=== PATIENT | female | born 1995 | race Caucasian/White ===

== ENCOUNTER 2017-09-08 07:14 | Emergency (ER) | payer SELFPAY ==
[2017-09-08 07:16] VITALS: BP 135/80; PULSE 83; RESP 16; TEMP 36.6; O2SAT 99; BMI 44.6
--- NOTE | 2017-09-08 07:31 | ED.VISSUMM ---
- ER Visit Summary Date of Service: 09/08/17 Chief Complaint: Left ankle injury History of Present Illness: The patient is a 22 F presenting with left ankle injury. 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 She fell to the ground. She did not hit her head or lose consciousness. She complains of left ankle pain. Denies other complaints. She has history of previous surgery on her left ankle. Physical Examination: Vitals are stable. Patient is afebrile. Alert no acute distress. HEENT exam is unremarkable. Neck is nontender Lungs are clear and equal bilaterally. Heart is regular rate and rhythm. Extremities left lateral ankle swelling and tenderness, no proximal fibular tenderness, mild lateral foot tenderness. Normal pulse. Skin is warm and dry. No focal neurologic deficit. Remainder of exam is unremarkable. Emergency Department Course and Treatment: She was given ice, Motrin. X-ray left ankle and foot show soft tissue swelling with no fracture. She is given an Aircast and crutches. She is advised to ice and elevate. Advised use NSAIDs for pain. Advised return to ED if worsening complaints. Disposition: Discharge home Impression: Left ankle sprain This note was generated with [employer] dictation software. It may contain incorrect words, spelling, and punctuation that were not noted in review of the chart prior to signing ED Disposition - Plan for ED Patient: Chief Complaint: Lower Extremity Injury
--- NOTE | 2017-09-08 07:33 | RAD_ITS ---
STUDY: X-RAY - LEFT ANKLE REASON FOR EXAM: Female, 22 years old. Pain status post fall. TECHNIQUE: 3 view(s) of the ankle. COMPARISON: None. FINDINGS: Osseous alignments appear anatomic without fracture lucency or cortical step-off. There is nonspecific lateral soft tissue swelling. There is a small well-corticated spur at the Achilles insertion site on the calcaneus. RAD/Ankle min 3 Views IMPRESSION: No evident acute osseous abnormality. Nonspecific lateral soft tissue swelling/edema. Degenerative calcaneal spur. Electronically Signed: Deion Sheppard MD at 8:08 EDT , Service support ,
--- NOTE | 2017-09-08 07:41 | RAD_ITS ---
STUDY: X-RAY - LEFT FOOT CLINICAL: Female, 22 years old. Pain status post fall. TECHNIQUE: 3 view(s) of the foot. COMPARISON: None. FINDINGS: Normal talus, calcaneus, and tarsal bones. Normal visualized subtalar, talonavicular, calcaneocuboid, tarsal and tarsometatarsal articulations. Normal metatarsi. Normal metatarsophalangeal joint of the great toe. Normal tibial and fibular sesamoid bones. Normal interphalangeal joint of the great toe. Normal phalanges of the great toe. Normal second through fifth metatarsophalangeal joints. Normal interphalangeal joints and phalanges of the lesser toes. The soft tissue structures are unremarkable. RAD/Foot min 3 Views IMPRESSION: Normal x-ray examination of the foot. Electronically Signed: Deion Sheppard MD at 8:10 EDT , Service support ,
[2017-09-08] MEDS: Ibuprofen 600 MG Tablet PO (08:18)
[2017-09-08 08:22] VITALS: PULSE 97; RESP 15; O2SAT 100
--- NOTE | 2017-09-08 08:27 | ED.DEP ---
ED Disposition - Plan for ED Patient: Chief Complaint: Lower Extremity Injury Instructions: ED Sprain Ankle W X Ray Referrals: Care Physician,No Primary [Primary Care Provider] -
== END 2017-09-08 08:44 | disposition home or self-care (01) ==
LOC: ED 07:34
PROVIDERS: Emergency Provider Emergency Medicine
DX: S93.402A Sprain of unspecified ligament of left ankle, initial encounter (principal); Z72.0 Tobacco use; X50.1XXA Overexertion from prolonged static or awkward postures, initial encounter; Y93.01 Activity, walking, marching and hiking; Y92.480 Sidewalk as the place of occurrence of the external cause; Y99.0 Civilian activity done for income or pay
CPT/HCPCS: 73610; 73630; 99284

== ENCOUNTER 2017-11-16 22:19 | Emergency (ER) | payer SELFPAY ==
[2017-11-16 22:21] VITALS: BP 112/63; PULSE 85; RESP 16; TEMP 37.2; O2SAT 99; BMI 44.5
--- NOTE | 2017-11-16 23:18 | ED.VISSUMM ---
- ER Visit Summary Date of Service: 11/16/17 Chief Complaint: Subjective fever and body aches. History of Present Illness: The patient is a 22 F this morning awoke with some nasal congestion and mild sore throat. Body aches and subjective fever. No nausea, vomiting or diarrhea. No dysuria. No chest pain or shortness of breath. Physical Examination: Well-appearing young female. Vital signs are stable and afebrile. Pulse ox 99% on room air no signs of hypoxia. The patient does not look septic or toxic. Or in any distress. She is well-hydrated. H EENT exam normal TMs normal. Posterior pharynx moist pink no erythema or exudate. Prior tonsillectomy. Neck nontender no lymphadenopathy. No meningismus. Able to touch chin to chest. Lungs clear to auscultation bilaterally. Heart regular rate and rhythm no murmur. Abdomen soft nontender. Normal bowel sounds. Moving all 4 extremities. Back exam nontender. Skin no rash. Neurologically awake alert without focal motor deficits. Patient's exam is completely benign. Test Results: None Emergency Department Course and Treatment: History and exam are consistent with a viral syndrome. Treatment Plan: Plenty of fluids and rest. Tylenol Motrin as needed. Return if worse. Disposition: Discharge Impression: Acute viral syndrome This note was generated with [employer] dictation software. It may contain incorrect words, spelling, and punctuation that were not noted in review of the chart prior to signing ED Disposition - Plan for ED Patient: Chief Complaint: Cold Sx Referrals: Care Physician,No Primary [Primary Care Provider] -
--- NOTE | 2017-11-16 23:20 | ED.DEP ---
ED Disposition - Plan for ED Patient: Disposition: Home or Assisted Living Chief Complaint: Cold Sx Instructions: ED Viral Syndrome Referrals: Care Physician,No Primary [Primary Care Provider] - As Needed Additional Instructions: Plenty of fluids and rest. Tylenol and/or Motrin for fever and body aches. Return if feeling worse.
== END 2017-11-16 23:24 | disposition home or self-care (01) ==
LOC: ED 23:23
PROVIDERS: Emergency Provider Emergency Medicine
DX: B34.9 Viral infection, unspecified (principal); Z72.0 Tobacco use
CPT/HCPCS: 99282

== ENCOUNTER 2018-01-11 23:13 | Emergency (ER) | payer SELFPAY ==
[2018-01-11 23:13] VITALS: BP 125/70; PULSE 100; RESP 18; TEMP 36.8; O2SAT 97; BMI 43.8
--- NOTE | 2018-01-11 23:44 | ED.DCSUM_ITS ---
- ER Visit Summary Date of Service: 01/11/18 Chief Complaint: [] Esophageal irritation History of Present Illness: The patient is a 22 F [] patient stated she has had esophageal irritation for last couple weeks when she swallows in her upper chest she feels discomfort. He feels like a burning tightness sensation. He does not really have a sore throat. She tried Benadryl with no relief. No history of esophagitis. No recent pills got stuck. Food got stuck. Physical Examination: [] Vital signs reviewed General: Well-nourished well-developed Head: Normocephalic atraumatic Eyes: Pupils equal round and reactive to light extraocular movements intact ENT: TMs clear no hemotympanum no trauma throat exam normal Neck: Nontender full range of motion Cardiovascular: Regular rate rhythm no murmurs normal S1-S2 Respiratory: No distress clear to auscultation bilaterally chest nontender Abdomen: Soft nontender nondistended normal bowel sounds no masses Back: Nontender no CVA tenderness Extremities: Nontender active range of motion ?4 extremities no trauma Skin: Normal color no trauma Neuro alert oriented cranial nerves II through XII intact normal strength sensation reflexes Test Results: [] Emergency Department Course and Treatment: [] At this time I think the patient likely has a esophagitis. Will be started on Pepcid will try this with her first dose here. She will also use [id number] and follow-up as an outpatient. I do not think she has a foreign body. Treatment Plan: [] Disposition: [] Impression: [] Esophagitis This note was generated with [employer] dictation software. It may contain incorrect words, spelling, and punctuation that were not noted in review of the chart prior to signing ED Disposition - Plan for ED Patient: Chief Complaint: Sore Throat Referrals: Care Physician,No Primary [Primary Care Provider] -
--- NOTE | 2018-01-11 23:44 | ED.DEP ---
ED Disposition - Plan for ED Patient: Disposition: Home or Assisted Living Chief Complaint: Sore Throat Instructions: Esophagitis Prescriptions: Famotidine [Pepcid] 20 mg PO BID #28 tab Referrals: Care Physician,No Primary [Primary Care Provider] - Orlando Gross DO [NON CLINICAL AFFILIATE] -
[2018-01-11] MEDS: Famotidine 20 MG Tablet PO (23:50)
[2018-01-11 23:52] VITALS: BP 124/70; PULSE 81; RESP 16; O2SAT 98
== END 2018-01-11 23:53 | disposition home or self-care (01) ==
LOC: ED 23:49
PROVIDERS: Emergency Provider Emergency Medicine
DX: K20.9 Esophagitis, unspecified (principal); E66.9 Obesity, unspecified
CPT/HCPCS: 99283

== ENCOUNTER 2018-09-17 17:42 | Emergency (ER) | payer SELFPAY ==
[2018-09-17 17:44] VITALS: BP 136/68; PULSE 89; RESP 16; TEMP 36.1; O2SAT 100; BMI 43.1
--- NOTE | 2018-09-17 18:04 | CT_ITS ---
STUDY: CT SOFT TISSUE NECK WITH CONTRAST REASON FOR EXAM: Female, 23 years old. Difficulty swallowing RADIATION DOSAGE (If Supplied By Facility): CTDIvol = ( 20.70 ) mGy, DLP = ( 625.33 ) mGycm TECHNIQUE: The patient was scanned in a multi-detector CT scanner. High resolution transaxial imaging was performed following intravenous administration of 100ML IV Isovue 300. Sagittal and coronal images were reconstructed. Individualized dose optimization techniques were used for this CT. COMPARISON: None. FINDINGS: Normal bilateral parotid glands. Normal bilateral transit specialist spaces. Normal bilateral parapharyngeal spaces. Normal bilateral carotid spaces. Normal bilateral sublingual and submandibular glands and spaces. Normal visualized nasopharynx. Normal retropharyngeal space. Normal perivertebral space. Normal visualized bilateral faucial tonsils. The visualized tongue, tongue base and oropharynx are normal. The visualized cervical lymph nodes (levels I-) are within normal size limits, and maintain normal morphology. There is no demonstrated solid or cystic mass lesion. There is no abnormal contrast enhancement. Normal epiglottis, bilateral vallecula and hypopharynx. The pre-epiglottic and paraglottic adipose spaces are normal. Normal visualized bilateral piriform sinuses, aryepiglottic folds, vocal cords, and arytenoid-cricoid articulations. Normal subglottic trachea. Normal bilateral lobes of the thyroid gland. Normal visualized pulmonary apices. Normal visualized paranasal sinuses. Normal visualized cervical spine. CT/Soft Tissue Neck WITH Contrast IMPRESSION: No CT evidence of acute neck pathology. Electronically Signed: Manpreet Angulo MD at 19:17 EDT Tel , Service support ,
[2018-09-17] MEDS: 0.9% Normal Saline 1,000 ML 1000 ML IV (18:28)
[2018-09-17 18:41] LABS: Absolute Lymphocyte Count 2.65 X10^3/ul (0.83-4.51); Absolute Neutrophil Count 9.6 X10^3/uL (2.0-7.7); Basophil# 0.01 X10^3/uL; Basophil% 0.1 % (0-1); Eosinophil# 0.16 X10^3/uL; Eosinophils% 1.2 % (0-5); Hemoglobin 12.9 g/dl (12.0-15.0); Lymphocyte # 2.65 X10^3/ul (4.0); Mean Corp Hgb Conc 33.1 g/gl (32-36); Mean Corpuscular Hgb 27.3 pg (27.0-32.0); Mean Corpuscular Volume 82.5 fL (81-99); Mean Platelet Vol. 9.1 fl (6.2-12.0); Monocyte# 0.78 X10^3/uL; Monocyte% 5.9 % (0-10); Neutrophil % 72.6 % (47-70); Platelet Count 248 K/mm3 (150-450); RBC Distribution Width CV 13.4 % (11.6-14.6); RBC Distribution Width SD 40.5 fl (35.1-43.9); Red Blood Count 4.73 M/mm3 (4.2-5.4); White Blood Count 13.2 K/mm3 (4.4-11.0)
[2018-09-17 18:42] LABS: POSITIVE COUNT NO; POSITIVE DIFFERENTIAL NO; POSITIVE MORPHOLOGY NO
[2018-09-17 18:53] LABS: Anion Gap 4 (5-15); BUN 12 mg/dL (7-18); Calcium,Total 8.6 mg/dL (8.5-10.1); Chloride 106 mmol/L (98-107); Creatinine, Serum 0.75 mg/dL (0.55-1.02); EST Glomerular Filtration Rate 101 mL/min (>60); Est Glom Filt Rate - Afr Amer 122 mL/min (>60); Estimated Creatinine Clearance 113.45 ml/min; Glucose 87 mg/dL (74-106); Potassium 3.7 mmol/L (3.5-5.1); Sodium Level 137 mmol/L (136-145)
--- NOTE | 2018-09-17 21:11 | ED.VISSUMM ---
- ER Visit Summary Date of Service: 09/17/18 Chief Complaint: Sore throat and ear pain History of Present Illness: The patient is a 23 F who presents with sore throat and ear pain that began yesterday. Patient states her pain is worse with any swallowing. Patient describes her pain as sharp. Patient states her right ear is worse than her left ear pain. Patient denies any fevers or chills. Patient denies any cough. Patient admits to some nausea but denies any vomiting. Patient states she is having difficulty swallowing liquids. Patient also states her voice has been getting hoarse since she had the sore throat. Physical Examination: Vital signs are stable. Patient is afebrile. Patient is in no acute distress. The right tympanic membrane has a large effusion. The left tympanic membrane is clear. There there is no erythema of the tympanic membranes. Neck is supple. Trachea is midline. There is no JVD noted. Heart was regular rate and rhythm. Lungs are clear and equal bilateral. Abdomen is soft and nontender. Test Results: CBC showed a mild leukocytosis of 13.2. Basic metabolic profile is normal. CT scan of the soft tissue neck was obtained. There is no evidence of any abscess formation. Emergency Department Course and Treatment: Patient was given IV fluids. Patient was given a dose of clindamycin here. Patient was given a prescription for clindamycin. Patient was instructed to follow-up with her primary care physician in 5 to 7 days. Patient understood and was agreeable with the plan. All questions were answered. Disposition: Discharge home Impression: Pharyngitis This note was generated with [employer] dictation software. It may contain incorrect words, spelling, and punctuation that were not noted in review of the chart prior to signing ED Disposition - Plan for ED Patient: Disposition: Home or Assisted Living Diagnosis: Pharyngitis Instructions: ED Strep Pharyngitis Poss Prescriptions: Clindamycin HCl [Cleocin] 300 mg PO Q6H #40 cap Referrals: Care Physician,No Primary [Primary Care Provider] -
[2018-09-17 21:43] VITALS: RESP 18; O2SAT 98
--- NOTE | 2018-09-17 22:09 | ED.DCSUM_ITS ---
- ER Visit Summary Date of Service: 09/17/18 Chief Complaint: Sore throat and ear pain History of Present Illness: The patient is a 23 F who presents with sore throat and ear pain that began yesterday. Patient states her pain is worse with any swallowing. Patient describes her pain as sharp. Patient states her right ear is worse than her left ear pain. Patient denies any fevers or chills. Patient denies any cough. Patient admits to some nausea but denies any vomiting. Patient states she is having difficulty swallowing liquids. Patient also states her voice has been getting hoarse since she had the sore throat. Physical Examination: Vital signs are stable. Patient is afebrile. Patient is in no acute distress. The right tympanic membrane has a large effusion. The left tympanic membrane is clear. There there is no erythema of the tympanic membranes. Neck is supple. Trachea is midline. There is no JVD noted. Heart was regular rate and rhythm. Lungs are clear and equal bilateral. Abdomen is soft and nontender. Test Results: CBC showed a mild leukocytosis of 13.2. Basic metabolic profile is normal. CT scan of the soft tissue neck was obtained. There is no evidence of any abscess formation. Emergency Department Course and Treatment: Patient was given IV fluids. Patient was given a dose of clindamycin here. Patient was given a prescription for clindamycin. Patient was instructed to follow-up with her primary care physician in 5 to 7 days. Patient understood and was agreeable with the plan. All questions were answered. Disposition: Discharge home Impression: Pharyngitis This note was generated with [employer] dictation software. It may contain incorrect words, spelling, and punctuation that were not noted in review of the chart pr ior to signing ED Disposition - Plan for ED Patient: Disposition: Home or Assisted Living Diagnosis: Pharyngitis Instructions: ED Strep Pharyngitis Poss Prescriptions: Clindamycin HCl [Cleocin] 300 mg PO Q6H #40 cap Referrals: Care Physician,No Primary [Primary Care Provider] -
[2018-09-17 22:27] VITALS: RESP 18
== END 2018-09-17 22:28 | disposition home or self-care (01) ==
PROVIDERS: Emergency Provider Emergency Medicine
DX: J02.9 Acute pharyngitis, unspecified (principal); E66.9 Obesity, unspecified; Z72.0 Tobacco use
CPT/HCPCS: 70491; 80048; 85025; 96361; 96365; 99284; J7030; Q9967; A4216

== ENCOUNTER 2018-12-06 05:53 | Emergency (ER) | payer SELFPAY ==
[2018-12-06 05:54] VITALS: BP 144/87; PULSE 95; RESP 20; TEMP 37.4; O2SAT 96; BMI 44.9
[2018-12-06 06:00] VITALS: O2SAT 96
--- NOTE | 2018-12-06 06:01 | ED.DCSUM_ITS ---
History of Present Illness Chief Complaint: Shortness of Breath Informant: Patient Narrative: Stated she started having a cough yesterday nonproductive. Since last night she started developing wheezing and chest tightness. No sick contacts. No fevers or chills. No home treatment. 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 Current severity is mild. No history of asthma. She does smoke cigarettes. Past Medical History - Allergies and Home Meds Allergies/Adverse Reactions: Allergies amoxicillin Allergy (Verified 12/06/18 05:53) Vomiting clavulanic acid [From Augmentin] Allergy (Verified 12/06/18 05:53) Vomiting clomiphene [From Clomid] Allergy (Verified 12/06/18 05:53) Other Primary Care Physician: Orlando Gross DO [NON CLINICAL AFFILIATE] - Prior records reviewed: Yes Past Medical History: None Surgical History: - - Tonsils and adenoids Lives: With Family Smoking Status: Current every day smoker Alcohol: None Drugs: None Review of Systems General: Denies: Chills, Fever, Sweats Eyes: Denies: Visual changes - bilaterally, Diplopia ENT: Denies: Rhinorrhea, Sore throat Cardiovascular: Denies: Chest pain, Palpitations Respiratory: Reports: Dyspnea, Cough, Dyspnea on exertion Gastrointestinal: Denies: Abdominal pain, Nausea, Vomiting, Diarrhea, Melena, Hematochezia Genitourinary: Denies: Dysuria, Hematuria, Frequency Musculoskeletal: Denies: Back pain, Extremity Pain Skin: Denies: Rash, Wounds Neurological: Denies: Headache, Weakness, Numbness Physical Exam Vital Signs/Narrative: Vital Signs Temp Pulse Resp BP Pulse Ox 12/06/18 05:54 99.3 F H 95 20 H 144/87 H 96 General: Well nourished, Well developed, No Acute Distress Head: Normocephalic, Atraumatic Eyes: Perrl, EOMI ENT: Moist mucous membranes, No rhinorrhea Neck: Supple, Nontender Cardiovascular: Regular rate, Regular rhythm, No murmurs Respiratory: No distress, CTA bilaterally, Chest nontender, Wheezing - Mild expiratory wheezing end phase. Abdomen: Soft, Nontender, Nondistended, Normal bowel sounds Back: Nontender, Normal Inspection Extremities: Nontender, No edema Skin: Normal color, No rash Neurological: Alert, Oriented x3, Cranial nerves II-XII grossly intact, Normal Strength, Normal Sensation Psychological: Normal affect, Normal Mood Diagnostic/Tx/Re-eval - Medical Decision Making Given a DuoNeb breathing treatment. [place] much better after treatment. I do not think she needs a chest x-ray. I feel she has asthmatic bronchitis. Given prednisone. Instructed to stop smoking. Given an inhaler to use at home. Fo llow-up as an outpatient return if she worsens ED Disposition - Plan for ED Patient: Disposition: Home or Assisted Living Diagnosis: Asthmatic bronchitis Instructions: BRONCHITIS with Wheezing (Adult) Prescriptions: Prednisone [Deltasone] 60 mg PO DAILY #15 tab Prescription Printed Referrals: Orlando Gross DO [NON CLINICAL AFFILIATE] -
[2018-12-06 06:08] VITALS: PULSE 98; RESP 18
[2018-12-06] MEDS: Ipratropium/Albuterol Sulfate 3 ML AMPUL.NEB INHALATION (06:08)
[2018-12-06] MEDS: predniSONE 20 MG Tablet 60 MG PO (06:28)
[2018-12-06 06:29] VITALS: BP 121/64; PULSE 105; RESP 18; TEMP 37.4; O2SAT 96
[2018-12-06 06:42] VITALS: BP 124/73; PULSE 97; RESP 22; O2SAT 95
== END 2018-12-06 06:43 | disposition home or self-care (01) ==
LOC: ED 06:06
PROVIDERS: Emergency Provider Emergency Medicine
DX: J45.909 Unspecified asthma, uncomplicated (principal); F17.210 Nicotine dependence, cigarettes, uncomplicated
CPT/HCPCS: 94640; 94664; 99283

== ENCOUNTER 2018-12-07 03:49 | Emergency (ER) | payer SELFPAY ==
[2018-12-06 05:54] VITALS: BMI 44.9
[2018-12-07 03:50] VITALS: BP 104/67; PULSE 109; RESP 20; TEMP 36.7; O2SAT 100; BMI 44.9
[2018-12-07 03:53] VITALS: O2SAT 95
--- NOTE | 2018-12-07 04:33 | RAD_ITS ---
HISTORY: COUGH X 2 DAYS EXAMINATION/TECHNIQUE: XR Chest 2 Views: COMPARISON: None FINDINGS: Left mid and left lower lung infiltrates compatible with pneumonia. Associated peribronchial thickening. Right basilar small infiltrate also suggested. Normal heart size. No vascular congestion or pleural effusion. No pneumothorax. The bony thorax appears intact. RAD/Chest PA and Lateral IMPRESSION: 1. Bilateral infiltrates, larger on the left, compatible with pneumonia. 2. Infiltrates should be followed to radiographic resolution. at 0506 Reported and signed by: Ulysses Ovalle MD Electronically Signed: Ulysses Ovalle, at 5:04 EDT Tel , Service support ,
[2018-12-07 05:24] VITALS: BP 101/58; PULSE 95; RESP 17
--- NOTE | 2018-12-07 05:36 | ED.DCSUM_ITS ---
- ER Visit Summary Date of Service: 12/07/18 Chief Complaint: Cough History of Present Illness: The patient is a 23 F who presents with cough. This is been present for 2 days. She was seen yesterday and diagnosed with bronchitis and prescribed prednisone. She states she has been unable to sleep due to severe cough. She is not short of breath. She denies chest pain. No fevers nausea vomiting. Physical Examination: Afebrile, heart rate 109, respiratory rate 20, pulse ox 100% on room air Moist mucous membranes Heart regular rhythm slightly tachycardic Lungs are clear I do not appreciate rales or wheezing Abdomen soft Alert Test Results: Two-view chest x-ray shows bilateral infiltrates left greater than right Emergency Department Course and Treatment: Patient does appear to have bilateral pneumonia. Although she was slightly tachycardic at the time triage and initial exam on recheck heart rate is 95, respiratory rate of 17. She is not febrile, she denies shortness of breath, no other systemic symptoms. She is young and otherwise healthy therefore I do feel she is a good candidate for outpatient treatment. However she was given clear return precautions and specific signs and symptoms to monitor for. I advised to have a low threshold for reevaluation. She will be treated with Levaquin. She is agreeable to plan. She was also advised on supportive care. She was discharged. Treatment Plan: [] Disposition: Discharge Impression: Bilateral community-acquired pneumonia This note was generated with [employer] dictation software. It may contain incorrect words, spelling, and punctuation that were not noted in review of the chart prior to signing ED Disposition - Plan for ED Patient: Referrals: Care Physician,No Primary [Primary Care Provider] -
--- NOTE | 2018-12-07 05:40 | ED.DEP ---
ED Disposition - Plan for ED Patient: Instructions: PNEUMONIA (Adult) Prescriptions: levoFLOXacin tablet [Levaquin] 500 mg PO DAILY #7 tab Prescription Printed Referrals: Care Physician,No Primary [Primary Care Provider] - Additional Instructions: Stop prednisone, start Levaquin
[2018-12-07 05:43] VITALS: BP 109/58; O2SAT 95
== END 2018-12-07 05:47 | disposition home or self-care (01) ==
PROVIDERS: Emergency Provider Emergency Medicine
DX: J18.9 Pneumonia, unspecified organism (principal); Z72.0 Tobacco use
CPT/HCPCS: 71046; 99282

== ENCOUNTER 2018-12-07 16:53 | Emergency (ER) | payer SELFPAY ==
[2018-12-07 03:50] VITALS: BMI 44.9
[2018-12-07 16:54] VITALS: BP 138/69; PULSE 103; RESP 20; TEMP 37.2; O2SAT 92; BMI 43.8
--- NOTE | 2018-12-07 17:18 | EKG12_ITS ---
Test Reason : FEVER Blood Pressure : / mmHG Vent. Rate : 096 BPM Atrial Rate : 096 BPM P-R Int : 148 ms QRS Dur : 080 ms QT Int : 342 ms P-R-T Axes : 018 015 019 degrees QTc Int : 432 ms Normal sinus rhythm Normal ECG Confirmed by CHACE ABRAHAM ([id number]), editor continuity and script JUAN BECKER ([id number]) on 12/09/2018 10:13:15 AM Referred By: JOSEE Confirmed By:CHACE ABRAHAM
[2018-12-07 17:22] VITALS: O2SAT 97
--- NOTE | 2018-12-07 17:28 | NURSING ---
NO OLD EKGS
--- NOTE | 2018-12-07 17:31 | ED.DCSUM_ITS ---
History of Present Illness Chief Complaint: Fever Informant: Patient Onset: Today Quality: - - 101.9 Current Severity: Mild Maximum Severity: Moderate Associated Symptoms: Cough, Fever. Negative for: Sore throat Chest Pain: Aching - Only when I cough Narrative: Patient is healthy and started having a cough 2 or 3 days ago, was seen several times in the ER, once was early this morning, when she was diagnosed with bilateral pneumonia. She was prescribed antibiotics but states she has no insurance and does not have the money to fill them and so has not been able to start them yet until when she gets paid tomorrow, but developed a fever today and was told to come back if she does. She denies having any other new symptoms and denies dyspnea. Her cough is nonproductive. Past Medical History - Allergies and Home Meds Allergies/Adverse Reactions: Allergies amoxicillin Allergy (Verified 12/07/18 16:57) Vomiting clavulanic acid [From Augmentin] Allergy (Verified 12/07/18 16:57) Vomiting clomiphene [From Clomid] Allergy (Verified 12/07/18 16:57) Other Primary Care Physician: Care Physician,No Primary [Primary Care Provider] - Surgical History: - - Tonsils and adenoids Lives: With Family Smoking Status: Current every day smoker Drugs: None Review of Systems General: Reports: Fever, Malaise. Denies: Chills, Sweats Eyes: Denies: Visual changes - bilaterally, Diplopia ENT: Reports: - - Nasal congestion without rhinorrhea. Denies: Bilateral ear pain, Rhinorrhea, Sore throat Cardiovascular: Reports: Chest pain - See HPI.. Denies: Palpitations Respiratory: Reports: Cough. Denies: Dyspnea, Sputum, Dyspnea on exertion, Orthopnea Gastrointestinal: Reports: Nausea. Denies: Abdominal pain, Vomiting, Diarrhea, Melena, Hematochezia Genitourinary: Denies: Dysuria, Hematuria, Frequency Musculoskeletal: Denies: Neck pain, Back pain, Extremity Pain Skin: Denies: Rash, Wounds Neurological: Denies: Headache, Weakness, Numbness Physical Exam Vital Signs/Narrative: Vital Signs Temp Pulse Resp BP Pulse Ox 12/07/18 17:22 97 12/07/18 16:54 98.9 F 103 H 20 H 138/69 H 92 Inital Vital Signs reviewed: Yes General: Well nourished, Well developed, Obese, No Acute Distress Head: Normocephalic, Atraumatic Eyes: Perrl, EOMI ENT: Moist mucous membranes, No rhinorrhea Neck: Supple, Nontender Cardiovascular: Regular rate, Regular rhythm, No murmurs, Tachycardia - Mild Respiratory: No distress, Chest nontender, Rales - Left base Abdomen: Soft, Nontender, Nondistended, Normal bowel sounds Back: Nontender, Normal Inspection Extremities: Nontender, No edema Skin: Normal color, No rash, No Trauma Neurological: Alert, Oriented x3, Cranial nerves II-XII grossly intact, Normal Strength, Normal Sensation Psychological: Normal affect, Normal Mood Diagnostic/Tx/Re-eval Impressions Chest X-Ray 12/07/18 18:00 IMPRESSION: No change in left lower lobe pneumonia. Electronically Signed: Truong Dixon MD at 18:31 EDT Tel , Service support , 12/07/18 18:00 Chest PA and Lateral [RAD] Stat Laboratory Results 12/07/18 12/07/18 12/07/18 17:35 17:35 17:35 WBC 5.2 RBC 5.23 Hgb 14.2 Hct 43.9 MCV 83.9 MCH 27.2 MCHC 32.3 RDW Std Deviation 41.5 RDW Coeff of Zeynep 13.4 Plt Count 236 MPV 9.7 Immature Gran % (Auto) 0.400 Neut % (Auto) 62.7 Lymph % (Auto) 28.5 Pershing % (Auto) 7.8 Eos % (Auto) 0.4 Baso % (Auto) 0.2 Absolute Neuts (auto) 3.2 Absolute Lymphs (auto) 1.47 Absolute Nucleated RBC 0.00 Nucleated RBC % 0 PT 13.7 INR 1.1 APTT 30.8 Sodium 139 Potassium 4.1 Chloride 104 Carbon Dioxide 28.0 Anion Gap 7 BUN 11 Creatinine 0.80 Estim Creat Clear Calc 106.36 Est GFR (MDRD) Af Amer 114 Est GFR (MDRD) Non-Af 94 BUN/Creatinine Ratio 13.8 Glucose 93 Lactic Acid Calcium 8.7 Total Bilirubin 0.60 AST 16 ALT 19 Alkaline Phosphatase 64 Total Protein 7.0 Albumin 3.4 Globulin 3.6 Albumin/Globulin Ratio 0.9 12/07/18 17:35 WBC RBC Hgb Hct MCV MCH MCHC RDW Std Deviation RDW Coeff of Zeynep Plt Count MPV Immature Gran % (Auto) Neut % (Auto) Lymph % (Auto) Pershing % (Auto) Eos % (Auto) Baso % (Auto) Absolute Neuts (auto) Absolute Lymphs (auto) Absolute Nucleated RBC Nucleated RBC % PT INR APTT Sodium Potassium Chloride Carbon Dioxide Anion Gap BUN Creatinine Estim Creat Clear Calc Est GFR (MDRD) Af Amer Est GFR (MDRD) Non-Af BUN/Creatinine Ratio Glucose Lactic Acid 0.9 Calcium Total Bilirubin AST ALT Alkaline Phosphatase Total Protein Albumin Globulin Albumin/Globulin Ratio - Rhythm Strip Rhythm Strip: Sinus Rhythm Rate: 103 Ectopy: None - EKG Initial EKG Interpretation: Sinus Rhythm, No Acute Injury Pattern - Medical Decision Making Although patient meets sepsis criteria because of mild tachycardia and a respiratory rate of 20 at triage, she does not clinically appear septic and has a normal work-up with an unchanged chest x-ray showing a left lower lobe pneumonia consistent with her clinical exam. She was given a dose of IV Levaquin empirically. That is what she was prescribed, she states. I think this is reasonable as it will likely cover atypicals as well. Viral pneumonia is in the differential diagnosis especially given her white blood count of 5.2. I think she is stable for discharge, if she feels the antibiotic and starts it tomorrow, that would be appropriate timing since she has a 24-hour coverage with our dose here today. If she has dyspnea or feels worse she is welcome to return for reevaluation. She is comfortable with that plan. Of note, she has not yet urinated and does not want to wait if she is going to be discharged so it was canceled. She has no urinary symptoms. ED Disposition - Plan for ED Patient: Disposition: Home or Assisted Living Diagnosis: Sepsis due to pneumonia, Community acquired pneumonia Instructions: PNEUMONIA (Adult) Referrals: Sharla Keenan MD [STAFF PHYSICIAN] - 5-7 Days Additional Instructions: Fill and start your prescription tomorrow, as previously written/prescribed.
[2018-12-07 17:46] VITALS: BP 112/69; PULSE 94; PULSE 98; RESP 17; TEMP 37.9; O2SAT 94; O2SAT 99
[2018-12-07 17:47] LABS: Absolute Lymphocyte Count 1.47 X10^3/uL (0.83-4.51); Absolute Neutrophil Count 3.2 X10^3/uL (2.0-7.7); Basophil# 0.01 X10^3/uL; Basophil% 0.2 % (0-1); Eosinophil# 0.02 X10^3/uL; Eosinophils% 0.4 % (0-5); Hematocrit 43.9 % (37-47); Hemoglobin 14.2 g/dL (12.0-15.0); Lymphocyte # 1.47 X10^3/ul (4.0); Lymphocyte % 28.5 % (19-41); Mean Corp Hgb Conc 32.3 g/dL (32-36); Mean Corpuscular Hgb 27.2 pg (27.0-32.0); Mean Corpuscular Volume 83.9 fL (81-99); Mean Platelet Vol. 9.7 fl (6.2-12.0); Monocyte% 7.8 % (0-10); NRBC Flagged by Analyzer 0 % (0-5); Neutrophil # 3.23 X10^3/uL (2.7-7.7); Neutrophil % 62.7 % (47-70); Platelet Count 236 K/mm3 (150-450); RBC Distribution Width CV 13.4 % (11.6-14.6); RBC Distribution Width SD 41.5 fl (35.1-43.9); Red Blood Count 5.23 M/mm3 (4.2-5.4); White Blood Count 5.2 K/mm3 (4.4-11.0)
[2018-12-07] MEDS: levoFLOXacin IV 750 MG/150 ML BAG 100 MG IV (17:56)
--- NOTE | 2018-12-07 18:00 | RAD_ITS ---
STUDY: X-RAY CHEST REASON FOR EXAM: Female, 23 years old. Fever, bronchitis TECHNIQUE: PA and lateral views of the chest. COMPARISON: 12/07/2018 0439 FINDINGS: No change in the alveolar opacity in the lower left lung consistent with left lower lobe pneumonia. There is no demonstrated pleural abnormality. Normal size heart. Normal mediastinum and charlie. Normal visualized pulmonary arteries. Normal visualized aortic arch and descending thoracic aorta. Normal visualized thoracic spine. Normal visualized ribs, clavicles, and shoulders. There is no demonstrated abnormality of the visualized soft tissue structures of the upper abdomen. RAD/Chest PA and Lateral IMPRESSION: No change in left lower lobe pneumonia. Electronically Signed: Truong Dixon MD at 18:31 EDT Tel , Service support ,
[2018-12-07 18:05] LABS: ALB/GLOB Ratio 0.9 RATIO (0.9-2.4); AST(SGOT) 16 U/L (15-37); Alanine Aminotransfer ALT/SGPT 19 U/L (13-56); Albumin, Serum 3.4 g/dL (3.2-5.0); Alkaline Phosphatase 64 U/L (45-117); Anion Gap 7 (5-15); BUN 11 mg/dL (7-18); BUN/Creat Ratio 13.8 RATIO (10-20); Calcium,Total 8.7 mg/dL (8.5-10.1); Chloride 104 mmol/L (98-107); EST Glomerular Filtration Rate 94 mL/min (>60); Est Glom Filt Rate - Afr Amer 114 mL/min (>60); Estimated Creatinine Clearance 106.36 ml/min; Globulin 3.6 g/dL (2.2-4.2); Glucose 93 mg/dL (74-106); Potassium 4.1 mmol/L (3.5-5.1); Sodium Level 139 mmol/L (136-145)
[2018-12-07 18:07] LABS: International Normalized Ratio 1.1; Prothrombin Time (Protime)PT. 13.7 SECONDS (11.7-14.9)
[2018-12-07 18:08] LABS: Partial Thromboplast Time 30.8 Seconds (24.1-36.2)
[2018-12-07 18:13] LABS: Lactic Acid 0.9 mmol/L (0.4-2.0)
[2018-12-07 18:24] VITALS: BP 109/78; PULSE 91; PULSE 94; RESP 18; RESP 19; TEMP 38.5; O2SAT 95
[2018-12-07 19:13] VITALS: BP 112/72; PULSE 92; RESP 21; O2SAT 93
== END 2018-12-07 20:06 | disposition home or self-care (01) ==
PROVIDERS: Emergency Provider Emergency Medicine
DX: A41.9 Sepsis, unspecified organism (principal); J18.9 Pneumonia, unspecified organism; F17.200 Nicotine dependence, unspecified, uncomplicated; E66.9 Obesity, unspecified
CPT/HCPCS: 36415; 71046; 80053; 83605; 85025; 85610; 85730; 87040; 93005; 96365; 96366; 99284; J7030

== ENCOUNTER 2019-01-18 18:58 | Emergency (ER) | payer OTHER, SELFPAY ==
[2019-01-18 18:59] VITALS: BP 136/72; PULSE 86; RESP 16; TEMP 36.1; O2SAT 98; BMI 44.5
--- NOTE | 2019-01-18 20:06 | ED.VIS.GEN ---
History of Present Illness Chief Complaint: Rash Informant: Patient Onset: Days - 2 Context: Gradual Onset Timing: Continuous, Waxes and wanes Current Severity: Mild Maximum Severity: Moderate Narrative: She is a 23-year-old female with no past medical history presenting with 2 days of red rash on her left lower leg. She states is been coming and going. It started at the top of her foot. She is been taking Benadryl which does seem to be helping. Today she noticed that it went all the way up to her knee. She took Benadryl and that improved it. Patient states it is mildly itchy but more of a discomfort. She also comments that her dog was just found to have fleas. The dog does sleep in her bed. Patient denies any other complaints or concerns at this time. She denies any associated shortness of breath or wheezing. She denies any GI complaints. She denies any joint pain. She denies any fever or chills. She denies any new clothes, detergents or medications. Past Medical History - Allergies and Home Meds Allergies/Adverse Reactions: Allergies amoxicillin Allergy (Verified 01/18/19 19:01) Vomiting clavulanic acid [From Augmentin] Allergy (Verified 01/18/19 19:01) Vomiting clomiphene [From Clomid] Allergy (Verified 01/18/19 19:01) Other Primary Care Physician: Kevin Roberson MD [STAFF PHYSICIAN] - Past Medical History: None Surgical History: noncontributory, - - Tonsils and adenoids Smoking Status: Current every day smoker Review of Systems All systems negative except as indicated Skin: Reports: Rash - Left lower leg Physical Exam Vital Signs/Narrative: Vital Signs Temp Pulse Resp BP Pulse Ox 01/18/19 18:59 97.0 F L 86 16 136/72 H 98 Inital Vital Signs reviewed: Yes General: Well nourished, Well developed, No Acute Distress Head: Normocephalic, Atraumatic Eyes: Perrl, EOMI ENT: Moist mucous membranes, No rhinorrhea Neck: Supple, Nontender Cardiovascular: Regular rate, Regular rhythm, No murmurs Respiratory: No distress, CTA bilaterally, Chest nontender Abdomen: Soft, Nontender, Nondistended, Normal bowel sounds Back: Nontender, Normal Inspection Extremities: Nontender, No edema. Negative for: Tenderness, Calf Tenderness Skin: Normal color, - - Maculopapular erythematous rash scattered on left lower leg, no associated warmth or drainage, not raised Neurological: Alert, Oriented x3, Cranial nerves II-XII grossly intact, Normal Strength, Normal Sensation Psychological: Normal affect, Normal Mood Diagnostic/Tx/Re-eval - Medical Decision Making She has a rash on her leg which I suspect is allergic in nature. It does not appear cellulitic. Patient is given a dose of IM Kenalog. She will continue take Benadryl at home as needed. She is given a work note for today as requested. Patient is given a PCP for follow-up. Patient is counseled on signs and symptoms requiring return to the emergency room. Patient verbalizes agreement and understand this plan. Patient discharged home in stable and improved condition. ED Disposition - Plan for ED Patient: Disposition: Home or Assisted Living Diagnosis: Rash and nonspecific skin eruption Instructions: ALLERGIC REACTION, Other (Local) Referrals: Kevin Roberson MD [STAFF PHYSICIAN] -
[2019-01-18] MEDS: Triamcinolone Acetonide 40 MG/ML Vial IM (20:16)
[2019-01-18 20:38] VITALS: BP 138/77; PULSE 82; RESP 16; O2SAT 96
--- NOTE | 2019-01-18 20:39 | ED.RN ---
pt was observed on shot time for 20min. no reaction noticed by this nurse, pt d/c.
== END 2019-01-18 20:40 | disposition home or self-care (01) ==
PROVIDERS: Emergency Provider Emergency Medicine
DX: R21 Rash and other nonspecific skin eruption (principal); F17.200 Nicotine dependence, unspecified, uncomplicated
CPT/HCPCS: 96372; 99282

== ENCOUNTER 2019-05-21 16:37 | Emergency (ER) | payer SELFPAY ==
[2019-05-21 16:38] VITALS: BP 131/76; PULSE 99; RESP 17; TEMP 36.3; O2SAT 98; BMI 46.4
--- NOTE | 2019-05-21 17:25 | ED.VISSUMM ---
- ER Visit Summary Date of Service: 05/21/19 Chief Complaint: Cough History of Present Illness: The patient is a 24 F no seen past medical history. Pneumonia about 3 months ago. Patient states she is had a cough about 2 weeks. Now greenish sputum. Subjective fever but not documented. No chills. No vomiting or diarrhea. Last menstrual period about 2 weeks ago. No dysuria. Physical Examination: Young female no acute distress. Vital signs are stable afebrile. Pulse ox 98% on room air no signs of hypoxia. H EENT exam moist his membranes. Posterior pharynx normal. Neck nontender no lymphadenopathy. Lungs clear to auscultation bilaterally. Heart regular rhythm no murmur. Abdomen soft nontender normal bowel sounds no peritoneal signs. Extremities moves all 4. Calves nontender without edema or cords. Neurologically awake and alert with no focal motor deficits. Back nontender. Test Results: Chest x-ray AP lateral 2 views read by myself shows no acute abnormality. Emergency Department Course and Treatment: Treated as a viral URI. Treatment Plan: Fluids and rest. Tylenol and Motrin as needed. Follow-up as needed. Disposition: Discharge Impression: Viral URI This note was generated with [employer] dictation software. It may contain incorrect words, spelling, and punctuation that were not noted in review of the chart prior to signing ED Disposition - Plan for ED Patient: Referrals: Care Physician,No Primary [Primary Care Provider] -
--- NOTE | 2019-05-21 17:26 | ED.DEP ---
ED Disposition - Plan for ED Patient: Disposition: Home or Assisted Living Instructions: BRONCHITIS, No Antibiotic (Adult) Referrals: Bernard Nichols MD [STAFF PHYSICIAN] - 1 Week if not improving Tali Freeman [NON-STAFF] - 1 Week if not improving Additional Instructions: Plenty of fluids and rest. Tylenol Motrin for body aches and fever. Follow-up if not improving return if worse.
--- NOTE | 2019-05-21 17:40 | RAD_ITS ---
STUDY: X-RAY CHEST REASON FOR EXAM: Female, 24 years old. PT WITH COUGH CONGESTION AND SUERO X WEEK. TECHNIQUE: PA and lateral views of the chest. COMPARISON: December 07, 2018. FINDINGS: There is no new focal consolidation. Normal size heart. Normal mediastinum and charlie. Normal visualized pulmonary arteries. Normal visualized aortic arch and descending thoracic aorta. Normal visualized thoracic spine. Normal visualized ribs, clavicles, and shoulders. There is no demonstrated abnormality of the visualized soft tissue structures of the upper abdomen. RAD/Chest PA and Lateral IMPRESSION: No acute cardiopulmonary process. Electronically Signed: Skylar Mckinney MD at 18:17 EST Tel , Service support ,
== END 2019-05-21 18:13 | disposition home or self-care (01) ==
PROVIDERS: Emergency Provider Emergency Medicine
DX: J06.9 Acute upper respiratory infection, unspecified (principal); Z72.0 Tobacco use
CPT/HCPCS: 71046; 99282

== ENCOUNTER → 2020-01-16 | Outpatient (CLI) | payer OTHER, SELFPAY ==
[2019-06-10 11:50] VITALS: BMI 46.4
== END | disposition home or self-care (01) ==
LOC: MTDU 17:18
PROVIDERS: Referring Provider Family Medicine; Visit Provider Family Medicine
DX: Z20.828 Contact with and (suspected) exposure to other viral communicable diseases (principal)
CPT/HCPCS: 87635; 94799; C9803; U0003

== ENCOUNTER → 2020-11-08 13:52 | Outpatient (CLI) | payer OTHER, SELFPAY ==
[2019-06-10 11:50] VITALS: BMI 46.4
[2020-11-14 13:35] LABS: HPV Reflexed? NOT INDICATED
== END ==
PROVIDERS: Visit Provider Student in an Organized Health Care Education/Training Program
DX: Z12.4 Encounter for screening for malignant neoplasm of cervix (principal)
CPT/HCPCS: 88175; G0145

== ENCOUNTER → 2020-12-11 15:08 | Outpatient (CLI) | payer OTHER, SELFPAY ==
[2019-06-10 11:50] VITALS: BMI 46.4
[2020-12-11 16:36] LABS: hCG Titer Quant., Serum < 1 mIU/mL (1-3)
[2020-12-12 12:32] LABS: Progesterone Level 0.62 ng/mL (See Comment)
== END ==
PROVIDERS: Visit Provider Obstetrics & Gynecology
DX: N92.6 Irregular menstruation, unspecified (principal); N91.2 Amenorrhea, unspecified
CPT/HCPCS: 36415; 84144; 84702

== ENCOUNTER 2020-12-15 00:24 | Emergency (ER) | payer OTHER, SELFPAY ==
[2019-06-10 11:50] VITALS: BMI 46.4
[2020-12-15 00:25] VITALS: PULSE 89; RESP 16; TEMP 36.6; O2SAT 99; BMI 48.9
[2020-12-15 00:27] VITALS: BP 134/75
--- NOTE | 2020-12-15 01:52 | EX.ED.DYSGE1 ---
HPI History of Present Illness Chief Complaint: Edema Informant: patient Onset/Context/Timing Onset: Today Context: Gradual Onset Timing: Continuous Quality: Edematous and uncomfortable Location: Bilateral ankles Worsened by: Nothing Relieved by: Rest, ice, elevation Narrative Narrative: Patient presents with bilateral ankle swelling that became worse today. Patient states her legs feel uncomfortable and swollen. Patient denies any trauma or injury. Patient states she has had surgery on both ankles in the past. Patient states the swelling gets better with rest, elevation, and ice. Patient denies any chest pain or shortness of breath. Patient admits to nausea but denies any vomiting. Patient denies any fevers or chills. PFSH PFSH no medical history Home Medications NK 01/18/19 [History Last Taken Unknown] Allergy/AdvReac Type Severity Reaction Status Date / Time amoxicillin Allergy Vomiting Verified 12/15/20 00:27 clavulanic acid Allergy Vomiting Verified 12/15/20 00:27 [From Augmentin] clomiphene [From Clomid] Allergy Other Verified 12/15/20 00:27 Social History Smoking Status: Current every day smoker tobacco type: cigarettes ROS ROS ED Constitutional Constitutional ED: Denies chills or fever(s) Eyes Eyes: Denies blurry vision or change in vision ENT ENT ED: Denies rhinorrhea or sore throat Cardiovascular Cardiovascular: Denies chest pain or palpitations Respiratory/Chest Respiratory/Chest: Denies cough or dyspnea Gastrointestinal Gastrointestinal: Reports nausea; Denies vomiting Genitourinary Genitourinary ED: Denies dysuria or hematuria Musculoskeletal Musculoskeletal: Denies back pain or neck pain Integumentary Denies abscess or rash Neurologic Neurologic: Denies headache(s) or weakness Allergic/Immunologic Allergic/Immunologic ED: Denies mouth swelling or urticaria EXAM Physical Exam Const Vital Signs: 12/15/20 00:25 12/15/20 00:27 Temperature 98 F Temperature Source Temporal Pulse Rate 89 Respiratory Rate 16 Respiratory Effort Normal Non-Labored Respiratory Pattern Normal Blood Pressure 134/75 H Blood Pressure Mean 94 Pulse Ox 99 Oxygen Delivery Method Room Air Positive well nourished, well developed and obese General Appearance ED: well developed Nutritional Appearance: obese HEENT Reports moist mucous membranes Neck supple and no JVD Resp normal respiratory effort and clear to auscultation bilaterally Cardio regular rate, regular rhythm and no murmurs GI normal to inspection, nondistended, normoactive bowel sounds and non-tender Palpation: soft Extremity normal to inspection General Extremety ED: Negative for edema or tenderness General Extremity: Negative for edema Neuro oriented x3, CN's II-XII intact bilaterally and no sensory deficits noted Sensorium / Orientation: alert Motor Exam: strength 5/5 throughout Psych mental status grossly normal Skin no rashes or lesions noted MDM MDM MDM Narrative Medical decision making narrative: CBC and comprehensive metabolic profile were obtained and were within normal limits. Urinalysis does not show any evidence of urinary tract infection. There is some proteinuria noted. Patient is resting comfortably on reevaluation. Patient was instructed to follow-up with her primary care physician in 3 to 5 days for further evaluation. Patient understood and was agreeable with the plan. All questions were answered. Lab Data Attestation: I reviewed the patient's lab results. Labs: Laboratory Results - last 24 hr 12/15/20 12/15/20 12/15/20 02:00 02:00 02:25 WBC 10.0 RBC 4.90 Hgb 13.6 Hct 41.8 MCV 85.3 MCH 27.8 MCHC 32.5 RDW Std Deviation 38.6 RDW Coeff of Zeynep 12.4 Plt Count 287 MPV 9.6 Immature Gran % (Auto) 0.600 Neut % (Auto) 59.6 Lymph % (Auto) 31.7 Anderson % (Auto) 6.3 Eos % (Auto) 1.5 Baso % (Auto) 0.3 Absolute Neuts (auto) 5.9 Absolute Lymphs (auto) 3.16 Nucleated RBC % 0 Sodium 142 Potassium 3.5 Chloride 108 H Carbon Dioxide 30.0 Anion Gap 4 L BUN 20 H Creatinine 0.84 Estim Creat Clear Calc 99.56 Est GFR (MDRD) Af Amer 105 Est GFR (MDRD) Non-Af 87 BUN/Creatinine Ratio 23.8 H Glucose 108 H Calcium 8.7 Total Bilirubin 0.30 AST 12 L ALT 26 Alkaline Phosphatase 59 Total Protein 7.0 Albumin 3.4 Globulin 3.6 Albumin/Globulin Ratio 0.9 Urine Color Yellow Urine Clarity Sl. Cloudy Urine pH 5.0 Ur Specific [place] 1.030 Urine Protein 30 H Urine Glucose (UA) Normal Urine Ketones Negative Urine Occult Blood Negative Urine Nitrite Negative Urine Bilirubin Negative Urine Urobilinogen Normal Ur Leukocyte Esterase Negative Urine RBC 0-5 SEEN Urine WBC 0-5 SEEN Ur Squamous Epith Cells 0-5 SEEN Urine Bacteria 2+ Urine Mucus 3+ Discharge Plan Triage Chief Complaint: Edema ED Provider: David Arvizu Dx/Rx/DC Orders Clinical Impression: Peripheral edema Instructions: ED Peripheral Edema, Bilateral Prescriptions: No Action NK RF: 0 Primary Care Provider: Care Physician,No Primary Referrals: El Grubbs MD [STAFF PHYSICIAN] - 3-5 Days Care Physician,No Primary [Primary Care Provider] - Disposition Disposition: Home, Self Care
[2020-12-15 02:08] LABS: Absolute Lymphocyte Count 3.16 X10^3/uL (0.83-4.51); Absolute Neutrophil Count 5.9 X10^3/uL (2.0-7.7); Basophil# 0.03 X10^3/uL; Basophil% 0.3 % (0-1); Eosinophil# 0.15 X10^3/uL; Eosinophils% 1.5 % (0-5); Hematocrit 41.8 % (37-47); Hemoglobin 13.6 g/dL (12.0-15.0); Lymphocyte # 3.16 X10^3/ul (0.83-4.51); Lymphocyte % 31.7 % (19-41); Mean Corp Hgb Conc 32.5 g/dL (32-36); Mean Corpuscular Hgb 27.8 pg (27.0-32.0); Mean Corpuscular Volume 85.3 fL (81-99); Mean Platelet Vol. 9.6 fl (6.2-12.0); Monocyte# 0.63 X10^3/uL; Monocyte% 6.3 % (0-10); NRBC Flagged by Analyzer 0 % (0-5); Neutrophil # 5.93 X10^3/uL (2.7-7.7); Neutrophil % 59.6 % (47-70); Platelet Count 287 K/mm3 (150-450); RBC Distribution Width CV 12.4 % (11.6-14.6); RBC Distribution Width SD 38.6 fl (35.1-43.9)
[2020-12-15 02:27] LABS: ALB/GLOB Ratio 0.9 RATIO (0.9-2.4); AST(SGOT) 12 U/L (15-37); Alanine Aminotransfer ALT/SGPT 26 U/L (13-56); Albumin, Serum 3.4 g/dL (3.2-5.0); Alkaline Phosphatase 59 U/L (45-117); Anion Gap 4 (5-15); BUN 20 mg/dL (7-18); BUN/Creat Ratio 23.8 RATIO (10-20); Calcium,Total 8.7 mg/dL (8.5-10.1); Chloride 108 mmol/L (98-107); Creatinine, Serum 0.84 mg/dL (0.55-1.02); EST Glomerular Filtration Rate 87 mL/min (>60); Est Glom Filt Rate - Afr Amer 105 mL/min (>60); Estimated Creatinine Clearance 99.56 ml/min; Globulin 3.6 g/dL (2.2-4.2); Glucose 108 mg/dL (74-106); Potassium 3.5 mmol/L (3.5-5.1); Sodium Level 142 mmol/L (136-145)
[2020-12-15 02:30] LABS: Color, Urine Yellow (Yellow); Glucose, Dipstick Normal (Normal); Ketone-Dipstick Negative (Negative); Leukocyte Esterase-Dipstick Negative /ul (Negative); Nitrite-Dipstick Negative (Negative); Occult Blood-Urine Negative /ul (Negative); Protein-Dipstick 30 mg/dl (Negative); Urine Bilirubin Dipstick Negative (Negative); Urine Clarity Sl. Cloudy (Clear); Urine Urobilinogen Normal (Normal)
[2020-12-15 02:37] LABS: Squamous Epithelial Cells - UA 0-5 SEEN /hpf (5-10)
[2020-12-15 02:38] LABS: Red Blood Cells-Urine 0-5 SEEN /hpf (0-5); White Blood Cells 0-5 SEEN /hpf (0-5)
[2020-12-15 02:39] LABS: Bacteria 2+ /hpf (None Seen); Mucous, Urine 3+ /hpf (<or=2+)
[2020-12-15 03:47] VITALS: BP 130/58; PULSE 85; RESP 18; O2SAT 96
== END 2020-12-15 03:48 | disposition home or self-care (01) ==
PROVIDERS: Emergency Provider Emergency Medicine
DX: R60.0 Localized edema (principal); F17.210 Nicotine dependence, cigarettes, uncomplicated; E66.9 Obesity, unspecified
CPT/HCPCS: 80053; 81001; 85025; 99283

== ENCOUNTER 2021-02-10 05:39 | Emergency (ER) | payer OTHER, SELFPAY ==
[2021-02-10 05:40] VITALS: BP 117/72; PULSE 80; RESP 17; TEMP 36.6; O2SAT 99; BMI 48.6
--- NOTE | 2021-02-10 05:58 | EKG12_ITS ---
Test Reason : Blood Pressure : / mmHG Vent. Rate : 077 BPM Atrial Rate : 077 BPM P-R Int : 176 ms QRS Dur : 082 ms QT Int : 388 ms P-R-T Axes : -04 026 004 degrees QTc Int : 439 ms Normal sinus rhythm Normal ECG Confirmed by GWEN CANALES, NOAH ([id number]), development editor ROCKY GONZALEZ ([id number]) on 02/11/2021 1:34:22 PM Referred By: Confirmed By:NOAH HIDALGO MD
--- NOTE | 2021-02-10 05:59 | EX.ED.DYSGE1 ---
HPI History of Present Illness Chief Complaint: General Illness Informant: patient Narrative Narrative: 25-year-old female states that yesterday morning she woke from her sleep with pain in the right shoulder posterior neck and anterior chest. Worse with deep breathing and with movement. She did not have any symptoms prior to going to bed. She denies any fevers. No DVT PE risk factors. No rashes. No trauma. She states she had to sleep last night with her arms above her head as position of comfort [facility] Medical History (Updated 02/10/21 @ 07:[address] Denny Mccabe DO) Acute back pain Home Medications cyclobenzaprine 10 mg PO TID PRN #15 tablet 02/10/21 [Rx Last Taken Unknown] hydrocodone-acetaminophen 1 tab PO Q6H PRN PRN 3 Days #10 tablet 02/10/21 [Rx Last Taken Unknown] Allergy/AdvReac Type Severity Reaction Status Date / Time amoxicillin Allergy Vomiting Verified 02/10/21 05:45 clavulanic acid Allergy Vomiting Verified 02/10/21 05:45 [From Augmentin] clomiphene [From Clomid] Allergy Other Verified 02/10/21 05:45 Surgical History Hx of tonsillectomy Status post tendon repair [place] teeth extracted Social History (Updated 02/10/21 @ 05:[address] Denny Mccabe DO) Smoking Status: Current every day smoker tobacco type: cigarettes substance use type: does not use ROS ROS ED Constitutional Constitutional ED: Denies chills or weight loss Eyes Eyes: Denies change in vision or diplopia ENT ENT ED: Denies ear pain, rhinorrhea or sore throat Cardiovascular Cardiovascular: Reports chest pain; Denies orthopnea, palpitations or racing heartbeat Respiratory/Chest Respiratory/Chest: Reports dyspnea; Denies cough or orthopnea Gastrointestinal Gastrointestinal: Denies abdominal pain, diarrhea, nausea or vomiting Genitourinary Genitourinary ED: Denies dysuria, hematuria or urinary frequency Musculoskeletal Musculoskeletal: Reports other Details: See history of present illness ; Denies arthralgias or myalgias Integumentary Denies abscess or rash Neurologic Neurologic: Denies headache(s) or weakness Psychiatric Psychiatric: Denies anxiety, depression, suicidal ideation or suicidal thoughts Endocrine Endocrinology: Denies polydipsia, polyphagia or polyuria Allergic/Immunologic Allergic/Immunologic ED: Denies mouth swelling, tongue swelling or urticaria EXAM Physical Exam Const Vital Signs: 02/10/21 05:40 02/10/21 06:24 Temperature 97.8 F Temperature Source Temporal Pulse Rate 80 Respiratory Rate 17 Respiratory Effort Normal Blood Pressure 117/72 Blood Pressure Mean 87 Pulse Ox 99 Oxygen Delivery Method Room Air Positive well nourished, well developed and obese General Appearance ED: well developed Nutritional Appearance: obese HEENT Reports normocephalic, head/scalp atraumatic and moist mucous membranes Eyes PERRL and EOMs intact bilaterally Neck no lymphadenopathy, supple and no JVD Chest Wall Chest Narrative: Tenderness palpation over the anterior Resp normal respiratory effort and clear to auscultation bilaterally Cardio regular rate, regular rhythm and no murmurs GI normal to inspection, nondistended, normoactive bowel sounds and non-tender Palpation: soft Back/Spine no CVA tenderness and normal ROM Extremity Extremity Narrative: Patient reports tenderness to palpation diffusely around the right shoulder neck musculature and scapula. No obvious deformities or dislocations. Neurovascular tact distally General Extremety ED: Negative for edema General Extremity: Negative for edema Neuro oriented x3 and CN's II-XII intact bilaterally Sensorium / Orientation: alert Motor Exam: strength 5/5 throughout Psych mental status grossly normal Mood & Affect: Negative for depressed or tearful Skin no rashes or lesions noted and no wounds MDM MDM MDM Narrative Medical decision making narrative: Basic blood work was normal. D-dimer was normal. My interpretation of the chest x-ray is no acute process. Her troponin is 4. EKG is a normal sinus rhythm with a rate of 77. Given the above work-up I think this is most likely a musculoskeletal issue. We can write for some pain medicine and some Flexeril. Follow-up with primary care if not improving Lab Data Attestation: I reviewed the patient's lab results. Labs: Laboratory Results - last 24 hr 02/10/21 02/10/21 02/10/21 06:15 06:15 06:15 WBC 10.7 RBC 4.69 Hgb 13.0 Hct 39.6 MCV 84.4 MCH 27.7 MCHC 32.8 RDW Std Deviation 38.6 RDW Coeff of Zeynep 12.7 Plt Count 277 MPV 9.8 Immature Gran % (Auto) 0.400 Neut % (Auto) 67.1 Lymph % (Auto) 23.2 [place] % (Auto) 7.8 Eos % (Auto) 1.3 Baso % (Auto) 0.2 Absolute Neuts (auto) 7.2 Absolute Lymphs (auto) 2.48 Nucleated RBC % 0 D-Dimer Quant (PE/DVT) 0.37 Sodium 139 Potassium 4.2 Chloride 105 Carbon Dioxide 28.0 Anion Gap 6 BUN 14 Creatinine 0.69 Estim Creat Clear Calc 121.20 Est GFR (MDRD) Af Amer 133 Est GFR (MDRD) Non-Af 110 BUN/Creatinine Ratio 20.4 H Glucose 88 Calcium 8.5 Total Bilirubin 0.70 AST 13 L ALT 20 Alkaline Phosphatase 64 Troponin I High Sens 4 Total Protein 6.8 Albumin 3.0 L Globulin 3.8 Albumin/Globulin Ratio 0.8 L Lipase 96 Radiography Diagnostic Testing: Radiology Impression Chest X-Ray 02/10/21 06:20 IMPRESSION: Normal x-ray examination of the chest. Electronically Signed: Truong Dixon MD at 7:05 EDT Tel , Service support , EKG Initial EKG: Attestation: I personally reviewed and interpreted this EKG as follows: Comments: Normal sinus rhythm with a ventricular rate of 77 bpm Discharge Plan Triage Chief Complaint: General Illness ED Provider: Denny Mccabe Dx/Rx/DC Orders Clinical Impression: Chest pain, Acute back pain, Acute pain of right shoulder Instructions: ED Back Spasm, No Trauma Prescriptions: New hydrocodone-acetaminophen [hydrocodone-acetaminophen] 1 TABLET tablet 1 tab PO Q6H PRN PRN (Reason: Pain) 3 Days Qty: 10 RF: 0 cyclobenzaprine [cyclobenzaprine] 10 MG tablet 10 mg PO TID PRN (Reason: Muscle Spasm) Qty: 15 RF: 0 Primary Care Provider: Care Physician,No Primary Referrals: Franchesca Tierney MD [STAFF PHYSICIAN] - 1 Week if not improving Care Physician,No Primary [Primary Care Provider] - Disposition Disposition: Home, Self Care
--- NOTE | 2021-02-10 06:20 | RAD_ITS ---
STUDY: X-RAY CHEST REASON FOR EXAM: Female, 25 years old. chest pain TECHNIQUE: Single AP portable view of the chest. COMPARISON: 05/21/2019 FINDINGS: The lungs are clear and expanded. There is no demonstrated pleural abnormality. Normal size heart. Normal mediastinum and charlie. Normal visualized pulmonary arteries. Normal visualized aortic arch and descending thoracic aorta. Normal visualized thoracic spine. Normal visualized ribs, clavicles, and shoulders. There is no demonstrated abnormality of the visualized soft tissue structures of the upper abdomen. RAD/Chest 1 View (Portable) IMPRESSION: Normal x-ray examination of the chest. Electronically Signed: Truong Dixon MD at 7:05 EDT Tel , Service support ,
[2021-02-10] MEDS: Ketorolac 30 MG/ML Syringe IV (06:23)
[2021-02-10 06:44] LABS: Absolute Lymphocyte Count 2.48 X10^3/uL (0.83-4.51); Absolute Neutrophil Count 7.2 X10^3/uL (2.0-7.7); Basophil# 0.02 X10^3/uL; Basophil% 0.2 % (0-1); Eosinophil# 0.14 X10^3/uL; Eosinophils% 1.3 % (0-5); Hematocrit 39.6 % (37-47); Lymphocyte # 2.48 X10^3/ul (0.83-4.51); Lymphocyte % 23.2 % (19-41); Mean Corp Hgb Conc 32.8 g/dL (32-36); Mean Corpuscular Hgb 27.7 pg (27.0-32.0); Mean Corpuscular Volume 84.4 fL (81-99); Mean Platelet Vol. 9.8 fl (6.2-12.0); Monocyte# 0.83 X10^3/uL; Monocyte% 7.8 % (0-10); NRBC Flagged by Analyzer 0 % (0-5); Neutrophil # 7.17 X10^3/uL (2.7-7.7); Neutrophil % 67.1 % (47-70); Platelet Count 277 K/mm3 (150-450); RBC Distribution Width CV 12.7 % (11.6-14.6); RBC Distribution Width SD 38.6 fl (35.1-43.9); Red Blood Count 4.69 M/mm3 (4.2-5.4); White Blood Count 10.7 K/mm3 (4.4-11.0)
[2021-02-10 07:10] LABS: ALB/GLOB Ratio 0.8 RATIO (0.9-2.4); AST(SGOT) 13 U/L (15-37); Alanine Aminotransfer ALT/SGPT 20 U/L (13-56); Alkaline Phosphatase 64 U/L (45-117); Anion Gap 6 (5-15); BUN 14 mg/dL (7-18); BUN/Creat Ratio 20.4 RATIO (10-20); Calcium,Total 8.5 mg/dL (8.5-10.1); Chloride 105 mmol/L (98-107); Creatinine, Serum 0.69 mg/dL (0.55-1.02); EST Glomerular Filtration Rate 110 mL/min (>60); Est Glom Filt Rate - Afr Amer 133 mL/min (>60); Globulin 3.8 g/dL (2.2-4.2); Glucose 88 mg/dL (74-106); Lipase 96 U/L (73-393); Potassium 4.2 mmol/L (3.5-5.1); Protein, Total 6.8 g/dL (6.4-8.2); Sodium Level 139 mmol/L (136-145); Troponin-I HS 4 pg/mL (3.0-54.0)
[2021-02-10 07:18] LABS: D-Dimer Quantitative (DVT/PE) 0.37 FEU/ug/m (0.27-0.49)
[2021-02-10 08:13] VITALS: BP 108/64
== END 2021-02-10 08:15 | disposition home or self-care (01) ==
PROVIDERS: Emergency Provider Emergency Medicine
DX: M25.511 Pain in right shoulder (principal); R07.9 Chest pain, unspecified; M54.6 Pain in thoracic spine; F17.210 Nicotine dependence, cigarettes, uncomplicated; E66.9 Obesity, unspecified
CPT/HCPCS: 71045; 80053; 83690; 84484; 85025; 85379; 93005; 96374; 99283; A4216

== ENCOUNTER 2023-05-18 07:44 | Emergency (ER) | payer SELFPAY ==
[2023-05-18 07:45] VITALS: BP 134/85; PULSE 93; RESP 14; TEMP 36.8; O2SAT 100; BMI 48.7
--- NOTE | 2023-05-18 08:15 | ED.VIS.CHEST ---
HPI History of Present Illness Chief Complaint: Chest Pain Informant: patient Narrative Narrative: Patient presents with chest pain and elevated blood pressure. Patient noted last evening when she went to work some discomfort along the right posterior lateral aspect of her chest. There is some motion related change. She is not short of breath with it. Not syncopal or near syncopal. She thought she likely pulled a muscle. 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 She will oftentimes sleep with her hands above her head and has been known for muscles just doing this. She does not know if this happened though. She did have a viral type URI about a week ago but feels that that is completely resolved. She is not coughing now although she was. No fevers or chills. There is been no travel surgery immobilization personal or family history of DVT or PE. I have verified by asking twice and the reasons for it that she is not on any hormone therapy or control. She has no primary relative history of heart disease. No diabetes no blood pressure cholesterol. She vapes but does not smoke now. She was counseled to quit this. [facility] Medical History Acute back pain Home Medications cyclobenzaprine 10 mg tablet 10 mg PO TID PRN Muscle Spasm #15 TABLETS 02/10/21 [Rx Last Taken Unknown] hydrocodone-acetaminophen 5-325mg 5mg-325mg 1 tab PO Q6H PRN PRN Pain 3 days #10 TABLETS 02/10/21 [Rx Last Taken Unknown] naproxen 500 mg tablet (Naprosyn) 500 mg PO BID PRN pain #20 tabs 05/18/23 [Rx Last Taken Unknown] Allergy/AdvReac Type Severity Reaction Status Date / Time amoxicillin Allergy Vomiting Verified 02/10/21 05:45 clavulanic acid Allergy Vomiting Verified 02/10/21 05:45 [From Augmentin] clomiphene [From Clomid] Allergy Other Verified 02/10/21 05:45 Surgical History Hx of tonsillectomy Status post tendon repair [place] teeth extracted Social History Smoking Status: Current every day smoker tobacco type: cigarettes substance use type: does not use ROS ROS ED ROS Narrative A complete review of systems was performed and is negative except as documented in the history of present illness. Some specific details below. Constitutional: No recent fevers or chills. She had a flulike illness last week had 2 negative COVID tests and her symptoms have really resolved. EYE: No discharge, visual complaints, or pain. ENT: No difficulty swallowing. No swelling. No pain. No reflux symptoms. CV: See history of present illness. Respiratory: Not coughing at this time. Not short of breath. GI: No abdominal pain. No nausea vomiting diarrhea. No blood in stool. : No frequency dysuria or hematuria. Musculoskeletal: No known recent trauma. No pains. She has a history of some mild swelling of her ankles all the time. This is due to weight and the fact she has had surgery on both ankles. This is no different than normal. Skin: No rash. Nondiaphoretic. Neuro: No weakness or numbness. Endocrine: No polyuria or polydipsia. EXAM Physical Exam Narrative Exam Narrative: CONSTITUTIONAL: Patient is nontoxic in appearance. The patient looks comfortable. Work of breathing looks normal. HEENT: No notable trauma. Mucous membranes moist. No sinus tenderness. No exudate erythema or swelling. EYES: No conjunctival injection. No proptosis. NECK:No JVD. No stridor. CARDIOVASCULAR: Regular rate at about 80?85. Regular rhythm. No notable murmur. No JVD. Tones are not muffled. Peripheral pulses are normal x 4. RESPIRATORY: No respiratory distress. Breathing is unlabored. No wheezes. No rhonchi. No rales. No pain with a deep breath. She does have some posterior right chest wall tenderness from the AC joint down to the lower ribs just behind the posterior axillary line. But there are no skin changes or rash or vesicles. No subcu air. GASTROINTESTINAL: Obese but not distended. Bowel sounds are normal. No tenderness. No guarding. No rebound. No palpable mass. No bruit is heard. GENITOURINARY: No tenderness over the bladder. No CVA tenderness. MUSCULOSKELETAL: Atraumatic. No peripheral edema. Her ankles are not small but there are no pitting. No cord. No tenderness along the deep venous system. No asymmetry. No distended veins. NEUROLOGICAL: Patient is alert and appropriate. No focal deficit noted. SKIN: No noted rashes. No diaphoresis. PSYCHIATRIC: Patient is calm. Mood is appropriate. Const Vital Signs: 05/18/23 07:45 Temperature 98.2 F Temperature Source Temporal Pulse Rate 93 Respiratory Rate 14 Blood Pressure 134/85 H Blood Pressure Mean 101 Pulse Ox 100 Oxygen Delivery Method Room Air MDM MDM MDM Narrative Medical decision making narrative: Patient's EKG is overall normal and that is even while she has symptoms. My independent interpretation of her chest x-ray shows PA and lateral images. No pneumothorax. No infiltrate. Slightly poor inspiratory depth. Final reading is pending. Final reading shows no acute process Patient is PERC negative and I do not think she needs a D-dimer or CT scan of the chest. Also, other than obesity she does not have any known risk factor for heart disease and her symptoms or not consistent with cardiac pain and she has a normal EKG at a young age. I do not think we need to pursue acute coronary syndrome as a cause of her symptoms. I can reproduce some of her symptoms with motion and palpation. I also explained that although her blood pressure is not normal this is not a concerning level acutely. This can be watched and managed if needed as an outpatient. It sounds like her sister does have some high blood pressure so with a family history and some increased weight she is much more likely to develop blood pressure at an earlier age. Radiography Diagnostic Testing: Clinical Impression(s) from Imaging Studies Chest X-Ray 05/18/23 08:20 IMPRESSION: No radiographic evidence of acute cardiopulmonary disease. Electronically Signed: Davon Garcia MD at 9:55 EST , EKG Initial EKG: Comments: My independent interpretation of her EKG shows a normal sinus rhythm with overall rate of 83. No ectopy. No acute ST elevation or depression. VT interval, QRS duration and QTc are all normal. This EKG was done with symptoms. Discharge Plan Triage Chief Complaint: Chest Pain ED Provider: Samy Barboza Dx/Rx/DC Orders Clinical Impression: Right-sided chest wall pain Instructions: ED Chest Pain, Uncertain Cause Prescriptions: New naproxen [Naprosyn] 500 mg tablet 500 mg PO BID PRN (Reason: pain) Qty: 20 0RF No Action hydrocodone-acetaminophen [hydrocodone-acetaminophen] 1 TABLET tablet 1 tab PO Q6H PRN PRN (Reason: Pain) 3 Days Qty: 10 0RF cyclobenzaprine [cyclobenzaprine] 10 MG tablet 10 mg PO TID PRN (Reason: Muscle Spasm) Qty: 15 0RF Primary Care Provider: Care Physician,No Primary Referrals: Jill Mir MD [Med Staff - Agriscience Instructor] - 3-5 Days Care Physician,No Primary [Primary Care Provider] - Activity Restrictions/Additional Instructions: Follow-up for recheck of blood pressure. Treatment is best based on overall readings over a period of time rather than a single day or reading. Disposition Disposition: Home, Self Care
--- NOTE | 2023-05-18 08:20 | RAD_ITS ---
INDICATION: CP EXAMINATION/TECHNIQUE: X-RAY - XR Chest 2 Views COMPARISON: Prior study dated: 02/10/2021 FINDINGS: LINES/DEVICES: None. LUNGS: No consolidation, edema or effusion. No pneumothorax. MEDIASTINUM AND CARDIOVASCULAR STRUCTURES: Cardiac silhouette not enlarged. Central airways and mediastinal contour are unremarkable. BONES AND SOFT TISSUES: Unremarkable. RAD/Chest PA and Lateral IMPRESSION: No radiographic evidence of acute cardiopulmonary disease. Electronically Signed: Davon Garcia MD at 9:55 EST ,
--- OUTSIDE RECORDS SUMMARY | 2023-05-18 08:51 | XMS RPT_ITS | CCD ---
Author Name Unknown Address [address] [place] [address] Organization [facility] Care Team Providers Care Research And Development Tester Name Role Phone Kevin Miranda MD Primary Care Provider PHYSICIAN, NOT RECORDED Primary Care Physician KEVIN Núñez Primary Care Unavailable KEVIN MIRANDA Primary Care Unavailable KEVIN MIRANDA Primary Care Unavailable KEVIN MIRANDA Primary Care Unavailable KEVIN MIRANDA Primary Care Unavailable Allergies Allergy Classification Reported Allergen(s) Allergy Type Date of Onset Reaction(s) Facility (6 sources) Amoxicillin; Translations: [AMOXICILLIN] Drug Allergy 05-28-2018 [facility] (6 sources) Amoxicillin / Clavulanate; Translations: [AMOXICILLIN-POT CLAVULANATE] Drug Allergy 05-28-2018 [facility] (6 sources) clomiPHENE; Translations: [CLOMIPHENE CITRATE] Drug Allergy 05-28-2018 [facility] Medications Current Medications Medication Drug Class(es) Dates Sig (Normalized) Sig (Original) cefdinir 300 mg oral capsule (3 sources) Cephalosporin Antibacterial Start: 03-03-2023 End: 03-10-2023 take 1 capsule by mouth twice daily cefdinir (OMNICEF) 300 mg capsule Indications: Other acute nonsuppurative otitis media of right ear, recurrence not specified Take 1 capsule by mouth two times a day for 7 days. 14 capsule 0 03/03/2023 03/10/2023 Active Completed/Discontinued Medications Medication Drug Class(es) Dates Sig (Normalized) Sig (Original) clotrimazole 10 mg/ml vaginal cream (2 sources) Azole Antifungal Start: 03-15-2023 clotrimazole (LOTRIMIN) 1 % vaginal cream Indications: Itching in the vaginal area Use 1 Applicatorful vaginally once daily. 45 g 0 03/15/2023 Active Problems Problem Classification Problem Date Documented Da te Episodic/Chronic Headache; including migraine (1 source) Headache; Translations: [Headache, unspecified headache type] Episodic Other female genital disorders (1 source) Pruritus of vagina; Translations: [Other specified noninflammatory disorders of vagina] 03-15-2023 Episodic Otitis media and related conditions (1 source) Acute secretory otitis media; Translations: [Other acute nonsuppurative otitis media, right ear] 03-03-2023 Episodic Results Test Name Value Interpretation Reference Range Facil ity Vital Signs Date Time Vital Sign Value Performing Clinician Facility 03-15-2023 14:26-0400 Body temperature 98.4 [degF] Lorenza Baires APRN.[facility] Work Phone: [facility] 03-15-2023 14:26-0400 Body weight 139.16 kg Lorenza Baires APRN.[facility] Work Phone: [facility] 03-15-2023 14:26-0400 Diastolic blood pressure 82 mm[Hg] Lorenza Baires APRN.[facility] Work Phone: [facility] 03-15-2023 14:26-0400 Heart rate 78 /min Lorenza Baires APRN.[facility] Work Phone: [facility] 03-15-2023 14:26-0400 Respiratory rate 21 /min Lorenza Baires APRN.[facility] Work Phone: [facility] 03-15-2023 14:26-0400 SaO2% (BldA) [Mass fraction] 97 % Lorenza Baires APRN.INVESTOR RELATIONS COORDINATOR Work Phone: [facility] 03-15-2023 14:26-0400 Systolic blood pressure 122 mm[Hg] Lorenza Baires APRN.[facility] Work Phone: [facility] 03-03-2023 15:34-0400 Body temperature 98.2 [degF] Lorenza Praisler-Wood BLIND CLEANER.INVESTOR RELATIONS COORDINATOR Work Phone: [facility] 03-03-2023 15:34-0400 Body weight 137.89 kg Lorenza Praisler-Wood BLIND CLEANER.INVESTOR RELATIONS COORDINATOR Work Phone: [facility] 03-03-2023 15:34-0400 Diastolic blood pressure 66 mm[Hg] Lorenza Praisler-Wood BLIND CLEANER.INVESTOR RELATIONS COORDINATOR Work Phone: [facility] 03-03-2023 15:34-0400 Heart rate 92 /min Lorenza Praisler-Wood BLIND CLEANER.INVESTOR RELATIONS COORDINATOR Work Phone: [facility] 03-03-2023 15:34-0400 Respiratory rate 16 /min Lorenza Praisler-Wood BLIND CLEANER.INVESTOR RELATIONS COORDINATOR Work Phone: [facility] 03-03-2023 15:34-0400 SaO2% (BldA) [Mass fraction] 99 % Lorenza Praisler-Wood BLIND CLEANER.INVESTOR RELATIONS COORDINATOR Work Phone: [facility] 03-03-2023 15:34-0400 Systolic blood pressure 118 mm[Hg] Lorenza Praisler-Wood BLIND CLEANER.INVESTOR RELATIONS COORDINATOR Work Phone: [facility] 01-31-2023 21:53-[address] Pressure Cuff Size DR YVONNE BOWEN MD [facility] 01-31-2023 21:53-[address] YVONNE BOWEN MD [facility] 01-31-2023 21:53-[address] YVONNE BOWEN MD [facility] 01-31-2023 21:53-0400 Body temperature 99.5 [degF] DR YVONNE BOWEN MD [facility] 01-31-2023 21:53-0400 Diastolic Blood Pressure Non-Invasive [address] YVONNE BOWEN MD [facility] 01-31-2023 21:53-0400 Heart rate 98 /min DR YVONNE BOWEN MD [facility] 01-31-2023 21:53-0400 Respiratory rate 16 /min DR YVONNE BOWEN MD [facility] 01-31-2023 21:53-0400 Systolic Blood Pressure Non-Invasive [address] YVONNE BOWEN MD [facility] 10-27-2022 12:13-0400 Body temperature 96.91 [degF] Lorenza Praisler-Wood BLIND CLEANER.INVESTOR RELATIONS COORDINATOR Work Phone: [facility] 10-27-2022 12:13-0400 Body weight 139.44 kg Lorenza Praisler-Wood BLIND CLEANER.INVESTOR RELATIONS COORDINATOR Work Phone: [facility] 10-27-2022 12:13-0400 Diastolic blood pressure 76 mm[Hg] Lorenza Praisler-Wood BLIND CLEANER.INVESTOR RELATIONS COORDINATOR Work Phone: [facility] 10-27-2022 12:13-0400 Heart rate 80 /min Lorenza Praisler-Wood BLIND CLEANER.INVESTOR RELATIONS COORDINATOR Work Phone: [facility] 10-27-2022 12:13-0400 Respiratory rate 18 /min Lorenza Praisler-Wood BLIND CLEANER.INVESTOR RELATIONS COORDINATOR Work Phone: [facility] 10-27-2022 12:13-0400 SaO2% (BldA) [Mass fraction] 95 % Lorenza Praisler-Wood BLIND CLEANER.INVESTOR RELATIONS COORDINATOR Work Phone: [facility] 10-27-2022 12:13-0400 Systolic blood pressure 110 mm[Hg] Lorenza Praisler-Wood BLIND CLEANER.INVESTOR RELATIONS COORDINATOR Work Phone: [facility] Encounters Encounter Date Encounter Type Care Provider Facility Start: 05-14-2023 End: 05-14-2023 ambulatory ROCÍO MIRANDA Facility:[facility] Start: 04-28-2023 End: 12-12-2023 ambulatory ROCÍO MIRANDA Facility:[facility] Start: 03-16-2023 Telephone encounter Lorenza Woody APRN.[facility] Work Phone: [facility] Plan of Treatment Date Care Activity Detail Author Start: 05-28-2028 Urine microalbumin profile [facility] Start: 01-16-2023 Covid-19 Vaccine () Covid-19 Vaccine () [facility] Start: 01-16-2023 Influenza vaccination [facility] Start: 05-18-2022 DEPRESSION ASSESSMENT DEPRESSION ASS ESSMENT [facility] Start: 07-25-2020 COVID-19 VACCINE (3 - Booster for Pfizer series) COVID-19 VACCINE (3 - Booster for Pfizer series) [facility] Start: 2016 PAP TESTING PAP TESTING [facility] Start: 2013 HEPATITIS C SCREENING HEPATITIS C SC REENING [facility] Start: 2013 HIV SCREENING HIV SCREENING [facility] Start: 01-13-2012 HPV Vaccine (2 - 3-d ose series) HPV Vaccine (2 - 3-dose series) [facility] BACTERIAL VAGINOSIS NAAT BACTERI AL VAGINOSIS NAAT Lab Routine Itching in the vaginal area 03/15/2023 3:01 PM EDT [facility] Work Phone: HANNA/TRICHOMONAS NAAT HANNA /TRICHOMONAS NAAT Lab Routine Itching in the vaginal area 03/15/2023 3:01 PM EDT [facility] Work Phone: Chlamydia trachomatis+Neisseria gonorrhoeae DNA [Presence] in Unspecified specimen by SHARON with probe detection GONORRHEA/CHLAMYDIA NAAT Lab Routine Itching in the vaginal area 03/15/2023 3:01 PM EDT [facility] Work Phone: Immunizations Immunization Date Immunization Notes Care Provider Jerome prather 05-28-2018 tetanus toxoid, redu emma diphtheria toxoid, and acellular pertussis vaccine, adsorbed Lorenza Baires APRN.INVESTOR RELATIONS COORDINATOR Work Phone: [facility] 12-16-2011 human papilloma viru s vaccine, bivalent Lorenza Baires APRN.INVESTOR RELATIONS COORDINATOR Work Phone: [facility] 12-16-2011 meningococcal polysaccharide (groups A, C, Y and W-135) diphtheria toxoid conjugate vaccine (MCV4P) Lorenza Baires APRN.INVESTOR RELATIONS COORDINATOR Work Phone: [facility] 12-24-2007 hepatitis A vaccine, pediatric/adolescent dosage, 2 dose schedule Lorenza Baires APRN.INVESTOR RELATIONS COORDINATOR Work Phone: [facility] 12-24-2007 measles, mumps and rubella virus vaccine Lorenza Baires BLIND CLEANER.INVESTOR RELATIONS COORDINATOR Work Phone: [facility] 02-11-2007 hepatitis A vaccine, pediatric/adolescent dosage, 2 dose schedule Lorenza Baires APRN.INVESTOR RELATIONS COORDINATOR Work Phone: [facility] 02-11-2007 measles, mumps and rubella virus vaccine Lorenza Baires APRN.INVESTOR RELATIONS COORDINATOR Work Phone: [facility] 02-11-2007 tetanus toxoid, redu emma diphtheria toxoid, and acellular pertussis vaccine, adsorbed Lorenza Baires APRN.INVESTOR RELATIONS COORDINATOR Work Phone: [facility] 02-11-2007 varicella virus vaccine Luz Maria Baires APRN.INVESTOR RELATIONS COORDINATOR Work Phone: [facility] 08-05-2000 diphtheria, tetanus toxoids and acellular pertussis vaccine Lorenza Baires APRN.INVESTOR RELATIONS COORDINATOR Work Phone: [facility] 08-05-2000 poliovirus vaccine, inactivated Lorenza Baires APRN.INVESTOR RELATIONS COORDINATOR Work Phone: [facility] 07-14-1996 diphtheria, tetanus toxoids and acellular pertussis vaccine Lorenza Baires APRN.INVESTOR RELATIONS COORDINATOR Work Phone: [facility] 07-14-1996 haemophilus influenz ae type b vaccine, HbOC conjugate Lorenza Baires APRN.INVESTOR RELATIONS COORDINATOR Work Phone: [facility] 07-14-1996 varicella virus vaccine Luz Maria Baires APRN.INVESTOR RELATIONS COORDINATOR Work Phone: [facility] 02-01-1996 diphtheria, tetanus toxoids and acellular pertussis vaccine Lorenza Praisler-Wood BLIND CLEANER.INVESTOR RELATIONS COORDINATOR Work Phone: [facility] 02-01-1996 haemophilus influenz ae type b vaccine, HbOC conjugate Lorenza Praisler-Wood BLIND CLEANER.INVESTOR RELATIONS COORDINATOR Work Phone: [facility] 02-01-1996 hepatitis B vaccine, pediatric or pediatric/adolescent dosage Lorenza Praisler-Wood BLIND CLEANER.INVESTOR RELATIONS COORDINATOR Work Phone: [facility] 02-01-1996 poliovirus vaccine, inactivated Lorenza Praisler-Wood BLIND CLEANER.INVESTOR RELATIONS COORDINATOR Work Phone: [facility] 1995 diphtheria, tetanus toxoids and acellular pertussis vaccine Lorenza Praisler-Wood BLIND CLEANER.INVESTOR RELATIONS COORDINATOR Work Phone: [facility] 1995 haemophilus influenz ae type b vaccine, HbOC conjugate Lorenza Praisler-Wood BLIND CLEANER.INVESTOR RELATIONS COORDINATOR Work Phone: [facility] 1995 poliovirus vaccine, inactivated Lorenza Praisler-Wood BLIND CLEANER.INVESTOR RELATIONS COORDINATOR Work Phone: [facility] 1995 diphtheria, tetanus toxoids and acellular pertussis vaccine Lorenza Praisler-Wood BLIND CLEANER.INVESTOR RELATIONS COORDINATOR Work Phone: [facility] 1995 haemophilus influenz ae type b vaccine, HbOC conjugate Lorenza Praisler-Wood BLIND CLEANER.INVESTOR RELATIONS COORDINATOR Work Phone: [facility] 1995 hepatitis B vaccine, pediatric or pediatric/adolescent dosage Lorenza Praisler-Wood BLIND CLEANER.INVESTOR RELATIONS COORDINATOR Work Phone: [facility] 1995 poliovirus vaccine, inactivated Lorenza Praisler-Wood BLIND CLEANER.INVESTOR RELATIONS COORDINATOR Work Phone: [facility] 1995 hepatitis B vaccine, pediatric or pediatric/adolescent dosage Lorenza Praisler-Wood BLIND CLEANER.INVESTOR RELATIONS COORDINATOR Work Phone: [facility] Social History Date Type Detail Facility Start: 10-27-2022 Tobacco smoking stat us NHIS Smokes tobacco daily [facility] History of tobacco use Cigarette Smoker C [facility] Start: 10-27-2022 Tobacco use and exposure Smokeless tobacco non-user [facility] Start: 10-27-2022 End: 03-15-2023 Alcohol intake Current drinker of alcohol (finding) [facility] Start: 10-27-2022 Tobacco Comment one pack lasts 3 day s [facility] Start: 05-28-2018 Alcohol Comment rarely, specia l occasions [facility] Start: 1995 Sex Assigned At Not on file C [facility] Tobacco smoking status No Smokin g Status Entered [facility] Sex Assigned At Female [facility] Start: 04-26-2020 End: 03-03-2023 History of Social function [facility] Work Phone: Start: 04-26-2020 End: 03-03-2023 Tobacco use panel [facility] Work Phone: Adult Depression Screening Assessment 0 [facility] Work Phone: Functional Status Date Assessment Result Facility 01-31-2023 Functional Status Ambulation in [facility] Mental Status Date Assessment Result Facility 01-31-2023 Mental Status Oriented x [address] [place] [address] Clinical Notes 10-27-2022 to 05-14-2023 Telephone Encounter - Leela Matthew - 03/16/2023 8:21 AM EDTTelephone Encounter - Hoa Valdez MA - 03/16/2023 7:24 AM Ck-Lorenza Kelley APRN.CNP - 03/15/2023 2:42 PM EDT Note Date & Type Note Facility 05-14-2023 Note HNO ID: [id number] Author: Greg Waterman APRN.BRIE Service: ? Author Type: Nurse Practitioner Type: Progress Notes Filed: 05/14/2023 5:39 PM Note Text: Subjective HPI HPI Arlen Bales is a 28 year old female who presents today for CC of cough, congestion, body aches. This started 2 days ago. Has tried otc medication for relief. Symptoms are worsened by nothing. Risk factors sick exposures. Denies possibility of being . nonsmoker. .Patient presents with: Sinus Problem: Fever and bodyaches x3 days PAST MEDICAL HISTORY Diagnosis Date Patient denies medical problems PAST SURGICAL HISTORY Procedure Laterality Date ANKLE Bilateral tendon repair, 2016 and 2017 EXTRACTION ERUPTED TOOTH/EXR TONSILLECTOMY AND ADENOIDECTOMY HX ALLERGIES Amoxicillin, Augmentin [Amoxicillin-Pot Clavulanate], and Clomid [Clomiphene Citrate] MEDICATIONS benzonatate (TESSALON PERLES) 100 mg capsule Take 2 capsules by mouth three times a day as needed. clotrimazole (LOTRIMIN) 1 % vaginal cream Use 1 Applicatorful vaginally once daily. ibuprofen (MOTRIN) 200 mg tablet Take 1-2 tablets by mouth every 6 hours as needed for Pain (Take with food.). diphenhydrAMINE (BENADRYL) 25 mg capsule Take 1 capsule by mouth every 6 hours as needed. FAMILY HISTORY Problem Relation Age of Onset No Known Problems Mother No Known Problems Father other (other) Sister pseudotumor cerebri Other Sleep Disorder Sister pituitary tumor Migraines Sister Mental illness Sister anxiety/depression No Known Problems Maternal Grandmother No Known Problems Maternal Grandfather No Known Problems Paternal Grandmother No Known Problems Paternal Grandfather Social History Tobacco Use Smoking status: Every Day Years: 8 Types: Cigarettes Smokeless tobacco: Never Tobacco comments: one pack lasts 3 days Vaping Use Vaping Use: Former Substance Use Topics Alcohol use: Yes Comment: rarely, special occasions Drug use: No Review of Systems Constitutional: Positive for chills and malaise/fatigue. Negative for fever. HENT: Positive for congestion and sore throat. Negative for ear pain and nosebleeds. Respiratory: Positive for cough. Negative for shortness of breath and wheezing. Musculoskeletal: Negative for neck pain. Skin: Negative for itching and rash. Objective Blood pressure 128/72, pulse 70, temperature 36.9 ?C (98.5 ?F), resp. rate 16, weight (!) 137.7 kg (303 lb 9.6 oz), SpO2 97%. Physical Exam Constitutional: General: She is not in acute distress. Appearance: She is not toxic-appearing or diaphoretic. HENT: Head: Normocephalic and atraumatic. Mouth/Throat: Lips: [place]. Mouth: Mucous membranes are moist. Pharynx: Oropharynx is clear. Uvula midline. Cardiovascular: Rate and Rhythm: Normal rate and regular rhythm. Heart sounds: Normal heart sounds, S1 normal and S2 normal. Pulmonary: Effort: Pulmonary effort is normal. Breath sounds: Normal breath sounds. Lymphadenopathy: Cervical: No cervical adenopathy. Right cervical: No superficial cervical adenopathy. Left cervical: No superficial cervical adenopathy. Neurological: Mental Status: She is alert and oriented to person, place, and time. Gait: Gait is intact. ASSESSMENT/PLAN: 1. URI, acute - ICD9: 465.9, ICD10: J06.9 - Discussed viral etiology and rationale for treatment. - Symptomatic treatment with prn analgesia - Supportive care with fluids and rest - Follow up in 3-5 days if symptoms persist or sooner if worsening of symptoms - COVID AND INFLUENZA A/B AND RSV NAAT, ROUTINE Greg Waterman APRN.[facility] 04-28-2023 Note HNO ID: [id number] Author: Gisselle Pedro PA-C Service: ? Author Type: Physician Etl Manager Type: Progress Notes Filed: 04/28/2023 6:34 PM Note Text: This note was created using [email or web address]. Subjective Arlen Bales is a 28 year old female. HPI Presents with sinus pressure congestion over the past 3 weeks. She has had a cough for the past week. No chest pain. Denies history of asthma. She denies sick contacts. No vomiting or diarrhea. Sinus pressure seems to be worsening. She is a smoker. Review of Systems Constitutional: Negative. HENT: Positive for congestion, sinus pressure and sinus pain. Negative for ear pain. Respiratory: Positive for cough. Negative for shortness of breath and wheezing. Cardiovascular: Negative. Gastrointestinal: Negative. Genitourinary: Negative. Musculoskeletal: Negative. All other systems reviewed and are negative. PAST MEDICAL HISTORY Diagnosis Date Patient denies medical problems Current Outpatient Medications Medication Sig Dispense Refill ibuprofen (MOTRIN) 200 mg tablet Take 1-2 tablets by mouth every 6 hours as needed for Pain (Take with food.). diphenhydrAMINE (BENADRYL) 25 mg capsule Take 1 capsule by mouth every 6 hours as needed. doxycycline (VIBRA-TABS) 100 mg tablet Take 1 tablet by mouth two times a day for 7 days. 14 tablet 0 predniSONE (DELTASONE) 20 mg tablet Take 2 tablets by mouth once daily for 5 days. 10 tablet 0 benzonatate (TESSALON PERLES) 100 mg capsule Take 2 capsules by mouth three times a day as needed. 30 capsule 0 clotrimazole (LOTRIMIN) 1 % vaginal cream Use 1 Applicatorful vaginally once daily. 45 g 0 No current facility-administered medications for this visit. PAST SURGICAL HISTORY Procedure Laterality Date ANKLE Bilateral tendon repair, 2016 and 2017 EXTRACTION ERUPTED TOOTH/EXR TONSILLECTOMY AND ADENOIDECTOMY HX FAMILY HISTORY Problem Relation Age of Onset No Known Problems Mother No Known Problems Father other (other) Sister pseudotumor cerebri Other Sleep Disorder Sister pituitary tumor Migraines Sister Mental illness Sister anxiety/depression No Known Problems Maternal Grandmother No Known Problems Maternal Grandfather No Known Problems Paternal Grandmother No Known Problems Paternal Grandfather Social History Tobacco Use Smoking status: Every Day Years: 8 Types: Cigarettes Smokeless tobacco: Never Tobacco comments: one pack lasts 3 days Vaping Use Vaping Use: Former Substance Use Topics Alcohol use: Yes Comment: rarely, special occasions Drug use: No Objective BP 102/64 Pulse 93 Temp 36.9 ?C (98.4 ?F) (Tympanic) Resp 16 Wt (!) 138.6 kg (305 lb 9.6 oz) SpO2 97% BMI 47.13 kg/m? Physical Exam Vitals reviewed. Constitutional: Appearance: Normal appearance. HENT: Head: Normocephalic and atraumatic. Right Ear: Tympanic membrane, ear canal and external ear normal. Left Ear: Tympanic membrane, ear canal and external ear normal. Nose: Congestion present. Right Sinus: Maxillary sinus tenderness present. Left Sinus: Maxillary sinus tenderness present. Mouth/Throat: Mouth: Mucous membranes are moist. Pharynx: Oropharynx is clear. Cardiovascular: Rate and Rhythm: Normal rate and regular rhythm. Heart sounds: Normal heart sounds. Pulmonary: Effort: Pulmonary effort is normal. Breath sounds: Normal breath sounds. Musculoskeletal: Cervical back: Neck supple. Skin: General: Skin is warm and dry. Findings: No rash. Neurological: Mental Status: She is alert. Assessment and Plan ASSESSMENT/PLAN: 1. Sinobronchitis - ICD9: 473.9, 490, ICD10: J32.9, J40 - Will begin treatment with Doxycycline, tessalon and prednisone. - Supportive care with plenty of fluids, rest, and analgesia prn. - Follow up in 3-5 days if symptoms persist or worsen. Gisselle Pedro PA-C [facility] 03-16-2023 Miscellaneous Notes Patient given results and verbalized understanding of instructions given. Leela Matthew ----- Message from Lorenza Baires APRN.INVESTOR RELATIONS COORDINATOR sent at 03/16/2023 7:12 AM EDT ----- Test was positive for yeast, all others negative. She may use medication as prescribed at the visit. documented in this encounter [facility] 03-15-2023 Note HNO ID: [id number] Author: Lorenza Baires APRN.INVESTOR RELATIONS COORDINATOR Service: ? Author Type: Nurse Practitioner Type: Progress Notes Filed: 03/15/2023 2:54 PM Note Text: Subjective Vaginal Problem Pertinent negatives include no chills or fever. Arlen Bales is a 27 year old female who presents with one week of vaginal itching. She has been using monistat OTC but has not had improvement. She describes the vaginal area as raw feeling . She denies concern for STD, states she is and monogamous. LMP was 02/21/23. Review of Systems Constitutional: Negative for chills and fever. Respiratory: Negative. Cardiovascular: Negative. Genitourinary: Positive for vaginal discharge. Negative for dysuria, frequency, hematuria and urgency. Skin: Positive for itching. BP 122/82 Pulse 78 Temp 36.9 ?C (98.4 ?F) Resp 21 Wt (!) 139.2 kg (306 lb 12.8 oz) SpO2 97% BMI 47.31 kg/m? PAST MEDICAL HISTORY Diagnosis Date Patient denies medical problems PAST SURGICAL HISTORY Procedure Laterality Date ANKLE Bilateral tendon repair, 2016 and 2017 EXTRACTION ERUPTED TOOTH/EXR TONSILLECTOMY AND ADENOIDECTOMY HX ALLERGIES Amoxicillin, Augmentin [Amoxicillin-Pot Clavulanate], and Clomid [Clomiphene Citrate] MEDICATIONS ibuprofen (MOTRIN) 200 mg tablet Take 1-2 tablets by mouth every 6 hours as needed for Pain (Take with food.). diphenhydrAMINE (BENADRYL) 25 mg capsule Take 1 capsule by mouth every 6 hours as needed. fluconazole (DIFLUCAN) 150 mg tablet Take 1 tablet by mouth one time only for 1 dose. Repeat in 3 days as needed. FAMILY HISTORY Problem Relation Age of Onset No Known Problems Mother No Known Problems Father other (other) Sister pseudotumor cerebri Other Sleep Disorder Sister pituitary tumor Migraines Sister Mental illness Sister anxiety/depression No Known Problems Maternal Grandmother No Known Problems Maternal Grandfather No Known Problems Paternal Grandmother No Known Problems Paternal Grandfather Social History Tobacco Use Smoking status: Every Day Years: 8 Types: Cigarettes Smokeless tobacco: Never Tobacco comments: one pack lasts 3 days Vaping Use Vaping Use: Former Substance Use Topics Alcohol use: Yes Comment: rarely, special occasions Drug use: No Objective Physical Exam Vitals and nursing note reviewed. Exam conducted with a portfolio management marketing present. Constitutional: Appearance: Normal appearance. Genitourinary: Vagina: Vaginal discharge, erythema and tenderness present. Cervix: No discharge, lesion or erythema. Skin: General: Skin is warm and dry. Findings: Erythema present. No rash. Neurological: Mental Status: She is alert. ASSESSMENT/PLAN: 1. Itching in the vaginal area - ICD9: 698.1, ICD10: N89.8 - HANNA/TRICHOMONAS NAAT - BACTERIAL VAGINOSIS NAAT - GONORRHEA/CHLAMYDIA NAAT - FLUCONAZOLE 150 MG TABLET - exam is consistent with vaginal yeast infection. Lorenza Baires APRN.[facility] 03-15-2023 History of Present illness Narrative Images from the original note were not included. Subjective Vaginal Problem Pertinent negatives include no chills or fever. Arlen Bales is a 27 year old female who presents with one week of vaginal itching. She has been using monistat OTC but has not had improvement. She describes the vaginal area as raw feeling . She denies concern for STD, states she is and monogamous. LMP was 02/21/23. Review of Systems Constitutional: Negative for chills and fever. Respiratory: Negative. Cardiovascular: Negative. Genitourinary: Positive for vaginal discharge. Negative for dysuria, frequency, hematuria and urgency. Skin: Positive for itching. BP 122/82 Pulse 78 Temp 36.9 C (98.4 F) Resp 21 Wt (!) 139.2 kg (306 lb 12.8 oz) SpO2 97% BMI 47.31 kg/m PAST MEDICAL HISTORY Diagnosis Date Patient denies medical problems PAST SURGICAL HISTORY Procedure Laterality Date ANKLE Bilateral tendon repair, 2015 and 2017 EXTRACTION ERUPTED TOOTH/EXR TONSILLECTOMY AND ADENOIDECTOMY HX ALLERGIES Amoxicillin, Augmentin [Amoxicillin-Pot Clavulanate], and Clomid [Clomiphene Citrate] MEDICATIONS ibuprofen (MOTRIN) 200 mg tablet Take 1-2 tablets by mouth every 6 hours as needed for Pain (Take with food.). diphenhydrAMINE (BENADRYL) 25 mg capsule Take 1 capsule by mouth every 6 hours as needed. fluconazole (DIFLUCAN) 150 mg tablet Take 1 tablet by mouth one time only for 1 dose. Repeat in 3 days as needed. FAMILY HISTORY Problem Relation Age of Onset No Known Problems Mother No Known Problems Father other (other) Sister pseudotumor cerebri Other Sleep Disorder Sister pituitary tumor Migraines Sister Mental illness Sister anxiety/depression No Known Problems Maternal Grandmother No Known Problems Maternal Grandfather No Known Problems Paternal Grandmother No Known Problems Paternal Grandfather Social History Tobacco Use Smoking status: Every Day Years: 8 Types: Cigarettes Smokeless tobacco: Never Tobacco comments: one pack lasts 3 days Vaping Use Vaping Use: Former Substance Use Topics Alcohol use: Yes Comment: rarely, special occasions Drug use: No Objective Physical Exam Vitals and nursing note reviewed. Exam conducted with a portfolio management marketing present. Constitutional: Appearance: Normal appearance. Genitourinary: Vagina: Vaginal discharge, erythema and tenderness present. Cervix: No discharge, lesion or erythema. Skin: General: Skin is warm and dry. Findings: Erythema present. No rash. Neurological: Mental Status: She is alert. ASSESSMENT/PLAN: 1. Itching in the vaginal area - ICD9: 698.1, ICD10: N89.8 - HANNA/TRICHOMONAS NAAT - BACTERIAL VAGINOSIS NAAT - GONORRHEA/CHLAMYDIA NAAT - FLUCONAZOLE 150 MG TABLET - exam is consistent with vaginal yeast infection. Lorenza Baires APRN.CNP documented in this encounter [facility] 03-15-2023 Instructions Lorenza Baires APRN.CNP - 03/15/2023 2:42 PM EDT ASSESSMENT/PLAN: 1. Itching in the vaginal area - ICD9: 698.1, ICD10: N89.8 - HANNA/TRICHOMONAS NAAT - BACTERIAL VAGINOSIS NAAT - GONORRHEA/CHLAMYDIA NAAT - FLUCONAZOLE 150 MG TABLET - exam is consistent with vaginal yeast infection. Lorenza Baires APRN.CNP [facility] PATIENT INFO VAGINAL YEAST INFECTION INTRODUCTION Vaginal yeast infections are a common problem in women. Vaginal yeast infections are also called yeast vaginitis or vaginal candidiasis. The most common symptoms of a yeast infection are itching and irritation of the vulva and around the opening of the vagina. Yeast infections occur mainly in women who are menstruating (having monthly periods). They are less common in postmenopausal women who do not take estrogen and in girls who have not yet started menstruating. VAGINAL YEAST INFECTION SYMPTOMS The most common symptoms of a yeast infection include: Itching or irritation of the vulva and around the vaginal opening. Pain with urination, vulvar soreness or irritation, Pain with intercourse Reddened and swollen vulvar and vaginal tissues. Some women have no abnormal vaginal discharge. Others have white clumpy (curd-like) or watery vaginal discharge. Symptoms of a yeast infection are similar to a number of other conditions, including bacterial vaginosis (a bacterial infection of the vagina), trichomoniasis (a sexually transmitted infection), and dermatitis (irritated skin). It is often not possible to know if itching is caused by yeast or other causes. VAGINAL YEAST INFECTION CAUSE The fungus that causes yeast infections (named Hanna) normally lives in the gastrointestinal tract and sometimes the vagina. Normally, Hanna causes no symptoms. However, when there are changes in the normal magen of the gastrointestinal tract and vagina (caused by medicines, injury, or stress to the immune system), Hanna can overgrow and cause the symptoms described above. VAGINAL YEAST INFECTION RISK FACTORS In most women, there is no underlying health problem that leads to a yeast infection. There are several risk factors that may increase the chances of developing an infection, including: Antibiotics -- Most antibiotics kill a wide variety of bacteria, including those that normally live in the vagina. These bacteria protect the vagina from the overgrowth of yeast. Some women are prone to yeast infections while taking antibiotics. Hormonal contraceptives (eg, control pills, patch, and vaginal ring) -- The risk of yeast infections may be higher in women who use control methods containing estrogen. Contraceptive devices -- Vaginal sponges, diaphragms, and intrauterine devices (IUDs) may increase the risk of yeast infections. Spermicides do not usually cause yeast infections, although they can cause you to have vaginal or vulvar irritation. Weakened immune system -- Yeast infections are more common in people who have a weakened immune system due to HIV or use of certain medications (steroids, chemotherapy, post-organ transplant medications). -- Vaginal discharge becomes more noticeable during , although yeast infection is not always the cause. Diabetes -- Women with diabetes are at higher risk for yeast infections, especially if blood sugar levels are often higher than normal. Sexual activity -- Vaginal yeast infections are not a sexually transmitted infection. They can occur in women who have never been sexually active, but are more common in women who are sexually active. VAGINAL YEAST INFECTION DIAGNOSIS Yeast infections can be diagnosed with an exam. During the exam, your doctor or nurse will examine your vulva and vagina and swab the vagina to get a sample of discharge. Do not begin treatment at home before being examined. Self-diagnosis -- Women with vulvar itching or vaginal discharge often assume that their symptoms are caused by a yeast infection and then use a non-prescription treatment. However, in one study, only 11 percent of women accurately diagnosed their infection; women with a previous yeast infection were only slightly more accurate (35 percent correct). Diagnosing and treating yourself: Wastes money (on non-prescription treatment) Wastes time; you will not feel better until you use the right treatment Can make you more itchy and irritated VAGINAL YEAST INFECTION TREATMENT Treatment of a vaginal yeast infection may include a pill that you take by mouth or a vaginal treatment. Vaginal treatment -- Treatment for a vaginal yeast infection often includes a vaginal cream or tablet. You apply the cream or tablet inside the vagina at bedtime with an applicator. There are prescription and non-prescription treatments, so ask your doctor or nurse which to use. One, three, and seven-day treatments are equally effective. Oral treatment -- A prescription pill called fluconazole (Diflucan ) is another option for treating yeast infections. Most women only need one dose, although women with more complicated infections (such as those with underlying medical problems, recurrent yeast infections, or severe signs and symptoms) may require a second dose 72 hours (3 days) after the first dose. Side effects of fluconazole are mild and infrequent, but may include stomach upset, headache, and rash. Fluconazole interacts with a number of medications; ask your doctor, nurse, or pharmacist if you have concerns. Fluconazole is not usually recommended during the first trimester of due to the potential risk of harm to the fetus. When will I feel better? -- Most yeast infections go away within a few days after starting treatment. However, you may continue to feel itchy and irritated, even after the infection is gone. If you do not get better within a few days after finishing treatment, call your doctor or nurse for advice. RECURRENT VAGINAL YEAST INFECTIONS Between 5 and 8 percent of women have recurrent yeast infections, defined as more than four infections per year. There is no evidence that eating yogurt or other products containing live Lactobacillus acidophilus, or applying these products to the vagina is of any benefit in women with recurrent vaginal yeast infections. Diagnosis -- As with initial yeast infections, it is important to correctly diagnose recurrent yeast infections. A woman who has frequent signs and symptoms of vulvar or vaginal irritation or itching should be seen by a healthcare provider to ensure that her symptoms are caused by yeast rather than other common problems (eg, other vaginal infections, allergic reaction or sensitivity, eczema). As with initial infections, self-diagnosis is not accurate enough to recommend treatment. Treatment -- Women with recurrent infections are usually given a longer course of treatment for infections, between 7 and 14 days for a topical (cream or suppository) medication or fluconazole 150 mg by mouth with a second and third dose 3 and 6 days later. Preventive treatment may be recommended after the infection has resolved; this may include fluconazole (150 mg orally once per week) or clotrimazole (500 mg vaginal suppositories administered once per week). Treatment of a sexual partner -- Vaginal yeast infections are not a sexually transmitted infection, although the infection may rarely be passed from one partner to another. Most experts do not recommend treatment of a sexual partner. SUMMARY Vaginal yeast infections are a common problem in women. Itching is the most common symptom of a vaginal yeast infection. Women may also note pain with urination, soreness or irritation, pain with intercourse, or reddened and swollen vulvar and vaginal tissues. There is often little or no vaginal discharge; if present, discharge is typically white and clumpy (curd-like) or thin and watery. Symptoms of a yeast infection are similar to a number of other conditions. A physical examination is needed to determine the cause of symptoms. There are several risk factors that may increase the chances of developing a yeast infection, including use of antibiotics, control, diabetes, , and a weakened immune system (due to chemotherapy, HIV, or certain medications). To diagnose a vaginal yeast infection, a healthcare provider will do an examination. It is important to be seen when symptoms are bothersome and before any treatment is used. Do not begin treatment for a yeast infection before being examined. Treatment of vaginal yeast infection may include a vaginal cream or tablet or a pill taken by mouth. documented in this encounter [facility] 03-08-2023 Miscellaneous Notes Reason for Call: Toe nail fungus Outcome: I conf her to the slunk skinner Reason for Disposition [1] After 2 weeks on treatment AND [2] rash has not disappeared Athlete's Foot suspected (i.e., itchy red rash in web space between toes) Answer Assessment - Initial Assessment Questions 1. APPEARANCE of RASH:Nail looks cloudy 2. LOCATION: Right great toe nail 3. SIZE: 1/3 of the nail medial side 4. ONSET: Jan 2023 5. OTHER SYMPTOMS: Has been using OTC antifungal creams without any results. She has been cutting away the nail. She had some peeling skin in-between that toe which that is improving 6. : Denies Protocols used: Toe [id number]-BD, Athlete's Derv-[id number]-KY documented in this encounter [facility] 03-03-2023 Note HNO ID: [id number] Author: Lorneza Baires APRN.INVESTOR RELATIONS COORDINATOR Service: ? Author Type: Nurse Practitioner Type: Progress Notes Filed: 03/03/2023 3:49 PM Note Text: Subjective Ear Pain Pertinent negatives include no chills, congestion, coughing, fever, myalgias or sore throat. Arlen Bales is a 27 year old female who presents with right ear pain x 1 days. Rates pain 3-08/25. Has noted recent drainage from right ear after hot showers. She has not had any associated URI symptoms. She has not taken any medications today. Review of Systems Constitutional: Negative for chills and fever. HENT: Positive for ear discharge and ear pain. Negative for congestion and sore throat. Respiratory: Negative for cough. Cardiovascular: Negative. Musculoskeletal: Negative for myalgias. BP 118/66 Pulse 92 Temp 36.8 ?C (98.2 ?F) Resp 16 Wt (!) 137.9 kg (304 lb) SpO2 99% BMI 46.88 kg/m? PAST MEDICAL HISTORY Diagnosis Date Patient denies medical problems PAST SURGICAL HISTORY Procedure Laterality Date ANKLE Bilateral tendon repair, 2015 and 2017 EXTRACTION ERUPTED TOOTH/EXR TONSILLECTOMY AND ADENOIDECTOMY HX ALLERGIES Amoxicillin, Augmentin [Amoxicillin-Pot Clavulanate], and Clomid [Clomiphene Citrate] MEDICATIONS ibuprofen (MOTRIN) 200 mg tablet Take 1-2 tablets by mouth every 6 hours as needed for Pain (Take with food.). diphenhydrAMINE (BENADRYL) 25 mg capsule Take 1 capsule by mouth every 6 hours as needed. cefdinir (OMNICEF) 300 mg capsule Take 1 capsule by mouth two times a day for 7 days. FAMILY HISTORY Problem Relation Age of Onset No Known Problems Mother No Known Problems Father other (other) Sister pseudotumor cerebri Other Sleep Disorder Sister pituitary tumor Migraines Sister Mental illness Sister anxiety/depression No Known Problems Maternal Grandmother No Known Problems Maternal Grandfather No Known Problems Paternal Grandmother No Known Problems Paternal Grandfather Social History Tobacco Use Smoking status: Every Day Years: 8 Types: Cigarettes Smokeless tobacco: Never Tobacco comments: one pack lasts 3 days Vaping Use Vaping Use: Former Substance Use Topics Alcohol use: Yes Comment: rarely, special occasions Drug use: No Objective Physical Exam Vitals and nursing note reviewed. Constitutional: General: She is not in acute distress. Appearance: Normal appearance. She is obese. She is not ill-appearing. HENT: Right Ear: Ear canal and external ear normal. Tympanic membrane is injected and erythematous. Left Ear: Tympanic membrane, ear canal and external ear normal. Mouth/Throat: Mouth: Mucous membranes are moist. Pharynx: Oropharynx is clear. Uvula midline. No oropharyngeal exudate or posterior oropharyngeal erythema. Cardiovascular: Rate and Rhythm: Normal rate and regular rhythm. Heart sounds: Normal heart sounds. Pulmonary: Effort: Pulmonary effort is normal. No respiratory distress. Breath sounds: Normal breath sounds. No wheezing or rales. Musculoskeletal: Cervical back: Neck supple. Lymphadenopathy: Cervical: No cervical adenopathy. Skin: General: Skin is warm and dry. Findings: No erythema or rash. Neurological: Mental Status: She is alert. ASSESSMENT/PLAN: 1. Other acute nonsuppurative otitis media of right ear, recurrence not specified - ICD9: 381.00, ICD10: H65.191 - Will begin treatment with as per antibiotic as written, see orders - Supportive care with analgesia prn. - CEFDINIR 300 MG CAPSULE - Follow-up with your PCP in 3-5 days if symptoms have not improved or sooner if symptoms worsen - Discussed red flags and need for immediate medical evaluation if any occur. - Discussed supportive care treatment with fluids, rest and analgesia. - Discussed expected course of illness Lorenza Baires APRN.[facility] 03-03-2023 History of Present illness Narrative Subjective Ear Pain Pertinent negatives include no chills, congestion, coughing, fever, myalgias or sore throat. Arlen Bales is a 27 year old female who presents with right ear pain x 1 days. Rates pain 3-4/10. Has noted recent drainage from right ear after hot showers. She has not had any associated URI symptoms. She has not taken any medications today. Review of Systems Constitutional: Negative for chills and fever. HENT: Positive for ear discharge and ear pain. Negative for congestion and sore throat. Respiratory: Negative for cough. Cardiovascular: Negative. Musculoskeletal: Negative for myalgias. BP 118/66 Pulse 92 Temp 36.8 C (98.2 F) Resp 16 Wt (!) 137.9 kg (304 lb) SpO2 99% BMI 46.88 kg/m PAST MEDICAL HISTORY Diagnosis Date Patient denies medical problems PAST SURGICAL HISTORY Procedure Laterality Date ANKLE Bilateral tendon repair, 2015 and 2017 EXTRACTION ERUPTED TOOTH/EXR TONSILLECTOMY AND ADENOIDECTOMY HX ALLERGIES Amoxicillin, Augmentin [Amoxicillin-Pot Clavulanate], and Clomid [Clomiphene Citrate] MEDICATIONS ibuprofen (MOTRIN) 200 mg tablet Take 1-2 tablets by mouth every 6 hours as needed for Pain (Take with food.). diphenhydrAMINE (BENADRYL) 25 mg capsule Take 1 capsule by mouth every 6 hours as needed. cefdinir (OMNICEF) 300 mg capsule Take 1 capsule by mouth two times a day for 7 days. FAMILY HISTORY Problem Relation Age of Onset No Known Problems Mother No Known Problems Father other (other) Sister pseudotumor cerebri Other Sleep Disorder Sister pituitary tumor Migraines Sister Mental illness Sister anxiety/depression No Known Problems Maternal Grandmother No Known Problems Maternal Grandfather No Known Problems Paternal Grandmother No Known Problems Paternal Grandfather Social History Tobacco Use Smoking status: Every Day Years: 8 Types: Cigarettes Smokeless tobacco: Never Tobacco comments: one pack lasts 3 days Vaping Use Vaping Use: Former Substance Use Topics Alcohol use: Yes Comment: rarely, special occasions Drug use: No Objective Physical Exam Vitals and nursing note reviewed. Constitutional: General: She is not in acute distress. Appearance: Normal appearance. She is obese. She is not ill-appearing. HENT: Right Ear: Ear canal and external ear normal. Tympanic membrane is injected and erythematous. Left Ear: Tympanic membrane, ear canal and external ear normal. Mouth/Throat: Mouth: Mucous membranes are moist. Pharynx: Oropharynx is clear. Uvula midline. No oropharyngeal exudate or posterior oropharyngeal erythema. Cardiovascular: Rate and Rhythm: Normal rate and regular rhythm. Heart sounds: Normal heart sounds. Pulmonary: Effort: Pulmonary effort is normal. No respiratory distress. Breath sounds: Normal breath sounds. No wheezing or rales. Musculoskeletal: Cervical back: Neck supple. Lymphadenopathy: Cervical: No cervical adenopathy. Skin: General: Skin is warm and dry. Findings: No erythema or rash. Neurological: Mental Status: She is alert. ASSESSMENT/PLAN: 1. Other acute nonsuppurative otitis media of right ear, recurrence not specified - ICD9: 381.00, ICD10: H65.191 - Will begin treatment with as per antibiotic as written, see orders - Supportive care with analgesia prn. - CEFDINIR 300 MG CAPSULE - Follow-up with your PCP in 3-5 days if symptoms have not improved or sooner if symptoms worsen - Discussed red flags and need for immediate medical evaluation if any occur. - Discussed supportive care treatment with fluids, rest and analgesia. - Discussed expected course of illness Lorenza Baires APRN.CNP documented in this encounter [facility] 03-03-2023 Instructions Lorenza Baires APRN.CNP - 03/03/2023 3:47 PM EDT ASSESSMENT/PLAN: 1. Other acute nonsuppurative otitis media of right ear, recurrence not specified - ICD9: 381.00, ICD10: H65.191 - Will begin treatment with as per antibiotic as written, see orders - Supportive care with analgesia prn. - CEFDINIR 300 MG CAPSULE - Follow-up with your PCP in 3-5 days if symptoms have not improved or sooner if symptoms worsen - Discussed red flags and need for immediate medical evaluation if any occur. - Discussed supportive care treatment with fluids, rest and analgesia. - Discussed expected course of illness Lorenza Baires APRN.INVESTOR RELATIONS COORDINATOR OTITIS MEDIA GENERAL INFORMATION: Otitis media is an infection of the middle ear. The middle ear sits behind the eardrum. This infection may be caused by a virus or bacteria and often follows a cold. Children often have repeat ear infections. Otitis media is not contagious. INSTRUCTIONS: 1. An antibiotic has been prescribed. It should be taken exactly as prescribed. Do not stop the medicine even if the symptoms go away. 2. Esao-gzo-dgmpjcv pain medication may be taken or other pain medication as prescribed by the doctor. 3. Nothing should be placed in the ear unless instructed by your doctor. 4. The patient may return to school/daycare or work when the temperature is normal (98.6 F or 37 C). 5. The patient should not swim while the ear is infected. CONTACT YOUR DOCTOR IF YOU OR YOUR CHILD: 1. Does not feel better within 36 hours. 2. Develops a temperature over 102E F (39E C). 3. Starts vomiting or has diarrhea. 4. Develops drainage from the affected ear. 5. Has any new problem that may be related to the medicine prescribed. RETURN TO THE ED IF: 1. You or your child has a severe headache or pain around the ear. 2. You or your child notice swelling around the ear. 3. You or your child has a seizure (convulsion), twitching of the facial muscles, or passes out. 4. You or your child is dizzy, has a stiff neck, or cannot walk or talk normally. 5. Your child becomes more irritable or listless (not interested in his or her surroundings, does not get soothed by you holding him or her). documented in this encounter [facility] 02-01-2023 Hospital Discharge instructions Patient Education 01/31/2023 22:01:37 Otitis Media, Antibiotic Treatment (Adult) Middle Ear Infection (Adult) You have an infection of the middle ear, the space behind the eardrum. This is also called acute otitis media (AOM). Sometimes it is caused by the common cold. This is because congestion can block the internal passage (eustachian tube) that drains fluid from the middle ear. When the middle ear fills with fluid, bacteria can grow there and cause an infection. Oral antibiotics are used to treat this illness, not ear drops. Symptoms usually start to improve within 1 to 2 days of treatment. Home care The following are general care guidelines: Finish all of the antibiotic medicine given, even though you may feel better after the first few days. You may use grmg-tgc-ziikauh medicine, such as acetaminophen or ibuprofen, to control pain and fever, unless something else was prescribed. If you have chronic liver or kidney disease or have ever had a stomach ulcer or gastrointestinal bleeding, talk with your healthcare provider before using these medicines. Do not give aspirin to anyone under 18 years of age who has a fever. It may cause severe illness or . Follow-up care Follow up with your healthcare provider, or as advised, in 2 weeks if all symptoms have not gotten better, or if hearing doesn't go back to normal within 1 month. When to seek medical advice Call your healthcare provider right away if any of these occur: Ear pain gets worse or does not improve after 3 days of treatment Unusual drowsiness or confusion Neck pain, stiff neck, or headache Fluid or blood draining from the ear canal Fever of 100.4 F (38 C) or as advised Seizure [id number] [employer]. [address] [place] [address]. All rights reserved. This information is not intended as a substitute for professional medical care. Always follow your healthcare professional's instructions. Follow Up Care 01/31/2023 21:45:36 With:FAMILY L[facility] Address: [address] [place] [phone] When:2-4 days With:Call Physician Referral Address:Unknown When:2-4 days [facility] 01-31-2023 Emergency department Discharge summary Discharge Instructions Thank you for allowing [place] to assist you with your healthcare needs. The following is important discharge information regarding your hospital visit. Diagnosis from Today's Visit Throat pain - Adult What to Do Next Instructions from Your Care Team Discharge Return to Work, School, or Sports (Return to Work, School, or Sports) - Ordered -- 02/04/23, May return to: work, 01/31/23 22:03:00 EDT Post Acute Orders No qualifying data available. You Need to Schedule the Following Appointments Follow Up with [facility] When Within 2-4 days Where: [address] [place] [phone] Follow Up with Call Physician Referral When Within 2-4 days Allergies No active allergies Medications Please ask your primary doctor or pharmacist before taking any other medication not listed, including over the counter drugs, herbal medications, vitamins and or supplements as they may interact with your home medications. What How Much When Instructions Last Dose New cefdinir (cefdinir 300 mg oral capsule) 1 cap by mouth Every 12 hours Duration: 7 Days Printed Prescription New nabumetone (nabumetone 500 mg oral tablet) 2 tab(s) by mouth Two (2) times a day Duration: 7 Days Printed Prescription Please take this list to your next doctor s visit. Bring all medications you take, including over the counter medications, herbals and other supplements with you to your doctor s visit. Patients and families are reminded to discard old lists and to update any records with all medication providers or retail pharmacies. Education Materials Middle Ear Infection (Adult) You have an infection of the middle ear, the space behind the eardrum. This is also called acute otitis media (AOM). Sometimes it is caused by the common cold. This is because congestion can block the internal passage (eustachian tube) that drains fluid from the middle ear. When the middle ear fills with fluid, bacteria can grow there and cause an infection. Oral antibiotics are used to treat this illness, not ear drops. Symptoms usually start to improve within 1 to 2 days of treatment. Home care The following are general care guidelines: Finish all of the antibiotic medicine given, even though you may feel better after the first few days. You may use fbje-xfx-pezpkxq medicine, such as acetaminophen or ibuprofen, to control pain and fever, unless something else was prescribed. If you have chronic liver or kidney disease or have ever had a stomach ulcer or gastrointestinal bleeding, talk with your healthcare provider before using these medicines. Do not give aspirin to anyone under 18 years of age who has a fever. It may cause severe illness or . Follow-up care Follow up with your healthcare provider, or as advised, in 2 weeks if all symptoms have not gotten better, or if hearing doesn't go back to normal within 1 month. When to seek medical advice Call your healthcare provider right away if any of these occur: Ear pain gets worse or does not improve after 3 days of treatment Unusual drowsiness or confusion Neck pain, stiff neck, or headache Fluid or blood draining from the ear canal Fever of 100.4 F (38 C) or as advised Seizure [id number] [employer]. [address] [place] [address], [place] [address]. All rights reserved. This information is not intended as a substitute for professional medical care. Always follow your healthcare professional's instructions. Additional Information VACCINATE! IT SAVES LIVES! Members of the community who have not yet received the COVID-19 vaccine and would like to receive it can visit one of [facility] vaccine clinics. There are many vaccine clinic locations within the [facility]. For locations and available times, please visit [email or web address] [email or web address] It is important to note that some COVID mobile vaccine clinics are held outdoors and may be canceled in rainy or stormy conditions. To learn more about pediatric vaccinations (ages 5-11), we invite you to visit the [facility] webpage. https://www.[email or web address]/pa [email or web address]-Ujebp-Dcyaxiixbuk-Freque jqst-Vjwuf-Ccysbpuuj.html To learn more about the COVID-19 vaccine, we invite you to visit the CDC website for a list of frequently asked questions. https://www.cdc.gov/coronavirus/2 019-ncov/vaccines/faq.html [facility] Patient Portal Access Instructions: Stay connected with your healthcare team and access your personal medical information anytime with the [facility] Patient Portal. If you would like a full copy of your medical records please contact the [facility] Medical Records Department Thursday through Thursday between 8a.m. and 4:30p.m. Please follow the directions below to access the portal: 1.Access the email account you provided upon registration to the hospital.2.Look for an invitation email from [facility].3.Open the email and access the invitation link: Accept Invitation to [facility].Fill in the required thomas to create your account. Sign into [email or web address] with your username and password that you created in the above steps to stay up to date. You can then view a summary of results, a summary of your visits, and the ability to download your summaries to your computer or send the information securely to a physician. Remember that your healthcare information is confidential, so carefully consider who you will allow to register on the [facility] Patient Portal for access to your information. You can also access the [facility] Patient Portal on the [employer] ge. Simply click on Health Records under Health Data and then click on the [employer] logo. HOW TO SAFELY DISPOSE OF PRESCRIPTION MEDICATIONS Please use one of the following methods to safely dispose of your unused medications. 1.Use a drug disposal kit: the drug disposal pouch allows you to safely discard your old and unused drugs. Ask your nurse to give you one when you are discharged.2.Visit a local take-back location: Many local pharmacies and police departments have programs that collect old and unwanted prescription drugs. Call your local pharmacy or go to http://Caliopa.[employer]/5H8Kh4j to find one close to you.3.Make use of household items: Use cat litter or old coffee grounds to dispose medications if other options are not available. Mix your drugs with these household products, seal them in an airtight container and throw it into the garbage. Call [facility]: [phone] to be sure your drugs can be disposed of in this way. Some medicines may require a different approach.4.Never flush your medications down the toilet. IF YOU HAVE BEEN PRESCRIBED AN OPIOIDS FOR PAIN If you have been prescribed an opioid (such as hydrocodone, oxycodone or morphine), it is critical to understand the possible side effects and risks of opioid pain medications. Even when taken as directed, opioids can have several side effects including: Tolerance, meaning you might need to take more of a medication for the same pain relief. Nausea, vomiting and/or constipation. Sleepiness, dizziness, dry mouth, confusion, depression or itching. Physical dependence, meaning you have withdrawal symptoms when a medication is stopped ? this can develop within a few days. KNOW YOUR RESPONSIBILITIES It is important to know exactly how much and how often to take the opioid pain medications you are prescribed. Never take opioids in higher amounts or more often than prescribed. Do not combine opioids with alcohol or other drugs that cause drowsiness, such as benzodiazepines, also known as benzos, including diazepam and alprazolam, muscle relaxants or sleep aids. Never sell or share prescription opioids. This is illegal. Store opioids in a secure place and out of reach of others (including children, family, friends and visitors). The last page(s) of this document has been signed and retained as a CHART COPY Signatures Patient Education Materials Otitis Media, Antibiotic Treatment (Adult) Medication Leaflets My discharge plan and instructions have been reviewed and explained to me and ITONY BRIANA understand my current condition and have read and understand these discharge instructions. I have received a written copy of the plan/instructions. If I have questions, I am aware that I should contact my doctor. 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 Author Type: Nurse Practitioner Type: Progress Notes Filed: 10/27/2022 1:04 PM Note Text: Subjective Headache Pertinent negatives include no fever, no nausea and no vomiting. Arlen Bales is a 27 year old female who presents with a headache for the past 6 days. Pain has varied in intensity; right now she rates it 4/10 but last night it was worse and felt like a hot poker through my right eye . She has had photosensitivity with this. She denies nausea or vomiting. She has a family history of migraines but has never been diagnosed with migraines. She denies associated URI symptoms. No sick contacts. Denies visual changes or dizziness. Denies any weakness or sensory changes. Review of Systems Constitutional: Negative for chills and fever. HENT: Negative for congestion, ear pain and sore throat. Eyes: Positive for photophobia. Negative for blurred vision and double vision. Respiratory: Negative for cough. Cardiovascular: Negative. Gastrointestinal: Negative for nausea and vomiting. Musculoskeletal: Negative for myalgias. Neurological: Positive for headaches. Negative for dizziness, tingling, tremors, sensory change, speech change, focal weakness, loss of consciousness and weakness. BP 110/76 Pulse 80 Temp 36.1 ?C (96.9 ?F) Resp 18 Wt (!) 139.4 kg (307 lb 6.4 oz) SpO2 95% BMI 47.41 kg/m? PAST MEDICAL HISTORY Diagnosis Date Patient denies medical problems PAST SURGICAL HISTORY Procedure Laterality Date ANKLE Bilateral tendon repair, 2016 and 2017 EXTRACTION ERUPTED TOOTH/EXR TONSILLECTOMY AND ADENOIDECTOMY HX ALLERGIES Amoxicillin, Augmentin [Amoxicillin-Pot Clavulanate], and Clomid [Clomiphene Citrate] MEDICATIONS methylPREDNISolone (MEDROL, ARNEL,) 4 mg Dose-PackFollow dosing instructions, take with food.Disp: 21 tabletRfl: 0 ibuprofen (MOTRIN) 200 mg tabletTake 1-2 tablets by mouth every 6 hours as needed for Pain (Take with food.).Disp: Rfl: diphenhydrAMINE (BENADRYL) 25 mg capsuleTake 1 capsule by mouth every 6 hours as needed.Disp: Rfl: FAMILY HISTORY Problem Relation Age of Onset No Known Problems Mother No Known Problems Father other (other) Sister pseudotumor cerebri Other Sleep Disorder Sister pituitary tumor Migraines Sister Mental illness Sister anxiety/depression No Known Problems Maternal Grandmother No Known Problems Maternal Grandfather No Known Problems Paternal Grandmother No Known Problems Paternal Grandfather Social History Tobacco Use Smoking status: Every Day Years: 8.00 Types: Cigarettes Smokeless tobacco: Never Tobacco comments: one pack lasts 3 days Vaping Use Vaping Use: Former Substance Use Topics Alcohol use: Yes Comment: rarely, special occasions Drug use: No Objective Physical Exam Vitals and nursing note reviewed. Constitutional: General: She is not in acute distress. Appearance: Normal appearance. She is obese. HENT: Right Ear: Tympanic membrane, ear canal and external ear normal. Left Ear: Tympanic membrane, ear canal and external ear normal. Mouth/Throat: Mouth: Mucous membranes are moist. Pharynx: Oropharynx is clear. No oropharyngeal exudate or posterior oropharyngeal erythema. Eyes: General: Lids are normal. Vision grossly intact. Extraocular Movements: Extraocular movements intact. Conjunctiva/sclera: Conjunctivae normal. Pupils: Pupils are equal, round, and reactive to light. Cardiovascular: Rate and Rhythm: Normal rate and regular rhythm. Heart sounds: Normal heart sounds. Pulmonary: Effort: Pulmonary effort is normal. No respiratory distress. Breath sounds: Normal breath sounds. No wheezing or rales. Skin: General: Skin is warm and dry. Findings: No erythema or rash. Neurological: Mental Status: She is alert and oriented to person, place, and time. Cranial Nerves: No dysarthria or facial asymmetry. Motor: No weakness or tremor. Gait: Gait is intact. ASSESSMENT/PLAN: 1. Headache, unspecified headache type - ICD9: 784.0, ICD10: R51.9 - KETOROLAC 60 MG/2 ML INTRAMUSCULAR SOLUTION- given in office. - CONSULT TO [facility] CL[facility]IC - METHYLPREDNISOLONE 4 MG TABLETS IN A DOSE PACK - DIPHENHYDRAMINE 25 MG CAPSULE - Follow-up with your PCP in 3-5 days if symptoms have not improved or sooner if symptoms worsen - Discussed red flags and need for immediate medical evaluation if any occur. - Discussed supportive care treatment with fluids, rest and analgesia. - Discussed expected course of illness Lorenza Baires APRN.CNP [facility] 10-27-2022 Instructions Lorenza Baires APRN.CNP - 10/27/2022 12:59 PM EDT ASSESSMENT/PLAN: 1. Headache, unspecified headache type - ICD9: 784.0, ICD10: R51.9 - KETOROLAC 60 MG/2 ML INTRAMUSCULAR SOLUTION- given in office. - CONSULT TO [facility] - METHYLPREDNISOLONE 4 MG TABLETS IN A DOSE PACK - DIPHENHYDRAMINE 25 MG CAPSULE - Follow-up with your PCP in 3-5 days if symptoms have not improved or sooner if symptoms worsen - Discussed red flags and need for immediate medical evaluation if any occur. - Discussed supportive care treatment with fluids, rest and analgesia. - Discussed expected course of illness Lorenza Baires APRN.CNP [facility] GENERAL INFORMATION: Almost everyone has a headache occasionally. Most headaches are caused by tension, eye strain, or emotional upset. Headaches can also occur with many medical illnesses. They may be a side effect of some medications. A headache that occurs without other symptoms and only lasts a few hours probably isn't a cause for concern. INSTRUCTIONS: 1. You may use xhcm-qyx-cbqyhld pain medication such as acetaminophen, ibuprofen, or aspirin unless your doctor recommends otherwise. 2. Try some of the following measures to relieve your headache: Stretch and massage the muscles in your shoulders, neck, jaw, and scalp. Take a hot bath. Rest in a quiet, darkened room. Place a warm or cold wet cloth (whichever feels better to you) over the aching area. 3. Don't skip meals or delay meals for very long. Drink plenty of fluids. 4. Avoid alcoholic beverages and cigarette smoking. These often make a headache worse. 5. Get plenty of rest. A good night's sleep often is the best way to relieve a headache. CONTACT YOUR DOCTOR IF: 1. Your headache gets worse or lasts longer than 24 hours. 2. You develop a temperature over 100.5 F (38 C) 3. You need to take medicine to relieve headache pain more than 3 times a week. RETURN TO THE ED IF: 1. Your headache is different from any headache you ever had before, or is the worst headache of your life. 2. You feel confused or drowsy. 3. Your neck feels stiff. 4. You have a temperature of 102 F (39 C) or higher. 5. You have eye problems such as sensitivity to light or blurred or double vision. 6. You start to vomit. 7. You have difficulty walking, talking, or moving your arms or legs. documented in this encounter [facility] 10-27-2022 History of Present illness Narrative Subjective Headache Pertinent negatives include no fever, no nausea and no vomiting. Arlen Bales is a 27 year old female who presents with a headache for the past 6 days. Pain has varied in intensity; right now she rates it 4/10 but last night it was worse and felt like a hot poker through my right eye . She has had photosensitivity with this. She denies nausea or vomiting. She has a family history of migraines but has never been diagnosed with migraines. She denies associated URI symptoms. No sick contacts. Denies visual changes or dizziness. Denies any weakness or sensory changes. Review of Systems Constitutional: Negative for chills and fever. HENT: Negative for congestion, ear pain and sore throat. Eyes: Positive for photophobia. Negative for blurred vision and double vision. Respiratory: Negative for cough. Cardiovascular: Negative. Gastrointestinal: Negative for nausea and vomiting. Musculoskeletal: Negative for myalgias. Neurological: Positive for headaches. Negative for dizziness, tingling, tremors, sensory change, speech change, focal weakness, loss of consciousness and weakness. BP 110/76 Pulse 80 Temp 36.1 C (96.9 F) Resp 18 Wt (!) 139.4 kg (307 lb 6.4 oz) SpO2 95% BMI 47.41 kg/m PAST MEDICAL HISTORY Diagnosis Date Patient denies medical problems PAST SURGICAL HISTORY Procedure Laterality Date ANKLE Bilateral tendon repair, 2016 and 2017 EXTRACTION ERUPTED TOOTH/EXR TONSILLECTOMY AND ADENOIDECTOMY HX ALLERGIES Amoxicillin, Augmentin [Amoxicillin-Pot Clavulanate], and Clomid [Clomiphene Citrate] MEDICATIONS methylPREDNISolone (MEDROL, ARNEL,) 4 mg Dose-Pack^Follow dosing instructions, take with food.^Disp: 21 tablet^Rfl: 0 ibuprofen (MOTRIN) 200 mg tablet^Take 1-2 tablets by mouth every 6 hours as needed for Pain (Take with food.).^Disp: ^Rfl: diphenhydrAMINE (BENADRYL) 25 mg capsule^Take 1 capsule by mouth every 6 hours as needed.^Disp: ^Rfl: FAMILY HISTORY Problem Relation Age of Onset No Known Problems Mother No Known Problems Father other (other) Sister pseudotumor cerebri Other Sleep Disorder Sister pituitary tumor Migraines Sister Mental illness Sister anxiety/depression No Known Problems Maternal Grandmother No Known Problems Maternal Grandfather No Known Problems Paternal Grandmother No Known Problems Paternal Grandfather Social History Tobacco Use Smoking status: Every Day Years: 8.00 Types: Cigarettes Smokeless tobacco: Never Tobacco comments: one pack lasts 3 days Vaping Use Vaping Use: Former Substance Use Topics Alcohol use: Yes Comment: rarely, special occasions Drug use: No Objective Physical Exam Vitals and nursing note reviewed. Constitutional: General: She is not in acute distress. Appearance: Normal appearance. She is obese. HENT: Right Ear: Tympanic membrane, ear canal and external ear normal. Left Ear: Tympanic membrane, ear canal and external ear normal. Mouth/Throat: Mouth: Mucous membranes are moist. Pharynx: Oropharynx is clear. No oropharyngeal exudate or posterior oropharyngeal erythema. Eyes: General: Lids are normal. Vision grossly intact. Extraocular Movements: Extraocular movements intact. Conjunctiva/sclera: Conjunctivae normal. Pupils: Pupils are equal, round, and reactive to light. Cardiovascular: Rate and Rhythm: Normal rate and regular rhythm. Heart sounds: Normal heart sounds. Pulmonary: Effort: Pulmonary effort is normal. No respiratory distress. Breath sounds: Normal breath sounds. No wheezing or rales. Skin: General: Skin is warm and dry. Findings: No erythema or rash. Neurological: Mental Status: She is alert and oriented to person, place, and time. Cranial Nerves: No dysarthria or facial asymmetry. Motor: No weakness or tremor. Gait: Gait is intact. ASSESSMENT/PLAN: 1. Headache, unspecified headache type - ICD9: 784.0, ICD10: R51.9 - KETOROLAC 60 MG/2 ML INTRAMUSCULAR SOLUTION- given in office. - CONSULT TO [facility] CLINIC - METHYLPREDNISOLONE 4 MG TABLETS IN A DOSE PACK - DIPHENHYDRAMINE 25 MG CAPSULE - Follow-up with your PCP in 3-5 days if symptoms have not improved or sooner if symptoms worsen - Discussed red flags and need for immediate medical evaluation if any occur. - Discussed supportive care treatment with fluids, rest and analgesia. - Discussed expected course of illness Lorenza Baires APRN.INVESTOR RELATIONS COORDINATOR documented in this encounter [facility] Evaluation + Plan note No data available for this section [facility] Diagnosis Other acute nonsuppurative otitis media of right ear, recurrence not specified- Primary [facility] Diagnosis Itching in the vaginal area- Primary Pruritus of genital organs documented in this encounter [facility] Reason for Referral Specialty Diagnoses / Procedures Referred By Carmen morris Referred To Contact Diagnoses Headache, unspecified headache type Procedures CONSULT TO HEADACHE CLINIC OFFICE/OUTPATIENT [facility] 60-74 MINUTES Lorenza Baires APRN.INVESTOR RELATIONS COORDINATOR [address] [place] [address] Referral ID Status Reason Start Date Expiration Date Visits Requested Visits Authorized [id number] Pending Review PCP Requested Referral 10/27/2022 10/27/2023 1 1 Medications Administered Section Inactive Administered Medications - up to 3 most recent administrations Medication Order MAR Action Action Date Dose Rate Site diphenhydrAMINE 25 mg (BENADRYL) 25 mg, ORAL, ONCE, 1 dose, On Thu10/27/22 at 1300 Given 10/27/2022 12:53 PM EDT 25 mg keTORolac 60 mg injection (Toradol) 60 mg, INTRAMUSCULAR, ONCE, 1 dose, On Thu10/27/22 at 1300, Ketorolac (Toradol) is indicated for the short-term (up to 5 days) management of moderately severe acute pain. Continuation of ketorolac (Toradol) beyond 5 days increases the risk of developing serious adverse events. Please verify the duration of therapy for ketorolac (Toradol)., If ordered PRN for pain, patient/guardian may elect to receive this medication for higher pain levels INSTEAD of the opioid, if preferred: Yes Given 10/27/2022 12:52 PM EDT 60 mg Hip, Left Summary Purpose Family History No Family History Records Found Advance Directives No Advanced Directives Records Found Additional Source Comments Source Comments (unrecognize d section and content) In the event this informatio n is protected by the Federal Confidentiality of Alcohol and Drug Abuse Patient Records regulations: The Federal rules restrict any use of the information to criminally investigate or prosecute any alcohol or drug abuse patient.[facility] the event this information is protected by the Federal Confidentiality of Alcohol and Drug Abuse Patient Records regulations: The Federal rules restrict any use of the information to criminally investigate or prosecute any alcohol or drug abuse patient.[facility] the event this information is protected by the Federal Confidentiality of Alcohol and Drug Abuse Patient Records regulations: The Federal rules restrict any use of the information to criminally investigate or prosecute any alcohol or drug abuse patient.[facility] the event this information is protected by the Federal Confidentiality of Alcohol and Drug Abuse Patient Records regulations: The Federal rules restrict any use of the information to criminally investigate or prosecute any alcohol or drug abuse patient.[facility] the event this information is protected by the Federal Confidentiality of Alcohol and Drug Abuse Patient Records regulations: The Federal rules restrict any use of the information to criminally investigate or prosecute any alcohol or drug abuse patient.[facility] Reason for Visit (unrecogniz ed section and content) Reason Comments Ear Pain right x 1 day, drain age x couple weeks Reason Comments Nail Fungus Reason Comments Vaginal Problem Possible yeast infec tion, itching, raw x 1 week Specialty Diagnoses / Procedures Referred By Contac t Referred To Contact [facility] Diagnoses posssible vaginal yeast infection Procedures EST SAME DAY Self [facility] [address] [place] [address] Referral ID Status Reason Start Date Expiration Date V isits Requested Visits Authorized [id number] Pending Review 03/15/2023 05/14/2023 1 1 Reason Comments Results Care Teams (unrecognized sec tion and content) Research And Development Tester Relationship Specialty Start Date End Date Kevin Miranda MD [address] [place], [place] [id number] PCP - General Internal Medicine 07/10/21 Research And Development Tester Relationship Specialty Start Date End Date Kevin Miranda MD [address] [place], [place] [id number] PCP - General Internal Medicine 07/10/21 [employer] Relationship Specialty Start Date End Date Kevin Miranda MD [address] [place], [place] [id number] PCP - General Internal Medicine 07/10/21 INFORMATION SOURCE (unrecogn ized section and content) FOR RECORDS PERTAINING TO PATIENTS WHO ARE OR HAVE BEEN ENROLLED IN A CHEMICAL DEPENDENCY/SUBSTANCEABUSE PROGRAM, SOME INFORMATION MAY BE OMITTED. This clinical summary was aggregated from multiple sources. Caution should be exercised in using it in the provision of clinical care. This summary normalizes information from multiple sources, and as a consequence, information in this document may materially change the coding, format and clinical context of patient data. In addition, data may be omitted in some cases. CLINICAL DECISIONS SHOULD BE BASED ON THE PRIMARY CLINICAL RECORDS. [employer] provides no warranty or guarantee of the accuracy or completeness of information in this document.
== END 2023-05-18 10:25 | disposition home or self-care (01) ==
PROVIDERS: Emergency Provider Emergency Medicine; Visit Provider Emergency Medicine
DX: R07.89 Other chest pain (principal); F17.210 Nicotine dependence, cigarettes, uncomplicated; R03.0 Elevated blood-pressure reading, without diagnosis of hypertension; E66.9 Obesity, unspecified
CPT/HCPCS: 71046; 93005; 99282

== ENCOUNTER → 2024-11-10 | Outpatient (CLI) | payer OTHER, SELFPAY ==
[2024-11-10 16:42] LABS: Absolute Lymphocyte Count 2.34 X10^3/uL (0.83-4.51); Absolute Neutrophil Count 5.5 X10^3/uL (2.0-7.7); Basophil# 0.02 X10^3/uL; Basophil% 0.2 % (0-1); Eosinophil# 0.13 X10^3/uL; Eosinophils% 1.5 % (0-5); Hematocrit 40.1 % (37-47); Hemoglobin 13.1 g/dL (12.0-15.0); Lymphocyte # 2.34 X10^3/ul (0.83-4.51); Lymphocyte % 27.3 % (19-41); Mean Corp Hgb Conc 32.7 g/dL (32-36); Mean Corpuscular Volume 82.7 fL (81-99); Mean Platelet Vol. 10.6 fl (6.2-12.0); Monocyte# 0.59 X10^3/uL; Monocyte% 6.9 % (0-10); NRBC Flagged by Analyzer 0 % (0-5); Neutrophil # 5.46 X10^3/uL (2.7-7.7); Neutrophil % 63.6 % (47-70); Platelet Count 278 K/mm3 (150-450); RBC Distribution Width CV 12.7 % (11.6-14.6); RBC Distribution Width SD 38.4 fl (35.1-43.9); Red Blood Count 4.85 M/mm3 (4.2-5.4); White Blood Count 8.6 K/mm3 (4.4-11.0)
[2024-11-10 16:45] LABS: Hemoglobin A1c 5.5 % (<=5.6)
[2024-11-10 17:13] LABS: ALB/GLOB Ratio 1.5 RATIO (0.9-2.4); AST(SGOT) 19 U/L (<=31); Alanine Aminotransfer ALT/SGPT 16 U/L (<=34); Albumin, Serum 4.1 g/dL (3.5-5.0); Alkaline Phosphatase 62 U/L (35-104); Anion Gap 12 (5-15); BUN 18 mg/dL (4-19); BUN/Creat Ratio 20.5 RATIO (10-20); Calcium,Total 9.8 mg/dL (7.6-11.0); Carbon Dioxide 23.5 mmol/L (21.0-32.0); Chloride 103 mmol/L (98-108); Creatinine, Serum 0.89 mg/dL (0.70-1.20); EST Glomerular Filtration Rate 90 (>60); Globulin 2.7 g/dL (2.2-4.2); Glucose 88 mg/dL (70-99); Potassium 3.9 mmol/L (3.3-5.1); Protein, Total 6.8 g/dL (5.9-8.4); Sodium Level 139 mmol/L (133-145); Total Bilirubin 0.76 mg/dL (0.00-1.30); Vitamin D,25 Hydroxy 23.3 ng/mL (30-100)
== END | disposition home or self-care (01) ==
LOC: BIMLAB 15:06
PROVIDERS: PCP Internal Medicine; Referring Provider Internal Medicine; Visit Provider Internal Medicine
DX: F41.9 Anxiety disorder, unspecified (principal); E66.01 Morbid (severe) obesity due to excess calories; Z68.43 Body mass index [BMI] 50.0-59.9, adult; F32.A Depression, unspecified; F90.9 Attention-deficit hyperactivity disorder, unspecified type
CPT/HCPCS: 36415; 80053; 82306; 83036; 84443; 85025

== ENCOUNTER → 2024-11-11 | Outpatient (CLI) | payer OTHER, SELFPAY | END | disposition home or self-care (01) | LOC: LABSPEC 14:35 | PROVIDERS: PCP Internal Medicine; Referring Provider Internal Medicine; Visit Provider Internal Medicine | DX: K62.5 Hemorrhage of anus and rectum (principal) | CPT/HCPCS: 82274 ==

== ENCOUNTER → 2025-01-23 | Outpatient (CLI) | payer OTHER, SELFPAY | END | disposition home or self-care (01) | PROVIDERS: PCP Internal Medicine; Referring Provider Nurse Practitioner Women's Health; Visit Provider Nurse Practitioner Women's Health | DX: Z31.9 Encounter for procreative management, unspecified (principal) | CPT/HCPCS: 36415 ==

== ENCOUNTER → 2025-02-09 | Outpatient (CLI) | payer OTHER, SELFPAY ==
--- OUTSIDE RECORDS SUMMARY | 2025-02-09 13:16 | XMS RPT_ITS | CCD ---
Author Organization [facility] Care Team Providers Care Life [employer] Name Role Phone Kevin Roberson MD Primary Care Provider PHYSICIAN, NOT RECORDED Primary Care Physician U navailable Kevin Roberson MD Primary Care Provider Unavailable Primary Care Provider Unavailabl e KEVIN ROBERSON Primary Care Unavailable Kevin Roberson MD Primary Care Provider Kevin Roberson MD Primary Care Provider [phone] Jaden ASSISTANT PROFESSOR OF BUSINESS.SUPERVISOR SEWER MAINTENANCE, Zully M Unavailable Care Physician, No Primary Primary Care Provider Unavailable Care Physician, No Primary Referring Provider Un available Andrea CANALES, Dr. Abreu Attending Provider Andrea CANALES, Dr. Abreu Primary Care Provider [phone] Andrea CANALES, Dr. Abreu Referring Provider NO, PHYSICIAN Primary Care Unavailable LEAH VO Attending Unavailable GURWINDER WATERMAN Referring Unavailable GURWINDER WATERMAN Attending Unavailable TESTRAKEJOSIE Attending Unavailable GURWINDER WATERMAN Referring Unavailable TESTRAKEJOSIE Referring Unavailable TESTRAKEJOSIE Referring Unavailable TESTRAKEJOSIE Attending Unavailable ENMA EAGLE Referring Unavailable UTE PONCE Attending Unavailable Care Physician, No Primary Primary Care Unava ilable Care Physician, No Primary Referring Unava ilable Lois Mendez Attending Unavailable Lois Mendez Primary Care Unavailable Lois Mendez Attending Unavailable Lois Mendez Referring Unavailable Lois Mendez Attending Unavailable Lois Mendez Referring Unavailable Lois Mendez Primary Care Unavailable Pamela VMWARE ARCHITECT, Monica Attending Unavailable Pamela VMWARE ARCHITECT, Monica Referring Unavailable Andrea, Lois Primary Care Unavailable Care Physician, No Primary Referring Unava ilable Pamela VMWARE ARCHITECT, Monica Attending Unavailable Koloa, Lois Primary Care Unavailable Pamela VMWARE ARCHITECT, Monica Attending Unavailable Koloa, Lois Referring Unavailable Koloa, Lois Primary Care Unavailable Shilpa Greenberg Attending Unavailable Andrea, Lois Referring Unavailable Andrea, Lois Primary Care Unavailable Allergies Allergy Classification Reported Allergen(s) Allergy Type Date of Onset Reaction(s) Facility (20 sources) Amoxicillin; Translations: [AMOXICILLIN] Drug Allergy 05-28-2018 [facility] (20 sources) Amoxicillin / Clavulanate; Translations: [AMOXICILLIN-POT CLAVULANATE] Drug Allergy 05-28-2018 [facility] (20 sources) clomiPHENE; Translations: [CLOMIPHENE CITRATE] Drug Allergy 05-28-2018 [facility] (3 sources) Clavulanate Drug Allergy 02-10-2021 Vomiting [facility] (3 sources) clomiPHENE Drug Allergy 02-10-2021 Other [facility] (1 source) Amoxicillin Drug Allergy 01-18-2025 [facility] (1 source) Clavulanate Drug Allergy 01-18-2025 [facility] (1 source) clomiPHENE Drug Allergy 01-18-2025 [facility] Medications Current Medications Medication Drug Class(es) Dates Sig (Normalized) Sig (Original) acetaminophen 325 mg oral tablet (2 sources) Start: 11-10-2024 take 2 tablets by mouth once as needed Acetaminophen (Tylenol) 325 mg tablet Active 650 mg PO ONCE as needed November 10, 2024 12:00am benzonatate 100 mg oral capsule (2 sources) Non-narcotic Antitussive Start: 06-20-2024 End: 06-27-2024 take 1 capsule by mouth three times daily as needed for cough benzonatate (TESSALON PERLE) 100 mg capsule Indications: Viral illness Take 1 capsule by mouth three times a day as needed for cough for up to 7 days. 21 capsule 06/20/2024 06/27/2024 Active Start: 04-28-2023 End: 07-09-2023 take 2 capsules by mouth every eight hours as needed benzonatate (TESSALON PERLES) 100 mg capsule Take 2 capsules by mouth three times a day as needed. 30 capsule 0 04/28/2023 07/09/2023 Discontinued Comment on above: Take 2 capsules by m outh three times a day as needed. 24 hr buPROPion hydrochloride 150 mg extended release oral tablet (4 sources) Aminoketone Start: take 1 tablet by mouth once daily in the morning buPROPion XL (WELLBUTRIN XL) 150 mg 24 hr tablet Take 150 mg by mouth every morning. 11/10/2024 Active Start: 11-10-2024 End: 11-10-2024 take 1 tablet by mouth every twelve hours at bedtime Bupropion Hcl (Wellbutrin Sr) 150 mg tablet sustained-release 12 hr Discontinued 150 mg PO AT BEDTIME 30 1 November 10, 2024 12:00am November 10, 2024 4:03pm cefdinir 300 mg oral capsule (3 sources) Cephalosporin Antibacterial Start: 03-03-2023 End: 03-10-2023 take 1 capsule by mouth twice daily cefdinir (OMNICEF) 300 mg capsule Indications: Other acute nonsuppurative otitis media of right ear, recurrence not specified Take 1 capsule by mouth two times a day for 7 days. 14 capsule 0 03/03/2023 03/10/2023 Active Start: 01-31-2023 End: 02-07-2023 cefdinir 300 mg oral capsule Dose : 300 mg = 1 cap(s), Oral, q12h, X 7 day(s), # 14 cap(s), 0 Refill(s), 02/07/23 10:01:00 PM EDT Start Date: 01/31/23 Stop Date: 02/07/23 Status: Ordered Comment on above: Take 1 capsule by mo uth two times a day for 7 days. cholecalciferol 0.025 mg oral capsule (1 source) Vitamin D Cholecalciferol, Vitamin D3, (VITAMIN D) 25 mcg (1,000 unit) cap Take 1,000 Units by mouth once daily. Active diphenhydrAMINE hydrochloride 25 mg oral tablet (20 sources) Histamine-1 Receptor Antagonist Start: 11-11-19 take 1 tablet by mouth at bedtime as needed Diphenhydramine Hcl (Benadryl Allergy) 25 mg tablet Active 25 mg PO AT BEDTIME as needed November 10, 2024 12:00am Start: 10-27-2022 End: 10-27-2022 diphenhydrAMINE 25 mg (BENAD RYL) Start: 05-28-2018 take 1 capsule by mo uth every six hours as needed diphenhydrAMINE (BENADRYL) 25 mg capsule Take 1 capsule by mouth every 6 hours as needed. 05/28/2018 Active Comment on above: Take 1 capsule by mo uth every 6 hours as needed. fluconazole 150 mg oral tablet (1 source) Azole Antifungal Start: 03-15-2023 End: 03-15-2023 fluconazole (DIFLUCAN) 150 mg tablet Indications: Itching in the vaginal area Take 1 tablet by mouth one time only for 1 dose. Repeat in 3 days as needed. 2 tablet 0 03/15/2023 03/15/2023 Active Comment on above: Take 1 tablet by leonarda one time only for 1 dose. Repeat in 3 days as needed. fluticasone propionate 0.05 mg/actuat metered dose nasal spray (17 sources) Corticosteroid Start: 11-10-2024 Fluticasone Propionate 50 mcg/actuation spray,suspension Active 1 NMA INTRANASAL daily as needed November 10, 2024 12:00am administer into each nostril Start: 09-11-2023 take 1 spray(s) nasa l route once daily fluticasone (FLONASE ALLERGY RELIEF) 50 mcg/actuation nasal spray Indications: Dysfunction of left eustachian tube Use 1 [place] in each nostril once daily. 18.2 mL 09/11/2023 Active folic acid 1 mg oral tablet (16 sources) Start: 08-11-2023 take 1 tablet by mouth once daily folic acid 1 mg tablet Take 1 tablet by mouth once daily. 08/11/2023 Active Comment on above: Take 1 tablet by leonarda once daily. ibuprofen 200 mg oral tablet (20 sources) Nonsteroidal Anti-inflammatory Drug Start: 11-10-2024 take 2 tablets by mouth every six hours as needed Ibuprofen 200 mg tablet Active 400 mg PO EVERY 6 HOURS as needed November 10, 2024 12:00am Start: 05-28-2018 take 200-400 mg by m outh every six hours as needed ibuprofen (MOTRIN) 200 mg tablet Take 1-2 tablets by mouth every 6 hours as needed for Pain (Take with food.). 05/28/2018 Active Comment on above: Take 1-2 tablets by mouth every 6 hours as needed for Pain (Take with food.). methylPREDNISolone (1 source) Corticosteroid Start: 2022 End: 2022 methylPREDNISolone (MEDROL, ARNEL,) 4 mg Dose-Pack Indications: Headache, unspecified headache type Follow dosing instructions, take with food. 21 tablet 0 10/27/2022 11/02/2022 Active Comment on above: Follow dosing instru ctions, take with food. nabumetone 500 mg oral tablet (1 source) Nonsteroidal Anti-inflammatory Drug Start: 2022 End: 2022 nabumetone 500 mg oral tablet Dose : 1,000 mg = 2 tab(s), Oral, BID, # 28 tab(s), 0 Refill(s) Start Date: 01/31/23 Stop Date: 02/07/23 Status: Ordered oseltamivir 75 mg oral capsule (2 sources) Neuraminidase Inhibitor Start: 2023 End: 2023 take 1 capsule by mouth twice daily oseltamivir (TAMIFLU) 75 mg capsule Indications: Influenza B Take 1 capsule by mouth two times a day for 5 days. 10 capsule 0 08/06/2023 08/11/2023 Active Comment on above: Take [address] [facility] two times a day for 5 days. predniSONE 10 mg oral tablet (7 sources) Start: 2024 End: 2024 predniSONE (DELTASONE) 10 mg tablet Indications: Foot pain, right Take 4 tabs daily for 3 days, then 2 tabs daily for 3 days, then 1 tab daily for 3 days with food. 21 tablet 09/05/2024 09/14/2024 Active Start: 06-20-2024 End: 06-23-2024 take 1 tablet by mouth twice daily predniSONE (DELTASONE) 20 mg tablet Indications: Viral illness Take 1 tablet by mouth two times a day for 3 days. 6 tablet 06/20/2024 06/23/2024 Active Start: 11-17-2023 End: 11-26-2023 predniSONE (DELTASONE) 10 mg tablet Indications: Pain Take 4 tabs daily for 3 days, then 2 tabs daily for 3 days, then 1 tab daily for 3 days with food. 21 tablet 0 11/17/2023 11/26/2023 Active Start: 09-28-2023 End: 10-10-2023 predniSONE (DELTASONE) 10 mg tablet Take 6 tabs for 3 days, then 4 tabs for 3 days, then 2 tabs for 3 days then 1 tab for 3 days with food. 39 tablet 0 09/28/2023 10/10/2023 Active Completed/Discontinued Medications Medication Drug Class(es) Dates Sig (Normalized) Sig (Original) acetaminophen 325 mg / HYDROcodone bitartrate 5 mg oral tablet (3 sources) Opioid Agonist Start: 02-10-2021 End: 08-09-2024 Hydrocodone-Acetami nophen 1 TABLET tablet Discontinued 1 {tbl} PO EVERY 6 HOURS NEEDED as needed for Pain 10 3 0 February 10, 2021 August 09, 2024 8:27am Acute back pain Dorsalgia, unspecified Start: 02-10-2021 take 1 tablet by leonarda th every six hours as needed Hydrocodone-Acetaminophen Active 1 TABLE T PO EVERY 6 HOURS NEEDED 10 3 February 10, 2021 clotrimazole 10 mg/ml vaginal cream (6 sources) Azole Antifungal Start: 03-15-2023 End: 08-11-2023 clotrimazole (LOTRIMIN) 1 % vaginal cream Indications: Itching in the vaginal area Use 1 Applicatorful vaginally once daily. 45 g 03/15/2023 08/11/2023 Discontinued Comment on above: Use 1 Applicatorful vaginally once daily. cyclobenzaprine hydrochloride 10 mg oral tablet (3 sources) Muscle Relaxant Start: 02-10-2021 End: 08-09-2024 take 1 tablet by mouth three times daily as needed for muscle spasms Cyclobenzaprine 10 MG tablet Discontinued 10 mg PO THREE TIMES A DAY as needed for Muscle Spasm 15 0 February 10, 2021 12:00am August 09, 2024 8:27am 2 ml ketorolac tromethamine 30 mg/ml injection (1 source) Nonsteroidal Anti-inflammatory Drug, Cyclooxygenase Inhibitor Start: 10-27-2022 End: 10-27-2022 keTORolac 60 mg injection (Toradol) Start: 10-27-2022 End: 10-27-2022 keTORolac 60 mg injection (T oradol) naproxen 500 mg oral tablet (3 sources) Nonsteroidal Anti-inflammatory Drug Start: 05-18-2023 End: 08-09-2024 take 1 tablet by mouth twice daily as needed for pain Naproxen (Naprosyn) 500 mg tablet Discontinued 500 mg PO TWICE A DAY as needed for pain 20 0 May 18, 2023 1:00am August 09, 2024 8:27am Problems Active Problems Problem Classification Problem Date Documented Da te Episodic/Chronic Administrative/social admission (6 sources) Patient encounter status; Translations: [Encounter for pre-employment examination] 06-10-2019 Episodic Allergic reactions (1 source) Allergic contact dermatitis caused by plant material; Translations: [Allergic contact dermatitis due to plants, except food] 09-28-2023 Episodic Anxiety disorders (4 sources) Mixed anxiety and depressive disorder; Translations: [Anxiety disorder, unspecified] Onset: 5 11-10-2024 Chronic Asthma (3 sources) Asthmatic bronchitis; Translations: [Unspecified asthma, uncomplicated] 12-07-2018 Chronic Attention-deficit, conduct, and disruptive behavior disorders (4 sources) Attention deficit hyperactivity disorder; Translations: [Attention-deficit hyperactivity disorder, unspecified type] 11-10-2024 Chronic Attention-deficit, conduct, and disruptive behavior disorders (1 source) Attention-deficit hyperactivity disorder, unspecified type; Translations: [Attention-deficit hyperactivity disorder, unspecified type] Onset: 5 Chronic Contraceptive and procreative management (1 source) Encounter for procreative management, unspecified; Translations: [Encounter for procreative management, unspecified] Onset: 5 Episodic Gastrointestinal hemorrhage (3 sources) Gastrointestinal hemorrhage; Translations: [Hemorrhage of anus and rectum] Onset: 5 11-10-2024 Episodic Headache; including migraine (1 source) Headache; Translations: [Headache, unspecified headache type] Episodic Influenza (1 source) Influenza due to Influenza B virus; Translations: [Influenza due to other identified influenza virus with other respiratory manifestations] 08-06-2023 Episodic Malaise and fatigue (1 source) Fatigue; Translations: [Other fatigue] 11-10-2024 Episodic Mood disorders (3 sources) Mood disorders; Translations: [Depression, unspecified] Onset: Nonspecific chest pain (8 sources) Chest wall pain; Translations: [Other chest pain] Onset: 5 05-18-2023 Episodic Other circulatory disease (1 source) Raynaud's disease; Translations: [Raynaud's syndrome without gangrene] 09-20-2024 Chronic Other circulatory disease (1 source) Raynaud's syndrome without gangrene; Translations: [Raynaud's disease without gangrene] Onset: Chronic Other circulatory disease (6 sources) Vascular insufficiency; Translations: [Venous insufficiency (chronic) (peripheral)] 09-20-2024 Episodic Other connective tissue disease (2 sources) Pain in finger of right hand; Translations: [Pain in right finger(s)] 07-09-2023 Episodic Other connective tissue disease (4 sources) Pain in right foot; Translations: [Pain in right foot] 09-05-2024 Episodic Other connective tissue disease (1 source) Bilateral dysfunction of posterior tibial tendon of feet; Translations: [Posterior tibial tendinitis, right leg] 09-20-2024 Episodic Other female genital disorders (1 source) Pruritus of vagina; Translations: [Other specified noninflammatory disorders of vagina] 03-15-2023 Episodic Other non-traumatic joint disorders (3 sources) Pain in right shoulder; Translations: [Acute pain of right shoulder] 02-18-2021 Episodic Other non-traumatic joint disorders (2 sources) Pain of left wrist; Translations: [Pain in left wrist] 11-25-2023 Episodic Other nutritional; endocrine; and metabolic disorders (2 sources) Body mass index 40+ - severely obese; Translations: [Morbid (severe) obesity due to excess calories] 11-10-2024 Chronic Other nutritional; endocrine; and metabolic disorders (1 source) Morbid (severe) obesity due to excess calories; Translations: [Morbid (severe) obesity due to excess calories] Onset: Chronic Other nutritional; endocrine; and metabolic disorders (1 source) Body mass index (BMI) 50.0-59.9, adult; Translations: [Body mass index [BMI] 50.0-59.9, adult] Onset: Chronic Other screening for suspected conditions (not mental disorders or infectious disease) (1 source) Cancer cervix screening status; Translations: [Encounter for screening for malignant neoplasm of cervix] 08-11-2023 Episodic Other skin disorders (3 sources) Eruption; Translations: [Rash and other nonspecific skin eruption] 01-19-2019 Episodic Other upper respiratory infections (5 sources) Pharyngitis; Translations: [Acute pharyngitis, unspecified] 09-18-2018 Episodic Otitis media and related conditions (2 sources) Acute secretory otitis media; Translations: [Other acute nonsuppurative otitis media, right ear] 03-03-2023 Episodic Pneumonia (except that caused by tuberculosis or sexually transmitted disease) (6 sources) Community acquired pneumonia; Translations: [Pneumonia, unspecified organism] 12-08-2018 Episodic Residual codes; unclassified (4 sources) Peripheral edema; Translations: [Localized edema] 12-15-2020 Episodic Residual codes; unclassified (2 sources) Pain; Translations: [Pain, unspecified] 11-17-2023 Episodic Spondylosis; intervertebral disc disorders; other back problems (3 sources) Backache; Translations: [Dorsalgia, unspecified] 02-18-2021 Episodic Varicose veins of lower extremity (1 source) Varicose veins of lower extremity; Translations: [Varicose veins of bilateral lower extremities with other complications] 12-27-2024 Episodic Viral infection (1 source) Viral disease; Translations: [Viral infection, unspecified] 06-20-2024 Episodic Past or Other Problems Problem Classification Problem Date Documented Date Episodic/Chronic Other connective tissue disease (1 source) Posterior tibial tendinitis, right leg; Translations: [Posterior tibial tendon dysfunction, bilateral] Onset: 09-20-2024 Episodic Other connective tissue disease (1 source) Posterior tibial tendinitis, left leg; Translations: [Posterior tibial tendon dysfunction, bilateral] Onset: 09-20-2024 Episodic Other connective tissue disease (1 source) Pain in right foot; Translations: [Foot pain, right] Onset: 09-05-2024 Episodic Other diseases of veins and lymphatics (1 source) Venous insufficiency (chronic) (peripheral); Translations: [Venous insufficiency] Onset: 09-20-2024 Episodic Results Test Name Value Interpretation Reference Range Facility L900.0111on 01-23-2025 REPROSOURCE SEE SCANNED REPORT Normal [facility] Comment on above: Order Comment: Comme nts: OAR days 2-4 Performed By: #### L 900.0111 #### [facility] [address] [place], [address] MR/BMS.BPon 01-18-2025 MR/BMS.BP [address], [address] [place] [address] OFFICE VISIT Date of Service: 01/18/25 MR#: [id number] Acct: [id number] Name: ARLEN JIMENEZ Rep #: [id number] : 1995 Provider: CASSI orta Age/Sex: 29/F Location: [facility] Status: Signed Intake Vital Signs 11/10/24 14:02 12/26/24 14:04 01/18/25 13:30 Height 5 ft 6 in 5 ft 6 in 5 ft 6 in Weight: 312 lb BMI 50.3 BP Intake Visit Reasons: ADHD, Anxiety, depression Accompanied by: Self Allergies amoxicillin Allergy (Verified 01/18/25 13:39) Vomiting clavulanic acid (From Augmentin) Allergy (Verified 01/18/25 13:39) Vomiting clomiphene (From Clomid) Allergy (Verified 01/18/25 13:39) Other Medications ???Medication ???Instructions ???Recorded ???Confirmed ???Type fluticasone propionate 50 1 spray intranasal QDAY PRN 01/18/25 History mcg/actuation nasal spray,suspension ibuprofen 200 mg tablet 400 mg PO Q6H PRN 11/10/24 5 History medroxyprogesterone 10 mg tablet 10 mg PO QDAY 10 days #10 tabs 08/0901/18/25 Rx PFSH Medical History PTSD (post-traumatic stress disorder) Bone fracture Acute back pain Surgical History History of tonsillectomy and adenoidectomy History of ankle surgery History of placement of ear tubes [place] teeth extracted Family History Father Alcoholism Anemia Skin cancer Anxiety Depression Mental disorder drug use disorder Aunt Anesthesia complication Heart disease Hypertension Thyroid disorder Anxiety Depression Mental disorder Tachycardia ?afib Mother Anxiety Depression Mental disorder bipoloar Heart palpitations Sister Anxiety Depression Pseudotumor cerebri syndrome Mental disorder Bipolar Skin cancer Thyroid disorder Pituitary tumor Sister Andrae-Danlos disease POTS (postural orthostatic tachycardia syndrome) Anxiety Mental disorder bipolar Depression Ankle instability Social History adopted: No household members: spouse current occupational status: employed current occupation: [employer] current occupational exposures/hazards: No Smoking Status: Former smoker quit date: 11/13/22 how long ago did patient quit smoking: quit vaping 03/2024 alcohol intake: current alcohol intake frequency: holidays/special occasions only substance use type: does not use diet: other what type of physical activity do you participate in: none, walking and other details: leg and arm routine seatbelt use: always do you feel safe at home: Yes additional social history: - Alex HPI History of Present Illness History provided by: patient Chief complaint: Anxiety HPI: Arlne Jimenez is a 29 year old female patient presenting today for an intake evaluation. Presents today as she has been diagnosed with complex ADHD and wanting to manage this. Was diagnosed with ADHD from therapist. Reports she controls or stephanie with anxiety and depression well overall. Sleep: 6-8 hours per night on average. Does not feel it is good quality sleep. Reports she does snore. Admits to nightmares infrequently. Reports 2x episodes of sleep paralysis. Denies daytime napping. Interest: Admits to frequent feelings of depression. Does want to "bed rot" but does push herself to do more. Has been struggling more to find pooja in things. Enjoys quilting and crocheting. Energy: Does wake up feeling well rested but is fatigued in a few hours. Admits to a large lack of motivation. Guilt: Admits to sometimes feelings of guilt, but not frequent. Denies feelings of worthlessness or hopelessness. Admits to an "okay" self image and has improved from adolescence. Concentration: Does find herself avoiding things that are more mentally strenuous. Does at times have difficulties with appearing to be listening when spoken to directly. Denies making frequent careless mistakes. Denies issues with following through with instructions. Does report that she mimics other people's symptoms such as her sisters or her best friend. Admits to feeling restless and like she is always on the go. Admits to interrupting others while they are speaking. Is able to enjoy a leisure activity. Appetite: Has been trying to lose weight. Has lost about 20 pounds recently. Does tend to over eat. Also does not tend to be very active. Psychomotor: WNL Suicide: Admits to passive SI. Denies plan or intent. Memory: Does well with memory at work but does have concerns at home with memory. Has been utilizing dedicated spaced for her frequently used items to not misplace them. Does well with being organized in tasks and activities overall. Anxi (more content not included)... Normal [facility] Wallcover[employer] Office Visit Reporton 12-26-2024 Wallcovering [employer] Office Visit Report [facility] [address], [address] [place] [address] OFFICE VISIT Date of Service: 12/26/24 MR#: [id number] Acct: [id number] Name: ARLEN JIMENEZ Rep #: [id number] : 1995 Provider: CASSI dinh Age/Sex: 29/F Location: [facility] [place] Status: Signed Intake Vital Signs 11/21/24 09:15 12/26/24 14:04 Height 5 ft 6 in 5 ft 6 in Weight: 309 lb 8 oz 314 lb 3 oz BMI 49.9 50.7 BP 108/70 136/80 H Intake Visit Reasons: Infertility Consult *$30 copay It Application Support Analyst Required: No Is patient in pain?: No Allergies amoxicillin Allergy (Verified 12/26/24 14:08) Vomiting clavulanic acid (From Augmentin) Allergy (Verified 12/26/24 14:08) Vomiting clomiphene (From Clomid) Allergy (Verified 12/26/24 14:08) Other Medications ???Medication ???Instructions ???Recorded ???Confirmed ???Type diphenhydramine HCl 25 mg tablet 25 mg PO QHS PRN 11/10/24 12/26/24 History (Benadryl Allergy) fluticasone propionate 50 1 spray intranasal QDAY PRN 12/26/24 History mcg/actuation nasal spray,suspension ibuprofen 200 mg tablet 400 mg PO Q6H PRN 11/10/24 5 History escitalopram oxalate 5 mg tablet 5 mg PO QDAY #30 tabs 12/08/2404/11 Rx (Lexapro) Post menopausal: No Patient : No : No PFSH Medical History PTSD (post-traumatic stress disorder) Bone fracture Acute back pain Surgical History History of tonsillectomy and adenoidectomy History of ankle surgery History of placement of ear tubes [place] teeth extracted Family History Father Alcoholism Anemia Skin cancer Anxiety Depression Mental disorder drug use disorder Aunt Anesthesia complication Heart disease Hypertension Thyroid disorder Anxiety Depression Mental disorder Tachycardia ?afib Mother Anxiety Depression Mental disorder bipoloar Heart palpitations Sister Anxiety Depression Pseudotumor cerebri syndrome Mental disorder Bipolar Skin cancer Thyroid disorder Pituitary tumor Sister Andrae-Danlos disease POTS (postural orthostatic tachycardia syndrome) Anxiety Mental disorder bipolar Depression Ankle instability Social History adopted: No household members: spouse current occupational status: employed 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 See visit 11/21/24. She had infertility evaluation about 10 years ago but partner never did semen analysis. He still has not done it as has not had PA completed with insurance/states supposed to be done 12/26. History 1 Elective abortions Hx Para Spontaneous abortions Hx # Term Pregnancies Ectopic pregnancies Hx # Pregnancies Multiple births # of living children 0 Past Pregnancies Del. Date Name GA/Weeks Outcome Route Bth Weight Infant Gen Labor Lgth Anesthesia Del Locatn Provider FOB Unknown Chemical preg. ROS Const Constitutional: Reports system reviewed and no additional complaints, except as documented Eyes Eyes: Reports system reviewed and no additional complaints, except as documented GI GI: Denies abdominal pain or change in bowel habits : Reports as per HPI Exam Const General: cooperative and no acute distress Nutritional Appearance: obese Orientation: oriented x3 HENMT Head: normal to inspection and normocephalic Eyes General: appearance normal, both eyes and all related structures Neck Neck: normal visual inspection Resp Effort Inspection: normal respiratory effort Neuro Cognition: normal cognition Speech: speech normal Psych Appearance: grossly normal Mood: congruent mood Affect: normal affect Speech and Movement: speech and movement normal Attitude: cooperative Judgment: judgment good Coding Level of Care Code Off vis,est,level 3 Diagnoses Infertility Assessment and Plan Assessment and Plan (1) Infertility: Status: Acute Comment: Past use metformin(TN 10 yr ago) 1 cycle clomid(gum swelling). (more content not included)... Normal [facility] CNOVon 11-29-2024 CNOV Office Visit (VASSWS ) ARLEN JIMENEZ ([id number]) 1995 F Date Time Provider Department 11/29/24 11:00 AM UTE PONCE VASSWS During your visit today, we recorded the following information about you: Pulse Blood pressure 65/minute 120/65 Ute Ponce, 12/27/2024 1:14 PM Signed [facility] [place] [facility] OF VASCULAR SURGERY OUTPATIENT VISIT DATE November 29, 2024 OUTPATIENT VISIT TYPE CONSULTATION SERVICE DATE: 11/29/2024 SERVICE TIME: 11:04 AM PRIMARY CARE PHYSICIAN: No primary care provider on file. REFERRING PROVIDER: Enma Eagle [id number] [phone] Consult requested for an opinion regarding the evaluation and treatment of the above. My final impression and recommendations will be communicated back to the requesting physician by way of the shared medical record or letter via US mail. CHIEF COMPLAINT: Patient presents with: New Patient History of Present Illness: Patient is a 29 year old White female presenting for consultation, evaluation and possible treatment of varicose veins, spider telangectasias, and leg edema.bilateral aching, throbbing, heaviness, and edema. Predisposing factors included family history of varicose veins is negative.. No specific history of injury or prior problems. Relieving factors include support hose, elevation of legs, and reduced activity with mild improvement in symptoms. Patient denies DVT, phlebitis, and treatment with blood thinners. PAIN ASSESSMENT: PAIN EVALUATION No data found in the last 1 encounters. Obstetric History T0 L0 SAB0 IAB0 Ectopic0 Multiple0 Live Births0 Duration of Symptoms: Progressive PAST MEDICAL HISTORY Diagnosis Date ADD (attention deficit disorder) 05/2024 ADHD (attention deficit hyperactivity disorder) 05/2024 Depression 05/2024 Generalized anxiety disorder 05/2024 PAST SURGICAL HISTORY Procedure Laterality Date ANKLE Bilateral tendon repair, 2015 and 2016 EXTRACTION ERUPTED TOOTH/EXR TONSILLECTOMY AND ADENOIDECTOMY HX TYMPANOSTOMY GENERAL ANESTHESIA SOCIAL HISTORY: Social History Tobacco Use Smoking status: Former Current packs/day: 0.00 Average packs/day: 0.7 packs/day for 8.0 years (5.5 ttl pk-yrs) Types: Cigarettes Start date: 2012 Quit date: 2020 Years since quittin.5 Smokeless tobacco: Never Tobacco comments: In 2020 patient switched to vaping and has since completely quit. 09/20/2024 Vaping Use Vaping status: Former Substances: Nicotine Devices: Pre-filled or refillable cartridge Substance Use Topics Alcohol use: Yes Comment: rarely, special occasions Drug use: No FAMILY HISTORY Problem Relation Age of Onset Mental illness Mother anxiety/depression/bi polar other (anemia) Father Alcohol abuse Father Skin Cancer Father other (other) Sister pseudotumor cerebri Other Sleep Disorder Sister pituitary tumor Migraines Sister Mental illness Sister anxiety/depression Mental illness Sister anxiety/depression EDS (Andrae-Danlos syndrome) (HCC) Sister Hepatitis C Maternal Grandmother Liver Disease Maternal Grandmother Drug abuse Maternal Grandfather Alcohol/Drug Maternal Grandfather Mental illness Paternal Grandmother anxiety/depression No Known Problems Paternal Grandfather unknown Heart Maternal Aunt heart cath, 3 open heart surgery, 6 ablations and mumer repair Autism Nephew MEDICATIONS: buPROPion XL (WELLBUTRIN XL) 150 mg 24 hr tablet Take 150 mg by mouth every morning. Cholecalciferol, Vitamin D3, (VITAMIN D) 25 mcg (1,000 unit) cap Take 1,000 Units by mouth once daily. fluticasone (FLONASE ALLERGY RELIEF) 50 mcg/actuation nasal spray Use 1 [place] in each nostril once daily. folic acid 1 mg tablet Take 1 tablet by mouth once daily. ibuprofen (MOTRIN) 200 mg tablet Take 1-2 tablets by mouth every 6 hours as needed for Pain (Take with food.). (Patient taking differently: Take 800 mg by mouth every 6 hours as needed for pain (Take with food.).) diphenhydrAMINE (BENADRYL) 25 mg capsule Take 1 capsule by mouth every 6 hours as needed. ALLERGIES: ALLERGIES Allergen Reactions Amoxicillin GI Upset Augmentin [Amoxicil* GI Upset Clomid [Clomiphene * Swelling REVIEW of SYSTEMS: Constitutional: Positive for malaise HEENT: Negative for frequent or significant headaches, significant change in vision, and nasal discharge or nose bleeds, Ears Positive for recent change in vision Respiratory: Negative for cough and wheezing and Positive for shortness of breath on exertion Cardiovascular: Negative for chest pain and palpitations and Positive for leg swelling Gatrointestinal: Negative for abdominal discomfort, blood in stools or black stools or change in bowel habits Genitourinary: No history of dysuria, frequency, or incontinence Musculoskeletal: Nega (more content not included)... Normal [facility] CBC WITH AUTO DIFFERENTIALon 11-26-2024 AUTO NRBC 0.0 % Normal [facility] Comment on above: Performed By: #### L [id number] #### [facility] [address], [place] [address] Gurwinder Broussard M.D. [id number] AUTO NRBC ABS COUNT 0.00 K/mcL Normal 0.00-0.00 [facility] Comment on above: Performed By: #### L [id number] #### LAB [address] [address] Gurwinder Broussard M.D. [id number] BASOPHILS ABSOLUTE COUNT 0.03 K/mcL Normal 0.00-0.30 [facility] Comment on above: Performed By: #### L [id number] #### LAB [address] [address] Gurwinder Broussard M.D. [id number] Basophils/100 WBC (Bld) 0.3 % Normal [facility] Comment on above: Performed By: #### L [id number] #### LAB [address] [address] Gurwinder Broussard M.D. [id number] Eosinophils (Bld) [#/Vol] 0.18 10*3/uL Normal 0.00-0.50 [facility] Comment on above: Performed By: #### L [id number] #### LAB [address] [address] Gurwinder Broussard M.D. [id number] Eosinophils/100 WBC (Bld) 2.0 % Normal [facility] Comment on above: Performed By: #### L [id number] #### LAB [address] [address] Gurwinder Broussard M.D. [id number] Erythrocyte distribution width (RBC) [Ratio] 12.6 % Normal 11.6-14.8 [facility] Comment on above: Performed By: #### L [id number] #### LAB [address] [address] Gurwinder Broussard M.D. [id number] Hematocrit (Bld) [Volume fraction] 43.0 % Normal 36.0-46.0 [facility] Comment on above: Performed By: #### L [id number] #### LAB [address] [address] Gurwinder Broussard M.D. [id number] Hemoglobin (Bld) [Mass/Vol] 13.9 g/dL Normal 12.0-16.0 [facility] Comment on above: Performed By: #### L [id number] #### LAB [address] [address] Gurwinder Broussard M.D. [id number] IG ABSOLUTE 0.02 K/mcL Normal 0.00-0.30 [facility] Comment on above: Performed By: #### L [id number] #### LAB [address] [address] Gurwinder Broussard M.D. [id number] IG PERCENT 0.20 % [facility] Comment on above: Result Comment: The IG parameter is the percentage of metamyelocytes, myelocytes and promyelocytes. An immature granulocyte count (IG) of 1% or more suggests the possibility of infection, an IG count of 3% is very likely related to an infection. Performed By: #### L [id number] #### LAB [address] [place] [address] Gurwinder Broussard M.D. [id number] Lymphocytes (Bld) [#/Vol] 1.36 10*3/uL Normal 0.90-4.00 [facility] Comment on above: Performed By: #### L [id number] #### LAB [address] [address] Gurwinder Broussard M.D. [id number] Lymphocytes/100 WBC (Bld) 15.3 % [facility] Comment on above: Performed By: #### L [id number] #### LAB [address] [address] Gurwinder Broussard M.D. [id number] MCH (RBC) [Entitic mass] 26.8 pg Normal 26.0-34.0 [facility] Comment on above: Performed By: #### L [id number] #### LAB [address] [address] Gurwinder Broussard M.D. [id number] MCV (RBC) [Entitic vol] 82.9 fL Normal 80.0-100.[address] [facility] Comment on above: Performed By: #### L [id number] #### LAB [address] [address] Gurwinder Broussard M.D. [id number] MEAN CORPUSCULAR HEMOGLOBIN CONC 32.3 g/dL Normal 31.0-37.0 [facility] Comment on above: Performed By: #### L [id number] #### LAB [address] [address] Gurwinder Broussard M.D. [id number] Monocytes (Bld) [#/Vol] 0.68 10*3/uL Normal 0.30-0.90 [facility] Comment on above: Performed By: #### L [id number] #### LAB [address] [address] Gurwinder Broussard M.D. [id number] Monocytes/100 WBC (Bld) 7.7 % Normal [facility] Comment on above: Performed By: #### L [id number] #### LAB [address] [address] Gurwinder Broussard M.D. [id number] NEUTROPHILS ABSOLUTE COUNT 6.61 K/mcL Normal 1.70-7.00 [facility] Comment on above: Performed By: #### L [id number] #### LAB [address] [address] Gurwinder Broussard M.D. [id number] Neutrophils/100 WBC (Bld) 74.5 % Normal [facility] Comment on above: Performed By: #### L [id number] #### LAB [address] [address] Gurwinder Broussard M.D. [id number] Platelet mean volume (Bld) [Entitic vol] 10.5 fL Normal 9.4-12.4 [facility] Comment on above: Performed By: #### L [id number] #### LAB [address] [address] Gurwinder Broussard M.D. [id number] Platelets (Bld) [#/Vol] 286 10*3/uL Normal 150-400 [facility] Comment on above: Performed By: #### L [id number] #### [facility] [address], [place] [address] Gurwinder Broussard M.D. [id number] RBC (Bld) [#/Vol] 5.19 10*6/uL Normal 4.00-5.20 [facility] Comment on above: Performed By: #### L [id number] #### MH LAB [address] [id number] Gurwinder Broussard M.D. [id number] WBC (Bld) [#/Vol] 8.88 10*3/uL Normal 4.50-11.00 [facility] Comment on above: Performed By: #### L [id number] #### LAB [address] [address] Gurwinder Broussard M.D. [id number] COMPREHENSIVE METABOLIC PANE [facility] 11-26-2024 Albumin [Mass/Vol] 4.1 g/dL Normal 3.2-5.2 [facility] Comment on above: Order Comment: [facility] has implemented the eGFR calculation approach that does not have a coefficient for race that conforms to the NKF-ASN Task Force Recommendations. Performed By: #### 4 [id number] #### LAB [address] [address] Gurwinder Broussard M.D. [id number] ALP [Catalytic activity/Vol] 60 U/L Normal 40-140 [facility] Comment on above: Order Comment: [facility] has implemented the eGFR calculation approach that does not have a coefficient for race that conforms to the NKF-ASN Task Force Recommendations. Performed By: #### 4 [id number] #### [facility] [address] [address] Gurwinder Broussard M.D. [id number] ALT [Catalytic activity/Vol] 19 U/L Normal 0-35 U/L [facility] Comment on above: Order Comment: [facility] has implemented the eGFR calculation approach that does not have a coefficient for race that conforms to the NKF-ASN Task Force Recommendations. Performed By: #### 4 [id number] #### [facility] [address] [id number] Gurwinder Broussard M.D. [id number] Anion gap [Moles/Vol] 15 mmol/L Normal 10-20 [facility] Comment on above: Order Comment: [facility] has implemented the eGFR calculation approach that does not have a coefficient for race that conforms to the NKF-ASN Task Force Recommendations. Performed By: #### 4 [id number] #### LAB [address] [address] Gurwinder Broussard M.D. [id number] AST [Catalytic activity/Vol] 16 U/L Normal 0-35 U/L [facility] Comment on above: Order Comment: [facility] has implemented the eGFR calculation approach that does not have a coefficient for race that conforms to the NKF-ASN Task Force Recommendations. Performed By: #### 4 [id number] #### LAB [address] [address] Gurwinder Broussard M.D. [id number] Bilirubin [Mass/Vol] 1.1 mg/dL Normal 0.0-1.3 [facility] Comment on above: Order Comment: [facility] has implemented the eGFR calculation approach that does not have a coefficient for race that conforms to the NKF-ASN Task Force Recommendations. Performed By: #### 4 [id number] #### LAB [address] [address] Gurwinder Broussard M.D. [id number] Calcium [Mass/Vol] 9.2 mg/dL Normal 8.4-10.2 [facility] Comment on above: Order Comment: [facility] has implemented the eGFR calculation approach that does not have a coefficient for race that conforms to the NKF-ASN Task Force Recommendations. Performed By: #### 4 [id number] #### LAB [address] [address] Gurwinder Broussard M.D. [id number] Chloride [Moles/Vol] 104 mmol/L Normal 98-108 [facility] Comment on above: Order Comment: [facility] has implemented the eGFR calculation approach that does not have a coefficient for race that conforms to the NKF-ASN Task Force Recommendations. Performed By: #### 4 [id number] #### LAB [address] [address] Gurwinder Broussard M.D. [id number] Creatinine [Mass/Vol] 0.84 mg/dL Normal 0.40-1.10 [facility] Comment on above: Order Comment: [facility] has implemented the eGFR calculation approach that does not have a coefficient for race that conforms to the NKF-ASN Task Force Recommendations. Performed By: #### 4 [id number] #### LAB [address] [address] Gurwinder Broussard M.D. [id number] EGFR 97 mL/min/1.73 m2 Normal >=60 [facility] Comment on above: Order Comment: [facility] has implemented the eGFR calculation approach that does not have a coefficient for race that conforms to the NKF-ASN Task Force Recommendations. Result Comment: [place] mated GFR was calculated using the 2020 CKD-EPI creatinine equation. Performed By: #### 4 [id number] #### LAB [address] [address] Gurwinder Broussard M.D. [id number] Glucose [Mass/Vol] 105 mg/dL High 65-99 [facility] Comment on above: Order Comment: [facility] has implemented the eGFR calculation approach that does not have a coefficient for race that conforms to the NKF-ASN Task Force Recommendations. Performed By: #### 4 [id number] #### LAB [address] [address] Gurwinder Broussard M.D. [id number] HCO3 (Bld) [Moles/Vol] 25 mmol/L Normal 21-32 [facility] Comment on above: Order Comment: [facility] has implemented the eGFR calculation approach that does not have a coefficient for race that conforms to the NKF-ASN Task Force Recommendations. Performed By: #### 4 6126 #### LAB [address] [address] Gurwinder Broussard M.D. [id number] Potassium [Moles/Vol] 4.2 mmol/L Normal 3.5-5.1 [facility] Comment on above: Order Comment: [facility] has implemented the eGFR calculation approach that does not have a coefficient for race that conforms to the NKF-ASN Task Force Recommendations. Performed By: #### 4 [id number] #### LAB [address] [address] Gurwinder Broussard M.D. [id number] Protein [Mass/Vol] 6.4 g/dL Normal 6.0-8.0 [facility] Comment on above: Order Comment: [facility] has implemented the eGFR calculation approach that does not have a coefficient for race that conforms to the NKF-ASN Task Force Recommendations. Performed By: #### 4 [id number] #### LAB [address] [address] Gurwinder Broussard M.D. [id number] Sodium [Moles/Vol] 140 mmol/L Normal 135-145 [facility] Comment on above: Order Comment: [facility] has implemented the eGFR calculation approach that does not have a coefficient for race that conforms to the NKF-ASN Task Force Recommendations. Performed By: #### 4 [id number] #### LAB [address] [address] Gurwinder Broussard M.D. [id number] Urea nitrogen [Mass/Vol] 16 mg/dL Normal 8-25 [facility] Comment on above: Order Comment: [facility] has implemented the eGFR calculation approach that does not have a coefficient for race that conforms to the NKF-ASN Task Force Recommendations. Performed By: #### 4 [id number] #### LAB [address] [id number] Gurwinder Broussard M.D. [id number] Urea nitrogen/Creatinine [Mass ratio] 19.0 mg/mg Normal 10.0-20.0 [facility] Comment on above: Order Comment: [facility] has implemented the eGFR calculation approach that does not have a coefficient for race that conforms to the NKF-ASN Task Force Recommendations. Performed By: #### 4 6126 #### LAB [address], [place] [address] Gurwinder Broussard M.D. [id number] D-DIMER, QUANTITATIVEon 11-15 D-DIMER QUANTITATIVE < Normal 0.27-0.49 [facility] Comment on above: Order Comment: A D-d juan miguel concentration of <0.5 micrograms per milliliter FEU is considered a low probability for pulmonary embolus (PE) and deep venous thrombosis (DVT). Results of this test should always be interpreted in conjunction with the patient's medical history,clinical presentation, and other findings. Clinical diagnosis should not be based on the results of the D-dimer alone. Performed By: #### 4 [id number] #### LAB [address], [place] [address] Gurwinder Broussard M.D. [id number] ED Procedureon 11-26-2024 ED Procedure EKG 12-lead Date/Time: 11/26/2024 12:23 PM Performed by: Leah Vo MD Authorized by: Leah Vo MD Interpreted by ED attending physician Rhythm: sinus rhythm BPM: 73 QRS axis: normal Other: no other findings Clinical impression: normal ECG AUTHENTICATED BY LEAH VO, ON 11/26/2024 12:23:38 Normal [facility] ED Prov Noteon 11-26-2024 ED Prov Note [facility] ED Attending Note: NAME: Arlen Jimenez 29 y.o. CSN: [id number] PCP: No, Physician History: Chief Complaint: Chest Pain and Shortness of Breath HPI: The history was obtained from the patient and partner. Arlen is a 29 y.o. female who presents with a chief complaint of Chest Pain and Shortness of Breath. The patient is a 29-year-old female without significant medical history who presents from home with complaints of chest pain. The chest pain began yesterday, was right-sided radiating to the left, and worse with deep inspiration. She denies any fever or chills. She denies any cough or congestion. She denies use of any hormones, any recent travel, and does not smoke tobacco. It did occur after drinking energy drink but is not yet resolved. PMHx: History reviewed. No pertinent past medical history. PMSx: Past Surgical History: Procedure Laterality Date TONSILLECTOMY FAM. Hx: History reviewed. No pertinent family history. SOC. Hx: Social History [1] MEDs: No current outpatient medications on file prior to encounter. ALL: Allergies[2] ROS: Positives and pertinent negatives as per HPI. All other systems were reviewed and are negative. Physical Exam: Patient Vitals for the past 24 hrs: BP Temp Temp src Pulse Resp SpO2 Height Weight 11/26/24 1400 98/63 -- -- 67 16 94 % -- -- 11/26/24 1330 (!) 100/59 -- -- 68 18 93 % -- -- 11/26/24 1311 (!) 106/53 -- -- 65 (!) 21 98 % -- -- 11/26/24 1204 -- -- -- -- -- -- 5' 7" 136.1 kg (300 lb) 11/26/24 1201 124/78 97.7 degrees F (36.5 degrees C) Oral 82 18 97 % -- -- Physical Exam Vitals and nursing note reviewed. Constitutional: Appearance: She is well-developed. Comments: Elevated BMI HENT: Head: Normocephalic. Cardiovascular: Rate and Rhythm: Normal rate and regular rhythm. Heart sounds: Normal heart sounds. Musculoskeletal: General: Normal range of motion. Cervical back: Normal range of motion. Pulmonary: Effort: Pulmonary effort is normal. Breath sounds: Normal breath sounds. Abdominal: General: Bowel sounds are normal. Palpations: Abdomen is soft. Comments: Nontender to my exam Skin: General: Skin is warm and dry. Neurological: General: No focal deficit present. Mental Status: She is alert and oriented to person, place, and time. Psychiatric: Mood and Affect: Mood normal. Behavior: Behavior normal. Laboratory & Radiological Imaging (if done): Labs Reviewed COMPREHENSIVE METABOLIC PANEL - Abnormal; Notable for the following components: Result Value Glucose 105 (*) All other components within normal limits Narrative: [facility] has implemented the eGFR calculation approach that does not have a coefficient for race that conforms to the NKF-ASN Task Force Recommendations. D-DIMER, QUANTITATIVE - Normal Narrative: A D-dimer concentration of <0.5 micrograms per milliliter FEU is considered a low probability for pulmonary embolus (PE) and deep venous thrombosis (DVT). Results of this test should always be interpreted in conjunction with the patient's medical history,clinical presentation, and other findings. Clinical diagnosis should not be based on the results of the D-dimer alone. HCG, SERUM, QUALITATIVE - Normal Narrative: Negative: The result is less than or equal to 5 mIU/mL of HCG. CBC AND DIFFERENTIAL Narrative: The following orders were created for panel order CBC w/ Diff. Procedure Abnormality Status --------- ------ CBC Auto Differential[[id number]] Final result Please view results for these tests on the individual orders. TROPONIN X 2 (NOW AND REPEAT IN 2 HOURS) TROPONIN X 2 (NOW AND REPEAT IN 2 HOURS) CBC WITH AUTO DIFFERENTIAL XR Chest 1 View Final Result No acute process. Low lung volumes and atelectasis. Workstation ID: [id number] Procedures: Procedures ED Course / Medical Decision Making: Medical Decision Making Differential diagnosis includes but not limited to pulmonary bliss, coronary artery disease, atypical chest pain There are no social chronic conditions impacting the patient's care Patient remained stable in the emergency department. Workup including troponin D-dimer chest x-ray other labs show no acute worrisome abnormalities. Her EKG is nonacute as well. Patient is reassured. She is given prescriptions for ibuprofen and she is discharged home with outpatient follow-up. Amount and/or Complexity of Data Reviewed Independent Historian: friend Details: Partner at bedside able to give corroborating information External Data Reviewed: notes. Details: No old charts available Labs: ordered. Details: Labs show no acute worrisome abnormalities Radiology: ordered. Details: Chest x-ray is clear ECG/medicine tests: ordered. Details: EKG is obtained and shows normal sinus rhythm, rate of 73, normal axis, no injury Risk Prescription drug management. . (more content not included)... Normal [facility] HCG, SERUM, QUALITATIVEon BETA-HCG QUAL BLOOD Negative Normal Negative [facility] Comment on above: Order Comment: Negat ana maria: The result is less than or equal to 5 mIU/mL of HCG. Performed By: #### 4 [id number] #### [address] [place], [place] [address] Gurwinder Broussard M.D. [id number] TROPONIN X 2 (NOW AND REPEAT IN 2 HOURS)on 11-26-2024 TROPONIN T DELTA CHANGE INTERPRETATION No biomarker evidence of cardiac injury. Normal [facility] Comment on above: Performed By: #### 4 [id number] #### [address] [place], [place] [address] Gurwinder Broussard M.D. [id number] TROPONIN T NG/L < Normal <=14 [facility] Comment on above: Performed By: #### 4 [id number] #### [address] [place], [place] [address] Gurwinder Broussard M.D. [id number] BASELINE TROPONIN T NG/L < Normal <=14 [facility] Comment on above: Performed By: #### 4 [id number] #### [address] [place], [place] [address] Gurwinder Broussard M.D. [id number] TROPONIN T INTERPRETATION Normal Normal [facility] Comment on above: Performed By: #### 4 [id number] #### [address] [place], [place] [address] Gurwinder Broussard M.D. [id number] XR CHEST PA/APon 11-26-2024 XR CHEST PA/AP EXAMINATION: XR CHEST PA/AP 11/26/2024 1:05 pm HISTORY: ORDERING SYSTEM PROVIDED HISTORY: Chest pain, TECHNOLOGIST PROVIDED HISTORY: Illness/Other Reason for exam: SOB, CHEST PAIN Cancer History: U Surgery, RadiationHistory: U Encounter Type: Initial Additional signs and symptoms: U ORDERING SYSTEM PROVIDED DIAGNOSIS CODES: COMPARISON: None FINDINGS: The low lung volumes with atelectasis. Heart size upper limits normal. No consolidation effusion seen. IMPRESSION: No acute process. Low lung volumes and atelectasis. 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 Visit Reporton 11-21-2024 Wallcovering 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 Office Visit Report [facility] [address], [address] [place] [address] OFFICE VISIT Date of Service: 11/21/24 MR#: [id number] Acct: [id number] Name: ARLEN JIMENEZ Rep #: [id number] : 1995 Provider: CASSI dinh Age/Sex: 29/F Location: [facility] Status: Signed Intake Vital Signs 05/18/23 07:45 07/04/24 16:14 11/10/24 14:02 11/21/24 09:15 Height 5 ft 6 in 5 ft 6 in 5 ft 6 in 5 ft 6 in Weight: 309 lb 8 oz BMI 49.9 BP 108/70 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) Chief Complaint: Annual It Application Support Analyst Required: No Is patient in pain?: No Allergies amoxicillin Allergy (Verified 11/10/24 14:03) Vomiting clavulanic acid (From Augmentin) Allergy (Verified 11/10/24 14:03) Vomiting clomiphene (From Clomid) Allergy (Verified 11/10/24 14:03) Other Medications ???Medication ???Instructions ???Recorded ???Confirmed ???Type bupropion HCl 150 mg 24 hr tablet, 150 mg PO QAM #30 tabs 11/10/24 11/10/24 Rx extended release (Wellbutrin XL) diphenhydramine HCl 25 mg tablet 25 mg PO QHS PRN 11/10/24 11/10/24 History (Benadryl Allergy) fluticasone propionate 50 1 spray intranasal QDAY PRN 11/10/24 History mcg/actuation nasal spray,suspension ibuprofen 200 mg tablet 400 mg PO Q6H PRN 11/10/24 5 History cholecalciferol (vitamin D3) 25 25 mcg PO QDAY 11/21/24 11/21/24 H istory mcg (1,000 unit) capsule Is last menstrual period known: Yes Last Menstrual Period: 11/16/24 Post menopausal: No Patient : No : No PFSH Medical History (Updated 11/21/24 @ 10:00 by Monica Santiago [employer] ARCHITECT, [employer] ARCHITECT-C) PTSD (post-traumatic stress disorder) Bone fracture Acute back pain Surgical History (Updated 11/10/24 @ 14:[address] Lois Mendez MD) History of tonsillectomy and adenoidectomy History of ankle surgery History of placement of ear tubes [place] teeth extracted Family History (Updated 11/10/24 @ 14:[address] Lois Mendez MD) Father Alcoholism Anemia Skin cancer Anxiety Depression Mental disorder drug use disorder Aunt Anesthesia complication Heart disease Hypertension Thyroid disorder Anxiety Depression Mental disorder Tachycardia ?afib Mother Anxiety Depression Mental disorder bipoloar Heart palpitations Sister Anxiety Depression Pseudotumor cerebri syndrome Mental disorder Bipolar Skin cancer Thyroid disorder Pituitary tumor Sister Andrae-Danlos disease POTS (postural orthostatic tachycardia syndrome) Anxiety Mental disorder bipolar Depression Ankle instability Social History (Updated 11/21/24 @ 09:22 by [place] gNo) adopted: No household members: spouse current occupational status: employed 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 - [employer] current occupational exposures/hazards: No Smoking Status: Former smoker quit date: 11/13/22 how long ago did patient quit smoking: quit vaping 03/2024 alcohol intake: current alcohol intake frequency: holidays/special occasions only substance use type: does not use diet: other what type of physical activity do you participate in: none, walking and other details: leg and arm routine seatbelt use: always do you feel safe at home: Yes additional social history: - Alex History 1 Elective abortions Hx Para Spontaneous abortions Hx # Term Pregnancies Ectopic pregnancies Hx # Pregnancies Multiple births # of living children 0 Past Pregnancies Del. Date Name GA/Weeks Outcome Route Bth Weight Infant Gen Labor Lgth Anesthesia Del Locatn Provider FOB Unknown Chemical preg. HPI Encounter for routine gynecological examination Details: ARLEN JIMENEZ is a 29 year old who presents for new patient annual exam. No contraception X 10 years. Menses occur every 32 days and last 3 days. One positive UPT about 10 yr ago then started menses. No other pregnancies. She was treated for chlamydia in high school/states multiple repeat cultures negative. Alex ( ) denies STD dx in past. She did see infertility clinic in [place] about 10 yr ago, was on metformin without benefit, tried one cycle clomid and made her gums swell so no further intervention. Last PAP: 2023 History of abnormal PAP: no Last mammogram: age 35 Other preventative health care screenings: Dimitri. Female Reproductive History Last Menstrual Period: 11/16/24 Cycle Length: 21-35 Questions: metorrhagia: No, sexually active: Yes, dyspareunia: No and PCB: No ROS Const Constitutional: Denies fatigue, weight gain or weight loss Cardio Card: Denies chest pain Resp Resp: Denies cough or dyspnea on exertion GI GI: Denies abdominal pain, bloating, change in stool character, constipation or vomiting : Reports as per (more content not included)... Normal [facility] Stool Occult Blood iFOBon STOB Negative Normal [facility] Comment on above: Performed By: #### M 100.7900 ####[facility] [address] [place], [address] Stool gastrointestinal hemog lobin detection by immunologic methodOrdered By: Lois Mendez on 11-11-2024 Lower GI hemoglobin IA Ql (Stl) [facility] Absolute lymphocyte countOrd ered By: Lois Mendez on 11-10-2024 Lymphocytes Auto (Unsp spec) [#/Vol] 2.34 10*3/uL 0.83-4.51 [facility] Absolute neutrophil countOrd ered By: Lois Mendez on 11-10-2024 Neutrophils (Bld) [#/Vol] 5.5 10*3/uL 2.0-7.7 [facility] Anion gap in Serum or Plasma Ordered By: Lois Mendez on 11-10-2024 Anion gap [Moles/Vol] 12 mmol/L 5-15 [facility] Automated lymphocyte count a s percentage of total leukocytesOrdered By: Lois Mendez on 11-10-2024 Lymphocytes/100 WBC Auto (Unsp spec) 27.3 % 19-41 [facility] BUN/creatinine ratioOrdered By: Lois Koloa on 11-10-2024 Urea nitrogen/Creatinine [Mass ratio] 20.5 mg/mg High 10-20 [facility] Basophil percentageOrdered B y: Lois Koloa on 11-10-2024 Basophils/100 WBC (Bld) 0.2 % 0-1 [facility] Bilirubin, totalOrdered By: Lois Koloa on 11-10-2024 Bilirubin [Mass/Vol] 0.76 mg/dL 0.00-1.30 [facility] CBC W/Diff, Automatedon 10-17 Absolute Lymph 2.34 X10 3/uL Normal 0.83-4.51 [facility] Comment on above: Performed By: #### L 501.9985, L501.9520, L500.4050, L100.0100, L506.1001 #### [facility] [address] [place], [address] Absolute Neut 5.5 X10 3/uL Normal 2.0-7.7 [facility] Comment on above: Performed By: #### L 501.9985, L501.9520, L500.4050, L100.0100, L506.1001 #### [facility] [address] [place], [address] Basophils/100 WBC (Bld) 0.2 % Normal 0-1 [facility] Comment on above: Performed By: #### L 501.9985, L501.9520, L500.4050, L100.0100, L506.1001 #### [facility] [address] [place], [address] Eosinophils/100 WBC (Bld) 1.5 % Normal 0-5 [facility] Comment on above: Performed By: #### L 501.9985, L501.9520, L500.4050, L100.0100, L506.1001 #### [facility] [address] [place], [address] Erythrocyte distribution width (RBC) [Ratio] 12.7 % Normal 11.6-14.6 [facility] Comment on above: Performed By: #### L 501.9985, L501.9520, L500.4050, L100.0100, L506.1001 #### [facility] [address] [place], [address] Hematocrit (Bld) [Volume fraction] 40.1 % Normal 37-47 [facility] Comment on above: Performed By: #### L 501.9985, L501.9520, L500.4050, L100.0100, L506.1001 #### [facility] [address] [place], [address] Hemoglobin (Bld) [Mass/Vol] 13.1 g/dL Normal 12.0-15.0 [facility] Comment on above: Performed By: #### L 501.9985, L501.9520, L500.4050, L100.0100, L506.1001 #### [facility] [address] [place], [address] IG% 0.500 Normal 0.0-0.9 [facility] Comment on above: Result Comment: IG% - Immature Granulocytes (promyelocytes, myelocytes and metamyelocytes) > 1% indicates that a LEFT SHIFT is Present. Performed By: #### L 501.9985, L501.9520, L500.4050, L100.0100, L506.1001 #### [facility] [address] [place], [address] Lymphocytes/100 WBC (Bld) 27.3 % Normal 19-41 [facility] Comment on above: Performed By: #### L 501.9985, L501.9520, L500.4050, L100.0100, L506.1001 #### [facility] [address] [place], [address] MCH (RBC) [Entitic mass] 27.0 pg Normal 27.0-32.0 [facility] Comment on above: Performed By: #### L 501.9985, L501.9520, L500.4050, L100.0100, L506.1001 #### [facility] [address] [place], [address] MCHC (RBC) [Mass/Vol] 32.7 g/dL Normal 32-36 [facility] Comment on above: Performed By: #### L 501.9985, L501.9520, L500.4050, L100.0100, L506.1001 #### [facility] [address] [place], [address] MCV (RBC) [Entitic vol] 82.7 fL Normal 81-99 [facility] Comment on above: Performed By: #### L 501.9985, L501.9520, L500.4050, L100.0100, L506.1001 #### [facility] [address] [place], [address] Monocytes/100 WBC (Bld) 6.9 % Normal 0-10 [facility] Comment on above: Performed By: #### L 501.9985, L501.9520, L500.4050, L100.0100, L506.1001 #### [facility] [address] [place], [address] Neutrophils/100 WBC (Bld) 63.6 % Normal 47-70 [facility] Comment on above: Performed By: #### L 501.9985, L501.9520, L500.4050, L100.0100, L506.1001 #### [facility] [address] [place], [address] Nucleated RBC (Bld) [#/Vol] 0 10*3/uL Normal 0-5 [facility] Comment on above: Performed By: #### L 501.9985, L501.9520, L500.4050, L100.0100, L506.1001 #### [facility] [address] [place], [address] Platelet mean volume (Bld) [Entitic vol] 10.6 fL Normal 6.2-12.0 [facility] Comment on above: Performed By: #### L 501.9985, L501.9520, L500.4050, L100.0100, L506.1001 #### [facility] [address] [place], [address] Platelets (Bld) [#/Vol] 278 10*3/uL Normal 150-450 [facility] Comment on above: Performed By: #### L 501.9985, L501.9520, L500.4050, L100.0100, L506.1001 #### [facility] [address] [place], [address] RBC (Bld) [#/Vol] 4.85 10*6/uL Normal 4.2-5.4 [facility] Comment on above: Performed By: #### L 501.9985, L501.9520, L500.4050, L100.0100, L506.1001 #### [facility] [address] [place], [address] RDW SD 38.4 fl Normal 35.1-43.9 [facility] Comment on above: Performed By: #### L 501.9985, L501.9520, L500.4050, L100.0100, L506.1001 #### [facility] [address] [place], [address] WBC (Bld) [#/Vol] 8.6 10*3/uL Normal 4.4-11.0 [facility] Comment on above: Performed By: #### L 501.9985, L501.9520, L500.4050, L100.0100, L506.1001 #### [facility] [address] [place], [address] Carbon dioxide, total [Moles /volume] in Central venous bloodOrdered By: Lois Koloa on 11-10-2024 CO2 [Moles/Vol] 23.5 mmol/L 21.0-32.0 [facility] Chloride assayOrdered By: Al ycia Andrea on 11-10-2024 Chloride [Moles/Vol] 103 mmol/L 98-108 [facility] Comprehensive Metabolic Prof ilon 11-10-2024 Albumin [Mass/Vol] 4.1 g/dL Normal 3.5-5.0 [facility] Comment on above: Performed By: #### L 501.9985, L501.9520, L500.4050, L100.0100, L506.1001 #### [facility] [address] [place], [address] Albumin/Globulin [Mass ratio] 1.5 {ratio} Normal 0.9-2.4 [facility] Comment on above: Performed By: #### L 501.9985, L501.9520, L500.4050, L100.0100, L506.1001 #### [facility] [address] [place], [address] ALK PHOS 62 U/L Normal 35-104 [facility] Comment on above: Performed By: #### L 501.9985, L501.9520, L500.4050, L100.0100, L506.1001 #### [facility] [address] [place], [address] ALT [Catalytic activity/Vol] 16 U/L Normal <=34 [facility] Comment on above: Performed By: #### L 501.9985, L501.9520, L500.4050, L100.0100, L506.1001 #### [facility] [address] [place], [address] AST [Catalytic activity/Vol] 19 U/L Normal <=31 [facility] Comment on above: Performed By: #### L 501.9985, L501.9520, L500.4050, L100.0100, L506.1001 #### [facility] [address] [place], [address] Bilirubin [Mass/Vol] 0.76 mg/dL Normal 0.00-1.30 [facility] Comment on above: Performed By: #### L 501.9985, L501.9520, L500.4050, L100.0100, L506.1001 #### [facility] [address] [place], [address] BUN/CRE 20.5 RATIO High 10-20 [facility] Comment on above: Performed By: #### L 501.9985, L501.9520, L500.4050, L100.0100, L506.1001 #### [facility] [address] [place], [address] Calcium [Mass/Vol] 9.8 mg/dL Normal 7.6-11.0 [facility] Comment on above: Performed By: #### L 501.9985, L501.9520, L500.4050, L100.0100, L506.1001 #### [facility] [address] [place], [address] Chloride [Moles/Vol] 103 mmol/L Normal 98-108 [facility] Comment on above: Performed By: #### L 501.9985, L501.9520, L500.4050, L100.0100, L506.1001 #### [facility] [address] [place], [address] CO2 [Moles/Vol] 23.5 mmol/L Normal 21.0-32.0 [facility] Comment on above: Performed By: #### L 501.9985, L501.9520, L500.4050, L100.0100, L506.1001 #### [facility] [address] [place], [address] Creatinine [Mass/Vol] 0.89 mg/dL Normal 0.70-1.20 [facility] Comment on above: Performed By: #### L 501.9985, L501.9520, L500.4050, L100.0100, L506.1001 #### [facility] [address] [place], [address] GAP 12 Normal 5-15 [facility] Comment on above: Performed By: #### L 501.9985, L501.9520, L500.4050, L100.0100, L506.1001 #### [facility] [address] [place], [address] GFR/1.73 sq M.predicted among non-blacks MDRD (S/P/Bld) [Vol rate/Area] 90 mL/min/{1.73_m2} Normal >60 [facility] Comment on above: Result Comment: mL/m in/1.73m2 CKD-EPI Creatinine Equation (2020) Performed By: #### L 501.9985, L501.9520, L500.4050, L100.0100, L506.1001 #### [facility] [address] [place], [address] Globulin (S) [Mass/Vol] 2.7 g/dL Normal 2.2-4.2 [facility] Comment on above: Performed By: #### L 501.9985, L501.9520, L500.4050, L100.0100, L506.1001 #### [facility] [address] [place], [address] Glucose [Mass/Vol] 88 mg/dL Normal 70-99 [facility] Comment on above: Performed By: #### L 501.9985, L501.9520, L500.4050, L100.0100, L506.1001 #### [facility] [address] [place], [address] Potassium [Moles/Vol] 3.9 mmol/L Normal 3.3-5.1 [facility] Comment on above: Performed By: #### L 501.9985, L501.9520, L500.4050, L100.0100, L506.1001 #### [facility] [address] [place], [address] Sodium [Moles/Vol] 139 mmol/L Normal 133-145 [facility] Comment on above: Performed By: #### L 501.9985, L501.9520, L500.4050, L100.0100, L506.1001 #### [facility] [address] [place], [address] T PROT 6.8 g/dL Normal 5.9-8.4 [facility] Comment on above: Performed By: #### L 501.9985, L501.9520, L500.4050, L100.0100, L506.1001 #### [facility] [address] [place], [address] Urea nitrogen [Mass/Vol] 18 mg/dL Normal 4-19 [facility] Comment on above: Performed By: #### L 501.9985, L501.9520, L500.4050, L100.0100, L506.1001 #### [facility] [address] [place], [address] Eosinophil percentageOrdered By: Lois Mendez on 11-10-2024 Eosinophils/100 WBC (Bld) 1.5 % 0-5 [facility] Erythrocyte distribution wid th ratioOrdered By: Lois Mendez on 11-10-2024 Erythrocyte distribution width (RBC) [Ratio] 12.7 % 11.6-14.6 [facility] Erythrocyte distribution wid th standard deviationOrdered By: Lois Mendez on 11-10-2024 Erythrocyte distribution width (RBC) [Ratio] 38.4 fl 35.1-43.9 [facility] Glomerular filtration rate ( GFR) estimation/1.73 sq m using serum, plasma, or whole bOrdered By: Lois Mendez on 11-10-2024 GFR/1.73 sq M.predicted among non-blacks MDRD (S/P/Bld) [Vol rate/Area] 90 mL/min/{1.73_m2} >60 [facility] Comment on above: mL/min/1.73m2 CKD-EP I Creatinine Equation (2020) Hematocrit Auto (Bld) [Volum e fraction]Ordered By: Lois Mendez on 11-10-2024 Hematocrit (Bld) [Volume fraction] 40.1 % 37-47 [facility] Hemoglobin A1con 11-10-2024 HbA1c (Bld) [Mass fraction] 5.5 % Normal <=5.6 [facility] Comment on above: Result Comment: Norm al < 5.7 % Prediabetic 5.7 - 6.4 % Diabetic >or= 6.5 % Please note range changes. Performed By: #### L 501.99, L501.9539, L500.4050, L100.0100, L506.1001 #### [facility] [address] [facility] [place], [address] Hemoglobin A1c percentageOrd ered By: Lois Mendez on 11-10-2024 HbA1c (Bld) [Mass fraction] 5.5 % <5.7 [facility] Comment on above: Normal < 5.7 % Predi abetic 5.7 - 6.4 % Diabetic >or= 6.5 % Please note range changes. Hemoglobin measurementOrdere d By: Lois Mendez on 11-10-2024 Hemoglobin (Bld) [Mass/Vol] 13.1 g/dL 12.0-15.0 [facility] Immature granulocytes/100 WB C Auto (Bld)Ordered By: Lois Mendez on 11-10-2024 Immature granulocytes/100 WBC (Bld) 0.500 % 0.0-0.9 [facility] Comment on above: IG% - Immature Granu locytes (promyelocytes, myelocytes and metamyelocytes) > 1% indicates that a LEFT SHIFT is Present. Laboratory - Chemistry and C hemistry - challengeOrdered By: Lois Mendez on 11-10-2024 AST [Catalytic activity/Vol] 19 U/L <32 [facility] MCV (mean corpuscular volume ) determinationOrdered By: Lois Mendez on 11-10-2024 MCV (RBC) [Entitic vol] 82.7 fL 81-99 [facility] Mean corpuscular hemoglobin (MCH) determinationOrdered By: Lois Mendez on 11-10-2024 MCH (RBC) [Entitic mass] 27.0 pg 27.0-32.0 [facility] Mean corpuscular hemoglobin concentration (MCHC) determinationOrdered By: Lois Mendez on 11-10-2024 MCHC (RBC) [Mass/Vol] 32.7 g/dL 32-36 [facility] Mean platelet volume determi nationOrdered By: Lois Mendez on 11-10-2024 Platelet mean volume (Bld) [Entitic vol] 10.6 fL 6.2-12.0 [facility] Monocyte percentageOrdered B y: Lois Mendez on 11-10-2024 Monocytes/100 WBC (Bld) 6.9 % 0-10 [facility] Neutrophil percentageOrdered By: Lois Mendez on 11-10-2024 Neutrophils/100 WBC (Bld) 63.6 % 47-70 [facility] Nucleated red blood cell per centageOrdered By: Lois Mendez on 11-10-2024 Nucleated RBC/100 WBC (Bld) [Ratio] 0 % 0-5 [facility] Platelet countOrdered By: Saúl Mendez on 11-10-2024 Platelets (Bld) [#/Vol] 278 10*3/uL 150-450 [facility] Potassium measurement (mass/ volume)Ordered By: Lois Mendez on 11-10-2024 Potassium (Unsp spec) [Mass/Vol] 3.9 mmol/L 3.3-5.1 [facility] RBC Auto (Bld) [#/Vol]Ordere d By: Lois Mendez on 11-10-2024 RBC (Bld) [#/Vol] 4.85 10*6/uL 4.2-5.4 [facility] Serum creatinine measurement (mass/volume)Ordered By: Lois Mendez on 11-10-2024 Creatinine [Mass/Vol] 0.89 mg/dL 0.70-1.20 [facility] Serum globulin measurementOr dered By: Lois Mendez on 11-10-2024 Globulin (S) [Mass/Vol] 2.7 g/dL 2.2-4.2 [facility] Serum glucose measurement (m ass/volume)Ordered By: Lois Mendez on 11-10-2024 Glucose [Mass/Vol] 88 mg/dL 70-99 [facility] Serum or plasma alanine fox otransferase (ALT) measurementOrdered By: Lois Mendez on 11-10-2024 ALT [Catalytic activity/Vol] 16 U/L <35 [facility] Serum or plasma albumin hari urement (mass/volume)Ordered By: Lois Mendez on 11-10-2024 Albumin [Mass/Vol] 4.1 g/dL 3.5-5.0 [facility] Serum or plasma albumin/glob ulin mass ratioOrdered By: Lois Mendez on 11-10-2024 Albumin/Globulin [Mass ratio] 1.5 {ratio} 0.9-2.4 [facility] Serum or plasma alkaline addison sphatase measurementOrdered By: Lois Mendez on 11-10-2024 ALP [Catalytic activity/Vol] 62 U/L 35-104 [facility] Serum or plasma calcium hari urement (mass/volume)Ordered By: Lois Mendez on 11-10-2024 Calcium [Mass/Vol] 9.8 mg/dL 7.6-11.0 [facility] Serum or plasma urea nitroge n measurement (mass/volume)Ordered By: Lois Mendez on 11-10-2024 Urea nitrogen [Mass/Vol] 18 mg/dL 4-19 [facility] Sodium levelOrdered By: Jewel Mendez on 11-10-2024 Sodium [Moles/Vol] 139 mmol/L 133-145 [facility] TSH DL <= 0.005 mIU/L QnOrde red By: Lois Mendez on 11-10-2024 TSH Qn 2.530 uIU/mL 0.300-4.200 [facility] Thyroid Stim Hormone (TSH)on 11-10-2024 TSH 2.530 uIU/mL Normal 0.300-4.200 [facility] Comment on above: Performed By: #### L 501.9985, L501.9520, L500.4050, L100.0100, L506.1001 #### [facility] [address] [place], [place], [id number] Total proteinOrdered By: Jared Mendez on 11-10-2024 Protein [Mass/Vol] 6.8 g/dL 5.9-8.4 [facility] Vitamin D,25 Hydroxyon 11-10 Vitamin D 25-OH 23.3 ng/mL Low 30-100 [facility] Comment on above: Result Comment: Amy min D Status Deficiency: <20 ng/mL (50nmol/L) Insufficiency: 20-30 ng/mL (50-75 nmol/L) Sufficiency: 30-100 ng/mL (75-250 nmol/L) Toxicity: >100 ng/mL (>250 nmol/L) Performed By: #### L 501.9985, L501.9520, L500.4050, L100.0100, L506.1001 #### [facility] [address] [place] [place], [address] White blood cell (WBC) count Ordered By: Lois Mendez on 11-10-2024 WBC (Bld) [#/Vol] 8.6 10*3/uL 4.4-11.0 [facility] Internal Medicine Office Vis ito 11-09-2024 Internal Medicine Office Visit [facility] [address] [place], [place] [address] OFFICE VISIT Date of Service: 11/10/24 MR#: [id number] Acct: [id number] Name: ARLEN JIMENEZ Rep #: [id number] : 1995 Provider: Dr. 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 Is patient in pain?: No Allergies amoxicillin Allergy (Verified 11/10/24 14:03) Vomiting clavulanic acid (From Augmentin) Allergy (Verified 11/10/24 14:03) Vomiting clomiphene (From Clomid) Allergy (Verified 11/10/24 14:03) Other Medications ???Medication ???Instructions ???Recorded ???Confirmed ???Type acetaminophen 325 mg tablet 650 mg PO ONCE PRN 11/10/24 History (Tylenol) bupropion HCl 150 mg 24 hr tablet, 150 mg PO QAM #30 tabs 11/10/24 11/10/24 Rx extended release (Wellbutrin XL) diphenhydramine HCl 25 mg tablet 25 mg PO QHS PRN 11/10/24 11/10/24 History (Benadryl Allergy) fluticasone propionate 50 1 spray intranasal QDAY PRN 11/10/24 History mcg/actuation nasal spray,suspension ibuprofen 200 mg tablet 400 mg PO Q6H PRN 11/10/24 5 History PFSH Medical History (Updated 11/10/24 @ 15:[address] Lois Mendez MD) PTSD (post-traumatic stress disorder) Bone fracture Acute back pain Surgical History (Updated 11/10/24 @ 14:[address] Lois Mendez MD) History of tonsillectomy and adenoidectomy History of ankle surgery History of placement of ear tubes [place] teeth extracted Family History (Updated 11/10/24 @ 14:[address] Lois Mendez MD) Father Alcoholism Anemia Skin cancer Anxiety Depression Mental disorder drug use disorder Aunt Anesthesia complication Heart disease Hypertension Thyroid disorder Anxiety Depression Mental disorder Tachycardia ?afib Mother Anxiety Depression Mental disorder bipoloar Heart palpitations Sister Anxiety Depression Pseudotumor cerebri syndrome Mental disorder Bipolar Skin cancer Thyroid disorder Pituitary tumor Sister Andrae-Danlos disease POTS (postural orthostatic tachycardia syndrome) Anxiety Mental disorder bipolar Depression Ankle instability Social History (Updated 11/10/24 @ 14:[address] Lois Mendez MD) adopted: No household members: spouse current occupational status: employed current occupation: [employer] current occupational exposures/hazards: No Smoking Status: Former smoker quit date: 11/13/22 how long ago did patient quit smoking: quit vaping 03/2024 alcohol intake: current alcohol intake frequency: holidays/special occasions only substance use type: does not use diet: other what type of physical activity do you participate in: none, walking and other details: leg and arm routine seatbelt use: always do you feel safe at home: Yes Questionnaire H-9 BMS Over the last 2 weeks, how often have you been bothered by any of the following problems? 1. Little interest or pleasure in doing things: not at all 2. Feeling down, depressed, or hopeless: not at all 3. Trouble falling or staying asleep, or sleeping too much: more than half the days 4. Feeling tired or having little energy: more than half the days 5. Poor appetite or overeating: not at all 6. Feeling bad about yourself - or that you are a failure or have let yourself and your family down: not at all 7. Trouble concentrating on things, such as reading the newspaper or watching television: several days 8. Moving or speaking so slowly that other people could have noticed? - Or the opposite - being so fidgety or restless that you have been moving around a lot more than usual: more than half the days 9. Thoughts that you would be better off or of hurting yourself in some way: not at all Total score: 7 If you checked off any problems, how difficult have these problems made it for you to do your work, take care of things at home, or get along with other people?: somewhat difficult Source: Developed by Drs. Levi Newsome, Maribeth Hubbard, Bubba Bonner and colleagues, with an educational boni from [employer]. LUL-7 BMS LUL-7 Feeling nervous, anxious, or on edge: 2 = More than half the days Not being able to stop or control worryin = Not at all Worrying too much about different things: 1 = Several days Trouble relaxin = Several days Being so restless that it is hard to sit still: 2 = More than (more content not included)... Normal [facility] CNOVon 11-07-2024 CNOV Office Visit (PODIWS ) ARLEN JIMENEZ ([id number]) 1995 F Date Time Provider Department 11/07/24 1:30 PM JOSIE PONCE PODIWS During your visit today, we recorded the following information about you: Mirna Yates LPN 11/07/2024 1:38 PM Signed AMB ROOMING INTAKE FLOWSHEET DATA Patient presents with: Right Foot - Pain, Swelling, Established Patient, Follow Up: HX of surgery Numbness around surgical site Left Foot - Swelling, Established Patient, Follow Up AMRITA San [place] 11/07/2024 1:38 PM Signed Subjective Arlenluis enrique Jimenez is a 29-year-old female presenting for follow-up of chronic bilateral lower extremity edema. Chronic Bilateral Lower Extremity Edema: - Edema present for years. - Arlen has tried compression stockings but finds them difficult to fit due to large, wide feet and calves. - Recent ultrasound on November 02 showed valvular incompetency in the femoral and popliteal veins on the right side, and in the great saphenous vein bilaterally. - Denies seeing a vascular specialist previously. Cardiovascular: (+) bilateral leg swelling Musculoskeletal: (-) calf pain PAST MEDICAL HISTORY Diagnosis Date ADD (attention deficit disorder) 05/2024 ADHD (attention deficit hyperactivity disorder) 05/2024 Depression 05/2024 Generalized anxiety disorder 05/2024 Current Outpatient Medications Medication Sig Dispense Refill fluticasone (FLONASE ALLERGY RELIEF) 50 mcg/actuation nasal spray Use 1 [place] in each nostril once daily. 18.2 mL 0 ibuprofen (MOTRIN) 200 mg tablet Take 1-2 tablets by mouth every 6 hours as needed for Pain (Take with food.). folic acid 1 mg tablet Take 1 tablet by mouth once daily. diphenhydrAMINE (BENADRYL) 25 mg capsule Take 1 capsule by mouth every 6 hours as needed. No current facility-administered medications for this visit. Family History Problem Relation Age of Onset Mental illness Mother anxiety/depression/bi polar other (anemia) Father Alcohol abuse Father Skin Cancer Father other (other) Sister pseudotumor cerebri Other Sleep Disorder Sister pituitary tumor Migraines Sister Mental illness Sister anxiety/depression Mental illness Sister anxiety/depression EDS (Andrae-Danlos syndrome) (HCC) Sister Hepatitis C Maternal Grandmother Liver Disease Maternal Grandmother Drug abuse Maternal Grandfather Alcohol/Drug Maternal Grandfather Mental illness Paternal Grandmother anxiety/depression No Known Problems Paternal Grandfather unknown Heart Maternal Aunt heart cath, 3 open heart surgery, 6 ablations and mumer repair Autism Nephew Objective Last menstrual period 08/05/2023. - Cardiovascular: Dorsalis pedis and posterior tibial pulses palpable bilaterally; capillary refill time <5 seconds; temperature warm proximally and distally; hair growth present on bilateral feet; edema noted in bilateral lower extremities. - Skin: No open sores bilaterally; skin appears well-hydrated. - Neurological: Protective sensation intact bilaterally. - Musculoskeletal: - Bilateral Feet: - Strength: 5/5 for dorsiflexion, plantar flexion, inversion, and eversion. Labs: Imaging: (11/02) Bilateral Lower Extremity Venous Duplex Ultrasound: - Right side: Negative for acute deep vein thrombosis; positive for valvular incompetency in the femoral vein, popliteal vein, and great saphenous vein - Left side: Positive for valvular incompetency in the common femoral vein, femoral vein, and great saphenous vein Tests: Assessment AND Plan 1. Venous insufficiency (I87.2) - Chronic bilateral lower extremity swelling; recent ultrasound on November 02 revealed valvular incompetency in the femoral and popliteal veins on the right side, and in the great saphenous vein bilaterally. - Discussed pathophysiology of venous insufficiency, emphasizing the role of incompetent valves in impaired venous return. - Recommended use of compression stockings; discussed availability of both [id number] and prescription options. - Referral to vascular surgery for further evaluation and management, including potential procedural interventions such as vein stripping. - Scheduled appointment with Dr. Mee Ponce at the [place] office Recording using [employer] software for draft documentation of the visit was discussed with the patient/authorized insurance representative; all questions welcomed and answered. Patient/authorized insurance representative agreed to proceed Josie Ponce DPM Referring Provider: JOSIE PONCE [[id number]] Allergies As of Date: 11/07/2024 Noted Allergy Reaction AMOXICILLIN 05/28/2018 8 - GI Upset AUGMENTIN (AMOXICILLIN-POT CLAVUL*05/28/2018 8 - GI Upset CLOMID (CLOMIPHENE CITRATE) 05/28/2018 7 - Swelling Date Reviewed: 11/07/2024 Reviewed by: Mirna Yates LPN - Fully Assessed Reason for Visit: Pain [78] Cmt: HX of (more content not included)... Normal [facility] VENOUS INCOMPETENCY JOHANNA V LABon 11-02-2024 US VENOUS INCOMPETENCY JOHANNA VAS LAB Non-Invasive Vascular Laboratory [facility] Venous Valvular Incompetency Bilateral/Complete Date of service/time: 11/02/2024 1:31:00 PM Name: MRS. ARLEN JIMENEZ Date of : 1995 Age: 29 years Gender: F Clinical Indication Lower extremity swelling. TECHNIQUE -------- A venous duplex ultrasound examination was performed, including grayscale imaging with compression maneuvers and color Doppler and spectral Doppler examination with augmentation maneuvers and response to respiration of the below mentioned veins. FINDINGS -------- Patient position reverse Trendelenburg 45 degrees. RIGHT SIDE Method of augmentation: manual. Distal external iliac vein Doppler: normal flow. Compression: normal. Common femoral vein Doppler: normal flow. Compression: normal. Profunda vein Doppler: normal flow. Compression: normal. Femoral vein Doppler: normal flow. Compression: normal. Popliteal vein Doppler: normal flow. Compression: normal. Great saphenous vein Compression: normal. Small saphenous vein Compression: normal. RIGHT GREAT SAPHENOUS VEIN Saphenofemoral junction Valsalva reflux greater than or equal to 0.5 second. Size 0.81 cm. Proximal thigh Valsalva reflux greater than or equal to 0.5 second. Size 0.53 cm. Mid thigh Valsalva reflux greater than or equal to 0.5 second. Size 0.44 cm. Distal thigh Valsalva reflux greater than or equal to 0.5 second. Size 0.42 cm. At Knee Valsalva reflux greater than or equal to 0.5 second. Size 0.38 cm. Proximal calf Augmentation reflux greater than or equal to 0.5 second. Size 0.37 cm. Mid calf Augmentation reflux none. Size 0.30 cm. RIGHT SMALL SAPHENOUS VEIN Saphenopopliteal junction Augmentation reflux none. Size 0.27 cm. Proximal calf Augmentation reflux none. Size 0.30 cm. RIGHT ANTERIOR ACCESSORY GREAT SAPHENOUS VEIN Saphenous junction Valsalva reflux greater than or equal to 0.5 second. Size 0.56 cm. Proximal Thigh Valsalva reflux greater than or equal to 0.5 second. Size 0.42 cm. Distal Thigh Valsalva reflux none. Size 0.45 cm. LEFT SIDE Method of augmentation: manual. Distal external iliac vein Doppler: normal flow. Compression: normal. Common femoral vein Doppler: normal flow. Compression: normal. Profunda vein Doppler: normal flow. Compression: normal. Femoral vein Doppler: normal flow. Compression: normal. Popliteal vein Doppler: normal flow. Compression: normal. Great saphenous vein Compression: normal. Small saphenous vein Compression: normal. LEFT GREAT SAPHENOUS VEIN Saphenofemoral junction Valsalva reflux greater than or equal to 0.5 second. Size 0.72 cm. Proximal thigh Valsalva reflux greater than or equal to 0.5 second. Size 0.47 cm. Mid thigh Augmentation reflux none. Size 0.48 cm. Distal thigh Augmentation reflux none. Size 0.56 cm. At Knee Augmentation reflux greater than or equal to 0.5 second. Size 0.38 cm. Proximal calf Augmentation reflux greater than or equal to 0.5 second. Size 0.41 cm. Mid calf Augmentation reflux greater than or equal to 0.5 second. Size 0.38 cm. LEFT SMALL SAPHENOUS VEIN Saphenopopliteal junction Augmentation reflux none. Size 0.25 cm. Proximal calf Augmentation reflux none. Size 0.28 cm. LEFT ANTERIOR ACCESSORY GREAT SAPHENOUS VEIN Saphenous junction Valsalva reflux greater than or equal to 0.5 second. Size 0.42 cm. Proximal thigh Valsalva reflux none. Size 0.44 cm. IMPRESSION RIGHT SIDE - DEEP VEINS Negative for acute deep vein thrombosis in vessels visualized. Positive for valvular incompetency in the femoral vein and popliteal vein. RIGHT SIDE - SUPERFICIAL VEINS Positive for valvular incompetency in the great saphenous vein. Positive for valvular incompetency in the anterior accessory great saphenous vein. Follows straight path and connects with GSV at proximal calf via branch. Negative for valvular incompetency in the small saphenous vein. Negative for superficial thrombophlebitis in the great saphenous vein and small saphenous vein. LEFT SIDE - DEEP VEINS Negative for acute deep vein thrombosis in vessels visualized. Positive for valvular incompetency in the common femoral vein and femoral vein. LEFT SIDE - SUPERFICIAL VEINS Positive for valvular incompetency in the great saphenous vein. Positive for valvular incompetency in the anterior accessory great saphenous vein. Terminates at mid thigh. Negative for valvular incompetency in the small saphenous vein. Negative for superficial thrombophlebitis in the great saphenous vein and small saphenous vein. Technologist: Karolina Sal RVT Ordering physician: JOSIE PONCE Interpreting physician: RODOLFO Manzo MD Final (more content not included)... Normal [facility] CNOVon 09-20-2024 CNOV Office Visit (PODIWS ) ARLEN JIMENEZ ([id number]) 1995 F Date Time Provider Department 09/20/24 1:45 PM JOSIE PONCE During your visit today, we recorded the following information about you: Mirna Yates LPN 09/20/2024 2:11 PM Signed AMB ROOMING INTAKE FLOWSHEET DATA Pain Pain Level: 2 (8 at worse) Pain Location: Foot-Right Description: Dull, Throbbing Duration Amount of Time: 6 Duration Units: Years Frequency: Continuous Intervention/Comfort measure: Reposition, Relaxation Patient presents with: Right Foot - New, Pain, Swelling: HX of surgery Numbness around surgical site AMRITA San Matthew 09/20/2024 2:07 PM Signed Powerstep Original Full length. Can purchase at [facility] [employer] and boots,shoes and more here in [place], [employer] in [place] or [place]. Also can find in [employer] in [facility]. Powersteps can also be purchased online, starting around $45.00 If you have a metatarsal or dancer pad for your feet apply the pad directly to the insole so you can interchange between your shoes. Find a shoe with a removable insole and take this out and replace with your powerstep insole. Always bring powersteps with you when shopping for shoes so that you can make sure that everything fits well together Josie Ponce 09/20/2024 2:11 PM Signed Consultation requested by Dr. Waterman for an opinion regarding ankle pain. My final recommendations will be communicated back to the requesting physician by way of shared Medical record or letter to requesting physician via US mail. Pierre Cordova is a 29-year-old female with a history of bilateral Brostrom repairs, presenting for right foot pain and discoloration of the toes. Right Foot Pain: - Pain localized around the surgical site on the right foot. - Describes a new spot that developed over the last couple of months; not painful but noticeable. - Initial pain was accompanied by bruising, which has since resolved. - Pain persists in the same area where the bruise was located. - Has tried various orthotics in the past without relief. Toe Discoloration: - Noticed purple discoloration at the tips of the toes, occurring intermittently over the past 2-3 months. - Denies significant pain associated with the discoloration. Bilateral Ankle Instability: - History of chronic ankle instability, with frequent rolling of the ankles. - First ankle fracture occurred in middle school, leading to multiple instances of being in a boot, brace, or on crutches. - Underwent bilateral Brostrom repairs, one in 2018 and the other in 2019, a year and a day apart. - Surgeries initially provided relief, but chronic swelling has persisted. - Has attempted to manage swelling by reducing salt intake, drinking primarily water, and increasing exercise. - Swelling limits the ability to wear shoes; requires men's shoes to accommodate swelling. - Former smoker, quit in March. Musculoskeletal: (+) right foot pain, (+) ankle swelling Skin: (+) toe discoloration PAST MEDICAL HISTORY Diagnosis Date Patient denies medical problems Current Outpatient Medications Medication Sig Dispense Refill fluticasone (FLONASE ALLERGY RELIEF) 50 mcg/actuation nasal spray Use 1 [place] in each nostril once daily. 18.2 mL 0 ibuprofen (MOTRIN) 200 mg tablet Take 1-2 tablets by mouth every 6 hours as needed for Pain (Take with food.). folic acid 1 mg tablet Take 1 tablet by mouth once daily. diphenhydrAMINE (BENADRYL) 25 mg capsule Take 1 capsule by mouth every 6 hours as needed. No current facility-administered medications for this visit. Family History Problem Relation Age of Onset No Known Problems Mother No Known Problems Father other (other) Sister pseudotumor cerebri Other Sleep Disorder Sister pituitary tumor Migraines Sister Mental illness Sister anxiety/depression No Known Problems Maternal Grandmother No Known Problems Maternal Grandfather No Known Problems Paternal Grandmother No Known Problems Paternal Grandfather Heart Maternal Aunt Objective Last menstrual period 08/05/2023. - Cardiovascular: Dorsalis pedis and posterior tibial pulses palpable bilaterally; capillary refill time <5 seconds; skin temperature warm to cool bilaterally; hair growth present on bilateral feet. - Skin: No open sores noted on bilateral feet; skin well-hydrated; surgical scars noted on the anterolateral aspect of bilateral ankles. - Musculoskeletal: - Bilateral Feet: - Manual muscle testin/5 for dorsiflexion, plantar flexion, inversion, and eversion. - Medial longitudinal arch collapse bilaterally. - ROM: Full ROM of right and left subtalar joints without pain; decreased ROM of bilateral ankles. - Provocative test: No laxity with anterior drawer test bilaterally. - Neurological: No significant purplish discoloration o (more content not included)... Normal [facility] CNOVon 09-05-2024 CNOV Office Visit (UCWSTR ) ARLEN JIMENEZ ([id number]) 1995 F Date Time Provider Department 09/05/24 3:30 PM GURWINDER WATERMAN [facility] During your visit today, we recorded the following information about you: Temperature Pulse Respiration Blood pressure 98.1 degrees 78/minute 16/minute 110/72 Weight 146.8 kg Gurwinder Waterman APRN.[employer] 09/05/2024 4:32 PM Signed [facility] Subjective HPI HPI Arlenluis enrique Jimenez is a 29 year old female who presents today for CC of right foot pain/swelling. This started 4 days ago. Has tried otc medication for relief. Symptoms are worsened by walking. Risk factors hx of bilat foot surgery for soft tissue problems. .Patient presents with: right foot pain and swelling: X 4 days PAST MEDICAL HISTORY Diagnosis Date Patient denies medical problems PAST SURGICAL HISTORY Procedure Laterality Date ANKLE Bilateral tendon repair, 2016 and 2017 EXTRACTION ERUPTED TOOTH/EXR TONSILLECTOMY AND ADENOIDECTOMY HX TYMPANOSTOMY GENERAL ANESTHESIA ALLERGIES Amoxicillin, Augmentin [Amoxicillin-Pot Clavulanate], and Clomid [Clomiphene Citrate] MEDICATIONS fluticasone (FLONASE ALLERGY RELIEF) 50 mcg/actuation nasal spray Use 1 [place] in each nostril once daily. folic acid 1 mg tablet Take 1 tablet by mouth once daily. ibuprofen (MOTRIN) 200 mg tablet [...] Paternal Grandmother No Known Problems Paternal Grandfather Heart Maternal Aunt Social History Tobacco Use Smoking status: Former Types: Cigarettes Smokeless tobacco: Never Vaping Use Vaping status: current everyday user Substances: Nicotine Devices: Pre-filled or refillable cartridge Substance Use Topics Alcohol use: Yes Comment: rarely, special occasions Drug use: No Review of Systems Objective BP 110/72 Pulse 78 Temp 36.7 ?C (98.1 ?F) (Tympanic) Resp 16 Wt (!) 146.8 kg (323 lb 10.2 oz) LMP 08/05/2023 (Exact Date) SpO2 99% BMI 52.24 kg/m? Physical Exam Constitutional: General: She is not in acute distress. Appearance: She is not toxic-appearing or diaphoretic. HENT: Head: Normocephalic and atraumatic. Pulmonary: Effort: Pulmonary effort is normal. No accessory muscle usage or respiratory distress. Musculoskeletal: Feet: Neurological: Mental Status: She is alert and oriented to person, place, and time. {ASSESSMENT/PLAN: 1. Foot pain, right - ICD9: 729.5, ICD10: M79.671 -no bony abnormality noted on xray -given stretches/exercises -Rest, Ice, Compression, Elevation discussed -follow up with primary care if symptoms persist/worsen in 10-14 days -refer to podiatry d/t hx of chronic foot issues with surgery. - XR FOOT GENERAL 3V AP/LAT/OBL RIGHT IMPRESSION: 1. Dorsal soft tissue swelling. 2. 1.5 cm radiopaque structure presumably surgical hardware in the posterior talus. Clinical correlation with surgical history requested. Dictated by : ROMAN MCCARTHY MD - CONSULT TO PODIATRY - PREDNISONE 10 MG TABLET Gurwinder Waterman APRN.SUPERVISOR [employer]ER MAINTENANCE History and Record Review External record(s) reviewed: prior outpatient record. Disposition The patient was discharged. Procedures Allergies As of Date: 09/05/2024 Noted Allergy Reaction AMOXICILLIN 05/28/2018 8 - GI Upset AUGMENTIN (AMOXICILLIN-POT CLAVUL*05/28/2018 8 - GI Upset CLOMID (CLOMIPHENE CITRATE) 05/28/2018 7 - Swelling Date Reviewed: 09/05/2024 Reviewed by: Manisha Srivastava LPN - Fully Assessed Reason for Visit: right foot pain and swelling [Other] Cmt: X 4 days Primary Visit Diagnosis:Foot pain, right [M79.671] Order(s):XR FOOT GENERAL 3V AP/LAT/OBL RIGHT [[id number]] Order #: [id number]. #:[id number] CONSULT TO PODIATRY [9034] Order #: [id number]: 1 FUTURE predniSONE (DELTASONE) 10 mg tabletTake 4 tabs daily for 3 days, then 2 tabs daily for 3 days, then 1 tab daily for 3 days with food.Disp: 21 tabletRfl: 0 Prescriptions as of 09/05/2024 - predniSONE (DELTASONE) 10 mg tablet Take 4 tabs daily for 3 days, then 2 tabs daily for 3 days, then 1 tab daily for 3 days with food. - fluticasone (FLONASE ALLERGY RELIEF) 50 mcg/actuation nasal spray Use 1 [place] in each nostril once daily. - folic acid 1 mg tablet Take 1 tablet by mouth once daily. - ibuprofen (MOTRIN) 200 mg tablet Take 1-2 tablets by mouth every 6 hours as needed for Pain (Take with food.). - (more content not included)... Normal [facility] XR FOOT 3V AP/LAT/OBL RTon 0 09-05-2024 XR FOOT 3V AP/LAT/OBL RT * * *Final Repo rt* * * DATE OF EXAM: Sep 05 2024 3:40PM WOX 5337 - XR FOOT 3V AP/LAT/OBL RT / PROCEDURE REASON: Foot pain, right * * * * Physician Interpretation * * * * TITLE: XR FOOT 3V AP/LAT/OBL RT CLINICAL INDICATION: Pain TECHNIQUE: 3 view radiographic study of the right foot COMPARISON: None FINDINGS: Dorsal soft tissue swelling. No soft tissue gas. 1.5 cm radiopaque structure presumably surgical hardware in the posterior talus. No acute fracture or dislocation. No radiographic evidence of destructive osseous lesion. Joint spaces preserved. Dorsal calcaneal enthesophyte IMPRESSION: 1. Dorsal soft tissue swelling. 2. 1.5 cm radiopaque structure presumably surgical hardware in the posterior talus. Clinical correlation with surgical history requested. Perpetual Inventory Clerk: [facility] Transcribe Date/Time: Sep 05 2024 3:41P Dictated by : ROMAN MCCARTHY MD This examination was interpreted and the report reviewed and electronically signed by: ROMAN MCCARTHY MD on Sep 05 2024 3:43PM EST [id number] Normal [facility] XR Foot - right AP and Later al and obliqueon 09-05-2024 Radiology Study observation (narrative) [facility] IMPRESSION: 1. Dorsal soft tissue swelling. 2. 1.5 cm radiopaque structure presumably surgical hardware in the posterior talus. Clinical correlation with surgical history requested. Perpetual Inventory Clerk: [facility] Transcribe Date/Time: Sep 05 2024 3:41P Dictated by : ROMAN MCCARTHY MD This examination was interpreted and the report reviewed and electronically signed by: ROMAN MCCARTHY MD on Sep 05 2024 3:43PM EST DIVISION OF RADIOLOGY * * *Final Report* * * DATE OF EXAM: Sep 05 2024 3:40PM WOX 5337 - XR FOOT 3V AP/LAT/OBL RT / PROCEDURE REASON: Foot pain, right * * * * Physician Interpretation * * * * TITLE: XR FOOT 3V AP/LAT/OBL RT CLINICAL INDICATION: Pain TECHNIQUE: 3 view radiographic study of the right foot COMPARISON: None FINDINGS: Dorsal soft tissue swelling. No soft tissue gas. 1.5 cm radiopaque structure presumably surgical hardware in the posterior talus. No acute fracture or dislocation. No radiographic evidence of destructive osseous lesion. Joint spaces preserved. Dorsal calcaneal enthesophyte DIVISION OF RADIOLOGY Provider, Chanelle Jorge [facility] - 09/05/2024 * * *Final Report* * * DATE OF EXAM: Sep 05 2024 3:40PM WOX 5337 - XR FOOT 3V AP/LAT/OBL RT / PROCEDURE REASON: Foot pain, right * * * * Physician Interpretation * * * * TITLE: XR FOOT 3V AP/LAT/OBL RT CLINICAL INDICATION: Pain TECHNIQUE: 3 view radiographic study of the right foot COMPARISON: None FINDINGS: Dorsal soft tissue swelling. No soft tissue gas. 1.5 cm radiopaque structure presumably surgical hardware in the posterior talus. No acute fracture or dislocation. No radiographic evidence of destructive osseous lesion. Joint spaces preserved. Dorsal calcaneal enthesophyte IMPRESSION IMPRESSION: 1. Dorsal soft tissue swelling. 2. 1.5 cm radiopaque structure presumably surgical hardware in the posterior talus. Clinical correlation with surgical history requested. Perpetual Inventory Clerk: [facility] Transcribe Date/Time: Sep 05 2024 3:41P Dictated by : ROMAN MCCARTHY MD This examination was interpreted and the report reviewed and electronically signed by: ROMAN MCCARTHY MD on Sep 05 2024 3:43PM EST [facility] XR Foot - right AP and Later al and obliqueOrdered By: Ccf Provider on 09-05-2024 [facility] CNOVon 06-20-2024 CNOV Office Visit (UCWSTR ) ARLEN JIMENEZ ([id number]) 1995 F Date Time Provider Department 06/20/24 3:30 PM DENYS KUMAR [facility] During your visit today, we recorded the following information about you: Temperature Pulse Respiration Blood pressure 98.5 degrees 102/minute 18/minute 122/80 Weight 145.1 kg Denys Kumar PA-C 06/20/2024 4:24 PM Signed This note was created using NoteWriter. Subjective Arlen Jimenez is a 29 year old female. Patient is a 29-year-old female who complains of fever, chills, body aches, congestion, sore throat, headache and cough that she has been experiencing for the past 4 days. Patient has no history of asthma or COPD and does not smoke. Nasal Congestion Associated symptoms include chills, congestion, coughing and a sore throat. Review of Systems Constitutional: Positive for chills, fatigue and fever. HENT: Positive for congestion and sore throat. Respiratory: Positive for cough. Musculoskeletal: Positive for myalgias. All other systems reviewed and are negative. Objective BP 122/80 Pulse 102 Temp 36.9 ?C (98.5 ?F) Resp 18 Wt (!) 145.1 kg (319 lb 14.2 oz) LMP 08/05/2023 (Exact Date) SpO2 97% BMI 51.63 kg/m? Physical Exam Vitals and nursing note reviewed. Constitutional: Appearance: Normal appearance. She is normal weight. HENT: Head: Normocephalic and atraumatic. Right Ear: Tympanic membrane, ear canal and external ear normal. Left Ear: Tympanic membrane, ear canal and external ear normal. Nose: Nose normal. Mouth/Throat: Mouth: Mucous membranes are moist. Pharynx: Oropharynx is clear. Eyes: Extraocular Movements: Extraocular movements intact. Conjunctiva/sclera: Conjunctivae normal. Pupils: Pupils are equal, round, and reactive to light. Cardiovascular: Rate and Rhythm: Normal rate and regular rhythm. Pulses: Normal pulses. Heart sounds: Normal heart sounds. Pulmonary: Effort: Pulmonary effort is normal. Breath sounds: Normal breath sounds. Musculoskeletal: Cervical back: Normal range of motion and neck supple. Skin: General: Skin is warm and dry. Capillary Refill: Capillary refill takes less than 2 seconds. Neurological: General: No focal deficit present. Mental Status: She is alert and oriented to person, place, and time. Psychiatric: Mood and Affect: Mood normal. Behavior: Behavior normal. Thought Content: Thought content normal. Judgment: Judgment normal. Assessment and Plan Physical exam findings as noted above. Rapid strep PCR is negative. Patient was provided with prescriptions for prednisone 20 mg and Tessalon 100 mg. Supportive care instructions were discussed and the patient verbalizes good understanding of same. CLINICAL IMPRESSION: Viral Illness ASSESSMENT/PLAN: 1. Sore throat - ICD9: 462, ICD10: J02.9 (primary diagnosis) - STREP A MOLECULAR (POC) 2. Viral illness - ICD9: 079.99, ICD10: B34.9 - PREDNISONE 20 MG TABLET - BENZONATATE 100 MG CAPSULE Denys Clutter, PA-C Allergies As of Date: 06/20/2024 Noted Allergy Reaction AMOXICILLIN 05/28/2018 8 - GI Upset AUGMENTIN (AMOXICILLIN-POT CLAVUL*05/28/2018 8 - GI Upset CLOMID (CLOMIPHENE CITRATE) 05/28/2018 7 - Swelling Date Reviewed: 06/20/2024 Reviewed by: Leela Matthew MA - Fully Assessed Reason for Visit: Nasal Congestion [235] Cmt: drainage, headache, fever x 4 days Primary Visit Diagnosis:Sore throat [J02.9] Other Visit Diagnosis:Viral illness [B34.9] Order(s):STREP A MOLECULAR (POC) [0896590] Order #: [id number]. #:[id number] predniSONE (DELTASONE) 20 mg tabletTake 1 tablet by mouth two times a day for 3 days.Disp: 6 tabletRfl: 0 benzonatate (TESSALON PERLE) 100 mg capsuleTake 1 capsule by mouth three times a day as needed for cough for up to 7 days.Disp: 21 capsuleRfl: 0 Prescriptions as of 06/20/2024 - predniSONE (DELTASONE) 20 mg tablet Take 1 tablet by mouth two times a day for 3 days. - benzonatate (TESSALON PERLE) 100 mg capsule Take 1 capsule by mouth three times a day as needed for cough for up to 7 days. - fluticasone (FLONASE ALLERGY RELIEF) 50 mcg/actuation nasal spray Use 1 [place] in each nostril once daily. - folic acid 1 mg tablet Take 1 tablet by mouth once daily. - ibuprofen (MOTRIN) 200 mg tablet Take 1-2 tablets by mouth every 6 hours as needed for Pain (Take with food.). - diphenhydrAMINE (BENADRYL) 25 mg capsule Take 1 capsule by mouth every 6 hours as needed. Problem List As Of Date: 06/20/2024 (None) Prescriptions ordered this encounter Disp Refills Start End PREDNISONE 20 MG TABLET 6 ta* 0 06/20/2024 06/23/2024 Route: ORAL Sig: Take 1 tablet by mouth two times a day for 3 days. BENZONATATE 100 MG CAPSULE 21 c* 0 06/20/2024 06/27/2024 Route: ORAL Sig: Take 1 capsule by mouth three times a day as needed for cough for up to 7 days. Level of Servic (more content not included)... Normal [facility] STREP A MOLECULAR (POC)on Procedural Control Valid [facility] Strep A (POCT) Negative Negative [facility] XR Shoulder - left 3 Viewson 11-17-2023 Radiology Study observation (narrative) [facility] IMPRESSION: No radiographic evidence of acute osseous injury Perpetual Inventory Clerk: [facility] Transcribe Date/Time: Nov 17 2023 2:14P Dictated by : ROMAN MCCARTHY MD This examination was interpreted and the report reviewed and electronically signed by: ROMAN MCCARTHY MD on Nov 17 2023 2:15PM EST DIVISION OF RADIOLOGY * * *Final Report* * * DATE OF EXAM: Nov 17 2023 2:15PM WOX 5252 - XR SHLDR >/=3V AP/SKIP AP/OTHR LT / PROCEDURE REASON: Pain * * * * Physician Interpretation * * * * CLINICAL INDICATION: Pain TECHNIQUE: 3 view radiographic study of the left shoulder COMPARISON: None FINDINGS: No acute fracture or dislocation identified. Acromioclavicular joint intact. DIVISION OF RADIOLOGY Provider, Chanelle Jorge [facility] - 11/17/2023 * * *Final Report* * * DATE OF EXAM: Nov 17 2023 2:15PM WOX 5252 - XR SHLDR >/=3V AP/SKIP AP/OTHR LT / PROCEDURE REASON: Pain * * * * Physician Interpretation * * * * CLINICAL INDICATION: Pain TECHNIQUE: 3 view radiographic study of the left shoulder COMPARISON: None FINDINGS: No acute fracture or dislocation identified. Acromioclavicular joint intact. IMPRESSION IMPRESSION: No radiographic evidence of acute osseous injury Perpetual Inventory Clerk: [facility] Transcribe Date/Time: Nov 17 2023 2:14P Dictated by : ROMAN MCCARTHY MD This examination was interpreted and the report reviewed and electronically signed by: ROMAN MCCARTHY MD on Nov 17 2023 2:15PM EST [facility] XR Shoulder - left 3 ViewsOr dered By: Ccf Provider on 11-17-2023 [facility] ED NOTEon 09-30-2023 ED NOTE HNO ID: [id number] Author: FUNMILAYO MCCOY RN Service: Emergency Medicine Author Type: Registered Nurse Type: ED Notes Filed: 09/30/2023 06:42 Note Text: Pt verbalizes understanding of discharge instructions. Denies further questions, comments, concerns at this time. Normal [facility] ED NOTE HNO ID: [id number] Author: FUNMILAYO MCCOY RN Service: Emergency Medicine Author Type: Registered Nurse Type: ED Notes Filed: 09/30/2023 06:43 Note Text: Patient comes in stating rash, generalized that began on back of right arm and has continued to spread to back on neck, both arms, legs, torso despite prednisone and benadryl as was ordered by urgent care several days ago. She reports taking doses as prescribed. She is concern because rash is continuing to spread and itching continues. No areas signs and symptoms of infection. She reports that this began after moving a tree with poison oak on it. VSS. Call light in reach. Normal [facility] ED PROV NOTEon 09-30-2023 ED PROV NOTE HNO ID: [id number] Author: SRIKANTH GALLO MD Service: Emergency Medicine Author Type: Physician Type: ED Provider Notes Filed: 09/30/2023 06:47 Note Text: ED Provider Note Patient Name: Arlen Jimenez : 1995 SERVICE DATE: 09/30/23 History Patient presents with: Rash Patient presents emergency room for concerns of a worsening rash, related to poison steph/oak. Couple days ago patient was helping her friends, moving trees in the backyard, with noted poison oak, and patient began having an itchy red rash to her arms back of her neck. Patient's friend has had this before with the same treat, and presentation is consistent with the same. Patient went to an outside urgent care, she started on steroids, took 1 day, and however she notes her symptoms are worsening. No dyspnea, no face involvement, and no fevers. Patient is also using topical calamine lotion and Benadryl without improvement. Patient is concerned because the rash is still spreading. Rash Location: Shoulder/arm and head/neck Quality: dryness, itchiness, redness and swelling Severity: Moderate Onset quality: Gradual Timing: Intermittent Progression: Worsening Chronicity: New Context: plant contact Context: not sick contacts Relieved by: Nothing Worsened by: Nothing Ineffective treatments: Anti-itch cream and topical steroids Associated symptoms: no throat swelling, no tongue swelling and not wheezing PAST MEDICAL HISTORY Diagnosis Date Patient denies medical problems PAST SURGICAL HISTORY Procedure Laterality Date ANKLE Bilateral tendon repair, 2016 and 2016 EXTRACTION ERUPTED TOOTH/EXR TONSILLECTOMY AND ADENOIDECTOMY HX TYMPANOSTOMY GENERAL ANESTHESIA FAMILY HISTORY Problem Relation Age of Onset No Known Problems Mother No Known Problems Father other (other) Sister pseudotumor cerebri Other Sleep Disorder Sister pituitary tumor Migraines Sister Mental illness Sister anxiety/depression No Known Problems Maternal Grandmother No Known Problems Maternal Grandfather No Known Problems Paternal Grandmother No Known Problems Paternal Grandfather Heart Maternal Aunt Social History Tobacco Use Smoking status: Former Years: 8 Types: Cigarettes Smokeless tobacco: Never Vaping Use Vaping Use: current everyday user Substances: Nicotine Devices: Pre-filled or refillable cartridge Substance and Sexual Activity Alcohol use: Yes Comment: rarely, special occasions Drug use: No Sexual activity: Yes Partners: Male control/protection: None ALLERGIES Allergen Reactions Amoxicillin GI Upset Augmentin [Amoxicil* GI Upset Clomid [Clomiphene * Swelling Review of Systems Respiratory: Negative for wheezing. Skin: Positive for rash. All other systems reviewed and are negative. Physical Exam Vitals [09/30/23 0540] BP Pulse Temp Temp src Resp SpO2 Weight Height 120/66 87 36.6 ?C (97.9 ?F) Temporal 16 96 % (!) 142.9 kg (315 lb) -- Physical Exam Vitals and nursing note reviewed. Constitutional: General: She is not in acute distress. Appearance: Normal appearance. She is not ill-appearing or toxic-appearing. HENT: Head: Normocephalic and atraumatic. Nose: Comments: Mouth clear, no tongue or lip swelling, no stridor Mouth/Throat: Mouth: Mucous membranes are moist. Pharynx: No oropharyngeal exudate or posterior oropharyngeal erythema. Eyes: General: Right eye: No discharge. Left eye: No discharge. Pulmonary: Effort: No respiratory distress. Breath sounds: No wheezing or rales. Musculoskeletal: Cervical back: Normal range of motion. Skin: General: Skin is warm and dry. Comments: Discussed some diffuse confluent patches, specifically both of her forearms, dorsum of right arm, a larger patch in the back of her neck, and some on her upper arms, erythematous, small vesicles, small scabbed over lesions, mild surrounding patches of erythema Neurological: General: No focal deficit present. Mental Status: She is alert and oriented to person, place, and time. Mental status is at baseline. Psychiatric: Mood and Affect: Mood normal. Behavior: Behavior normal. Diagnostic Testing ED Labs Ordered and Reviewed - No data to display Procedures ED Course / Clinical Impression Clinical Impressions as of 09/30/23 0639 Contact dermatitis due to poison steph MDM / Disposition / Plan 20-year-old female with contact dermatitis, likely poison steph, presents the emergency room for worsening rash despite taking appropriate therapy. Patient is limited secondary therapy however she is concerned that her rash is spreading rather quickly. Examined patient, there was possible concern for acute infectious process, however I think rash is just not initially responsive, secondary to patient just starting her medications. Patient has no fever, I think it is going the process for patient to have an underlying infectio (more content not included)... Normal [facility] INFLUENZA A&B MOLECULAR (POC )on 08-06-2023 Flu B (POCT) Positive Abnormal Negative [facility] Procedural Control Valid [facility] STREP A MOLECULAR (POC)on Procedural Control Valid [facility] Strep A (POCT) Negative Negative [facility] XR Finger - right AP and Lat eral and obliqueon 07-09-2023 IMPRESSION: No acute radiographic abnormalities seen in the fourth digit. Perpetual Inventory Clerk: MARIAH Transcribe Date/Time: Jul 09 2023 3:09P Dictated by : CESAR MARTINEZ MD This examination was interpreted and the report reviewed and electronically signed by: CESAR MARTINEZ MD on Jul 09 2023 3:11PM [facility] DIVISION OF RADIOLOGY * * *Final Report* * * DATE OF EXAM: Jul 09 2023 3:06PM WOX 5319 - XR DIGIT 3V FRONTAL/LAT/OBL RT / PROCEDURE REASON: Finger pain, right * * * * Physician Interpretation * * * * EXAM TITLE: XR DIGIT 3V FRONTAL/LAT/OBL RT EXAM DATE/TIME: 07/09/2023 3:06 PM COMPARISON: None. CLINICAL INDICATION/HISTORY: Finger pain. TECHNIQUE: PA, lateral and oblique views of the fourth digit of the right hand are presented. FINDINGS: No acute fractures or subluxations are noted. Knee joint spaces are well preserved. The mineralization of the bones is normal. There is no significant soft tissue swelling. DIVISION [facility] RADIOLOGY [facility] * * *Final Report* * * DATE OF EXAM: Jul 09 2023 3:06PM WOX 5319 - XR DIGIT 3V FRONTAL/LAT/OBL RT / PROCEDURE REASON: Finger pain, right * * * * Physician Interpretation * * * * EXAM TITLE: XR DIGIT 3V FRONTAL/LAT/OBL RT EXAM DATE/TIME: 07/09/2023 3:06 PM COMPARISON: None. CLINICAL INDICATION/HISTORY: Finger pain. TECHNIQUE: PA, lateral and oblique views of the fourth digit of the right hand are presented. FINDINGS: No acute fractures or subluxations are noted. Knee joint spaces are well preserved. The mineralization of the bones is normal. There is no significant soft tissue swelling. IMPRESSION IMPRESSION: No acute radiographic abnormalities seen in the fourth digit. Perpetual Inventory Clerk: [facility]SC[facility] Transcribe Date/Time: Jul 09 2023 3:09P Dictated by : CESAR MARTINEZ MD This examination was interpreted and the report reviewed and electronically signed by: CESAR MARTINEZ MD on Jul 09 2023 3:11PM [facility] Radiology Study observation (narrative) [facility] XR Finger - right AP and Lat eral and obliqueOrdered By: Ccf Provider on 07-09-2023 [facility] Vital Signs Date Time Vital Sign Value Performing Clinician Facility 11-29-2024 11:03-0400 Diastolic blood pressure 65 mm[Hg] Ute Ponce DO Work Phone: [facility] 11-29-2024 11:03-0400 Heart rate 65 /min Ute Ponce DO Work Phone: [facility] 11-29-2024 11:03-0400 SaO2% (BldA) [Mass fraction] 96 % Ute Ponce DO Work Phone: [facility] 11-29-2024 11:03-0400 Systolic blood pressure 120 mm[Hg] Ute Ponce DO Work Phone: [facility] 11-10-2024 14:02-0400 Body height 167.64 cm No Primary Care Physician [facility] 11-10-2024 14:02-0400 Body mass index (BMI) [Ratio] 52 kg/m2 No Primary Care Physician [facility] 11-10-2024 14:02-0400 Body temperature 96.8 [degF] No Primary Care Physician [facility] 11-10-2024 14:02-0400 Body weight 146.05 kg No Primary Care Physician [facility] 11-10-2024 14:02-0400 Diastolic blood pressure 80 mm[Hg] No Primary Care Physician [facility] 11-10-2024 14:02-0400 Heart rate 84 /min No Primary Care Physician [facility] 11-10-2024 14:02-0400 Respiratory rate 18 /min No Primary Care Physician [facility] 11-10-2024 14:02-0400 SaO2% (BldA) [Mass fraction] 94 % No Primary Care Physician [facility] 11-10-2024 14:02-0400 Systolic blood pressure 136 mm[Hg] No Primary Care Physician [facility] 09-05-2024 15:15-0400 Body mass index (BMI) [Ratio] 52.24 kg/m2 Gurwinder Waterman APRN.SUPERVISOR [employer] MAINTENANCE Work Phone: [facility] 09-05-2024 15:15-0400 Body temperature 98.1 [degF] Gurwinder Waterman ASSISTANT PROFESSOR OF BUSINESS.SUPERVISOR SEWER MAINTENANCE Work Phone: [facility] 09-05-2024 15:15-0400 Body weight 146.8 kg Gurwinder Waterman ASSISTANT PROFESSOR OF BUSINESS.SUPERVISOR SE[employer] MAINTENANCE Work Phone: [facility] 09-05-2024 15:15-0400 Diastolic blood pressure 72 mm[Hg] Gurwinder Waterman ASSISTANT PROFESSOR OF BUSINESS.SUPERVISOR SE[employer] MAINTENANCE Work Phone: [facility] 09-05-2024 15:15-0400 Heart rate 78 /min Gurwinder Waterman APRN.SUPERVISOR [employer]INTENANCE Work Phone: [facility] 09-05-2024 15:15-0400 Respiratory rate 16 /min Gurwinder Waterman ASSISTANT PROFESSOR OF BUSINESS.SUPERVISOR SE[employer] MAINTENANCE Work Phone: [facility] 09-05-2024 15:15-0400 SaO2% (BldA) [Mass fraction] 99 % Gurwinder Waterman ASSISTANT PROFESSOR OF BUSINESS.SUPERVISOR SE[employer] MAINTENANCE Work Phone: [facility] 09-05-2024 15:15-0400 Systolic blood pressure 110 mm[Hg] Gurwinder Waterman ASSISTANT PROFESSOR OF BUSINESS.SUPERVISOR SE[employer] MAINTENANCE Work Phone: [facility] 06-20-2024 15:45-0500 Body mass index (BMI) [Ratio] 51.63 kg/m2 Denys Clutter PA-C Work Phone: [facility] 06-20-2024 15:45-0500 Body temperature 98.49 [degF] Denys Clutter PA-C Work Phone: [facility] 06-20-2024 15:45-0500 Body weight 145.1 kg Denys Clutter PA-C Work Phone: [facility] 06-20-2024 15:45-0500 Diastolic blood pressure 80 mm[Hg] Denys Clutter PA-C Work Phone: [facility] 06-20-2024 15:45-0500 Heart rate 102 /min Denys Clutter PA-C Work Phone: [facility] 06-20-2024 15:45-0500 Respiratory rate 18 /min Denys Clutter PA-C Work Phone: [facility] 06-20-2024 15:45-0500 SaO2% (BldA) [Mass fraction] 97 % Denys Clutter PA-C Work Phone: [facility] 06-20-2024 15:45-0500 Systolic blood pressure 122 mm[Hg] Denys Clutter PA-C Work Phone: [facility] 11-17-2023 13:52-0400 Body mass index (BMI) [Ratio] 51.03 kg/m2 Elsie Rand APRN.SUPERVISOR SEWER MAINTENANCE Work Phone: [facility] 11-17-2023 13:52-0400 Body temperature 97.9 [degF] Elsie Rand APRN.SUPERVISOR SEWER MAINTENANCE Work Phone: [facility] 11-17-2023 13:52-0400 Body weight 143.4 kg Elsie Rand APRN.SUPERVISOR SEWER MAINTENANCE Work Phone: [facility] 11-17-2023 13:52-0400 Diastolic blood pressure 72 mm[Hg] Elsie Rand APRN.SUPERVISOR SEWER MAINTENANCE Work Phone: [facility] 11-17-2023 13:52-0400 Heart rate 78 /min Elsie Rand APRN.SUPERVISOR SEWER MAINTENANCE Work Phone: [facility] 11-17-2023 13:52-0400 Respiratory rate 16 /min Elsie Rand APRN.SUPERVISOR SEWER MAINTENANCE Work Phone: [facility] 11-17-2023 13:52-0400 SaO2% (BldA) [Mass fraction] 98 % Elsie Rand APRN.SUPERVISOR SEWER MAINTENANCE Work Phone: [facility] 11-17-2023 13:52-0400 Systolic blood pressure 122 mm[Hg] Elsie Rand APRN.SUPERVISOR SEWER MAINTENANCE Work Phone: [facility] 09-28-2023 15:39-0400 Body mass index (BMI) [Ratio] 50.63 kg/m2 Krislyn Aberegg PA Work Phone: [facility] 09-28-2023 15:39-0400 Body temperature 98.2 [degF] Krislyn Aberegg PA Work Phone: [facility] 09-28-2023 15:39-0400 Body weight 142.3 kg Krislyn Aberegg PA Work Phone: [facility] 09-28-2023 15:39-0400 Diastolic blood pressure 72 mm[Hg] Krislyn Aberegg PA Work Phone: [facility] 09-28-2023 15:39-0400 Heart rate 78 /min Krislyn Aberegg PA Work Phone: [facility] 09-28-2023 15:39-0400 Respiratory rate 16 /min Krislyn Aberegg PA Work Phone: [facility] 09-28-2023 15:39-0400 SaO2% (BldA) [Mass fraction] 100 % Krislyn Aberegg PA Work Phone: [facility] 09-28-2023 15:39-0400 Systolic blood pressure 118 mm[Hg] Krislyn Aberegg PA Work Phone: [facility] 09-11-2023 16:38-0400 Body height 167.6 cm Dayanna Azar ASSISTANT PROFESSOR OF BUSINESS.SUPERVISOR SEWER MAINTENANCE Work Phone: [facility] 09-11-2023 16:38-0400 Body mass index (BMI) [Ratio] 49.82 kg/m2 Dayanna Azar ASSISTANT PROFESSOR OF BUSINESS.SUPERVISOR SEWER MAINTENANCE Work Phone: [facility] 09-11-2023 16:38-0400 Body temperature 97.3 [degF] Dayanna Azar ASSISTANT PROFESSOR OF BUSINESS.SUPERVISOR SEWER MAINTENANCE Work Phone: [facility] 09-11-2023 16:38-0400 Body weight 140 kg Dayanna Azar ASSISTANT PROFESSOR OF BUSINESS.SUPERVISOR SEWER MAINTENANCE Work Phone: [facility] 09-11-2023 16:38-0400 Diastolic blood pressure 84 mm[Hg] Dayanna Azar ASSISTANT PROFESSOR OF BUSINESS.SUPERVISOR SEWER MAINTENANCE Work Phone: [facility] 09-11-2023 16:38-0400 Heart rate 88 /min Dayanna Azar ASSISTANT PROFESSOR OF BUSINESS.SUPERVISOR SEWER MAINTENANCE Work Phone: [facility] 09-11-2023 16:38-0400 Systolic blood pressure 121 mm[Hg] Dayanna Azar ASSISTANT PROFESSOR OF BUSINESS.SUPERVISOR SEWER MAINTENANCE Work Phone: [facility] 08-11-2023 08:34-0400 Body height 167.6 cm Chari Rand MD Work Phone: [facility] 08-11-2023 08:34-0400 Body weight 139.62 kg Chari Rand MD Work Phone: [facility] 08-11-2023 08:34-0400 Diastolic blood pressure 78 mm[Hg] Chari Rand MD Work Phone: [facility] 08-11-2023 08:34-0400 Systolic blood pressure 110 mm[Hg] Chari Rand MD Work Phone: [facility] 08-06-2023 14:45-0400 Body temperature 100.29 [degF] Gurwinder Guevara ASSISTANT PROFESSOR OF BUSINESS.SUPERVISOR SEWER MAINTENANCE Work Phone: [facility] 08-06-2023 14:45-0400 Body weight 139 kg Gurwinder Guevara ASSISTANT PROFESSOR OF BUSINESS.SUPERVISOR SEWER MAINTENANCE Work Phone: [facility] 08-06-2023 14:45-0400 Diastolic blood pressure 76 mm[Hg] Gurwinder Guevara ASSISTANT PROFESSOR OF BUSINESS.SUPERVISOR SEWER MAINTENANCE Work Phone: [facility] 08-06-2023 14:45-0400 Heart rate 86 /min Gurwinder Guevara ASSISTANT PROFESSOR OF BUSINESS.SUPERVISOR SEWER MAINTENANCE Work Phone: [facility] 08-06-2023 14:45-0400 Respiratory rate 20 /min Gurwinder Guevara ASSISTANT PROFESSOR OF BUSINESS.SUPERVISOR SEWER MAINTENANCE Work Phone: [facility] 08-06-2023 14:45-0400 SaO2% (BldA) [Mass fraction] 99 % Gurwinder Guevara ASSISTANT PROFESSOR OF BUSINESS.SUPERVISOR SEWER MAINTENANCE Work Phone: [facility] 08-06-2023 14:45-0400 Systolic blood pressure 112 mm[Hg] Gurwinder Guevara ASSISTANT PROFESSOR OF BUSINESS.SUPERVISOR SEWER MAINTENANCE Work Phone: [facility] 07-09-2023 14:41-0500 Body temperature 98.1 [degF] Flakito Beth MD Work Phone: [facility] 07-09-2023 14:41-0500 Body weight 139.98 kg Flakito Beth MD Work Phone: [facility] 07-09-2023 14:41-0500 Diastolic blood pressure 82 mm[Hg] Flakito Beth MD Work Phone: [facility] 07-09-2023 14:41-0500 Heart rate 99 /min Flakito Beth MD Work Phone: [facility] 07-09-2023 14:41-0500 Respiratory rate 16 /min Flakito Beth MD Work Phone: [facility] 07-09-2023 14:41-0500 Systolic blood pressure 118 mm[Hg] Flakito Beth MD Work Phone: [facility] 05-18-2023 07:45-0500 Body height 167.64 cm [facility] 05-18-2023 07:45-0500 Body mass index (BMI) [Ratio] 48.7 kg/m2 [facility] 05-18-2023 07:45-0500 Body temperature 98.2 [degF] [facility] 05-18-2023 07:45-0500 Body weight 137 kg [facility] 05-18-2023 07:45-0500 Diastolic blood pressure 85 mm[Hg] [facility] 05-18-2023 07:45-0500 Heart rate 93 /min [facility] 05-18-2023 07:45-0500 Respiratory rate 14 /min [facility] 05-18-2023 07:45-0500 SaO2% (BldA) [Mass fraction] 100 % [facility] 05-18-2023 07:45-0500 Systolic blood pressure 134 mm[Hg] [facility] 03-15-2023 14:26-0400 Body temperature 98.4 [degF] Lorenza Praisler-Wood ASSISTANT PROFESSOR OF BUSINESS.SUPERVISOR SEWER MAINTENANCE Work Phone: [facility] 03-15-2023 14:26-0400 Body weight 139.16 kg Lorenza Praisler-Wood ASSISTANT PROFESSOR OF BUSINESS.SUPERVISOR SEWER MAINTENANCE Work Phone: [facility] 03-15-2023 14:26-0400 Diastolic blood pressure 82 mm[Hg] Lorenza Praisler-Wood ASSISTANT PROFESSOR OF BUSINESS.SUPERVISOR SEWER MAINTENANCE Work Phone: [facility] 03-15-2023 14:26-0400 Heart rate 78 /min Lorenza Praisler-Wood ASSISTANT PROFESSOR OF BUSINESS.SUPERVISOR SEWER MAINTENANCE Work Phone: [facility] 03-15-2023 14:26-0400 Respiratory rate 21 /min Lorenza Praisler-Wood ASSISTANT PROFESSOR OF BUSINESS.SUPERVISOR SEWER MAINTENANCE Work Phone: [facility] 03-15-2023 14:26-0400 SaO2% (BldA) [Mass fraction] 97 % Lorenza Praisler-Wood ASSISTANT PROFESSOR OF BUSINESS.SUPERVISOR SEWER MAINTENANCE Work Phone: [facility] 03-15-2023 14:26-0400 Systolic blood pressure 122 mm[Hg] Lorenza Praisler-Wood ASSISTANT PROFESSOR OF BUSINESS.SUPERVISOR SEWER MAINTENANCE Work Phone: [facility] 03-03-2023 15:34-0400 Body temperature 98.2 [degF] Lorenza Praisler-Wood ASSISTANT PROFESSOR OF BUSINESS.SUPERVISOR SEWER MAINTENANCE Work Phone: [facility] 03-03-2023 15:34-0400 Body weight 137.89 kg Lorenza Praisler-Wood ASSISTANT PROFESSOR OF BUSINESS.SUPERVISOR SEWER MAINTENANCE Work Phone: [facility] 03-03-2023 15:34-0400 Diastolic blood pressure 66 mm[Hg] Lorenza Praisler-Wood ASSISTANT PROFESSOR OF BUSINESS.SUPERVISOR SEWER MAINTENANCE Work Phone: [facility] 03-03-2023 15:34-0400 Heart rate 92 /min Lorenza Praisler-Wood ASSISTANT PROFESSOR OF BUSINESS.SUPERVISOR SEWER MAINTENANCE Work Phone: [facility] 03-03-2023 15:34-0400 Respiratory rate 16 /min Lorenza Praisler-Wood ASSISTANT PROFESSOR OF BUSINESS.SUPERVISOR SEWER MAINTENANCE Work Phone: [facility] 03-03-2023 15:34-0400 SaO2% (BldA) [Mass fraction] 99 % Lorenza Praisler-Wood ASSISTANT PROFESSOR OF BUSINESS.SUPERVISOR SEWER MAINTENANCE Work Phone: [facility] 03-03-2023 15:34-0400 Systolic blood pressure 118 mm[Hg] Lorenza Praisler-Wood ASSISTANT PROFESSOR OF BUSINESS.SUPERVISOR SEWER MAINTENANCE Work Phone: [facility] 01-31-2023 21:53-[address] Cuff Size DR YVONNE BOWEN MD [facility] 01-31-2023 21:53-[address] YVONNE BOWEN MD [facility] 01-31-2023 21:53-[address] YVONNE BOWEN MD [facility] 01-31-2023 21:53-0400 Body temperature 99.5 [degF] DR YVONNE BOWEN MD [facility] 01-31-2023 21:53-0400 Diastolic Blood Pressure Non-Invasive [address] YVONNE BOEWN MD [facility] 01-31-2023 21:53-0400 Heart rate 98 /min DR YVONNE BOWEN MD [facility] 01-31-2023 21:53-0400 Respiratory rate 16 /min DR YVONNE BOWEN MD [facility] 01-31-2023 21:53-0400 Systolic Blood Pressure Non-Invasive [address] YVONNE BOWEN MD [facility] 10-27-2022 12:13-0400 Body temperature 96.91 [degF] Lorneza Praisler-Wood ASSISTANT PROFESSOR OF BUSINESS.SUPERVISOR SEWER MAINTENANCE Work Phone: [facility] 10-27-2022 12:13-0400 Body weight 139.44 kg Lorenza Praisler-Wood ASSISTANT PROFESSOR OF BUSINESS.SUPERVISOR SEWER MAINTENANCE Work Phone: [facility] 10-27-2022 12:13-0400 Diastolic blood pressure 76 mm[Hg] Lorenza Praisler-Wood ASSISTANT PROFESSOR OF BUSINESS.SUPERVISOR SEWER MAINTENANCE Work Phone: [facility] 10-27-2022 12:13-0400 Heart rate 80 /min Lorenza Praisler-Wood ASSISTANT PROFESSOR OF BUSINESS.SUPERVISOR SEWER MAINTENANCE Work Phone: [facility] 10-27-2022 12:13-0400 Respiratory rate 18 /min Lorenza Praisler-Wood ASSISTANT PROFESSOR OF BUSINESS.SUPERVISOR SEWER MAINTENANCE Work Phone: [facility] 10-27-2022 12:13-0400 SaO2% (BldA) [Mass fraction] 95 % Lorenza Baires ASSISTANT PROFESSOR OF BUSINESS.SUPERVISOR SEWER MAINTENANCE Work Phone: [facility] 10-27-2022 12:13-0400 Systolic blood pressure 110 mm[Hg] Lorenza Baires ASSISTANT PROFESSOR OF BUSINESS.SUPERVISOR SEWER MAINTENANCE Work Phone: [facility] Encounters Encounter Date Encounter Type Care Provider Facility Start: 01-23-2025 End: 01-23-2025 ambulatory Monica Santiago [employer] Facility:[facility] Start: 01-18-2025 End: 01-18-2025 ambulatory [facility] Facility:[facility] Start: 12-26-2024 End: 12-26-2024 ambulatory Monica Santiagotings [employer] Facility:[facility] Start: 11-29-2024 End: 11-29-2024 Patient encounter procedure Ute Ponce DO Work Phone: Vascular Surgery Comment on above: Symptomatic varicose veins of both lower extremities (Primary Dx); Venous insufficiency Start: 11-29-2024 End: 11-29-2024 ambulatory ENMA HILD Facility:[facility] Start: 11-26-2024 End: 11-26-2024 Emergency department patient visit PHYSICIAN [facility] Start: 11-21-2024 End: 11-21-2024 ambulatory No Primary Care Physician Facility:[facility] Start: 11-11-[address] Lois Mendez MD -Laboratory Specimen Work Phone: Start: 11-10-2024 End: 11-10-2024 ambulatory No Primary Care Physician -Laboratory [facility] Start: 11-10-2024 End: 11-10-[address] Lois Mendez MD -Laboratory [facility] Start: 11-10-2024 End: 11-10-[address] Lois Mendez MD -[facility] Work Phone: Start: 11-10-2024 End: 11-11-2024 ambulatory No Primary Care Physician [facility] Work Phone: Start: 11-10-2024 End: 11-10-2024 ambulatory Lois Koloa Facility:[facility] Start: 11-07-2024 End: 11-07-2024 Patient encounter procedure Josie Ponce Work Phone: Podiatry Comment on above: Venous insufficiency (Primary Dx) Start: 11-07-2024 End: 11-07-2024 ambulatory [facility] Facility:[facility] Start: 11-02-2024 End: 01-02-2025 Follow-up encounter Josie Ponce Work Phone: Podiatry Start: 11-02-2024 End: 11-02-2024 ambulatory [facility] Facility:[facility] Start: 09-20-2024 End: 09-20-2024 Patient encounter procedure Josie Ponce Work Phone: Podiatry Comment on above: Posterior tibial ten don dysfunction, bilateral (Primary Dx); Foot pain, right; Venous insufficiency; Raynaud's disease without gangrene Start: 09-20-2024 End: 09-20-2024 [facility] Start: 09-05-2024 End: 09-05-2024 Subsequent hospital visit by physician [facility] Work Phone: Radiology Comment on above: Foot pain, right [M7 9.671] Start: 09-05-2024 End: 09-05-2024 Patient encounter procedure Gurwinder Waterman APRN.CNP Work Phone: [facility] Comment on above: Foot pain, right (Pr imary Dx) Start: 09-05-2024 End: 09-05-2024 ambulatory GURWINDER WATERMAN Facility:[facility] Start: 06-20-2024 End: 06-20-2024 ambulatory [facility] Facility:[facility] Start: 06-20-2024 End: 06-20-2024 Office outpatient visit 25 minutes Denys Kumar PA-C Work Phone: [facility] Comment on above: Sore throat (Primary Dx); Viral illness Start: 11-25-2023 End: 11-25-2023 Subsequent hospital visit by physician [facility] Work Phone: Radiology Comment on above: Pain in left wrist [ M25.532] Start: 11-25-2023 End: 11-25-2023 Patient encounter procedure Jonny Queen DO Work Phone: [facility] Comment on above: Pain in left wrist ( Primary Dx) Start: 11-17-2023 End: 11-17-2023 Subsequent hospital visit by physician Xr [facility] Work Phone: Radiology Comment on above: Pain [R52] Start: 11-17-2023 End: 11-17-2023 Patient encounter procedure Elsie Rand APRN.SUPERVISOR SEWER MAINTENANCE Work Phone: [facility] Comment on above: Pain (Primary Dx) Start: 09-30-2023 ambulatory Tanvi Villa RN NU RSE CASE THERAPIST Comment on above: Rash Start: 09-30-2023 Emergency department patient visit KEVIN Murphy ROBERSON Facility:[facility] Start: 09-28-2023 End: 09-28-2023 Patient encounter procedure Jose DU Work Phone: [facility] Comment on above: Allergic contact ben matitis due to plants, except food (Primary Dx) Start: 09-11-2023 End: 09-11-2023 Patient encounter procedure Dayanna Askew APRN.SUPERVISOR SEWER MAINTENANCE Work Phone: [facility] Comment on above: Dysfunction of left eustachian tube (Primary Dx) Start: 09-11-2023 ambulatory Rossana Bond RN NURSE CASE THERAPIST Comment on above: Medication Question Start: 08-11-2023 End: 08-11-2023 Patient encounter procedure Chari Rand MD Work Phone: OB/Gynecology Comment on above: Encounter for gyneco logical examination (general) (routine) without abnormal findings (Primary Dx); Screening for cervical cancer; Encounter for screening for human papillomavirus (HPV) Start: 08-11-2023 End: 08-11-2023 Patient encounter status Chari Rand MD Work Phone: [facility] Start: 08-06-2023 End: 08-06-2023 Patient encounter procedure Gurwinder Waterman APRN.SUPERVISOR SEWER MAINTENANCE Work Phone: [facility] Comment on above: Influenza B (Primary Dx); URI, acute Start: 07-09-2023 End: 07-09-2023 [facility] Comment on above: Finger pain, right [ M79.644] Start: 07-09-2023 End: 07-09-2023 Patient encounter procedure Flakito Beth MD Work Phone: [facility] Comment on above: Finger pain, right ( Primary Dx) Start: 05-18-2023 End: 05-18-2023 Emergency department patient visit [facility] Work Phone: Start: 03-16-2023 Telephone encounter Lorenza Woody APRN.SUPERVISOR SEWER MAINTENANCE Work Phone: [facility] Comment on above: Results Start: 03-15-2023 End: 03-15-2023 Patient encounter procedure Lorenza Baires APRN.SUPERVISOR SEWER MAINTENANCE Work Phone: [facility] Comment on above: Itching in the vagin al area (Primary Dx) Start: 03-08-2023 ambulatory Anne Marie MOISE CASE THERAPIST Comment on above: Nail Fungus Start: 03-03-2023 End: 03-03-2023 Patient encounter procedure Lorenza Baires APRN.SUPERVISOR SEWER MAINTENANCE Work Phone: [facility] Comment on above: Other acute nonsuppu rative otitis media of right ear, recurrence not specified (Primary Dx) Start: 01-31-2023 End: 01-31-2023 Emergency department patient visit DR YVONNE BOWEN MD [facility] Start: 10-27-2022 End: 10-27-2022 Patient encounter procedure Lorenza Baires APRN.SUPERVISOR SEWER MAINTENANCE Work Phone: [facility] Comment on above: Headache, unspecifie d headache type (Primary Dx) Procedures Date Procedure Procedure Detail Performing Clinician Start: 11-11-2024 Measurement of occul t blood in stool specimen using immunoassay No Primary Care Physician Start: 11-10-2024 Vitamin D, 25-hydrox y measurement No Primary Care Physician Comment on above: Vitamin D StatusDefi ciency: <20 ng/mL (50nmol/L)Insufficiency: 20-30 ng/mL (50-75 nmol/L)Sufficiency: 30-100 ng/mL (75-250 nmol/L)Toxicity: >100 ng/mL (>250 nmol/L) Start: 09-05-2024 Radex foot complete minimum 3 views Gurwinder Waterman APRN.SUPERVISOR SE[employer]ER MAINTENANCE Work Phone: Start: 06-20-2024 STREP A MOLECULAR (POC) Denys Kumar PA-C Work Phone: Start: 11-17-2023 Radex shoulder compl ete minimum 2 views Elsie Rand ASSISTANT PROFESSOR OF BUSINESS.SUPERVISOR SEWER MAINTENANCE Work Phone: Start: 08-06-2023 INFLUENZA A&B MOLECU LAR (POC) Gurwinder Waterman APRN.SUPERVISOR SEWER MAINTENANCE Work Phone: Start: 08-06-2023 STREP A MOLECULAR (POC) [facility] Provider Start: 07-09-2023 Radex fingr minimum 2 views Flakito Beth MD Work Phone: Start: 05-18-2023 Plain chest X-ray Plan of Treatment Date Care Activity Detail Author Start: 05-28-2028 Urine microalbumin profile [facility] Start: 08-10-2026 Screening for malign ant neoplasm of cervix [facility] Start: 02-07-2025 End: 02-07-2025 Patient encounter procedure 02/07/2025 10:30 AM EDT Office Visit Vascular Surgery [address] [place] [address] Ute Ponce DO [address] [place] [address] 8 week follow up Vascular Surgery Comment on above: 8 week follow up Start: 01-16-2025 Influenza vaccination C [facility] Start: 11-15-2024 End: 11-15-2024 Patient encounter procedure 11/15/2024 8:30 AM EDT Office Visit Vascular Surgery [address] [place] [address] Ute Ponce, [address] [place] [address] Venous insufficiency [I87.2] Vascular Surgery Comment on above: Venous insufficiency [I87.2] Start: 11-10-2024 CBC W Auto Different ial panel - Blood [facility] Start: 11-10-2024 Comprehensive metabo lic 2000 panel - Serum or Plasma [facility] Start: 11-10-2024 Hemoglobin A1c/Hemoglobin.total in Blood [facility] Start: 11-10-2024 Thyroid stimulating hormone measurement [facility] Start: 11-10-2024 Vitamin D, 25-hydrox y measurement [facility] Start: 11-07-2024 End: 11-07-2024 Patient encounter procedure 11/07/2024 1:30 PM EDT Office Visit Podiatry [address] [place] [address] Josie Ponce [address] [place] [address] 5 week follow up R foot pain after testing Podiatry Comment on above: 5 week follow up R f oot pain after testing Start: 11-02-2024 End: 11-02-2024 Patient encounter procedure 11/02/2024 1:30 PM EDT Office Visit Vasculary Surgery [address] [place] [address] Venous insufficiency [I87.2] Vasculary Surgery Comment on above: Venous insufficiency [I87.2] Start: 09-20-2024 End: 09-20-2024 Patient encounter procedure 09/20/2024 1:45 PM EDT Office Visit Podiatry [address] [place] [address] Josie Ponce [address] [place] [address] Foot pain, right [M79.671] Podiatry Comment on above: Foot pain, right [M7 9.671] Start: 01-17-2024 Covid-19 Vaccine ( season) Covid-19 Vaccine () [facility] Start: 01-17-2024 Covid-19 Vaccine () Covid-19 Vaccine () [facility] Start: 01-17-2024 Influenza vaccination C [facility] Start: 11-25-2023 End: 11-25-2023 Patient encounter procedure 11/25/2023 2:30 PM EDT Office Visit [facility] [address] [place], [place] [id number] Jonny Queen V, DO [address] [place], [place] [id number] Left arm pain [facility] Comment on above: Left arm pain Start: 05-18-2023 Behavioral Health Screening Behavioral Health Screening [facility] Start: 05-18-2023 Depression Assessment Depression Ass [facility] Start: 05-18-2023 [facility] Start: 01-16-2023 Covid-19 Vaccine () Covid-19 Vaccine () [facility] Start: 01-16-2023 Influenza vaccination C [facility] Start: 05-18-2022 DEPRESSION ASSESSMENT DEPRESSION ASS ESSMENT [facility] Start: 07-25-2020 COVID-19 VACCINE (3 - Booster for Pfizer series) COVID-19 VACCINE (3 - Booster for Pfizer series) [facility] Start: 2016 PAP TESTING PAP TESTING [facility] Start: 2016 Screening for malign ant neoplasm of cervix Pap Testing [facility] Start: 2013 Anxiety Screening Anxiety Screening [facility] Start: 2013 Depression Screening Depression Scre ening [facility] Start: 2013 HEPATITIS C SCREENING HEPATITIS C [facility] Start: 2013 Hepatitis C screening Hepatitis C [facility] Start: 2013 HIV SCREENING HIV SCREENING [facility] Start: 2013 HIV screening HIV Screening [facility] Start: 01-13-2012 HPV Vaccine (2 - 3-d ose series) HPV Vaccine (2 - 3-dose series) [facility] Alanine aminotransfe rase [Enzymatic activity/volume] in Serum or Plasma [facility] Albumin [Mass/volume ] in Serum or Plasma [facility] Alkaline phosphatase [Enzymatic activity/volume] in Serum or Plasma [facility] Anion gap in Serum o r Plasma [facility] BACTERIAL VAGINOSIS NAAT BACTERI AL VAGINOSIS NAAT Lab Routine Itching in the vaginal area 03/15/2023 3:01 PM EDT The [facility] Work Phone: Bilirubin, total measurement [facility] BUN/Creatinine ratio [facility] Calcium [Mass/volume ] in Serum or Plasma [facility] FENG/TRICHOMONAS NAAT FENG /TRICHOMONAS NAAT Lab Routine Itching in the vaginal area 03/15/2023 3:01 PM EDT [facility] Work Phone: Carbon dioxide, tota l [Moles/volume] in Central venous blood [facility] Chlamydia trachomatis+Neisseria gonorrhoeae DNA [Presence] in Unspecified specimen by SHARON with probe detection GONORRHEA/CHLAMYDIA NAAT Lab Routine Itching in the vaginal area 03/15/2023 3:01 PM EDT [facility] Work Phone: Creatinine [Mass/vol ume] in Serum or Plasma [facility] Erythrocyte mean corpuscular volume determination [facility] Glucose [Mass/volume ] in Serum or Plasma [facility] Hematocrit [Volume Fraction] of Blood [facility] Hemoglobin [Mass/vol ume] in Blood [facility] Leukocytes [#/volume ] in Blood [facility] Mean corpuscular hemoglobin concentration determination [facility] Mean corpuscular hemoglobin determination [facility] Measurement of occul t blood in stool specimen using immunoassay [facility] Measurement of renal function [facility] Neutrophil count [facility] Neutrophil percent differential count [facility] PAP TEST PAP TEST Lab Eriberto varner Encounter for gynecological examination (general) (routine) without abnormal findings Screening for cervical cancer Encounter for screening for human papillomavirus (HPV) 08/11/2023 9:05 AM EDT [facility] Work Phone: Patient Education ED Chest Pain, Uncertain Cause [facility] Work Phone: Patient referral [facility] Work Phone: Platelets [#/volume] in Blood [facility] Potassium measurement [facility] Red blood cell count [facility] Red cell distributio n width determination [facility] Serum chloride measurement [facility] Sodium measurement [facility] Total protein measurement [facility] Urea nitrogen [Mass/volume] in Serum or Plasma [facility] End: 09-20-2025 US Vein - bilateral US VENOUS INCOMPETENCY [facility] V[facility] Lab Routine Venous insufficiency 1 Occurrences starting 09/20/2024 until 09/20/2025 [facility] Work Phone: Comment on above: 1 Occurrences starti ng 09/20/2024 until 09/20/2025 End: 12-24-2024 XR Wrist - left PA and Lateral and Oblique XR WRIST GENERAL 3V PA/LAT/OBL LEFT Radiology Routine Pain in left wrist 1 Occurrences starting 11/25/2023 until 12/24/2024 [facility] Work Phone: Comment on above: 1 Occurrences starti ng 11/25/2023 until 12/24/2024 XR Wrist - left PA a nd Lateral and Oblique XR WRIST GENERAL 3V PA/LAT/OBL LEFT Radiology Routine Pain in left wrist 11/25/2023 2:48 PM EDT [facility] Immunizations Immunization Date Immunization Notes Care Provider Fa yamilka 05-30-2020 Covid (Pfizer) No Primary Ca re Physician [facility] 05-09-2020 Covid (Pfizer) No Primary Ca re Physician [facility] 05-28-2018 tetanus toxoid, redu emma diphtheria toxoid, and acellular pertussis vaccine, adsorbed Lorenza Mackay-Warren ASSISTANT PROFESSOR OF BUSINESS.SUPERVISOR SE[employer]ER [employer] Work Phone: [facility] 12-16-2011 human papilloma viru s vaccine, bivalent Lorenza Mackay-Warren ASSISTANT PROFESSOR OF BUSINESS.SUPERVISOR SEWER MAINTENA[employer] Work Phone: [facility] 12-16-2011 meningococcal polysaccharide (groups A, C, Y and W-135) diphtheria toxoid conjugate vaccine (MCV4P) Lorenza Baires APRN.SUPERVISOR SEWER MAINTENANCE Work Phone: [facility] 12-24-2007 hepatitis A vaccine, pediatric/adolescent dosage, 2 dose schedule Lorenza Baires ASSISTANT PROFESSOR OF BUSINESS.SUPERVISOR SE[employer]TE[employer] Work Phone: [facility] 12-24-2007 measles, mumps and rubella virus vaccine Lorenza Baires ASSISTANT PROFESSOR OF BUSINESS.SUPERVISOR [employer]TE[employer] Work Phone: [facility] 02-11-2007 hepatitis A vaccine, pediatric/adolescent dosage, 2 dose schedule Lorenza Baires ASSISTANT PROFESSOR OF BUSINESS.SUPERVISOR [employer]TE[employer] Work Phone: [facility] 02-11-2007 measles, mumps and rubella virus vaccine Lorenza Baires ASSISTANT PROFESSOR OF BUSINESS.SUPERVISOR [employer] Work Phone: [facility] 02-11-2007 tetanus toxoid, redu emma diphtheria toxoid, and acellular pertussis vaccine, adsorbed Lorenza Baires ASSISTANT PROFESSOR OF BUSINESS.SUPERVISOR [employer]TE[employer] Work Phone: [facility] 02-11-2007 varicella virus vaccine Luz Maria Baires ASSISTANT PROFESSOR OF BUSINESS.[facility] Work Phone: [facility] 08-05-2000 diphtheria, tetanus toxoids and acellular pertussis vaccine Lorenza Baires ASSISTANT PROFESSOR OF BUSINESS.SUPERVISOR [employer]TE[employer] Work Phone: [facility] 08-05-2000 poliovirus vaccine, inactivated Lorenza Baires APRN.SUPERVISOR [employer]TE[employer] Work Phone: [facility] 07-14-1996 diphtheria, tetanus toxoids and acellular pertussis vaccine Lorenza Baires ASSISTANT PROFESSOR OF BUSINESS.[facility] Work Phone: [facility] 07-14-1996 haemophilus influenz ae type b vaccine, HbOC conjugate Lorenza Baires APRN.[facility] Work Phone: [facility] 07-14-1996 haemophilus influenz ae type b vaccine, PRP-T conjugate No Primary Care Physician [facility] 07-14-1996 varicella virus vaccine Luz Maria y Viry ASSISTANT PROFESSOR OF BUSINESS.SUPERVISOR SE[employer]TENAN[employer] Work Phone: [facility] 02-01-1996 diphtheria, tetanus toxoids and acellular pertussis vaccine Lorenzapaul Moyler-Wood ASSISTANT PROFESSOR OF BUSINESS.SUPERVISOR SE[employer]TE[employer] Work Phone: [facility] 02-01-1996 haemophilus influenz ae type b vaccine, HbOC conjugate Lorenza Mackay-Warren ASSISTANT PROFESSOR OF BUSINESS.SUPERVISOR SE[employer] MAINTENAN[employer] Work Phone: [facility] 02-01-1996 haemophilus influenz ae type b vaccine, PRP-T conjugate No Primary Care Physician [facility] 02-01-1996 hepatitis B vaccine, pediatric or pediatric/adolescent dosage Lorenza Moyler-Warren ASSISTANT PROFESSOR OF BUSINESS.SUPERVISOR [employer]TE[employer] Work Phone: [facility] 02-01-1996 poliovirus vaccine, inactivated Lorenza Mackay-Wood ASSISTANT PROFESSOR OF BUSINESS.SUPERVISOR SE[employer]TE[employer] Work Phone: [facility] 1995 diphtheria, tetanus toxoids and acellular pertussis vaccine Lorenza Hallisler-Warren ASSISTANT PROFESSOR OF BUSINESS.SUPERVISOR SE[employer]INTENAN[employer] Work Phone: [facility] 1995 haemophilus influenz ae type b vaccine, HbOC conjugate Lorenza Mackay-Warren ASSISTANT PROFESSOR OF BUSINESS.SUPERVISOR [employer]INTE[employer] Work Phone: [facility] 1995 haemophilus influenz ae type b vaccine, PRP-T conjugate No Primary Care Physician [facility] 1995 poliovirus vaccine, inactivated Lorenza Mackay-Warren ASSISTANT PROFESSOR OF BUSINESS.SUPERVISOR [employer]INTENAN[employer] Work Phone: [facility] 1995 diphtheria, tetanus toxoids and acellular pertussis vaccine Lorenza Praisler-Wood ASSISTANT PROFESSOR OF BUSINESS.SUPERVISOR SE[employer] MAINTENANCE Work Phone: [facility] 1995 haemophilus influenz ae type b vaccine, HbOC conjugate Lorenza Hallisedna-Wood ASSISTANT PROFESSOR OF BUSINESS.SUPERVISOR SE[employer] MAINTENANCE Work Phone: [facility] 1995 haemophilus influenz ae type b vaccine, PRP-T conjugate No Primary Care Physician [facility] 1995 hepatitis B vaccine, pediatric or pediatric/adolescent dosage Lorenza Praisler-Wood ASSISTANT PROFESSOR OF BUSINESS.SUPERVISOR SE[employer]INTENANCE Work Phone: [facility] 1995 poliovirus vaccine, inactivated Lorenza Baires APRN.SUPERVISOR SE[employer] MAINTENANCE Work Phone: [facility] 1995 hepatitis B vaccine, pediatric or pediatric/adolescent dosage Lorezna Viry ASSISTANT PROFESSOR OF BUSINESS.SUPERVISOR SEWER MAINTENANCE Work Phone: [facility] Payers Date Payer Category Payer Unknown [id number] 2024 Self-pay [id number] 2023 Private Health Insurance [id number] 2023 Unknown MMO MMO [employer]PER[employer] PPO [id number] 2023-Present [phone] [address] [place] [address] PPO [id number] 2023 Unknown [id number] 2020 Private Health Insurance [id number] 1995 Unknown [id number] Private Health Insurance [id number] [facility] [id number] Unknown [id number] 62 Unknown [id number] 62 Unknown [id number] 62 Unknown [id number] 62 Unknown [id number] 62 Unknown [id number] 62 Unknown [id number] 62 Social History Date Type Detail Facility Start: 10-27-2022 [facility] Start: 05-18-2012 End: 05-18-2020 History of tobacco use Cigarette Smoker [facility] Start: 10-27-2022 End: 09-20-2024 Tobacco use and exposure Smokeless tobacco non-user [facility] Start: 10-27-2022 End: 09-20-2024 Alcohol intake Current drinker of alcohol (finding) [facility] Start: 10-27-2022 Tobacco Comment one pack lasts 3 day s [facility] Start: 05-28-2018 Alcohol Comment rarely, specia l occasions [facility] Start: 1995 Sex Assigned At Not on file C [facility] Tobacco smoking status No Smokin g Status Entered [facility] Start: 1995 Sex Assigned At Female A [facility] Start: 03-03-2023 End: 09-20-2024 History of Social function [facility] Work Phone: Start: 03-03-2023 End: 09-20-2024 Tobacco use panel [facility] Work Phone: Start: 05-24-2018 Adult Depression Screening Assessment 0 [facility] Work Phone: Start: 05-18-2023 [facility] Unknown if ever smoked [facility] Start: 12-06-2018 None [facility] Start: 12-07-2018 With Family [facility] Start: 08-11-2023 End: 09-20-2024 Tobacco smoking status [facility] Ex-smoker [facility] Start: 05-18-2012 End: 05-18-2020 History of tobacco use Current smoker [facility] Start: 09-20-2024 Tobacco Comment In 2020 kt morris switched to vaping and has since completely quit. 09/20/2024 [facility] Goals Date Patient Goal Desired Activity /State Personal health goal Functional Status Date Assessment Result Facility 01-31-2023 Functional Status Ambulation in [facility] Mental Status Date Assessment Result Facility 05-18-2023 Cognitive function Level Of Cons ciousness Awake;Alert;Appropriate;Follow s Commands [facility] Work Phone: 01-31-2023 Mental Status Oriented x 4 [facility] Clinical Notes 10-27-2022 to 11-29-2024 Patient InstructionsUte Ponce, DO - 11/29/2024 11:04 AM EDT Note Date & Type Note Facility 11-29-2024 Instructions Ute Ponce, DO - 11/29/2024 11:43 AM EDT Leg Measurements: (cm) Right leg: Ankle 32.5, calf 56, thigh 82 Left Leg: ankle 34, calf 56, thigh 83 Length to knee- 40, thigh 84 Stocking Wear and Care Your doctor has recommended for you to wear compression stockings. The following instructions are to help you maintain your treatment plan and care for your stockings. You must be properly fitted before ordering your stockings. Ill-fitting stockings could be ineffective or cause injury. Put your stockings on first thing when you wake up, BEFORE you get out of bed. If you need to shower, it is recommended to lie back down after for 20-30 minutes with your feet elevated prior to putting on your stockings. Take your stockings off before bed. Do not sleep in them, unless instructed to do so after a procedure. To wash your stockings, wash with mild soap or detergent (do not use any bleach containing product), rinse well. Roll them in a towel to remove excess water and allow to air dry. There are also egg tester recommendations included with your stockings. Skin care- Wash your legs and feet and dry them well each day, especially between your toes. Before bed, moisturize liberally with a fragrant free, creamy moisturizer (Lubriderm, Felisha, Eucerin, Jackie) Never moisturize between toes. Avoid moisturizing immediately prior to putting on your stockings. You can use rubber gloves, such as Playtex or Sigvaris, when putting on your stockings. The grooves in the palm of the gloved will help you signals intelligence analysis manager the stocking while putting it on. Be sure to place the heel on first, prior to pulling up the stocking. Other devices to help with putting on stockings, like the easy glide, can be ordered online and from the location you order your stockings from. Knee- High stockings should end about an inch below the knee, if you pull them up too high, do not fold or roll them down. Place the top of the stockings in the correct place and snap out or pinch out any wrinkles. Over time, the stockings will lose their elasticity and therefore, their effectiveness. If one pair is worn daily, they should be replaced about every 4 months. If alternating between multiple pairs, they will last longer. Begin looking for replacements about a month prior to them needing replaced. This will help avoid a gap in therapeutic use. It is recommended to keep the original box so that re ordering will be easier. It is also recommended that a new fitting be completed to ensure you are wearing the most effective size. Locations: [facility] [phone] [employer] [phone] [email or web address] [employer]- [phone] www.[email or web address] CUPS and some sugar.[employer]- [phone] Located in [place] [facility]- call local store and schedule a fitting. Online- [employer], [employer], [employer] documented in this encounter [facility] 11-29-2024 Note HNO ID: [id number] Author: UTE PONCE DO Service: ? Author Type: Physician Type: Progress Notes Filed: 12/27/2024 13:14 Note Text: [facility]PARTMENT OF VASCULAR SURGERY OUTPATIENT VISIT DATE November 29, 2024 OUTPATIENT VISIT TYPE CONSULTATION SERVICE DATE: 11/29/2024 SERVICE TIME: 11:04 AM PRIMARY CARE PHYSICIAN: No primary care provider on file. REFERRING PROVIDER: Enma Eagle [id number] [address] Consult requested for an opinion regarding the evaluation and treatment of the above. My final impression and recommendations will be communicated back to the requesting physician by way of the shared medical record or letter via [place] mail. CHIEF COMPLAINT: Patient presents with: New Patient History of Present Illness: Patient is a 29 year old White female presenting for consultation, evaluation and possible treatment of varicose veins, spider telangectasias, and leg edema.bilateral aching, throbbing, heaviness, and edema. Predisposing factors included family history of varicose veins is negative.. No specific history of injury or prior problems. Relieving factors include support hose, elevation of legs, and reduced activity with mild improvement in symptoms. Patient denies DVT, phlebitis, and treatment with blood thinners. PAIN ASSESSMENT: PAIN EVALUATION No data found in the last 1 encounters. Obstetric History T0 L0 SAB0 IAB0 Ectopic0 Multiple0 Live Births0 Duration of Symptoms: Progressive PAST MEDICAL HISTORY Diagnosis Date ADD (attention deficit disorder) 05/2024 ADHD (attention deficit hyperactivity disorder) 05/2024 Depression 05/2024 Generalized anxiety disorder 05/2024 PAST SURGICAL HISTORY Procedure Laterality Date ANKLE Bilateral tendon repair, 2015 and 2016 EXTRACTION ERUPTED TOOTH/EXR TONSILLECTOMY AND ADENOIDECTOMY HX TYMPANOSTOMY GENERAL ANESTHESIA SOCIAL HISTORY: Social History Tobacco Use Smoking status: Former Current packs/day: 0.00 Average packs/day: 0.7 packs/day for 8.0 years (5.5 ttl pk-yrs) Types: Cigarettes Start date: 2012 Quit date: 2020 Years since quittin.5 Smokeless tobacco: Never Tobacco comments: In 2020 patient switched to vaping and has since completely quit. 09/20/2024 Vaping Use Vaping status: Former Substances: Nicotine Devices: Pre-filled or refillable cartridge Substance Use Topics Alcohol use: Yes Comment: rarely, special occasions Drug use: No FAMILY HISTORY Problem Relation Age of Onset Mental illness Mother anxiety/depression/bipolar other (anemia) Father Alcohol abuse Father Skin Cancer Father other (other) Sister pseudotumor cerebri Other Sleep Disorder Sister pituitary tumor Migraines Sister Mental illness Sister anxiety/depression Mental illness Sister anxiety/depression EDS (Andrae-Danlos syndrome) (HCC) Sister Hepatitis C Maternal Grandmother Liver Disease Maternal Grandmother Drug abuse Maternal Grandfather Alcohol/Drug Maternal Grandfather Mental illness Paternal Grandmother anxiety/depression No Known Problems Paternal Grandfather unknown Heart Maternal Aunt heart cath, 3 open heart surgery, 6 ablations and mumer repair Autism Nephew MEDICATIONS: buPROPion XL (WELLBUTRIN XL) 150 mg 24 hr tablet Take 150 mg by mouth every morning. Cholecalciferol, Vitamin D3, (VITAMIN D) 25 mcg (1,000 unit) cap Take 1,000 Units by mouth once daily. fluticasone (FLONASE ALLERGY RELIEF) 50 mcg/actuation nasal spray Use 1 [place] in each nostril once daily. folic acid 1 mg tablet Take 1 tablet by mouth once daily. ibuprofen (MOTRIN) 200 mg tablet Take 1-2 tablets by mouth every 6 hours as needed for Pain (Take with food.). (Patient taking differently: Take 800 mg by mouth every 6 hours as needed for pain (Take with food.).) diphenhydrAMINE (BENADRYL) 25 mg capsule Take 1 capsule by mouth every 6 hours as needed. ALLERGIES: ALLERGIES Allergen Reactions Amoxicillin GI Upset Augmentin [Amoxicil* GI Upset Clomid [Clomiphene * Swelling REVIEW of SYSTEMS: Constitutional: Positive for malaise HEENT: Negative for frequent or significant headaches, significant change in vision, and nasal discharge or nose bleeds, Ears Positive for recent change in vision Respiratory: Negative for cough and wheezing and Positive for shortness of breath on exertion Cardiovascular: Negative for chest pain and palpitations and Positive for leg swelling Gatrointestinal: Negative for abdominal discomfort, blood in stools or black stools or change in bowel habits Genitourinary: No history of dysuria, frequency, or incontinence Musculoskeletal: Negative for back pain and muscle pain and Positive for joint swelling and joint pain Endocrine: Negative for cold or heat intolerance, polyuria, polydipsia and goiter Hematology/Lymphatic: Positive for bruises easily Neurologic: No hi (more content not included)... [facility] 11-29-2024 History of Present illness Narrative Images from the original note were not included. [facility] OF [facility] SURGERY OUTPATIENT VISIT DATE November 29, 2024 OUTPATIENT VISIT TYPE CONSULTATION SERVICE DATE: 11/29/2024 SERVICE TIME: 11:04 AM PRIMARY CARE PHYSICIAN: No primary care provider on file. REFERRING PROVIDER: Enma Eagle [id number] [phone] Consult requested for an opinion regarding the evaluation and treatment of the above. My final impression and recommendations will be communicated back to the requesting physician by way of the shared medical record or letter via [place] mail. CHIEF COMPLAINT: Patient presents with: New Patient History of Present Illness: Patient is a 29 year old White female presenting for consultation, evaluation and possible treatment of varicose veins, spider telangectasias, and leg edema.bilateral aching, throbbing, heaviness, and edema. Predisposing factors included family history of varicose veins is negative.. No specific history of injury or prior problems. Relieving factors include support hose, elevation of legs, and reduced activity with mild improvement in symptoms. Patient denies DVT, phlebitis, and treatment with blood thinners. PAIN ASSESSMENT: PAIN EVALUATION No data found in the last 1 encounters. Obstetric History T0 L0 SAB0 IAB0 Ectopic0 Multiple0 Live Births0 Duration of Symptoms: Progressive PAST MEDICAL HISTORY Diagnosis Date ADD (attention deficit disorder) 05/2024 ADHD (attention deficit hyperactivity disorder) 05/2024 Depression 05/2024 Generalized anxiety disorder 05/2024 PAST SURGICAL HISTORY Procedure Laterality Date ANKLE Bilateral tendon repair, 2015 and 2016 EXTRACTION ERUPTED TOOTH/EXR TONSILLECTOMY AND ADENOIDECTOMY HX TYMPANOSTOMY GENERAL ANESTHESIA SOCIAL HISTORY: Social History Tobacco Use Smoking status: Former Current packs/day: 0.00 Average packs/day: 0.7 packs/day for 8.0 years (5.5 ttl pk-yrs) Types: Cigarettes Start date: 2012 Quit date: 2020 Years since quittin.5 Smokeless tobacco: Never Tobacco comments: In 2020 patient switched to vaping and has since completely quit. 09/20/2024 Vaping Use Vaping status: Former Substances: Nicotine Devices: Pre-filled or refillable cartridge Substance Use Topics Alcohol use: Yes Comment: rarely, special occasions Drug use: No FAMILY HISTORY Problem Relation Age of Onset Mental illness Mother anxiety/depression/bipolar other (anemia) Father Alcohol abuse Father Skin Cancer Father other (other) Sister pseudotumor cerebri Other Sleep Disorder Sister pituitary tumor Migraines Sister Mental illness Sister anxiety/depression Mental illness Sister anxiety/depression EDS (Andrae-Danlos syndrome) (HCC) Sister Hepatitis C Maternal Grandmother Liver Disease Maternal Grandmother Drug abuse Maternal Grandfather Alcohol/Drug Maternal Grandfather Mental illness Paternal Grandmother anxiety/depression No Known Problems Paternal Grandfather unknown Heart Maternal Aunt heart cath, 3 open heart surgery, 6 ablations and mumer repair Autism Nephew MEDICATIONS: buPROPion XL (WELLBUTRIN XL) 150 mg 24 hr tablet Take 150 mg by mouth every morning. Cholecalciferol, Vitamin D3, (VITAMIN D) 25 mcg (1,000 unit) cap Take 1,000 Units by mouth once daily. fluticasone (FLONASE ALLERGY RELIEF) 50 mcg/actuation nasal spray Use 1 [place] in each nostril once daily. folic acid 1 mg tablet Take 1 tablet by mouth once daily. ibuprofen (MOTRIN) 200 mg tablet Take 1-2 tablets by mouth every 6 hours as needed for Pain (Take with food.). (Patient taking differently: Take 800 mg by mouth every 6 hours as needed for pain (Take with food.).) diphenhydrAMINE (BENADRYL) 25 mg capsule Take 1 capsule by mouth every 6 hours as needed. ALLERGIES: ALLERGIES Allergen Reactions Amoxicillin GI Upset Augmentin [Amoxicil* GI Upset Clomid [Clomiphene * Swelling REVIEW of SYSTEMS: Constitutional: Positive for malaise HEENT: Negative for frequent or significant headaches, significant change in vision, and nasal discharge or nose bleeds, Ears Positive for recent change in vision Respiratory: Negative for cough and wheezing and Positive for shortness of breath on exertion Cardiovascular: Negative for chest pain and palpitations and Positive for leg swelling Gatrointestinal: Negative for abdominal discomfort, blood in stools or black stools or change in bowel habits Genitourinary: No history of dysuria, frequency, or incontinence Musculoskeletal: Negative for back pain and muscle pain and Positive for joint swelling and joint pain Endocrine: Negative for cold or heat intolerance, polyuria, polydipsia and goiter Hematology/Lymphatic: Positive for bruises easily Neurologic: No history or headaches, syncope, paralysis, seizures or tremors Integumentary: Negative for lesions, rash, and itching. PHYSICAL EXAM: VITALS: LMP 08/05/2023 General: Alert, oriented, cooperative, healthy appearance Integumentary: Normal color, no rash, no lesions. HEENT: EOM, pupils equal, round and reactive. Cardiovascular: Pulse regular. Lungs: No chest deformities or chest wall tenderness. Abdomen: Not examined Extremities: Varicose veins Neurological: AAOx3. Normal cognition and motor skills. Vascular: Dorsalis Pedal Right: Normal - Left: Normal Diagnostic tests reviewed for today's visit: Most recent labs Most recent imaging Venous Reflux RIGHT SIDE - DEEP VEINS Negative for acute deep vein thrombosis in vessels visualized. Positive for valvular incompetency in the femoral vein and popliteal vein. RIGHT SIDE - SUPERFICIAL VEINS Positive for valvular incompetency in the great saphenous vein. Positive for valvular incompetency in the anterior accessory great saphenous vein. Follows straight path and connects with GSV at proximal calf via branch. Negative for valvular incompetency in the small saphenous vein. Negative for superficial thrombophlebitis in the great saphenous vein and small saphenous vein. LEFT SIDE - DEEP VEINS Negative for acute deep vein thrombosis in vessels visualized. Positive for valvular incompetency in the common femoral vein and femoral vein. LEFT SIDE - SUPERFICIAL VEINS Positive for valvular incompetency in the great saphenous vein. Positive for valvular incompetency in the anterior accessory great saphenous vein. Terminates at mid thigh. Negative for valvular incompetency in the small saphenous vein. Negative for superficial thrombophlebitis in the great saphenous vein and small saphenous vein. IMPRESSION: Ms. Jimenez is a 29 year old female with symptomatic varicose veins . PLAN and RECOMMENDATIONS: Discussed venous pathology with patient Recommend trial of compression stockings, elevation and exercise Will get venous reflux testing and follow up to discuss results Prescription provided for compression stockings 20-30 mmHg and instructed on use SIGNATURE: Ute Ponce DO PATIENT NAME: Arlen Jimenez DATE: November 29, 2024 TIME: 11:04 AM documented in this encounter [facility] 11-10-2024 Evaluation note Diagnosis Onset Date Resolution ADHD acute November 10 1:57pm Anxiety and depression acute Ju 2024 1:57pm Establishing care with new doctor, encounter for noneactive November 10, 2024 1:57pm Fatigue noneactive November 10 1:57pm Venous insufficiency noneactive November 10, 2024 1:57pm Morbid obesity with body mass index (BMI) of 50.0 to 59.9 in adult noneactive November 10, 2024 1:57pm Bright red blood per rectum noneactive November 10, 2024 1:57pm [facility] Work Phone: 1(896) 236-252906-26-2025 Evaluation note* Diagnosis Onset Date Resolution Status Admit Date Peripheral edema acute October 1:57pm Establishing care with new doctor, encounter for noneactive November 10, 2024 1:57pm Morbid obesity with body mas s index (BMI) of 50.0 to 59.9 in adult noneactive November 10, 2024 1:57pm Bright red blood per rectum noneacti ve November 10, 2024 1:57pm [facility] Work Phone: 1(946) 465-393206-23-2025 NoteHNO ID: [id number] Author: JOSIE PONCE, ? Service: ? Author Type: Physician Type: Progress Notes Filed: 11/07/2024 13:38 Note Text: Subjective Arlen Jimenez is a 29-year-old female presenting for follow-up of chronic bilateral lower extremity edema. Chronic Bilateral Lower Extremity Edema: - Edema present for years. - Arlen has tried compression stockings but finds them difficult to fit due to large, wide feet and calves. - Recent ultrasound on November 02 showed valvular incompetency in the femoral and popliteal veins on the right side, and in the great saphenous vein bilaterally. - Denies seeing a vascular specialist previously. Cardiovascular: (+) bilateral leg swelling Musculoskeletal: (-) calf pain PAST MEDICAL HISTORY Diagnosis Date ADD (attention deficit disorder) 05/2024 ADHD (attention deficit hyperactivity disorder) 05/2024 Depression 05/2024 Generalized anxiety disorder 05/2024 Current Outpatient Medications Medication Sig Dispense Refill fluticasone (FLONASE ALLERGY RELIEF) 50 mcg/actuation nasal spray Use 1 [place] in each nostril once daily. 18.2 mL 0 ibuprofen (MOTRIN) 200 mg tablet Take 1-2 tablets by mouth every 6 hours as needed for Pain (Take with food.). folic acid 1 mg tablet Take 1 tablet by mouth once daily. diphenhydrAMINE (BENADRYL) 25 mg capsule Take 1 capsule by mouth every 6 hours as needed. No current facility-administered medications for this visit. Family History Problem Relation Age of Onset Mental illness Mother anxiety/depression/bipolar other (anemia) Father Alcohol abuse Father Skin Cancer Father other (other) Sister pseudotumor cerebri Other Sleep Disorder Sister pituitary tumor Migraines Sister Mental illness Sister anxiety/depression Mental illness Sister anxiety/depression EDS (Andrae-Danlos syndrome) (HCC) Sister Hepatitis C Maternal Grandmother Liver Disease Maternal Grandmother Drug abuse Maternal Grandfather Alcohol/Drug Maternal Grandfather Mental illness Paternal Grandmother anxiety/depression No Known Problems Paternal Grandfather unknown Heart Maternal Aunt heart cath, 3 open heart surgery, 6 ablations and mumer repair Autism Nephew Objective Last menstrual period 08/05/2023. - Cardiovascular: Dorsalis pedis and posterior tibial pulses palpable bilaterally; capillary refill time <5 seconds; temperature warm proximally and distally; hair growth present on bilateral feet; edema noted in bilateral lower extremities. - Skin: No open sores bilaterally; skin appears well-hydrated. - Neurological: Protective sensation intact bilaterally. - Musculoskeletal: - Bilateral Feet: - Strength: 5/5 for dorsiflexion, plantar flexion, inversion, and eversion. Labs: Imaging: (11/02) Bilateral Lower Extremity Venous Duplex Ultrasound: - Right side: Negative for acute deep vein thrombosis; positive for valvular incompetency in the femoral vein, popliteal vein, and great saphenous vein - Left side: Positive for valvular incompetency in the common femoral vein, femoral vein, and great saphenous vein Tests: Assessment AND Plan 1. Venous insufficiency (I87.2) - Chronic bilateral lower extremity swelling; recent ultrasound on November 02 revealed valvular incompetency in the femoral and popliteal veins on the right side, and in the great saphenous vein bilaterally. - Discussed pathophysiology of venous insufficiency, emphasizing the role of incompetent valves in impaired venous return. - Recommended use of compression stockings; discussed availability of both [id number] and prescription options. - Referral to vascular surgery for further evaluation and management, including potential procedural interventions such as vein stripping. - Scheduled appointment with Dr. Mee Ponce at the [place] office Recording using [employer] software for draft documentation of the visit was discussed with the patient/authorized insurance representative; all questions welcomed and answered. Patient/authorized insurance representative agreed to proceed Josie Ponce [facility]06-23-2025 History of Present illness Narrative* Josie Ponce - 11/07/2024 1:38 PM EDT Subjective Arlen Jimenez is a 29-year-old female presenting for follow-up of chronic bilateral lower extremity edema. Chronic Bilateral Lower Extremity Edema: - Edema present for years. - Arlen has tried compression stockings but finds them difficult to fit due to large, wide feet and calves. - Recent ultrasound on November 02 showed valvular incompetency in the femoral and popliteal veins onthe right side, and in the great saphenous vein bilaterally. - Denies seeing a vascular specialist previously. Cardiovascular: (+) bilateral leg swelling Musculoskeletal: (-) calf pain PAST MEDICAL HISTORY Diagnosis Date ADD (attention deficit disorder) 05/2024 ADHD (attention deficit hyperactivity disorder) 05/2024 Depression 05/2024 Generalized anxiety disorder 05/2024 Current Outpatient Medications Medication Sig Dispense Refill fluticasone (FLONASE ALLERGY RELIEF) 50 mcg/actuation nasal spray Use 1 [place] in each nostril once daily. 18.2 mL 0 ibuprofen (MOTRIN) 200 mg tablet Take 1-2 tablets by mouth every 6 hours as needed for Pain (Take with food.). folic acid 1 mg tablet Take 1 tablet by mouth once daily. diphenhydrAMINE (BENADRYL) 25 mg capsule Take 1 capsule by mouth every 6 hours as needed. No current facility-administered medications for this visit. Family History Problem Relation Age of Onset Mental illness Mother anxiety/depression/bipolar other (anemia) Father Alcohol abuse Father Skin Cancer Father other (other) Sister pseudotumor cerebri Other Sleep Disorder Sister pituitary tumor Migraines Sister Mental illness Sister anxiety/depression Mental illness Sister anxiety/depression EDS (Andrae-Danlos syndrome) (HCC) Sister Hepatitis C Maternal Grandmother Liver Disease Maternal Grandmother Drug abuse Maternal Grandfather Alcohol/Drug Maternal Grandfather Mental illness Paternal Grandmother anxiety/depression No Known Problems Paternal Grandfather unknown Heart Maternal Aunt heart cath, 3 open heart surgery, 6 ablations and mumer repair Autism Nephew Objective Last menstrual period 08/05/2023. - Cardiovascular: Dorsalis pedis and posterior tibial pulses palpable bilaterally; capillary refilltime <5 seconds; temperature warm proximally and distally; hair growth present on bilateral feet; edema noted in bilateral lower extremities. - Skin: No open sores bilaterally; skin appears well-hydrated. - Neurological: Protective sensation intact bilaterally. - Musculoskeletal: - Bilateral Feet: - Strength: 5/5 for dorsiflexion, plantar flexion, inversion, and eversion. Labs: Imaging: (11/02) Bilateral Lower Extremity Venous Duplex Ultrasound: - Right side: Negative for acute deep vein thrombosis; positive for valvular incompetency in the femoral vein, popliteal vein, and great saphenous vein - Left side: Positive for valvular incompetency in the common femoral vein, femoral vein, and greatsaphenous vein Tests: Assessment & Plan 1. Venous insufficiency (I87.2) - Chronic bilateral lower extremity swelling; recent ultrasound on November 02 revealed valvular incompetency in the femoral and popliteal veins on the right side, and in the great saphenous vein bilaterally. - Discussed pathophysiology of venous insufficiency, emphasizing the role of incompetent valves in impaired venous return. - Recommended use of compression stockings; discussed availability of both [id number] and prescription options. - Referral to vascular surgery for further evaluation and management, including potential procedural interventions such as vein stripping. - Scheduled appointment with Dr. Mee Ponce at the [place] office Recording using [employer] software for draft documentation of the visit was discussed with the patient/authorized insurance representative; all questions welcomed and answered. Patient/authorized insurance representative agreed to proceed Josie Ponce DPM * Mirna Yates LPN - 11/07/2024 1:08 PM EDT AMB ROOMING INTAKE FLOWSHEET DATA Patient presents with: Right Foot - Pain, Swelling, Established Patient, Follow Up: HX of surgery Numbness around surgical site Left Foot - Swelling, Established Patient, Follow Up Mirna Yates LPN [facility] NoteHNO ID: [id number] Author: MIRNA YATES LPN Service: ? Author Type: LICENSED NURSE Type: Progress Notes Filed: 11/07/2024 13:38 Note Text: AMB ROOMING INTAKE FLOWSHEET DATA Patient presents with: Right Foot - Pain, Swelling, Established Patient, Follow Up: HX of surgery Numbness around surgical site Left Foot - Swelling, Established Patient, Follow Up Mirna Yates [facility]05-06-2025 NoteHNO ID: [id number] Author: MIRNA YATES LPN Service: ? Author Type: LICENSED NURSE Type: Progress Notes Filed: 09/20/2024 14:12 Note Text: Per Dr. Ponce, Arlen was provided with powerstep original inserts, size 11, and instructed/educated in its application, wear, and care. All questions were answered, and patient was able to demonstrate competence with the necessary skills to utilize the above equipment. Mirna Yates [facility]05-06-2025 History of Present illness Narrative* Mirna Yates LPN - 09/20/2024 2:[address] Ponce, Arlen was provided with powerstep original inserts, size 11, and instructed/educated in its application, wear, and care. All questions were answered, and patient was able to demonstrate competence with the necessary skills to utilize the above equipment. Mirna Yates LPN * Josie Ponce - 09/20/2024 2:10 PM EDT Consultation requested by Dr. Waterman for an opinion regarding ankle pain. My final recommendations will be communicated back to the requesting physician by way of shared Medical record or letter to requesting physician via US mail. Pierre Cordova is a 29-year-old female with a history of bilateral Brostrom repairs, presenting for right foot pain and discoloration of the toes. Right Foot Pain: - Pain localized around the surgical site on the right foot. - Describes a new spot that developed over the last couple of months; not painful but noticeable. - Initial pain was accompanied by bruising, which has since resolved. - Pain persists in the same area where the bruise was located. - Has tried various orthotics in the past without relief. Toe Discoloration: - Noticed purple discoloration at the tips of the toes, occurring intermittently over the past 2-3 months. - Denies significant pain associated with the discoloration. Bilateral Ankle Instability: - History of chronic ankle instability, with frequent rolling of the ankles. - First ankle fracture occurred in middle school, leading to multiple instances of being in a boot,brace, or on crutches. - Underwent bilateral Brostrom repairs, one in 2018 and the other in 2019, a year and a day apart. - Surgeries initially provided relief, but chronic swelling has persisted. - Has attempted to manage swelling by reducing salt intake, drinking primarily water, and increasing exercise. - Swelling limits the ability to wear shoes; requires men's shoes to accommodate swelling. - Former smoker, quit in March. Musculoskeletal: (+) right foot pain, (+) ankle swelling Skin: (+) toe discoloration PAST MEDICAL HISTORY Diagnosis Date Patient denies medical problems Current Outpatient Medications Medication Sig Dispense Refill fluticasone (FLONASE ALLERGY RELIEF) 50 mcg/actuation nasal spray Use 1 [place] in each nostril once daily. 18.2 mL 0 ibuprofen (MOTRIN) 200 mg tablet Take 1-2 tablets by mouth every 6 hours as needed for Pain (Take with food.). folic acid 1 mg tablet Take 1 tablet by mouth once daily. diphenhydrAMINE (BENADRYL) 25 mg capsule Take 1 capsule by mouth every 6 hours as needed. No current facility-administered medications for this visit. Family History Problem Relation Age of Onset No Known Problems Mother No Known Problems Father other (other) Sister pseudotumor cerebri Other Sleep Disorder Sister pituitary tumor Migraines Sister Mental illness Sister anxiety/depression No Known Problems Maternal Grandmother No Known Problems Maternal Grandfather No Known Problems Paternal Grandmother No Known Problems Paternal Grandfather Heart Maternal Aunt Objective Last menstrual period 08/05/2023. - Cardiovascular: Dorsalis pedis and posterior tibial pulses palpable bilaterally; capillary refilltime <5 seconds; skin temperature warm to cool bilaterally; hair growth present on bilateral feet. - Skin: No open sores noted on bilateral feet; skin well-hydrated; surgical scars noted on the anterolateral aspect of bilateral ankles. - Musculoskeletal: - Bilateral Feet: - Manual muscle testin/5 for dorsiflexion, plantar flexion, inversion, and eversion. - Medial longitudinal arch collapse bilaterally. - ROM: Full ROM of right and left subtalar joints without pain; decreased ROM of bilateral ankles. - Provocative test: No laxity with anterior drawer test bilaterally. - Neurological: No significant purplish discoloration observed on toes. xray from right foot shows no fracture. soft-tissue anchor in 1. Foot pain, right (M79.671) 2. Posterior tibial tendon dysfunction, bilateral (M76.821) - Examination reveals collapse of the medial longitudinal arch bilaterally, with pain present to the right sinus tarsi. No laxity with anterior drawer test bilaterally. - Discussed the biomechanical issues related to pronation and potential lateral impingement causinginflammation. - Recommended wearing supportive shoes such as Hoka, Peterson, or Asics. - Provided orthotic inserts to improve arch support. 3. Venous insufficiency (I87.2) - Differential diagnosis for chronic swelling includes venous insufficiency. - Ordered venous ultrasound to assess for venous disease. - Discussed potential use of compression stockings if venous insufficiency is confirmed. 4. Raynaud's disease without gangrene (I73.00) - Differential diagnosis for episodic discoloration of toes includes Raynaud's phenomenon. - Advised avoidance of caffeine and nicotine. - Recommended use of hand and foot warmers in cold environments. - Discussed potential use of topical vasodilators if symptoms worsen. Attestation Recording using [employer] software for draft documentation of the visit was discussed with the patient/authorized insurance representative; all questions welcomed and answered. Patient/authorized insurance representative agreed to proceed Josie Ponce DPM * Mirna Yates LPN - 09/20/2024 1:45 PM EDT AMB ROOMING INTAKE FLOWSHEET DATA Pain Pain Level: 2 (8 at worse) Pain Location: Foot-Right Description: Dull, Throbbing Duration Amount of Time: 6 Duration Units: Years Frequency: Continuous Intervention/Comfort measure: Reposition, Relaxation Patient presents with: Right Foot - New, Pain, Swelling: HX of surgery Numbness around surgical site Mirna Yates LPN documented [facility] encounter[facility] NoteHNO ID: [id number] Author: JOSIE PONCE, ? Service: ? Author Type: Physician Type: Progress Notes Filed: 09/20/2024 14:11 Note Text: Consultation requested by Dr. Waterman for an opinion regarding ankle pain. My final recommendations will be communicated back to the requesting physician by way of shared Medical record or letter to requesting physician via [place] mail. Pierre Cordova is a 29-year-old female with a history of bilateral Brostrom repairs, presenting for right foot pain and discoloration of the toes. Right Foot Pain: - Pain localized around the surgical site on the right foot. - Describes a new spot that developed over the last couple of months; not painful but noticeable. - Initial pain was accompanied by bruising, which has since resolved. - Pain persists in the same area where the bruise was located. - Has tried various orthotics in the past without relief. Toe Discoloration: - Noticed purple discoloration at the tips of the toes, occurring intermittently over the past 2-3 months. - Denies significant pain associated with the discoloration. Bilateral Ankle Instability: - History of chronic ankle instability, with frequent rolling of the ankles. - First ankle fracture occurred in middle school, leading to multiple instances of being in a boot, brace, or on crutches. - Underwent bilateral Brostrom repairs, one in 2018 and the other in 2019, a year and a day apart. - Surgeries initially provided relief, but chronic swelling has persisted. - Has attempted to manage swelling by reducing salt intake, drinking primarily water, and increasing exercise. - Swelling limits the ability to wear shoes; requires men's shoes to accommodate swelling. - Former smoker, quit in March. Musculoskeletal: (+) right foot pain, (+) ankle swelling Skin: (+) toe discoloration PAST MEDICAL HISTORY Diagnosis Date Patient denies medical problems Current Outpatient Medications Medication Sig Dispense Refill fluticasone (FLONASE ALLERGY RELIEF) 50 mcg/actuation nasal spray Use 1 [place] in each nostril once daily. 18.2 mL 0 ibuprofen (MOTRIN) 200 mg tablet Take 1-2 tablets by mouth every 6 hours as needed for Pain (Take with food.). folic acid 1 mg tablet Take 1 tablet by mouth once daily. diphenhydrAMINE (BENADRYL) 25 mg capsule Take 1 capsule by mouth every 6 hours as needed. No current facility-administered medications for this visit. Family History Problem Relation Age of Onset No Known Problems Mother No Known Problems Father other (other) Sister pseudotumor cerebri Other Sleep Disorder Sister pituitary tumor Migraines Sister Mental illness Sister anxiety/depression No Known Problems Maternal Grandmother No Known Problems Maternal Grandfather No Known Problems Paternal Grandmother No Known Problems Paternal Grandfather Heart Maternal Aunt Objective Last menstrual period 08/05/2023. - Cardiovascular: Dorsalis pedis and posterior tibial pulses palpable bilaterally; capillary refill time <5 seconds; skin temperature warm to cool bilaterally; hair growth present on bilateral feet. - Skin: No open sores noted on bilateral feet; skin well-hydrated; surgical scars noted on the anterolateral aspect of bilateral ankles. - Musculoskeletal: - Bilateral Feet: - Manual muscle testin/5 for dorsiflexion, plantar flexion, inversion, and eversion. - Medial longitudinal arch collapse bilaterally. - ROM: Full ROM of right and left subtalar joints without pain; decreased ROM of bilateral ankles. - Provocative test: No laxity with anterior drawer test bilaterally. - Neurological: No significant purplish discoloration observed on toes. xray from right foot shows no fracture. soft-tissue anchor in 1. Foot pain, right (M79.671) 2. Posterior tibial tendon dysfunction, bilateral (M76.821) - Examination reveals collapse of the medial longitudinal arch bilaterally, with pain present to the right sinus tarsi. No laxity with anterior drawer test bilaterally. - Discussed the biomechanical issues related to pronation and potential lateral impingement causing inflammation. - Recommended wearing supportive shoes such as Hoka, Peterson, or Asics. - Provided orthotic inserts to improve arch support. 3. Venous insufficiency (I87.2) - Differential diagnosis for chronic swelling includes venous insufficiency. - Ordered venous ultrasound to assess for venous disease. - Discussed potential use of compression stockings if venous insufficiency is confirmed. 4. Raynaud's disease without gangrene (I73.00) - Differential diagnosis for episodic discoloration of toes includes Raynaud's phenomenon. - Advised avoidance of caffeine and nicotine. - Recommended use of hand and foot warmers in cold environments. - Discussed potential use of topical vasodilators if symptoms worsen. Attestation Recording using [employer] software for draft documentation of the visi (more content not included)...[facility]05-06-2025 Instructions* Patient Instructions* Josie Ponce - 09/20/2024 2:07 PM EDT Powerstep Original Full length. Can purchase at [facility] [employer] and boots,shoes and more here in [place], [employer] in [place] or [place]. Also can find in [place] in [facility]. Powersteps can also be purchased online, starting around $45.00 If you have a metatarsal or dancer pad for your feet apply the pad directly to the insole so you can interchange between your shoes. Find a shoe with a removable insole and take this out and replace with your powerstep insole. Always bring powersteps with you when shopping for shoes so that you can make sure that everything fits well together documented in this encounterUniversity Hospitals Elyria Medical Center05-06-2025 NoteHNO ID: [id number] Author: MIRNA YATES LPN Service: ? Author Type: LICENSED NURSE Type: Progress Notes Filed: 09/20/2024 14:11 Note Text: AMB ROOMING INTAKE FLOWSHEET DATA Pain Pain Level: 2 (8 at worse) Pain Location: Foot-Right Description: Dull, Throbbing Duration Amount of Time: 6 Duration Units: Years Frequency: Continuous Intervention/Comfort measure: Reposition, Relaxation Patient presents with: Right Foot - New, Pain, Swelling: HX of surgery Numbness around surgical site [facility] of Present illness Narrative* Toni Beauchamp RT(R) - 09/05/2024 3:50 PM EDT Radiology Service Progress Note PATIENT NAME: Arlen Jimenez DATE OF SERVICE: September 05, 2024 TIME: 3:34 PM PATIENT IDENTITY VERIFICATION COMPLETED USING TWO (2) IDENTIFIERS: Name and Date of confirmedby patient verbally. FALL SCREENING: Has the patient had 2 falls in the last year or 1 fall with injury or currently using an Ambulatory Assistive Device (Walker, Cane, Wheelchair, Crutches, etc.)? No PATIENT GENDER DATA: Assigned female at . status: : No status:NO. PATIENT RELEVANT IMPLANT DATA REVIEWED: Not Applicable PATIENT PRESENTS WITH AN IMPLANTABLE OR ATTACHED MANAGER COMPENSATION: No RADIOLOGY DEPARTMENT: General X-ray: Exam(s) Completed: Lower Extremity X- Ray(s): Foot, Right PERIPHERAL IV DATA: Not applicable SIGNED BY: RT Teofilo(R) September 05, 2024 3:34 PM documented in this encounterUniversity Hospitals Elyria Medical Center04-21-2025 NoteHNO ID: [id number] Author: TONI BEAUCHAMP RT(R) Service: Radiology Author Type: Technologist Type: Progress Notes Filed: 09/05/2024 15:41 Note Text: Radiology Service Progress Note PATIENT NAME: Arlen Jimenez DATE OF SERVICE: September 05, 2024 TIME: 3:34 PM PATIENT IDENTITY VERIFICATION COMPLETED USING TWO (2) IDENTIFIERS: Name and Date of confirmed by patient verbally. FALL SCREENING: Has the patient had 2 falls in the last year or 1 fall with injury or currently using an Ambulatory Assistive Device (Walker, Cane, Wheelchair, Crutches, etc.)? No PATIENT GENDER DATA: Assigned female at . status: : No status: NO. PATIENT RELEVANT IMPLANT DATA REVIEWED: Not Applicable PATIENT PRESENTS WITH AN IMPLANTABLE OR ATTACHED MANAGER COMPENSATION: No RADIOLOGY DEPARTMENT: General X-ray: Exam(s) Completed: Lower Extremity X-Ray(s): Foot, Right PERIPHERAL IV DATA: Not applicable SIGNED BY: RT Teofilo(R) September 05, 2024 3:34 [facility]04-21-2025 NoteHNO ID: [id number] Author: GURWINDER WATERMAN APRN.SUPERVISOR SEWER MAINTENANCE Service: ? Author Type: Nurse Practitioner Type: Progress Notes Filed: 09/05/2024 16:32 Note Text: [facility] Subjective HPI HPI Arlen Jimenez is a 29 year old female who presents today for CC of right foot pain/swelling. This started 4 days ago. Has tried otc medication for relief. Symptoms are worsened by walking. Risk factors hx of bilat foot surgery for soft tissue problems. .Patient presents with: right foot pain and swelling: X 4 days PAST MEDICAL HISTORY Diagnosis Date Patient denies medical problems PAST SURGICAL HISTORY Procedure Laterality Date ANKLE Bilateral tendon repair, 2015 and 2016 EXTRACTION ERUPTED TOOTH/EXR TONSILLECTOMY AND ADENOIDECTOMY HX TYMPANOSTOMY GENERAL ANESTHESIA ALLERGIES Amoxicillin, Augmentin [Amoxicillin-Pot Clavulanate], and Clomid [Clomiphene Citrate] MEDICATIONS fluticasone (FLONASE ALLERGY RELIEF) 50 mcg/actuation nasal spray Use 1 [place] in each nostril once daily. folic acid 1 mg tablet Take 1 tablet by mouth once daily. ibuprofen (MOTRIN) 200 mg tablet [...] Paternal Grandmother No Known Problems Paternal Grandfather Heart Maternal Aunt Social History Tobacco Use Smoking status: Former Types: Cigarettes Smokeless tobacco: Never Vaping Use Vaping status: current everyday user Substances: Nicotine Devices: Pre-filled or refillable cartridge Substance Use Topics Alcohol use: Yes Comment: rarely, special occasions Drug use: No Review of Systems Objective BP 110/72 Pulse 78 Temp 36.7 ?C (98.1 ?F) (Tympanic) Resp 16 Wt (!) 146.8 kg (323 lb 10.2 oz) LMP 08/05/2023 (Exact Date) SpO2 99% BMI 52.24 kg/m? Physical Exam Constitutional: General: She is not in acute distress. Appearance: She is not toxic-appearing or diaphoretic. HENT: Head: Normocephalic and atraumatic. Pulmonary: Effort: Pulmonary effort is normal. No accessory muscle usage or respiratory distress. Musculoskeletal: Feet: Neurological: Mental Status: She is alert and oriented to person, place, and time. {ASSESSMENT/PLAN: 1. Foot pain, right - ICD9: 729.5, ICD10: M79.671 -no bony abnormality noted on xray -given stretches/exercises -Rest, Ice, Compression, Elevation discussed -follow up with primary care if symptoms persist/worsen in 10-14 days -refer to podiatry d/t hx of chronic foot issues with surgery. - XR FOOT GENERAL 3V AP/LAT/OBL RIGHT IMPRESSION: 1. Dorsal soft tissue swelling. 2. 1.5 cm radiopaque structure presumably surgical hardware in the posterior talus. Clinical correlation with surgical history requested. Dictated by : ROMAN MCCARTHY MD - CONSULT TO PODIATRY - PREDNISONE 10 MG TABLET Gurwinder Waterman APRN.BRIE History and Record Review External record(s) reviewed: prior outpatient record. Disposition The patient was discharged. [facility] History of Present illness Narrative* Gurwinder Waterman APRN.SUPERVISOR SEWER MAINTENANCE - 09/05/2024 3:23 PM EDT Images from the original note were not included. [facility] Subjective HPI HPI Arlen Jimenez is a 29 year old female who presents today for CC of right foot pain/swelling.This started 4 days ago. Has tried otc medication for relief. Symptoms are worsened by walking. Risk factors hx of bilat foot surgery for soft tissue problems. .Patient presents with: right foot pain and swelling: X 4 days PAST MEDICAL HISTORY Diagnosis Date Patient denies medical problems PAST SURGICAL HISTORY Procedure Laterality Date ANKLE Bilateral tendon repair, 2016 and 2017 EXTRACTION ERUPTED TOOTH/EXR TONSILLECTOMY AND ADENOIDECTOMY HX TYMPANOSTOMY GENERAL ANESTHESIA ALLERGIES Amoxicillin, Augmentin [Amoxicillin-Pot Clavulanate], and Clomid [Clomiphene Citrate] MEDICATIONS fluticasone (FLONASE ALLERGY RELIEF) 50 mcg/actuation nasal spray Use 1 [place] in each nostril once daily. folic acid 1 mg tablet Take 1 tablet by mouth once daily. ibuprofen (MOTRIN) 200 mg tablet [...] Paternal Grandmother No Known Problems Paternal Grandfather Heart Maternal Aunt Social History Tobacco Use Smoking status: Former Types: Cigarettes Smokeless tobacco: Never Vaping Use Vaping status: current everyday user Substances: Nicotine Devices: Pre-filled or refillable cartridge Substance Use Topics Alcohol use: Yes Comment: rarely, special occasions Drug use: No Review of Systems Objective BP 110/72 Pulse 78 Temp 36.7 C (98.1 F) (Tympanic) Resp 16 Wt (!) 146.8 kg (323 lb 10.2 oz) LMP 08/05/2023 (Exact Date) SpO2 99% BMI 52.24 kg/m Physical Exam Constitutional: General: She is not in acute distress. Appearance: She is not toxic-appearing or diaphoretic. HENT: Head: Normocephalic and atraumatic. Pulmonary: Effort: Pulmonary effort is normal. No accessory muscle usage or respiratory distress. Musculoskeletal: Feet: Neurological: Mental Status: She is alert and oriented to person, place, and time. {ASSESSMENT/PLAN: 1. Foot pain, right - ICD9: 729.5, ICD10: M79.671 -no bony abnormality noted on xray -given stretches/exercises -Rest, Ice, Compression, Elevation discussed -follow up with primary care if symptoms persist/worsen in 10-14 days -refer to podiatry d/t hx of chronic foot issues with surgery. - XR FOOT GENERAL 3V AP/LAT/OBL RIGHT IMPRESSION: 1. Dorsal soft tissue swelling. 2. 1.5 cm radiopaque structure presumably surgical hardware in the posterior talus. Clinical correlation with surgical history requested. Dictated by : ROMAN MCCARTHY MD - CONSULT TO PODIATRY - PREDNISONE 10 MG TABLET Gurwinder Waterman APRN.BRIE History and Record Review External record(s) reviewed: prior outpatient record. Disposition The patient was discharged. Procedures documented in this encounterUniversity Hospitals Elyria Medical Center02-03-2025 NoteHNO ID: [id number] Author: DENYS KUMAR PA-C Service: ? Author Type: Physician Traffic Operations Manager Type: Progress Notes Filed: 06/20/2024 16:24 Note Text: This note was created using geoladriter. Subjective Arlen Jimenez is a 29 year old female. Patient is a 29-year-old female who complains of fever, chills, body aches, congestion, sore throat, headache and cough that she has been experiencing for the past 4 days. Patient has no history of asthma or COPD and does not smoke. Nasal Congestion Associated symptoms include chills, congestion, coughing and a sore throat. Review of Systems Constitutional: Positive for chills, fatigue and fever. HENT: Positive for congestion and sore throat. Respiratory: Positive for cough. Musculoskeletal: Positive for myalgias. All other systems reviewed and are negative. Objective BP 122/80 Pulse 102 Temp 36.9 ?C (98.5 ?F) Resp 18 Wt (!) 145.1 kg (319 lb 14.2 oz) LMP 08/05/2023 (Exact Date) SpO2 97% BMI 51.63 kg/m? Physical Exam Vitals and nursing note reviewed. Constitutional: Appearance: Normal appearance. She is normal weight. HENT: Head: Normocephalic and atraumatic. Right Ear: Tympanic membrane, ear canal and external ear normal. Left Ear: Tympanic membrane, ear canal and external ear normal. Nose: Nose normal. Mouth/Throat: Mouth: Mucous membranes are moist. Pharynx: Oropharynx is clear. Eyes: Extraocular Movements: Extraocular movements intact. Conjunctiva/sclera: Conjunctivae normal. Pupils: Pupils are equal, round, and reactive to light. Cardiovascular: Rate and Rhythm: Normal rate and regular rhythm. Pulses: Normal pulses. Heart sounds: Normal heart sounds. Pulmonary: Effort: Pulmonary effort is normal. Breath sounds: Normal breath sounds. Musculoskeletal: Cervical back: Normal range of motion and neck supple. Skin: General: Skin is warm and dry. Capillary Refill: Capillary refill takes less than 2 seconds. Neurological: General: No focal deficit present. Mental Status: She is alert and oriented to person, place, and time. Psychiatric: Mood and Affect: Mood normal. Behavior: Behavior normal. Thought Content: Thought content normal. Judgment: Judgment normal. Assessment and Plan Physical exam findings as noted above. Rapid strep PCR is negative. Patient was provided with prescriptions for prednisone 20 mg and Tessalon 100 mg. Supportive care instructions were discussed and the patient verbalizes good understanding of same. CLINICAL IMPRESSION: Viral Illness ASSESSMENT/PLAN: 1. Sore throat - ICD9: 462, ICD10: J02.9 (primary diagnosis) - STREP A MOLECULAR (POC) 2. Viral illness - ICD9: 079.99, ICD10: B34.9 - PREDNISONE 20 MG TABLET - BENZONATATE 100 MG CAPSULE FLORIAN [facility]02-03-2025 History of Present illness Narrative* Denys Kumar PA-C - 06/20/2024 3:56 PM EST This note was created using FanChatter. Subjective Arlen Jimenez is a 29 year old female. Patient is a 29-year-old female who complains of fever, chills, body aches, congestion, sore throat, headache and cough that she has been experiencing for the past 4 days. Patient has no history of asthma or COPD and does not smoke. Nasal Congestion Associated symptoms include chills, congestion, coughing and a sore throat. Review of Systems Constitutional: Positive for chills, fatigue and fever. HENT: Positive for congestion and sore throat. Respiratory: Positive for cough. Musculoskeletal: Positive for myalgias. All other systems reviewed and are negative. Objective BP 122/80 Pulse 102 Temp 36.9 C (98.5 F) Resp 18 Wt (!) 145.1 kg (319 lb 14.2 oz) LMP 08/05/2023 (Exact Date) SpO2 97% BMI 51.63 kg/m Physical Exam Vitals and nursing note reviewed. Constitutional: Appearance: Normal appearance. She is normal weight. HENT: Head: Normocephalic and atraumatic. Right Ear: Tympanic membrane, ear canal and external ear normal. Left Ear: Tympanic membrane, ear canal and external ear normal. Nose: Nose normal. Mouth/Throat: Mouth: Mucous membranes are moist. Pharynx: Oropharynx is clear. Eyes: Extraocular Movements: Extraocular movements intact. Conjunctiva/sclera: Conjunctivae normal. Pupils: Pupils are equal, round, and reactive to light. Cardiovascular: Rate and Rhythm: Normal rate and regular rhythm. Pulses: Normal pulses. Heart sounds: Normal heart sounds. Pulmonary: Effort: Pulmonary effort is normal. Breath sounds: Normal breath sounds. Musculoskeletal: Cervical back: Normal range of motion and neck supple. Skin: General: Skin is warm and dry. Capillary Refill: Capillary refill takes less than 2 seconds. Neurological: General: No focal deficit present. Mental Status: She is alert and oriented to person, place, and time. Psychiatric: Mood and Affect: Mood normal. Behavior: Behavior normal. Thought Content: Thought content normal. Judgment: Judgment normal. Assessment and Plan Physical exam findings as noted above. Rapid strep PCR is negative. Patient was provided with prescriptions for prednisone 20 mg and Tessalon 100 mg. Supportive care instructions were discussed and the patient verbalizes good understanding of same. CLINICAL IMPRESSION: Viral Illness ASSESSMENT/PLAN: 1. Sore throat - ICD9: 462, ICD10: J02.9 (primary diagnosis) - STREP A MOLECULAR (POC) 2. Viral illness - ICD9: 079.99, ICD10: B34.9 - PREDNISONE 20 MG TABLET - BENZONATATE 100 MG CAPSULE Denys Kumar PA-C documented in this encounterUniversity Hospitals Elyria Medical Center07-10-2024 History of Present illness Narrative* Fernanda Juan MA - 11/25/2023 2:53 PM EDT PT ASSESSMENT - CASTING ROOM Arlen presents for Application of brace. Applied modabber wrist brace to Left hand Patient has been instructed in Care and proper application of brace. Fernanda Juan MA * Jonny Queen V, DO - 11/25/2023 2:40 PM EDT Images from the original note were not included. SERVICE DATE: November 25, 2023 PCP: Kevin Roberson MD Subjective Patient ID: Arlen is a 28 year old female. Chief Complaint: Patient presents with: left shoulder pain REF: Moisés Rand x-ray: 11/17/2023 PAIN EVALUATION 11/25/2023 1202 Pain Level: 7 Pain Location: Arm-Left Description: Pressure;Sore;Tenderness Duration Amount of Time: 2 Duration Units: Days Frequency: Intermittent Intervention/Comfort measure: Other: See comment Comments: None HPI Patient states that she tripped and fell over a week ago. She landed on the left outstretched arm and hand. At that time she was having mainly pain in her shoulder. [facility] and she was treated and released. Since then she has noticed improvement in the shoulder pain, but worsening pain and swelling and bruising in the wrist and hand handgrip is weak on the left compared to the right and she has pain over the ulnar side of the wrist. Review of Systems There is no problem list on file for this patient. PAST MEDICAL HISTORY Diagnosis Date Patient denies medical problems PAST SURGICAL HISTORY Procedure Laterality Date ANKLE Bilateral tendon repair, 2015 and 2016 EXTRACTION ERUPTED TOOTH/EXR TONSILLECTOMY AND ADENOIDECTOMY HX TYMPANOSTOMY GENERAL ANESTHESIA FAMILY HISTORY Problem Relation Age of Onset No Known Problems Mother No Known Problems Father other (other) Sister pseudotumor cerebri Other Sleep Disorder Sister pituitary tumor Migraines Sister Mental illness Sister anxiety/depression No Known Problems Maternal Grandmother No Known Problems Maternal Grandfather No Known Problems Paternal Grandmother No Known Problems Paternal Grandfather Heart Maternal Aunt Social History Tobacco Use Smoking status: Former Years: 8 Types: Cigarettes Smokeless tobacco: Never Vaping Use Vaping Use: current everyday user Substances: Nicotine Devices: Pre-filled or refillable cartridge Substance Use Topics Alcohol use: Yes Comment: rarely, special occasions Drug use: No ALLERGIES Allergen Reactions Amoxicillin GI Upset Augmentin [Amoxicil* GI Upset Clomid [Clomiphene * Swelling MEDICATIONS: predniSONE (DELTASONE) 10 mg tablet Take 4 tabs daily for 3 days, then 2 tabs daily for 3 days, then 1 tab daily for 3 days with food. fluticasone (FLONASE ALLERGY RELIEF) 50 mcg/actuation nasal spray Use 1 [place] in each nostril once daily. folic acid 1 mg tablet Take 1 tablet by mouth once daily. ibuprofen (MOTRIN) 200 mg tablet Take 1-2 tablets by mouth every 6 hours as needed for Pain (Take with food.). diphenhydrAMINE (BENADRYL) 25 mg capsule Take 1 capsule by mouth every 6 hours as needed. Allergies, medications, past surgical history, family history and past medical history were reviewed per this encounter. Objective Ortho Exam One 8-year-old female in no acute distress, alert, pleasant, cooperative exam. Left shoulder shows no significant range of motion restriction. Tenderness noted over the left scapulothoracic region. No significant weakness with rotator cuff testing. Upper arm test is negative. Nick test is negative. Evaluation of the left wrist and hand shows mild soft tissue swelling of the dorsal aspect of the hand. Tenderness to palpation over the ulnar aspect of the wrist. No focal sensory neural deficits noted. Assessment/Plan ASSESSMENT Diagnosis (M25.532) Pain in left wrist (primary encounter diagnosis) Plan: XR WRIST GENERAL 3V PA/LAT/OBL LEFT Office Visit on 11/25/23 XR WRIST GENERAL 3V PA/LAT/OBL LEFT PLAN Fall with injury to left shoulder and left wrist FOLLOW-UP: No follow-ups on file. X-ray of the left wrist is obtained today Wrist splint issued follow up in 2 weeks if not improving SIGNATURE: Jonny Queen DO PATIENT NAME: Arlen Jimenez DATE: November 25, 2023 TIME: 2:40 PM * Fernanda Juan MA - 11/25/2023 2:18 PM EDT AMB ROOMING INTAKE FLOWSHEET DATA Pain Pain Level: 7 Pain Location: Arm-Left Description: Pressure, Sore, Tenderness Duration Amount of Time: 2 Duration Units: Days Frequency: Intermittent Intervention/Comfort measure: Other: See comment Comments: None Patient here today for left shoulder pain. Started having pain in the left hand as well along with swelling and decreased signals intelligence analysis manager strength. She reports that she fell and caught herself with the left cathy landed on the left knee. She was seen in Urgent Care. Works for [employer]. documented in this encounterUniversity Hospitals Elyria Medical Center07-10-2024 History of Present illness Narrative* Leela Alfaro RT(R) - 11/25/2023 2:40 PM EDT Radiology Service Progress Note PATIENT NAME: Arlen Jimenez DATE OF SERVICE: November 25, 2023 TIME: 2:48 PM PATIENT IDENTITY VERIFICATION COMPLETED USING TWO (2) IDENTIFIERS: Name and Date of confirmedby patient verbally. FALL SCREENING: Has the patient had 2 falls in the last year or 1 fall with injury or currently using an Ambulatory Assistive Device (Walker, Cane, Wheelchair, Crutches, etc.)? YES PATIENT GENDER DATA: Female. status: : No status: NO. PATIENT RELEVANT IMPLANT DATA REVIEWED: Not Applicable PATIENT PRESENTS WITH AN IMPLANTABLE OR ATTACHED MANAGER COMPENSATION: No RADIOLOGY DEPARTMENT: General X-ray: Exam(s) Completed: Upper Extremity X- Ray(s): Wrist, left PERIPHERAL IV DATA: Not applicable SIGNED BY: RT Alexus(Hola) November 25, 2023 2:48 PM documented in this encounterUniversity Hospitals Elyria Medical Center07-02-2024 History of Present illness Narrative* Toni Beauchamp RT(Hola) - 11/17/2023 2:20 PM EDT Radiology Service Progress Note PATIENT NAME: Arlen Jimenez DATE OF SERVICE: November 17, 2023 TIME: 2:01 PM PATIENT IDENTITY VERIFICATION COMPLETED USING TWO (2) IDENTIFIERS: Name and Date of confirmedby patient verbally. FALL SCREENING: Has the patient had 2 falls in the last year or 1 fall with injury or currently using an Ambulatory Assistive Device (Walker, Cane, Wheelchair, Crutches, etc.)? No PATIENT GENDER DATA: Female. status: : No status: NO. PATIENT RELEVANT IMPLANT DATA REVIEWED: Not Applicable PATIENT PRESENTS WITH AN IMPLANTABLE OR ATTACHED MANAGER COMPENSATION: No RADIOLOGY DEPARTMENT: General X-ray: Exam(s) Completed: Upper Extremity X- Ray(s): Shoulder, AP / TRUE AP / AXILLARY left PERIPHERAL IV DATA: Not applicable SIGNED BY: RT Teofilo(Hola) November 17, 2023 2:01 PM documented in this encounterUniversity Hospitals Elyria Medical Center07-02-2024 History of Present illness Narrative* Elsie Rand APRN.SUPERVISOR SEWER MAINTENANCE - 11/17/2023 1:57 PM EDT Images from the original note were not included. Subjective Patient came in with complaints of shoulder discomfort. Patient also noticed that she is significantly weaker in the left than the right. Says she fell about 3 days ago and landed more so on that side. Patient denies any numbness tingling or loss of feeling. She has noticed some swelling of the left arm. Patient says she can still use range of motion and is just uncomfortable. The history is provided by the patient. No frozen foods manager was used. Arm Injury Review of Systems Constitutional: Negative. Skin: Negative. Objective Physical Exam Constitutional: Appearance: Normal appearance. Pulmonary: Effort: Pulmonary effort is normal. Musculoskeletal: Arms: Comments: Tender in through this area when palpated. Range of motion is within normal limits. Graspstrength was significantly decreased on the left. Neurological: Mental Status: She is alert. PAST MEDICAL HISTORY Diagnosis Date Patient denies medical problems PAST SURGICAL HISTORY Procedure Laterality Date ANKLE Bilateral tendon repair, 2015 and 2016 EXTRACTION ERUPTED TOOTH/EXR TONSILLECTOMY AND ADENOIDECTOMY HX TYMPANOSTOMY GENERAL ANESTHESIA ALLERGIES Amoxicillin, Augmentin [Amoxicillin-Pot Clavulanate], and Clomid [Clomiphene Citrate] MEDICATIONS fluticasone (FLONASE ALLERGY RELIEF) 50 mcg/actuation nasal spray Use 1 [place] in each nostril once daily. ibuprofen (MOTRIN) 200 mg tablet Take 1-2 tablets by mouth every 6 hours as needed for Pain (Take with food.). folic acid 1 mg tablet Take 1 tablet by mouth once daily. diphenhydrAMINE (BENADRYL) 25 mg capsule Take 1 [...] Paternal Grandmother No Known Problems Paternal Grandfather Heart Maternal Aunt Social History Tobacco Use Smoking status: Former Years: 8 Types: Cigarettes Smokeless tobacco: Never Vaping Use Vaping Use: current everyday user Substances: Nicotine Devices: Pre-filled or refillable cartridge Substance Use Topics Alcohol use: Yes Comment: rarely, special occasions Drug use: No ASSESSMENT/PLAN: 1. Pain - ICD9: 780.96, ICD10: R52 - XR SHOULDER GENERAL 3V OR MORE AP/TRUE AP/OTHER LEFT * * * * Physician Interpretation * * * * CLINICAL INDICATION: Pain TECHNIQUE: 3 view radiographic study of the left shoulder COMPARISON: None FINDINGS: No acute fracture or dislocation identified. Acromioclavicular joint intact. IMPRESSION IMPRESSION: No radiographic evidence of acute osseous injury Perpetual Inventory Clerk: MARIAH Transcribe Date/Time: Nov 17 2023 2:14P Dictated by : ROMAN MCCARTHY MD - PREDNISONE 10 MG TABLET Patient was educated about proper use of medication and supportive therapies. Ortho consult was placed patient is currently scheduling upfront with [facility] staff. Patient will follow-up with Ortho due tothe weakness in the left arm. Patient was okay with this care plan. Elsie Rand APRN.BRIE documented in this encounterUniversity Hospitals Elyria Medical Center05-15-2024 Telephone encounter Note * Telephone Encounter - Tanvi Villa RN - 09/30/2023 4:29 AM EDT Reason for Call: Worsening poison oak rash Outcome: Advised to see a HCP within 4 hours. Pt verbalized understanding, and plans to go to [facility]. Reason for Disposition Rash involves more than 20% of the body Answer Assessment - Initial Assessment Questions 1. APPEARANCE of RASH: Right arm- small clusters bumps/scabs, Left arm- red pustules/dried clusters, Feet/lower legs-blisters, Neck-dried clusters, Underneath breasts-dried flat red clusters, Bikini line- rash looks similar to razor burn, Face-looks like a flat scratch 3. SIZE: Widespread 4. ONSET: 09/20-09/21 5. ITCHING: Severe 6. EXPOSURE: Poison [place] and Poison Steph 09/20-09/21 7. PAST HISTORY: None 8. : Pt reports chance of . LMP: 09/02 Pt recently treated at [facility] regarding the Poison [place] rash. Pt states the rash is worsening and medication is not effective. Protocols used: Poison Steph - [place] - [id number] [facility]05-15-2024 Miscellaneous Notes* Telephone Encounter - Tanvi Villa RN - 09/30/2023 4:29 AM EDT Reason for Call: Worsening poison oak rash Outcome: Advised to see a HCP within 4 hours. Pt verbalized understanding, and plans to go to [facility]. Reason for Disposition Rash involves more than 20% of the body Answer Assessment - Initial Assessment Questions 1. APPEARANCE of RASH: Right arm- small clusters bumps/scabs, Left arm- red pustules/dried clusters, Feet/lower legs-blisters, Neck-dried clusters, Underneath breasts-dried flat red clusters, Bikini line- rash looks similar to razor burn, Face-looks like a flat scratch 3. SIZE: Widespread 4. ONSET: 09/20-09/21 5. ITCHING: Severe 6. EXPOSURE: Poison [place] and Poison Steph 09/20-09/21 7. PAST HISTORY: None 8. : Pt reports chance of . LMP: 09/02 Pt recently treated at [facility] regarding the Poison [place] rash. Pt states the rash is worsening and medication is not effective. Protocols used: Poison Steph - [place] - [id number] documented in this encounterUniversity Hospitals Elyria Medical Center05-13-2024 History of Present illness Narrative* Jose Chanel PA - 09/28/2023 3:47 PM EDT Images from the original note were not included. This note was created using geoladriter. Subjective Arlen Jimenez is a 28 year old female. HPI 28-year-old female presents for rash. Patient states that she started getting a rash on her right arm about a week ago. She states is now spread to her left arm, neck, legs. She did cut down a poison steph tree with her friend prior to the rash starting. She thinks it is poison steph or poison oak.Patient has not had any fevers. No drainage from the areas. She states the areas are very itchy. She has been using hydrocortisone cream and aloe vera, but they only helped for short period of time. She states that the rash is continuing to spread. No other complaint. PAST MEDICAL HISTORY Diagnosis Date Patient denies medical problems PAST SURGICAL HISTORY Procedure Laterality Date ANKLE Bilateral tendon repair, 2015 and 2017 EXTRACTION ERUPTED TOOTH/EXR TONSILLECTOMY AND ADENOIDECTOMY HX TYMPANOSTOMY GENERAL ANESTHESIA ALLERGIES Amoxicillin, Augmentin [Amoxicillin-Pot Clavulanate], and Clomid [Clomiphene Citrate] MEDICATIONS fluticasone (FLONASE ALLERGY RELIEF) 50 mcg/actuation nasal spray Use 1 [place] in each nostril once daily. ibuprofen (MOTRIN) 200 mg tablet Take 1-2 tablets by mouth every 6 hours as needed for Pain (Take with food.). predniSONE (DELTASONE) 10 mg tablet Take 6 tabs for 3 days, then 4 tabs for 3 days, then 2 tabs for3 days then 1 tab for 3 days with food. folic acid 1 mg tablet Take 1 tablet by mouth once daily. diphenhydrAMINE (BENADRYL) 25 mg capsule Take 1 [...] Paternal Grandmother No Known Problems Paternal Grandfather Heart Maternal Aunt Social History Tobacco Use Smoking status: Former Years: 8 Types: Cigarettes Smokeless tobacco: Never Vaping Use Vaping Use: current everyday user Substances: Nicotine Devices: Pre-filled or refillable cartridge Substance Use Topics Alcohol use: Yes Comment: rarely, special occasions Drug use: No Review of Systems Constitutional: Negative for chills and fever. HENT: Negative for congestion, ear pain and sore throat. Respiratory: Negative for cough and shortness of breath. Cardiovascular: Negative for chest pain. Gastrointestinal: Negative for diarrhea and vomiting. Skin: Positive for rash. Objective BP 118/72 Pulse 78 Temp 36.8 C (98.2 F) (Tympanic) Resp 16 Wt (!) 142.3 kg (313 lb 11.4 oz) LMP 08/05/2023 (Exact Date) SpO2 100% BMI 50.63 kg/m Physical Exam Vitals and nursing note reviewed. Constitutional: General: She is not in acute distress. Appearance: Normal appearance. She is not toxic-appearing. Cardiovascular: Rate and Rhythm: Normal rate and regular rhythm. Pulmonary: Effort: Pulmonary effort is normal. Breath sounds: Normal breath sounds. Skin: Findings: Rash present. Rash is vesicular. Comments: Patient has rash noted to bilateral forearms, neck, legs. Some vesicular lesions noted. Excoriation noted. Appears consistent with a poison steph dermatitis. No fluctuance. No drainage. Neurological: Mental Status: She is alert. Assessment and Plan ASSESSMENT/PLAN: 1. Allergic contact dermatitis due to plants, except food - ICD9: 692.6, ICD10: L23.7 - Oral Steriod tx -Prednisone taper - Anti itch therapy of Calomine lotion, Oral Benydryl, and Claritin recommended prn - discussed skin care of rash - follow up if symptoms persist or worsen. Diagnosis and treatment plan were discussed and questions were answered to the patient's satisfaction. Pt acknowledged understanding of concepts and follow up plan. Specific signs and symptoms that would indicate the need for higher level of care were discussed in detail warranting prompt ER evaluation. FLORIAN Paniagua documented in this encounterUniversity Hospitals Elyria Medical Center04-26-2024 Telephone encounter Note * Telephone Encounter - Rossana Bond RN - 09/11/2023 5:59 PM EDT Patient calling with question about HCAPS and prescriptions. Patient denies any new or worsening symptoms of which a provider is not aware:Yes Patient is sitting at [facility]. Xiao, Pharmacist for MICKEY arreaga stated HCAPS do not cover prescriptions,patient made aware and verbalized understanding. Encouraged patient to speak with pharmacy to see what they would recommend and/or a discount program. [facility]04-26-2024 Miscellaneous Notes* Telephone Encounter - Rossana Bond RN - 09/11/2023 5:59 PM EDT Patient calling with question about HCAPS and prescriptions. Patient denies any new or worsening symptoms of which a provider is not aware:Yes Patient is sitting at [facility]. Xiao, Pharmacist for MICKEY arreaga stated HCAPS do not cover prescriptions,patient made aware and verbalized understanding. Encouraged patient to speak with pharmacy to see what they would recommend and/or a discount program. documented in this encounterUniversity Hospitals Elyria Medical Center04-26-2024 History of Present illness Narrative* Dayanna Askew APRN.SUPERVISOR SEWER MAINTENANCE - 09/11/2023 4:28 PM EDT This note was created using geoladriter. Subjective Arlen Jimenez is a 28 year old female. Patient presents with: Ear Problem: Left ear pain/pressure C/o left ear pressure for a few weeks Muffled hearing if head turned a certain way can be Has intermittent pressure, not having pain but uncomfortable When chewing feels pressure If sleeping on it can help or make worse No recent swimming or flying in airplane No ear drainage Rarely uses qtips Denies fever/chills No sick contacts The history is provided by the patient. No frozen foods manager was used. Review of Systems Constitutional: Negative for appetite change, chills, diaphoresis, fatigue and fever. HENT: Positive for ear pain. Negative for congestion, ear discharge, postnasal drip, rhinorrhea, sinus pressure, sinus pain, sneezing, sore throat and voice change. Eyes: Negative for redness and itching. Respiratory: Negative for cough, chest tightness, shortness of breath and wheezing. Cardiovascular: Negative for chest pain, palpitations and leg swelling. Gastrointestinal: Negative for constipation, diarrhea, nausea and vomiting. Genitourinary: Negative. Musculoskeletal: Negative. Skin: Negative for rash. Neurological: Negative for dizziness, syncope, weakness, light-headedness, numbness and headaches. Hematological: Negative. Psychiatric/Behavioral: Negative for dysphoric mood, self-injury, sleep disturbance and suicidal ideas. The patient is not nervous/anxious. All other systems reviewed and are negative. Objective BP 121/84 (BP Site: Left Arm, BP Position: Sitting, BP Cuff Size: Large Adult) Pulse 88 Temp 36.3 C (97.3 F) Ht 167.6 cm (5' 6") Wt (!) 140 kg (308 lb 10.3 oz) LMP 08/05/2023 (Exact Date) BMI 49.82 kg/m PAST MEDICAL HISTORY Diagnosis Date Patient denies medical problems PAST SURGICAL HISTORY Procedure Laterality Date ANKLE Bilateral tendon repair, 2015 and 2017 EXTRACTION ERUPTED TOOTH/EXR TONSILLECTOMY AND ADENOIDECTOMY HX TYMPANOSTOMY GENERAL ANESTHESIA Current Outpatient Medications on File Prior to Visit Medication Sig folic acid 1 mg tablet Take 1 tablet by mouth once daily. ibuprofen (MOTRIN) 200 mg tablet Take 1-2 tablets by mouth every 6 hours as needed for Pain (Take with food.). diphenhydrAMINE (BENADRYL) 25 mg capsule Take 1 capsule by mouth every 6 hours as needed. No current facility-administered medications on file prior to visit. ALLERGIES Allergen Reactions Amoxicillin GI Upset Augmentin [Amoxicil* GI Upset Clomid [Clomiphene * Swelling Physical Exam Vitals reviewed. Constitutional: General: She is awake. She is not in acute distress. Appearance: Normal appearance. She is well-developed. She is morbidly obese. She is not ill-appearing. HENT: Head: Normocephalic. Right Ear: Hearing, ear canal and external ear normal. No swelling or tenderness. No middle ear effusion. There is no impacted cerumen. Left Ear: Hearing, ear canal and external ear normal. No swelling or tenderness. A middle ear effusion is present. Ears: Comments: Clear fluid behind left TM Nose: Nose normal. No congestion or rhinorrhea. Right Sinus: No maxillary sinus tenderness or frontal sinus tenderness. Left Sinus: No maxillary sinus tenderness or frontal sinus tenderness. Mouth/Throat: Lips: [place]. Mouth: Mucous membranes are moist. Pharynx: Oropharynx is clear. Uvula midline. No pharyngeal swelling or posterior oropharyngeal erythema. Eyes: General: Right eye: No discharge. Left eye: No discharge. Extraocular Movements: Extraocular movements intact. Conjunctiva/sclera: Conjunctivae normal. Pupils: Pupils are equal, round, and reactive to light. Cardiovascular: Rate and Rhythm: Normal rate and regular rhythm. Pulses: Normal pulses. Heart sounds: Normal heart sounds. Pulmonary: Effort: Pulmonary effort is normal. No respiratory distress. Breath sounds: Normal breath sounds. No decreased breath sounds or wheezing. Musculoskeletal: General: Normal range of motion. Cervical back: Full passive range of motion without pain, normal range of motion and neck supple. Right lower leg: No edema. Left lower leg: No edema. Lymphadenopathy: Cervical: No cervical adenopathy. Skin: General: Skin is warm and dry. Capillary Refill: Capillary refill takes less than 2 seconds. Findings: No rash. Neurological: General: No focal deficit present. Mental Status: She is alert and oriented to person, place, and time. Mental status is at baseline. Cranial Nerves: No cranial nerve deficit. Sensory: Sensation is intact. No sensory deficit. Motor: Motor function is intact. No weakness. Coordination: Coordination is intact. Gait: Gait is intact. Gait normal. Psychiatric: Attention and Perception: Attention and perception normal. Mood and Affect: Mood and affect normal. Speech: Speech normal. Behavior: Behavior normal. Behavior is cooperative. Thought Content: Thought content normal. Thought content does not include homicidal or suicidal ideation. Cognition and Memory: Cognition and memory normal. Judgment: Judgment normal. ASSESSMENT/PLAN: 1. Dysfunction of left eustachian tube - ICD9: 381.81, ICD10: H69.92 - FLUTICASONE PROPIONATE 50 MCG/ACTUATION NASAL SPRAY,SUSPENSION Follow up as needed or sooner if new or worsening symptoms. Dayanna Askew APRN.SUPERVISOR SEWER MAINTENANCE documented in this encounterUniversity Hospitals Elyria Medical Center03-26-2024 History of Present illness Narrative* Chari Rand MD - 08/11/2023 8:29 AM EDT Maritime Guard offered: Patient declines. Arlen is a 28 year old who presents for an annual gynecologic exam without complaints. Menses: cycles every 30-32 days and 3 days of flow. Contraception: none HPV vaccine: Yes - 1 dose Last Pap: normal 2020 at [facility] HPV: N/A History of abnormal pap: Yes - age 18 that on repeat was normal. Also h/o chlamydia. Last mammogram: never OB History No obstetric history on file. 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 LMP: 08/05/2023 (Exact Date), Having periods Age at Menarche: Age at First : Age at Menopause: 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 Comments: Sexual Activity: Yes; Male Contraception: None PAST MEDICAL HISTORY Diagnosis Date Patient denies medical problems PAST SURGICAL HISTORY Procedure Laterality Date ANKLE Bilateral tendon repair, 2016 and 2016 EXTRACTION ERUPTED TOOTH/EXR TONSILLECTOMY AND ADENOIDECTOMY HX TYMPANOSTOMY GENERAL ANESTHESIA FAMILY HISTORY Problem Relation Age of Onset No Known Problems Mother No Known Problems Father other (other) Sister pseudotumor cerebri Other Sleep Disorder Sister pituitary tumor Migraines Sister Mental illness Sister anxiety/depression No Known Problems Maternal Grandmother No Known Problems Maternal Grandfather No Known Problems Paternal Grandmother No Known Problems Paternal Grandfather Heart Maternal Aunt SOCIAL HISTORY Social History Tobacco Use Smoking status: Former Years: 8 Types: Cigarettes Smokeless tobacco: Never Vaping Use Vaping Use: current everyday user Substances: Nicotine Devices: Pre-filled or refillable cartridge Substance Use Topics Alcohol use: Yes Comment: rarely, special occasions Drug use: No REVIEW OF SYSTEMS Abdomen: No abdominal pain, nausea, vomiting, diarrhea, or constipation. No bloating, early satiety, indigestion, or increased flatulence. Bladder: No dysuria, gross hematuria, urinary frequency, urinary urgency, or incontinence. Breast: No breast lumps, nipple d/c, overlying skin changes, redness or skin retraction. Allergies and current medication updated:Yes EXAM: BP 110/78 Ht 5' 6" (1.68m) Wt 307 lb 12.8 oz (139.6kg) LMP 08/05/2023 BMI 49.70 kg/(m^2). GENERAL: pleasant, female in no apparent distress BREAST: soft, non-tender, symmetric, no dominant mass, normal nipple-areolar complex, no lymphadenopathy, and no nipple discharge CHEST: Normal inspiratory effort ABDOMEN: soft, non-tender, and no masses PELVIC: external genitalia normal, normal Bartholin's glands, urethra, [place]'s glands, no vulvar lesions, no cervical lesions, good vaginal support, physiologic discharge present, normal appearing perineal body and perianal region BIMANUAL: uterus normal size, shape and consistency, no adnexal masses, and non-tender RECTOVAGINAL: deferred. NEURO: alert and oriented x3,exam grossly non-focal EXTREMITIES: normal ASSESSMENT/PLAN: 1) Health maintenance: Pap done with HPV. Nutrition, exercise and routine health maintenance exams reviewed. HPV vaccine: 1 dose 2) Contraception: none as desires . Advised on preconception folic acid. 3) STD screening: Declined STD check. 4) Follow up one year or sooner as needed 5) Advised on preconception folic acid Chari Rand MD documented in this encounterUniversity Hospitals Elyria Medical Center03-21-2024 History of Present illness Narrative* Gurwinder Waterman APRN.SUPERVISOR SEWER MAINTENANCE - 08/06/2023 3:23 PM EDT Subjective HPI HPI Arlen Jimenez is a 28 year old female who presents today for CC of fever, body aches, h/a, ear pain, cough, sob, congestion. This started 1-2 days ago. Has tried otc medication for relief. Symptoms are worsened by nothing. Risk factors sick exposures at work. Denies possibility of being . smoker. .Patient presents with: Flu Like Symptoms: Fever, headache, bilat ear pain, SOB, lethargic cough, runny nose congestion x 2days PAST MEDICAL HISTORY Diagnosis Date Patient denies medical problems PAST SURGICAL HISTORY Procedure Laterality Date ANKLE Bilateral tendon repair, 2015 and 2016 EXTRACTION ERUPTED TOOTH/EXR TONSILLECTOMY AND ADENOIDECTOMY HX ALLERGIES Amoxicillin, Augmentin [Amoxicillin-Pot Clavulanate], and Clomid [Clomiphene Citrate] MEDICATIONS clotrimazole (LOTRIMIN) 1 % vaginal cream Use 1 Applicatorful vaginally once daily. ibuprofen (MOTRIN) 200 mg tablet Take 1-2 tablets by mouth every 6 hours as needed for Pain (Take with food.). diphenhydrAMINE (BENADRYL) 25 mg capsule Take 1 capsule by mouth every 6 hours as needed. oseltamivir (TAMIFLU) 75 mg capsule Take 1 capsule by mouth two times a day for 5 days. FAMILY HISTORY Problem Relation Age of [...] No Review of Systems Constitutional: Positive for chills, fever and malaise/fatigue. HENT: Positive for congestion, ear pain and sore throat. Negative for ear discharge and nosebleeds. Respiratory: Positive for cough and shortness of breath. Negative for wheezing. Cardiovascular: Negative for chest pain. Musculoskeletal: Negative for neck pain. Skin: Negative for itching and rash. Objective Blood pressure 112/76, pulse 86, temperature 37.9 C (100.3 F), resp. rate 20, weight (!) 139 kg (306 lb 7 oz), last menstrual period 08/05/2023, SpO2 99%. Physical Exam Constitutional: General: She is not in acute distress. Appearance: She is ill-appearing. She is not toxic-appearing or diaphoretic. HENT: Head: Normocephalic and atraumatic. Right Ear: Hearing, tympanic membrane, ear canal and external ear normal. Left Ear: Hearing, tympanic membrane, ear canal and external ear normal. Nose: Nose normal. Mouth/Throat: Pharynx: Uvula midline. No pharyngeal swelling, oropharyngeal exudate, posterior oropharyngeal erythema or uvula swelling. Eyes: General: Lids are normal. No scleral icterus. Right eye: No discharge. Left eye: No discharge. Conjunctiva/sclera: Conjunctivae normal. Pupils: Pupils are equal, round, and reactive to light. Neck: Trachea: Trachea normal. Cardiovascular: Rate and Rhythm: Normal rate and regular rhythm. Heart sounds: Normal heart sounds. Pulmonary: Effort: Pulmonary effort is normal. Breath sounds: Normal breath sounds. Musculoskeletal: Cervical back: Normal range of motion and neck supple. Lymphadenopathy: Cervical: No cervical adenopathy. Right cervical: No superficial cervical adenopathy. Left cervical: No superficial cervical adenopathy. Skin: Findings: No rash. Neurological: Mental Status: She is alert and oriented to person, place, and time. ASSESSMENT/PLAN: 1. Influenza B - ICD9: 487.1, ICD10: J10.1 (primary diagnosis) -discussed expected course -discussed supportive care -discussed red flags and reasons for f/u -discussed contagiousness, reason/when close family members should f/u, and whom to avoid -f/u in 3-5 days if symptoms worsening - OSELTAMIVIR 75 MG CAPSULE 2. URI, acute - ICD9: 465.9, ICD10: J06.9 - Discussed viral etiology and rationale for treatment. - Symptomatic treatment with prn analgesia - Supportive care with fluids and rest - INFLUENZA A&B MOLECULAR (POC) Gurwinder Waterman APRN.SUPERVISOR SEWER MAINTENANCE documented in this encounterUniversity Hospitals Elyria Medical Center02-22-2024 History of Present illness Narrative* Carol Isaac RT(R) - 07/09/2023 3:00 PM EST Radiology Service Progress Note PATIENT NAME: Arlen Jimenez DATE OF SERVICE: July 09, 2023 TIME: 2:59 PM PATIENT IDENTITY VERIFICATION COMPLETED USING TWO (2) IDENTIFIERS: Name and Date of confirmedby patient verbally. FALL SCREENING: Has the patient had 2 falls in the last year or 1 fall with injury or currently using an Ambulatory Assistive Device (Walker, Cane, Wheelchair, Crutches, etc.)? No PATIENT GENDER DATA: Female. status: : No status: NO. PATIENT RELEVANT IMPLANT DATA REVIEWED: Yes PATIENT PRESENTS WITH AN IMPLANTABLE OR ATTACHED MANAGER COMPENSATION: No RADIOLOGY DEPARTMENT: General X-ray: Exam(s) Completed: Upper Extremity X- Ray(s): Fingers/Thumb, right ring PERIPHERAL IV DATA: Not applicable SIGNED BY: RT Dixie(R) July 09, 2023 2:59 PM documented in this encounterUniversity Hospitals Elyria Medical Center02-22-2024 History of Present illness Narrative* Flakito Beth MD - 07/09/2023 2:48 PM EST Patient presents with: Finger Injury: RIGHT ring finger x 1 week HPI: Right ring finger pain: Duration: pinched right ring finger between a metal door and ice cream 1 week ago. Numbness in ringand small finger started last night. She would like to make sure she did not break anything. Location: proximal right ring finger Character: stiff, tingly Radiation: No. Aggravating: making a fist Relieving: Pain relievers: Tylenol first few days after injury Associated: intermittent numbness today, resolved bruising, lump thenar proximal phalange Pertinent negatives: Denies weakness MEDICATIONS: clotrimazole (LOTRIMIN) 1 % vaginal cream Use 1 Applicatorful vaginally once daily. ibuprofen (MOTRIN) 200 mg tablet Take 1-2 tablets by mouth every 6 hours as needed for Pain (Take with food.). diphenhydrAMINE (BENADRYL) 25 mg capsule Take 1 capsule by mouth every 6 hours as needed. ALLERGIES: ALLERGIES Allergen Reactions Amoxicillin GI Upset Augmentin [Amoxicil* GI Upset Clomid [Clomiphene * Swelling VITALS: BP 118/82 Pulse 99 Temp 36.7 C (98.1 F) (Left Tympanic) Resp 16 Wt (!) 140 kg (308 lb 9.6 oz) LMP 06/27/2023 (Exact Date) BMI 47.59 kg/m PE: Pleasant, in no acute distress. Finger: right 4th. No erythema, edema, ecchymosis, or deformity. Slight decreased flexion for fist.Full flexion and extension at individual joints. Tender PIP and proximal phalange. Non-tender metacarpals and other fingers. Tap at the elbow lateral epicondyle reproduces tingling in the 4th and 5thfingers. ASSESSMENT/PLAN: 1. Finger pain, right - ICD9: 729.5, ICD10: M79.644 - XR DIGIT GENERAL 3V FRONTAL/LAT/OBL RIGHT - negative. Continue supportive care for finger contusion with splint and OTC analgesia. Follow up with primary care or orthopedics for persistent ulnar nerve distribution numbness. Flakito Beth MD documented in this encounterUniversity Hospitals Elyria Medical Center01-01-2024 Discharge summary Author Samy Barboza [facility] May 18, 2023 10:17am Note Date/Time May 18, 2023 8: 19am [facility] Medical Records Department [address] [place] [address] Emergency Department Summary 05/18/23 MR#: [id number] Acct: [id number] Name: ARLEN JIMENEZ Rep #:[id number] : 1995 28 From: Samy Barboza MD PCP: Care Physician,No Primary Status :REG ER Location: ED HPI History of Present Illness Chief Complaint: Chest Pain Informant: patient Narrative Narrative: Patient presents with chest pain and elevated blood pressure. Patient noted last evening when she went to work some discomfort along the rightposterior lateral aspect of her chest. There is some motion related change. She is not short of breath with it. Not syncopal or near syncopal. She thoughtshe likely pulled a muscle. 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 She does not know if this happened though. She did have a viral type URI about a week ago but feels that that is completely resolved. Sheis not coughing now although she was. No fevers or chills. There is been no travel surgery immobilization personal or family history of DVTor PE. I have verified by asking twice and the reasons for it that she is not on any hormone therapy or control. She has no primary relative history ofheart disease. No diabetes no blood pressure cholesterol. She vapes but does not smoke now. She was counseled to quit this. [facility] Medical History Acute back pain Home Medications cyclobenzaprine 10 mg tablet 10 mg PO TID PRN Muscle Spasm #15 TABLETS 02/10/21 [Rx Last Taken Unknown] hydrocodone-acetaminophen 5-325mg 5mg-325mg 1 tab PO Q6H PRN PRN Pain 3 days #10TABLETS 02/10/21 [Rx Last Taken Unknown] naproxen 500 mg tablet (Naprosyn) 500 mg PO BID PRN pain #20 tabs 05/18/23 [Rx Last Taken Unknown] Allergy/AdvReac Type Severity Reaction Status Date / Time amoxicillin Allergy Vomiting Verified 02/10/21 05:45 clavulanic acid Allergy Vomiting Verified 02/10/21 05:45 [From Augmentin] clomiphene [From Clomid] Allergy Other Verified 02/10/21 05:45 Surgical History Hx of tonsillectomy Status post tendon repair [place] teeth extracted Social History Smoking Status: Current every day smoker tobacco type: cigarettes substance use type: does not use ROS ROS ED ROS Narrative A complete review of systems was performed and is negative except as documented in the history of present illness. Some specific details below. Constitutional: No recent fevers or chills. She had a flulike illness last weekhad 2 negative COVID tests and her symptoms have really resolved. EYE: No discharge, visual complaints, or pain. ENT: No difficulty swallowing. No swelling. No pain. No reflux symptoms. CV: See history of present illness. Respiratory: Not coughing at this time. Not short of breath. GI: No abdominal pain. No nausea vomiting diarrhea. No blood in stool. : No frequency dysuria or hematuria. Musculoskeletal: No known recent trauma. No pains. She has a history of some mild swelling of her ankles all the time. This is due to weight and the fact she has had surgery on both ankles. This is no different than normal. Skin: No rash. Nondiaphoretic. Neuro: No weakness or numbness. Endocrine: No polyuria or polydipsia. EXAM Physical Exam Narrative Exam Narrative: CONSTITUTIONAL: Patient is nontoxic in appearance. The patient looks comfortable. Work of breathing looks normal. HEENT: No notable trauma. Mucous membranes moist. No sinus tenderness. No exudate erythema or swelling. EYES: No conjunctival injection. No proptosis. NECK:No JVD. No stridor. CARDIOVASCULAR: Regular rate at about 80?85. Regular rhythm. No notable murmur. No JVD. Tones are not muffled. Peripheral pulses are normal x 4. RESPIRATORY: No respiratory distress. Breathing is unlabored. No wheezes. No rhonchi. No rales. No pain with a deep breath. She does have some posterior right chest wall tenderness from the AC joint down to the lower ribs just behindthe posterior axillary line. But there are no skin changes or rash or vesicles. No subcu air. GASTROINTESTINAL: Obese but not distended. Bowel sounds are normal. No tenderness. No guarding. No rebound. No palpable mass. No bruit is heard. GENITOURINARY: No tenderness over the bladder. No CVA tenderness. MUSCULOSKELETAL: Atraumatic. No peripheral edema. Her ankles are not small but there are no pitting. No cord. No tenderness along the deep venous system. No asymmetry. No distended veins. NEUROLOGICAL: Patient is alert and appropriate. No focal deficit noted. SKIN: No noted rashes. No diaphoresis. PSYCHIATRIC: Patient is calm. Mood is appropriate. Const Vital Signs: 05/18/23 07:45 Temperature 98.2 F Temperature Source Temporal Pulse Rate 93 Respiratory Rate 14 Blood Pressure 134/85 H Blood Pressure Mean 101 Pulse Ox 100 Oxygen Delivery Method Room Air MDM MDM MDM Narrative Medical decision making narrative: Patient's EKG is overall normal and that is even while she has symptoms. My independent interpretation of her chest x-ray shows PA and lateral images. No pneumothorax. No infiltrate. Slightly poor inspiratory depth. Final reading is pending. Final reading shows no acute process Patient is PERC negative and I do not think she needs a D-dimer or CT scan of the chest. Also, other than obesity she does not have any known risk factor forheart disease and her symptoms or not consistent with cardiac pain and she has anormal EKG at a young age. I do not think we need to pursue acute coronary syndrome as a cause of her symptoms. I can reproduce some of her symptoms with motion and palpation. I also explained that although her blood pressure is not normal this is not a concerning level acutely. This can be watched and managed if needed as an outpatient. It sounds like her sister does have some high bloodpressure so with a family history and some increased weight she is much more likely to develop blood pressure at an earlier age. Radiography Diagnostic Testing: Clinical Impression(s) from Imaging Studies Chest X-Ray 05/18/23 08:20 IMPRESSION: No radiographic evidence of acute cardiopulmonary disease. Electronically Signed: Davon Garcia MD at 9:55 EST , EKG Initial EKG: Comments: My independent interpretation of her EKG shows a normal sinus rhythm with overall rate of 83. No ectopy. No acute ST elevation or depression. [place] interval, QRS duration and QTc are all normal. This EKG was done with symptoms. Discharge Plan Triage Chief Complaint: Chest Pain ED Provider: Samy Barboza Dx/Rx/DC Orders Clinical Impression: Right-sided chest wall pain Instructions: ED Chest Pain, Uncertain Cause Prescriptions: New naproxen [Naprosyn] 500 mg tablet 500 mg PO BID PRN (Reason: pain) Qty: 20 0RF No Action hydrocodone-acetaminophen [hydrocodone-acetaminophen] 1 TABLET tablet 1 tab PO Q6H PRN PRN (Reason: Pain) 3 Days Qty: 10 0RF cyclobenzaprine [cyclobenzaprine] 10 MG tablet 10 mg PO TID PRN (Reason: Muscle Spasm) Qty: 15 0RF Primary Care Provider: Care Physician,No Primary Referrals: Jill Mir MD [Med Staff - Dining Service Inspector] - 3-5 Days Care Physician,No Primary [Primary Care Provider] - Activity Restrictions/Additional Instructions: Follow-up for recheck of blood pressure. Treatment is best based on overall readings over a period of time rather than a single day or reading. Disposition Disposition: Home, Self Care What to do if you have Problems For any increased pain, shortness of breath, bleeding, nausea or vomiting, chestpain, or any unexpected problems, contact your Primary Care Provider. Call [facility] ([phone]) or report to the closest Emergency Room. Call 911 if necessary. 05/18/23 1017 <Electronically signed by Samy Barboza MD> Cosigner Signature (if applicable): CC: No Primary Care Physician ~ Signed [facility] Work Phone: [phone]) 217-570310-30-2023 Miscellaneous Notes* Telephone Encounter - Leela Matthew - 03/16/2023 8:21 AM EDT Patient given results and verbalized understanding of instructions given. Leela Matthew * Telephone Encounter - Hoa Valdez MA - 03/16/2023 7:24 AM EDT ----- Message from Lorenza Baires APRN.SUPER[employer]OR [employer]TE[employer] sent at 03/16/2023 7:12 AM EDT ----- Test was positive for yeast, all others negative. She may use medication as prescribed at the visit. documented in this encounterUniversity Hospitals Ely[facility] Center10-29-2023 History of Present illness Narrative* Lorenza Baires APRN.BRIE - 03/15/2023 2:42 PM EDT Images from the original note were not included. Subjective Vaginal Problem Pertinent negatives include no chills or fever. Arlen Jimenez is a 27 year old female who presents with one week of vaginal itching. She has been using monistat OTC but has not had improvement. She describes the vaginal area as "raw feeling". She denies concern for STD, states she [...] nursing note reviewed. Exam conducted with a svp chief marketing officer present. Constitutional: Appearance: Normal appearance. Genitourinary: Vagina: Vaginal discharge, erythema and tenderness present. Cervix: No discharge, lesion or erythema. Skin: General: Skin is warm and dry. Findings: Erythema present. No rash. Neurological: Mental Status: She is alert. ASSESSMENT/PLAN: 1. Itching in the vaginal area - ICD9: 698.1, ICD10: N89.8 - FENG/TRICHOMONAS NAAT - BACTERIAL VAGINOSIS NAAT - GONORRHEA/CHLAMYDIA NAAT - FLUCONAZOLE 150 MG TABLET - exam is consistent with vaginal yeast infection. Lorenza Baires APRN.CNP documented in this encounterUniversity Hospitals Ely[facility] Center10-29-2023 Instructions* Patient Instructions* Lorenza Baires APRN.CNP - 03/15/2023 2:42 PM EDT ASSESSMENT/PLAN: 1. Itching in the vaginal area - ICD9: 698.1, ICD10: N89.8 - FENG/TRICHOMONAS NAAT - BACTERIAL VAGINOSIS NAAT - GONORRHEA/CHLAMYDIA [...] are menstruating (having monthly periods). They are lesscommon in postmenopausal women who do not take [...] abnormal vaginal discharge. Others have white clumpy (curd- like) or watery vaginal discharge. Symptoms of a yeast infection are similar to a number of other conditions, including bacterial vaginosis (a bacterial infection of the vagina), trichomoniasis (a sexually transmitted infection), and dermatitis (irritated skin). It is often not possible to know if itching is caused by yeast or other causes. VAGINAL YEAST INFECTION CAUSE The fungus that causes yeast infections (named Feng) normally lives in the gastrointestinal tract and sometimes the vagina. Normally, Feng causes no symptoms. However, when there are changes inthe normal magen of the gastrointestinal tract and vagina (caused by medicines, injury, or stress to the immune system), Feng can overgrow and cause the symptoms described above. VAGINAL YEAST INFECTION RISK FACTORS In most women, there is no underlying health problem that leads to a yeast infection. There are several risk factors that may increase the chances of developing an infection, including: Antibiotics -- Most antibiotics kill a wide variety of bacteria, including those that normally livein the vagina. These bacteria protect the vagina from the overgrowth of yeast. Some women are proneto yeast infections while taking antibiotics. Hormonal contraceptives [...] a yeast infection and then use a non- prescription treatment. However, in one study, only 11 [...] fluconazole (Diflucan ) is another option for treatingyeast infections. Most women only need one dose, [...] symptoms of vulvar or vaginal irritation or itchingshould be seen by a healthcare provider to ensure that her symptoms are caused by yeast rather thanother common problems (eg, other vaginal infections, allergic reaction or sensitivity, eczema). As with initial infections, self-diagnosis is not accurate enough to recommend treatment. Treatment -- Women with recurrent infections are usually given a longer course of treatment for infections, between 7 and 14 days for a topical (cream or suppository) medication or fluconazole 150 mgby mouth with a second and third dose 3 and 6 days later. Preventive treatment may be recommended after the infection has resolved; this may include fluconazole (150 mg orally once per week) or clotrimazole (500 mg vaginal suppositories administered once per week). Treatment of a sexual partner -- Vaginal yeast infections are not a sexually transmitted infection,although the infection may rarely be passed from [...] present, discharge is typically white and clumpy (curd- like) or thin and watery. Symptoms of a [...] pill taken by mouth. documented in this encounterUniversity Hospitals Elyria Medical Center10-22-2023 Miscellaneous Notes* Telephone Encounter - Anne Marie Yen RN - 03/08/2023 11:41 AM EDT Reason for Call: Toe nail fungus Outcome: I conf her to the forensic engineer * Telephone Encounter - Anne Marie Yen RN - 03/08/2023 11:22 AM EDT Reason for Disposition [1] After 2 weeks [...] improving 6. : Denies Protocols used: Toe Uxgi-RCAAQ-LP, Athlete's Puac-KNTYT-FQ documented in this encounterUniversity Hospitals Elyria [facility] Center10-17-2023 History of Present illness Narrative* Lorenza Baires APRN.BRIE - 03/03/2023 3:47 PM EDT Subjective Ear Pain Pertinent negatives include no chills, congestion, coughing, fever, myalgias or sore throat. Arlen Jimenez is a 27 year old female who [...] illness Lorenza Baires APRN.CNP documented in this encounterUniversity Hospitals Elyria [facility] Center10-17-2023 Instructions* Patient Instructions* Lorenza Baires APRN.CNP - 03/03/2023 3:47 PM [...] expected course of illness Lorenza Baires APRN.CNP OTITIS MEDIA GENERAL INFORMATION: Otitis media is [...] even if the symptoms go away. 2. Grwl-khr-cadhjal pain medication may be taken or other [...] holding him or her). documented in this encounterUniversity Hospitals Elyria [facility] Center09-17-2023 Hospital Discharge instructions Patient Education 01/31/2023 22:01:37 [...] the first few days. You may use cdti-sfx-dzghpba medicine, such as acetaminophen or ibuprofen, to [...] F (38 C) or as advised Seizure [id number] The [employer]. [address] [place] [address]. All rights reserved. This information is not intended as a substitute for professional medical care. Always follow yourhealthcare professional's instructions. Follow Up Care 01/31/2023 21:45:36 With:[facility] Address: [address] [place] [phone] When:2-4 days With:Call Physician Referral Address:Unknown When:2-4 days [facility] 09-16-2023 Emergency department Discharge summary Discharge Instructions Thank you for allowing [facility] to assist you with your healthcare needs. The following is importantdischarge information regarding your hospital visit. Diagnosis from [...] Following Appointments Follow Up with [facility] When Within 2-4 days Where: [address] [place] [phone] Follow Up with Call Physician Referral When Within 2-4 days Allergies No active allergies Medications Please ask your primary doctor or pharmacist before taking any other medication not listed, including over the counter drugs, herbal medications, vitamins and or supplements as they may interact withyour home medications. What How Much When Instructions [...] the first few days. You may use rtus-uxv-niezvrl medicine, such as acetaminophen or ibuprofen, to [...] F (38 C) or as advised Seizure [id number] [employer]. [address] [place] [address], [place] [address]. All rights reserved. This information is not intended as a substitute for professional medical care. Always follow yourhealthcare professional's instructions. Additional Information VACCINATE! IT SAVES LIVES! Members of the community who have not yet received the COVID-19 vaccine and would like to receive it can visit one of [facility] vaccine clinics. There are many vaccine clinic locations within the [facility]. For locations and available times, please visit [email or web address].[email or web address]/. It is important to note that some COVID mobile vaccine clinics are held outdoors and may be canceled in rainy or stormy conditions. To learn more about pediatric vaccinations (ages 5-11), we invite you to visit the [facility] webpage. [email or web address] learn more about the COVID-19 vaccine, we invite you to visit the CDC website for a list of frequently asked questions. https://www.cdc.gov/coronavirus/2019-ncov/vaccines/faq.html [facility] Patient Portal Access Instructions: Stay connected with your healthcare team and access your personal medical information anytime with the [facility] Patient Portal. If you would like a full copy of your medical records please contact the [facility] Medical Records Department Thursday through Thursday between 8a.m. and 4:30p.m. Please follow the directions below to access the portal: 1.Access the email account you provided upon registration to the hospital.2.Look for an invitation email from [facility].3.Open the email and access the invitation link: Accept Invitation to [facility]4.Fill in the required thomas to create your account. Sign into [email or web address] with your username and password that you [...] you will allow to register on the [facility] Patient Portal for access to your information. You can also access the [facility] Patient Portal on the [employer]. Simply click on "Health Records" under "HealthData" and then click on the Anup logo. HOW TO SAFELY DISPOSE OF PRESCRIPTION MEDICATIONS Please use one of the following methods to safely dispose of your unused medications. 1.Use a drug disposal kit: the drug disposal pouch allows you to safely discard your old and unuseddrugs. Ask your nurse to give you one when you are discharged.2.Visit a local take-back location: Many local pharmacies and police departments have programs that collect old and unwanted prescriptiondrugs. Call your local pharmacy or go to http://Nanjing Zhangmen.[employer]/2Z1Ao1g to find one close to you.3.Make use of household items: Use cat litter or old coffee grounds to dispose medications if other options arenot available. Mix your drugs with these household products, seal them in an airtight container andthrow it into the garbage. Call [facility]: [phone] to be sure your drugs can be [...] drowsiness, such as benzodiazepines, also known as benzos,including diazepam and alprazolam, muscle relaxants or sleep aids. Never sell or share prescriptionopioids. This is illegal. Store opioids in a [...] aware that I should contact my doctor. 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 [...] Discussed expected course of illness Lorenza Baires APRN.[facility] HEADACHE GENERAL INFORMATION: Almost everyone has a headache occasionally. Most headaches are caused by tension, eye strain, or emotional upset. Headaches can also occur with many medical illnesses. They may be a side effect of some medications. A headache that occurs without other symptoms and only lasts a few hours probably isn't a cause for concern. INSTRUCTIONS: 1. You may use jxev-aoi-acwowxl pain medication such as acetaminophen, ibuprofen, or aspirin unlessyour doctor recommends otherwise. 2. Try some of [...] headache you ever had before, or is "the worst headache of your life." 2. You feel confused or drowsy. 3. Your neck feels stiff. 4. You have a temperature of 102 F (39 C) or higher. 5. You have eye problems such as sensitivity to light or blurred or double vision. 6. You start to vomit. 7. You have difficulty walking, talking, or moving your arms or legs. documented in this encounterUniversity Hospitals Elyria [facility] Center06-12-2023 History of Present illness Narrative* Lorenza Baires APRN.CNP - 10/27/2022 12:45 PM EDT Subjective Headache Pertinent negatives include no fever, no nausea and no vomiting. Arlen Jimenez is a 27 year old female who presents with a headache for the past 6 days. Pain has varied in intensity; right now sherates it 4/10 but last night it was worse and "felt like a hot poker through my right eye". She hashad photosensitivity with this. She denies nausea or vomiting. She has a family history of migraines but has never been diagnosed with migraines. She denies associated URI symptoms. No sick contacts.Denies visual changes or dizziness. Denies any weakness [...] Date ANKLE Bilateral tendon repair, 2015 and 2016 EXTRACTION ERUPTED TOOTH/EXR TONSILLECTOMY AND ADENOIDECTOMY HX [...] Discussed expected course of illness Lorenza Baires APRN.BRIE documented in [facility] note No data available for this section [facility] Evaluation note* Diagnosis Headache, unspecified headache type- Primary documented in this encounter [facility] note* Diagnosis Other acute nonsuppurative otitis media of right ear, recurrence not specified- Primary [facility] [place] [facility]* Diagnosis Itching in the vaginal area- Primary Pruritus of genital organs documented in this encounter [facility] [place] noteNo assessment information availableWCommunity Memorial Hospital Work Phone: Evaluation note* Diagnosis Finger pain, right- Primary Pain in limb documented [facility] [place] [facility]* Diagnosis Influenza B- Primary Influenza with other respiratory manifestations URI, acute Acute upper respiratory infections of unspecified site documented [facility] [place] [facility]* Diagnosis Encounter for gynecological examination (general) (routine) without abnormal findings- Primary Screening for cervical cancer Screening for malignant neoplasm of the cervix Encounter for screening for human papillomavirus (HPV) Special screening examination for human papillomavirus (HPV) documented in this encounter [facility]* Diagnosis Dysfunction of left eustachian tube- Primary Dysfunction of Eustachian tube documented in this encounter [facility]* Diagnosis Allergic contact dermatitis due to plants, except food- Primary Contact dermatitis and other eczema due to plants (except food) documented in this encounter [facility]* Diagnosis Pain- Primary Generalized pain Pain Generalized pain documented in this encounter [facility]* Diagnosis Pain in left wrist- Primary Pain in joint, forearm documented in this encounter [facility]* Diagnosis Pain in left wrist Pain in joint, forearm documented in this [facility]* Diagnosis Pain Generalized pain documented in this [facility]* Diagnosis Finger pain, right Pain in limb documented in this encounter [facility]* Diagnosis Sore throat- Primary Acute pharyngitis Viral illness Unspecified viral infection, in conditions classified elsewhere and of unspecified site documented in this encounter [facility]* Diagnosis Foot pain, right- Primary Pain in limb documented in this encounter [facility]* Diagnosis Posterior tibial tendon dysfunction, bilateral- Primary Foot pain, right Pain in limb Venous insufficiency Unspecified venous (peripheral) insufficiency Raynaud's disease without gangrene documented in this encounter [facility]* Diagnosis Venous insufficiency- Primary Unspecified venous (peripheral) insufficiency documented in this encounter [facility] [place] [facility]* Diagnosis Symptomatic varicose veins of both lower extremities- Primary Varicose veins of lower extremities with other complications Venous insufficiency Unspecified venous (peripheral) insufficiency documented in this encounter [facility] Discharge instructions Additional Instructions Follow-up for recheck of blood pressure. Treatment is best based on overall readings over a period of time rather than a single day or reading.[facility] Work Phone: Reason for referral (narrative)* Diagnostic Procedure Only (Urgent) - Pending Review Specialty Diagnoses / Procedures Referred By Carmen morris Referred To Contact XR IMAGING Diagnoses Finger pain, right Procedures XR DIGIT GENERAL 3V FRONTAL/LAT/OBL RIGHT RADEX FINGR MINIMUM 2 VIEWS Flakito Beth MD [address] [place] [address] [place] [address] Referral ID Status Reason Start Date Expiration Date Visits Requested Visits Authorized [id number] Pending Review Auto-Generat ed Referral 07/09/2023 08/07/2024 1 1 [facility] for referral (narrative)* Diagnostic Procedure Only (Routine) - Closed Specialty Diagnoses / Procedures Referred By Contac t Referred To Contact XR IMAGING Diagnoses Pain in left wrist Procedures XR WRIST GENERAL 3V PA/LAT/OBL LEFT RADEX WRIST COMPLETE MINIMUM 3 VIEWS Jonny Queen V, DO [address] [place] [address] [place] [address] Referral ID Status Reason Start Date Expiration Date V isits Requested Visits Authorized [id number] Closed Auto-Generate d Referral 11/25/2023 12/24/2024 1 1 [facility] for referral (narrative)* Diagnostic Procedure Only (Urgent) - Closed Specialty Diagnoses / Procedures Referred By Contac t Referred To Contact XR IMAGING Diagnoses Pain Procedures XR SHOULDER GENERAL 3V OR MORE AP/TRUE AP/OTHER LEFT RADEX SHOULDER COMPLETE MINIMUM 2 VIEWS Elsie Rand APRN.SUPERVISOR SEWER MAINTENANCE [address] [place] [address] [place] [address] Referral ID Status Reason Start Date Expiration Date V isits Requested Visits Authorized [id number] Closed Auto-Generate d Referral 11/17/2023 12/16/2024 1 1 [facility] for referral (narrative)* Diagnostic Procedure Only (Urgent) - Pending Review Specialty Diagnoses / Procedures Referred By Contac t Referred To Contact XR IMAGING Diagnoses Finger pain, right Procedures XR DIGIT GENERAL 3V FRONTAL/LAT/OBL RIGHT RADEX FINGR MINIMUM 2 VIEWS Flakito Beth MD [address] [place] [address] [place] [address] Referral ID Status Reason Start Date Expiration Date Visits Requested Visits Authorized [id number] Pending Review Auto-Generat ed Referral 07/09/2023 08/07/2024 1 1 [facility] for referral (narrative)No reason for referral information [facility] Work Phone: [facility] Narrative* Diagnostic Procedure Only (Routine) - Closed Specialty Diagnoses / Procedures Referred By Contac t Referred To Contact XR IMAGING Diagnoses Pain in left wrist Procedures XR WRIST GENERAL 3V PA/LAT/OBL LEFT RADEX WRIST COMPLETE MINIMUM 3 VIEWS Jonny Queen V, DO [address] [place] [address] [place] [address] Referral ID Status Reason Start Date Expiration Date V isits Requested Visits Authorized [id number] Closed Auto-Generate d Referral 11/25/2023 12/24/2024 1 1 [facility] for visit Narrative* Diagnostic Procedure Only (Urgent) - Closed Specialty Diagnoses / Procedures Referred By Contac t Referred To Contact XR IMAGING Diagnoses Pain Procedures XR SHOULDER GENERAL 3V OR MORE AP/TRUE AP/OTHER LEFT RADEX SHOULDER COMPLETE MINIMUM 2 VIEWS Elsie Rand APRN.CNP [address] [place] [address] [place] [address] Referral ID Status Reason Start Date Expiration Date V isits Requested Visits Authorized [id number] Closed Auto-Generate d Referral 11/17/2023 12/16/2024 1 1 [facility] for visit Narrative* Diagnostic Procedure Only (Urgent) - Pending Review Specialty Diagnoses / Procedures Referred By Contac t Referred To Contact XR IMAGING Diagnoses Finger pain, right Procedures XR DIGIT GENERAL 3V FRONTAL/LAT/OBL RIGHT RADEX FINGR MINIMUM 2 VIEWS Flakito Beth MD [address] [place] [address] [place] [address] Referral ID Status Reason Start Date Expiration Date Visits Requested Visits Authorized [id number] Pending Review Auto-Generat ed Referral 07/09/2023 08/07/2024 1 1 [facility] Diagnostic Procedure Only (Urgent) - Closed Specialty Diagnoses / Procedures Referred By Contac t Referred To Contact XR IMAGING Diagnoses Foot pain, right Procedures XR FOOT GENERAL 3V AP/LAT/OBL RIGHT RADEX FOOT COMPLETE MINIMUM 3 VIEWS Gurwinder Waterman APRN.SUPERVISOR SE[employer] MAINTENANCE [address] [place] [address] Phone: tel: fax: [place] [address] Referral ID Status Reason Start Date Expiration Date V isits Requested Visits Authorized [id number] Closed Auto-Generate d Referral 09/05/2024 10/05/2025 1 1 [facility] Reason for Referral Specialty Diagnoses / Procedures Referred By Contac t Referred To Contact Diagnoses Headache, unspecified headache type Procedures CONSULT TO HEADACHE CLINIC OFFICE/OUTPATIENT [facility] 60-74 MINUTES Lorenza Baires, ASSISTANT PROFESSOR OF BUSINESS.SUPERVISOR SEWER MAINTENANCE [address] [place] [id number] Referral ID Status Reason Start Date Expiration Date Visits Requested Visits Authorized [id number] Pending Review PCP Requested Referral 10/27/2022 10/27/2023 1 1 Specialty Diagnoses / Procedures Referred By Contac t Referred To Contact Orthopedics Diagnoses Pain Procedures CONSULT PANEL TO ORTHOPAEDICS OFFICE/OUTPATIENT [facility] MDM 60 MINUTES Elsie Rand, MAHENDRA.SUPERVISOR SEWER MAINTENANCE [address] [place] [address] Referral ID Status Reason Start Date Expiration Date Visits Requested Visits Authorized [id number] Authorized PCP Requested Referral 11/17/2023 11/16/2024 1 1 Specialty Diagnoses / Procedures Referred By Contac t Referred To Contact XR IMAGING Diagnoses Pain Procedures XR SHOULDER GENERAL 3V OR MORE AP/TRUE AP/OTHER LEFT RADEX SHOULDER COMPLETE MINIMUM 2 VIEWS Elsie Rand APRN.SUPERVISOR [employer] MAINTENANCE [address] [place] [address] [place] [address] Referral ID Status Reason Start Date Expiration Date V isits Requested Visits Authorized [id number] Closed Auto-Generate d Referral 11/17/2023 12/16/2024 1 1 Medications Administered Section Inactive Administered [...] 12:52 PM EDT 60 mg Hip, Left Chief Complaint and Reason for Visit Chief Complaint Admit Date [employer] ARCHITECT EST CARE-WC PATIENT November 10, 2024 1 :57pm Reason for Visit Admit Date ADHD November 10, 2024 1:57 pm Anxiety and depression November 10, 2024 1 :57pm Establishing care with [facility] queen for November 10, 2024 1:57pm Fatigue November 10, 2024 1:57 pm Venous insufficiency November 10, 2024 1:5 7pm Morbid obesity with body mas s index (BMI) of 50.0 to 59.9 in adult November 10, 2024 1:57pm Bright red blood per rectum November 10 025 1:57pm Chief Complaint cp Reason for Visit Admit Date Peripheral edema November 10, 2024 1:57 pm Establishing care with easton jimenez for November 10, 2024 1:57pm Morbid obesity with body mas s index (BMI) of 50.0 to 59.9 in adult November 10, 2024 1:57pm Bright red blood per rectum November 10 025 1:57pm Advance Directives No Advanced Directives Records Found Advance Directive Response Recorded Date/ Time Living Will No May 18 8:18am Power of Jigger [employer] Pouncing Machine Operator No Amy 1st, 2 024 8:18am Summary Purpose Family History Relationship Condition Age at Onset Recorded Date/T emilio father Alcoholism Unknown Anemia Unknown Malignant neoplasm of skin Unknown Anxiety Unknown Depression Unknown Mental disorder Unknown aunt Complication of anesthesia Unknown Cardiac disease Unknown Hypertension Unknown Disorder of thyroid Unknown Tachycardia Unknown mother Anxiety Unknown Palpitations Unknown sister Anxiety Unknown Benign intracranial hypertension Unknown Pituitary neoplasm Unknown sister Andrae-Danlos syndrome Unknown Postural orthostatic tachycardia syndrome Unknown Instability of ankle Unknown No Family History Records Found Additional Source Comments Source Comments (unrecognize d section and content) In the event this informatio n is protected by the Federal Confidentiality of Alcohol and Drug Abuse Patient Records regulations: The Federal rules restrict any use of the information to criminally investigate or prosecute any alcohol or drug abuse patient.[facility] the event this information is protected by the Federal Confidentiality of Alcohol and Drug Abuse Patient Records regulations: The Federal rules restrict any use of the information to criminally investigate or prosecute any alcohol or drug abuse patient.[facility] the event this information is protected by the Federal Confidentiality of Alcohol and Drug Abuse Patient Records regulations: The Federal rules restrict any use of the information to criminally investigate or prosecute any alcohol or drug abuse patient.[facility] Center[facility] the event this information is protected by the Federal Confidentiality of Alcohol and Drug Abuse Patient Records regulations: The Federal rules restrict any use of the information to criminally investigate or prosecute any alcohol or drug abuse patient.[facility] Center[facility] the event this information is protected by the Federal Confidentiality of Alcohol and Drug Abuse Patient Records regulations: The Federal rules restrict any use of the information to criminally investigate or prosecute any alcohol or drug abuse patient.[facility] Center[facility] the event this information is protected by the Federal Confidentiality of Alcohol and Drug Abuse Patient Records regulations: The Federal rules restrict any use of the information to criminally investigate or prosecute any alcohol or drug abuse patient.[facility] Center[facility] the event this information is protected by the Federal Confidentiality of Alcohol and Drug Abuse Patient Records regulations: The Federal rules restrict any use of the information to criminally investigate or prosecute any alcohol or drug abuse patient.[facility] Center[facility] the event this information is protected by the Federal Confidentiality of Alcohol and Drug Abuse Patient Records regulations: The Federal rules restrict any use of the information to criminally investigate or prosecute any alcohol or drug abuse patient.[facility] Center[facility] the event this information is protected by the Federal Confidentiality of Alcohol and Drug Abuse Patient Records regulations: The Federal rules restrict any use of the information to criminally investigate or prosecute any alcohol or drug abuse patient.[facility] Center[facility] the event this information is protected by the Federal Confidentiality of Alcohol and Drug Abuse Patient Records regulations: The Federal rules restrict any use of the information to criminally investigate or prosecute any alcohol or drug abuse patient.[facility] CenterIn the event this information is protected by the Federal Confidentiality of Alcohol and Drug Abuse Patient Records regulations: The Federal rules restrict any use of the information to criminally investigate or prosecute any alcohol or drug abuse patient.[facility] CenterIn the event this information is protected by the Federal Confidentiality of Alcohol and Drug Abuse Patient Records regulations: The Federal rules restrict any use of the information to criminally investigate or prosecute any alcohol or drug abuse patient.[facility] Center[facility] the event this information is protected by the Federal Confidentiality of Alcohol and Drug Abuse Patient Records regulations: The Federal rules restrict any use of the information to criminally investigate or prosecute any alcohol or drug abuse patient.[facility] Center[facility] the event this information is protected by the Federal Confidentiality of Alcohol and Drug Abuse Patient Records regulations: The Federal rules restrict any use of the information to criminally investigate or prosecute any alcohol or drug abuse patient.[facility] Center[facility] the event this information is protected by the Federal Confidentiality of Alcohol and Drug Abuse Patient Records regulations: The Federal rules restrict any use of the information to criminally investigate or prosecute any alcohol or drug abuse patient.[facility] Center[facility] the event this information is protected by the Federal Confidentiality of Alcohol and Drug Abuse Patient Records regulations: The Federal rules restrict any use of the information to criminally investigate or prosecute any alcohol or drug abuse patient.[facility] CenterIn the event this information is protected by the Federal Confidentiality of Alcohol and Drug Abuse Patient Records regulations: The Federal rules restrict any use of the information to criminally investigate or prosecute any alcohol or drug abuse patient.[facility] CenterIn the event this information is protected by the Federal Confidentiality of Alcohol and Drug Abuse Patient Records regulations: The Federal rules restrict any use of the information to criminally investigate or prosecute any alcohol or drug abuse patient.[facility] CenterIn the event this information is protected by the Federal Confidentiality of Alcohol and Drug Abuse Patient Records regulations: The Federal rules restrict any use of the information to criminally investigate or prosecute any alcohol or drug abuse patient.[facility] CenterIn the event this information is protected by the Federal Confidentiality of Alcohol and Drug Abuse Patient Records regulations: The Federal rules restrict any use of the information to criminally investigate or prosecute any alcohol or drug abuse patient.[facility] CenterIn the event this information is protected by the Federal Confidentiality of Alcohol and Drug Abuse Patient Records regulations: The Federal rules restrict any use of the information to criminally investigate or prosecute any alcohol or drug abuse patient.[facility] CenterIn the event this information is protected by the Federal Confidentiality of Alcohol and Drug Abuse Patient Records regulations: The Federal rules restrict any use of the information to criminally investigate or prosecute any alcohol or drug abuse patient.[facility] CenterIn the event this information is protected by the Federal Confidentiality of Alcohol and Drug Abuse Patient Records regulations: The Federal rules restrict any use of the information to criminally investigate or prosecute any alcohol or drug abuse patient.[facility] CenterIn the event this information is protected by the Federal Confidentiality of Alcohol and Drug Abuse Patient Records regulations: The Federal rules restrict any use of the information to criminally investigate or prosecute any alcohol or drug abuse patient.[facility] Reason for Visit (unrecogniz ed section and content) Reason Comments Ear Problem Left ear pain/pressu re Specialty Diagnoses / Procedures Referred By Contac t Referred To Contact [facility] Diagnoses closed door on right hand Procedures 4c est pt Self [facility] [place] [address] Referral ID Status Reason Start Date Expiration Date Visits Requested Visits Authorized [id number] Authorized Patient Cleared - Qualified [id number] 07/09/2023 10/07/2023 99 99 Reason Comments Well Woman Reason Comments Headache With light sensitivi ty x6 days, R sided SUERO Reason Comments Ear Pain right x 1 day, drain age x couple weeks Reason Comments Nail Fungus Reason Comments Vaginal Problem Possible yeast infec tion, itching, raw x 1 week Specialty Diagnoses / Procedures Referred By Contac t Referred To Contact Internal Medicine / [facility] Diagnoses posssible vaginal yeast infection Procedures EST SAME DAY [facility] [address] [address] [place] [address] Referral ID Status Reason Start Date Expiration Date V isits Requested Visits Authorized [id number] Pending Review 03/15/2023 05/14/2023 1 1 Reason Comments Results Reason Comments Finger Injury RIGHT ring finger x 1 week Reason Comments Flu Like Symptoms Fever, headache, johanna at ear pain, SOB, lethargic cough, runny nose congestion x 2 days Reason Comments Medication Question Reason Comments poison oak All over x 8 days Specialty Diagnoses / Procedures Referred By Vivianac t Referred To Contact [facility] Diagnoses possible poison oak: rash all over x 8 days Procedures EST SAME DAY [facility] [address] [place] [address] Referral ID Status Reason Start Date Expiration Date Visits Requested Visits Authorized [id number] Pending Review Financial Clearance Required - Self Pay 09/28/2023 12/27/2023 1 1 Reason Comments Rash Reason Comments Arm Injury left forearm kemp wit h wrist swelling x 2 days, fall x 3-4 days Reason Comments left shoulder pain REF: Moisés Rand x-ray: 11/17/2023 Reason Comments Nasal Congestion drainage, headache, fever x 4 days Reason Comments right foot pain and swelling X 4 days Reason Comments New HX of surgery Numbne ss around surgical site Pain HX of surgery Numbne ss around surgical site Swelling HX of surgery Numbne ss around surgical site Specialty Diagnoses / Procedures Referred By Contkaylee t Referred To Contact Podiatry Diagnoses Foot pain, right Procedures CONSULT TO PODIATRY OFFICE/OUTPATIENT NEW HIGH MDM 60 MINUTES Gurwinder Waterman APRN.SUPERVISOR SEWER MAINTENANCE [address] [place] [address] Phone: tel: fax: Referral ID Status Reason Start Date Expiration Date V isits Requested Visits Authorized [id number] Closed PCP Requested Referral 09/05/2024 09/05/2025 1 1 Reason Comments Pain HX of surgery Numbne ss around surgical site Swelling HX of surgery Numbne ss around surgical site Established Patient HX of surgery Numbne ss around surgical site Follow Up HX of surgery Numbne ss around surgical site Swelling Established Patient Follow Up Reason Comments New Patient Specialty Diagnoses / Procedures Referred By Contkaylee t Referred To Contact Vascular Surgery Diagnoses Venous insufficiency Procedures OFFICE/OUTPATIENT NEW HIGH MDM 60 MINUTES Enma Eagle DPM [address] [place] [address] Phone: tel: fax: Referral ID Status Reason Start Date Expiration Date V isits Requested Visits Authorized [id number] Closed PCP Requested Referral 11/07/2024 02/05/2025 1 1 Care Teams (unrecognized sec tion and content) [employer] Relationship Specialty Start Date End Date Kevin Roberson MD [address] [place], [place] [id number] PCP - General Internal Medicine 07/10/21 [employer] Relationship Specialty Start Date End Date Kevin Roberson MD [address] [place], [place] [address] PCP - General Internal Medicine 07/10/21 [employer] Relationship Specialty Start Date End Date Kevin Roberson MD [address] [place], [place] [id number] PCP - General Internal Medicine 07/10/21 [employer] Relationship Specialty Start Date End Date Kevin Roberson MD [address] [place] [address] PCP - General Internal Medicine 07/10/21 Team Status: Active Member Role Status Dates No Primary Care Physician Family Provider Active No Primary Care Physician Primary Care Provider Active Team Status: Inactive Member Role Status Dates No Primary Care Physician Primary Care Provider Active Dr. Samy Barboza MD Emergency Provider Active [employer] Relationship Specialty Start Date End Date Kevin Roberson MD [address] [place] [address] PCP - General Internal Medicine 07/10/21 [employer] Relationship Specialty Start Date End Date Kevin Roberson MD [address] [place], [place] [id number] PCP - General Internal Medicine 07/10/21 [employer] Relationship Specialty Start Date End Date Kevin Roberson MD [address] [place], [place] [id number] [phone] PCP - General Internal Medicine 07/10/21 [employer] Relationship Specialty Start Date End Date Kevin Roberson MD [address] [place] [address] PCP - General Internal Medicine 11/16/23 [employer] Relationship Specialty Start Date End Date Kevin Roberson MD [address] [place] [address] PCP - General Internal Medicine 11/16/23 [employer] Relationship Specialty Start Date End Date Kevin Roberson MD [address] [place] [address] PCP - General Internal Medicine 11/16/23 [employer] Relationship Specialty Start Date End Date Kevin Roberson MD [address] [place] [address] PCP - General Internal Medicine 07/10/21 09/29/23 [employer] Relationship Specialty Start Date End Date Zully Stanley, ASSISTANT PROFESSOR OF BUSINESS.SUPERVISOR SEWER MAINTENANCE [address] [place] [address] Software Development Leader Internal Medicine 04/25/24 [employer] Relationship Specialty Start Date End Date Zully Stanley, ASSISTANT PROFESSOR OF BUSINESS.SUPERVISOR SEWER MAINTENANCE [address] [place] [address] Software Development Leader Internal Medicine 04/25/24 [employer] Relationship Specialty Start Date End Date Zully Stanley, ASSISTANT PROFESSOR OF BUSINESS.SUPERVISOR SEWER MAINTENANCE [address] [place] [address] Software Development Leader Internal Medicine 04/25/24 [employer] Relationship Specialty Start Date End Date Zully Stanley, ASSISTANT PROFESSOR OF BUSINESS.SUPERVISOR SEWER MAINTENANCE [address] [place] [address] [facility] Internal Medicine 04/25/24 [employer] Relationship Specialty Start Date End Date Zully Stanley, ASSISTANT PROFESSOR OF BUSINESS.SUPERVISOR SEWER MAINTENANCE [address] [place] [address] [facility] Internal Medicine 04/25/24 Team Status: Active Member Role Status Dates Dr. Lois Mendez MD Primary Care Provider Active Team Status: Inactive Member Role Status Dates No Primary Care Physician Primary Care Provider Active Start: November 10, 2024 End: November 10, 2024 No Primary Care Physician Referring Provider Active Start: November 10, 2024 End: November 10, 2024 Dr. Lois Mendez MD Attending Provider Active Start: November 10, 2024 End: November 10, 2024 Team Status: Active Member Role Status Dates Dr. Lois Mendez MD Primary Care Provider Active Start: November 10, 2024 Dr. Lois Mendez MD Attending Provider Active Start: November 10, 2024 Dr. Lois Mendez MD Referring Provider Active Start: November 10, 2024 Team Status: Active Member Role/Relationship Status Dates Dr. Lois Mendez MD Primary Care Provider Active Team Status: Inactive Member Role/Relationship Status Dates No Primary Care Physician Primary Care Provider Active Start: November 10, 2024 End: November 10, 2024 No Primary Care Physician Referring Provider Active Start: November 10, 2024 End: November 10, 2024 Dr. Lois Mendez MD Attending Provider Active Start: November 10, 2024 End: November 10, 2024 Team Status: Inactive Member Role/Relationship Status Dates Dr. Lois Mendez MD Primary Care Provider Active Start: November 10, 2024 End: November 10, 2024 Dr. Lois Mendez MD Attending Provider Active Start: November 10, 2024 End: November 10, 2024 Dr. Lois Mendez MD Referring Provider Active Start: November 10, 2024 End: November 10, 2024 Team Status: Active Member Role/Relationship Status Dates Dr. Lois Mendez MD Primary Care Provider Active Start: November 11, 2024 Dr. Lois Mendez MD Attending Provider Active Start: November 11, 2024 Dr. Lois Mendez MD Referring Provider Active Start: November 11, 2024 [employer] Relationship Specialty Start Date End Date Zully Stanley, ASSISTANT PROFESSOR OF BUSINESS.SUPERVISOR SEWER MAINTENANCE [address] [place] [address] Software Development Leader Internal Medicine 04/25/24 [employer] Relationship Specialty Start Date End Date Zully Stanley, ASSISTANT PROFESSOR OF BUSINESS.SUPERVISOR SEWER MAINTENANCE [address] [place], [place] [address] Software Development Leader Internal Medicine 04/25/24 Goals (unrecognized section and content) Goals may be documented in a n alternate section INFORMATION SOURCE (unrecogn ized section and content) DATE CREATED AUTHOR 10/02/2023 [facility] DATE CREATED AUTHOR AUTHOR'S ORGANIZ ATION 11/30/2024 [facility] DATE CREATED AUTHOR AUTHOR'S ORGANIZ ATION 12/29/2024 [facility] DATE CREATED AUTHOR AUTHOR'S ORGANIZ ATION 02/04/2025 [facility] FOR RECORDS PERTAINING TO PATIENTS WHO ARE [...] BE BASED ON THE PRIMARY CLINICAL RECORDS. [employer] provides no warranty or guarantee of the accuracy or completeness of information in this document.
[2025-02-10 08:09] LABS: PROGESTERONE 7.1 ng/mL (.)
== END | disposition home or self-care (01) ==
LOC: LAB 12:19
PROVIDERS: PCP Internal Medicine; Referring Provider Nurse Practitioner Women's Health; Visit Provider Nurse Practitioner Women's Health
DX: Z31.9 Encounter for procreative management, unspecified (principal)
CPT/HCPCS: 36415; 84144